=== PATIENT | female | born 1945 | race Caucasian/White ===

== ENCOUNTER 2022-09-29 08:36 | Outpatient (OUT) | payer MEDICARE, SELFPAY ==
[2022-09-29 09:20] LABS: Basophils Absolute Auto 0.1 10^3/uL (0.0-0.1); Basophils Percent Auto 1.3 % (0.2-2.0); Eosinophils Absolute Auto 0.1 10^3/uL (0.0-0.7); Eosinophils Percent Auto 1.9 % (0.9-7.0); Hematocrit 44.7 % (36.0-48.0); Hemoglobin 14.1 g/dL (12.0-16.0); Immature Granulocytes Abs Auto 0.02 10^3/uL (0.00-0.03); Immature Granulocytes Pct Auto 0.3 % (0.0-0.5); Lymphocytes Absolute Auto 1.4 10^3/uL (1.2-3.8); Lymphocytes Percent Auto 23.2 % (20.5-60.0); Mean Corpuscular HGB Conc 31.5 g/dL (29.9-35.2); Mean Corpuscular Hemoglobin 25.5 pg (26.7-34.0); Mean Corpuscular Volume 80.7 fL (81.0-99.0); Mean Platelet Volume 10.7 fL (9.5-13.5); Monocytes Absolute Auto 0.6 10^3/uL (0.3-0.8); Monocytes Percent Auto 9.1 % (1.7-12.0); Neutrophils Percent Auto 64.2 % (43.0-75.0); Nucleated Red Blood Cells 0; Platelet Count 507 10^3/uL (150-450); Red Blood Count 5.54 10^6/uL (4.20-5.40); Red Cell Distribution Width 14.6 % (11.0-15.0); White Blood Count 6.2 10^3/uL (4.0-11.0)
[2022-09-29 10:22] LABS: Alanine Aminotransferase 25 U/L (14-59); Albumin Globulin Ratio 1.3; Albumin Level 4.3 g/dL (3.4-5.0); Alkaline Phosphatase 85 U/L (46-116); Anion Gap 10.1; Aspartate Amino Transferase 22 U/L (15-37); BUN Creatinine Ratio 10.1; Bilirubin Total 0.8 mg/dL (0.2-1.0); Calcium 9.6 mg/dL (8.5-10.1); Carbon Dioxide 29.7 mmol/L (21.0-32.0); Chloride 97 mmol/L (98-107); Chol HDL Ratio 2.9; Cholesterol 171 mg/dL (<=200); Estimated GFR (African America >60 (>=60); Estimated GFR (Non-African Ame >60 (>=60); Globulin 3.4 g/dL; Glucose 96 mg/dL (74-106); HDL Cholesterol 58 mg/dL (40-60); Potassium 3.8 mmol/L (3.5-5.1); Sodium 133 mmol/L (136-145); Thyroid Stimulating Hormone 4.016 uIU/mL (0.358-3.740); Total Protein 7.7 g/dL (6.4-8.2); Triglycerides 170 mg/dL (<=150)
== END 2022-09-29 08:37 ==
PROVIDERS: PCP Internal Medicine; Visit Provider Internal Medicine
DX: E78.5 Hyperlipidemia, unspecified (principal); I10 Essential (primary) hypertension; E03.9 Hypothyroidism, unspecified
CPT/HCPCS: 36415; 80053; 80061; 84443; 85025

== ENCOUNTER 2023-01-19 09:02 | Outpatient (OUT) | payer MEDICARE, OTHER, SELFPAY ==
[2023-01-19 11:31] LABS: Free T3 6.25 pg/mL (2.18-3.98); Thyroid Stimulating Hormone 5.035 uIU/mL (0.358-3.740)
[2023-01-19 11:52] LABS: Free T4 0.83 ng/dL (0.76-1.46)
== END 2023-01-19 09:03 | disposition home or self-care (01) ==
LOC: LAB 09:05
PROVIDERS: PCP Internal Medicine; Visit Provider Internal Medicine
DX: E03.9 Hypothyroidism, unspecified (principal)
CPT/HCPCS: 36415; 84436; 84439; 84443; 84481

== ENCOUNTER 2023-02-22 08:09 | Outpatient (OUT) | payer MEDICARE, OTHER, SELFPAY ==
--- NOTE | 2023-02-22 | PCN_ITS ---
CARDIAC STRESS TEST Requesting Physician:? Procedure Date:? 02/22/2023 This was a treadmill exercise stress with myocardial perfusion imaging performed at the [facility] on 02/22/2023. Informed consent was obtained.? The patient was attached to electrocardiographic monitoring.? An intravenous line was secured.? The patient exercised on the Jasiel protocol for 4 minutes and 46 seconds and reached stage 2 of the protocol.? The patient achieved 7 METS. ? Resting heart rate was 59 BPM and maximal heart rate was 129 BPM, representing 89% of the maximal predicted heart rate.?? Resting blood pressure was 142/80.? Maximum blood pressure was 172/86.? Resting ECG showed sinus rhythm without acute changes.? ECG during exercise stress test showed sinus tachycardia with occasional PACs and PVCs, without ischemic ST changes.? ECG during recovery showed sinus rhythm without ischemic changes.? SUMMARY OF THE FINDINGS: 1.? No evidence of ischemic ECG changes following treadmill exercise stress test. 2.? Poole treadmill score of +5 is associated with low risk for future cardiac events. 3.? Resting hypertension and appropriate response to exercise. 4.? Myocardial perfusion images will be reported separately. MTDD
--- NOTE | 2023-02-22 08:15 | NM_ITS ---
Patient: TOÑITO PUTNAM Exam Date: 02/22/2023 : 1945 Gender:F Ordering : [facility] Admission #: [id number] Family : Shaikh Shahida Bassett . Order #: [id number] CLICK HERE TO VIEW EXAM RADIOLOGY REPORT PROCEDURE: NM MICHAEL PERF SPECT REST STR COMPARISON: None. INDICATIONS: CORONARY ARTERY DISEASE TECHNIQUE: Exam Description: Stress/Rest one day protocol gated SPECT Rest Imagin.9 mCi Tc-99m Cardiolite IV on 02/22/2023 Stress Imaging 30.9 mCi Tc-99m Cardiolite IV on 02/22/2023 Exercise Protocol: Jasiel Heart Rate (bpm): Rest: 59 Max: 129 PMHR: 89 Blood Pressure: Rest: 142/80 Max: 172/86 Exercise Time: Minutes: 4 Seconds: 46 Stage Reached: Stage: 2 Mets 7.0 Symptoms: SHORTNESS OF BREATH Rest and peak stress ECG findings were pending and the exercise portion of the study was pending per attending physician Dr. DYER . For more details please see separate cardiac stress test report. FINDINGS: QUALITY OF STUDY: Excellent. PERFUSION DEFECT: None. LOCATION: Mid-anterior. Apical anterior. SIZE: Small (1-2 segments). SEVERITY: Mild. TYPE: Persistent. WALL MOTION: Normal. LV SIZE: Normal. 63 mL. TID / TCD: None; 0.7 LVEF: Normal. Calculated EF 76%. SUMMARY: Myocardial perfusion imaging study has ABNORMAL findings. CONCLUSION: 1. No acute or reversible ischemia. 2. Attenuation artifact versus small area of fixed ischemia involving the mid and apical anterior wall. 3. Normal wall motion and ejection fraction. Dictated by: Humberto Hein M.D. on 02/22/2023 at 13:30 Approved by: Humberto Hein M.D. on 02/22/2023 at 13:32
== END 2023-02-22 08:10 | disposition home or self-care (01) ==
PROVIDERS: PCP Internal Medicine; Visit Provider Nurse Practitioner Family
DX: I25.10 Atherosclerotic heart disease of native coronary artery without angina pectoris (principal); Z82.49 Family history of ischemic heart disease and other diseases of the circulatory system; R06.02 Shortness of breath
CPT/HCPCS: 78452; 93017; A9500

== ENCOUNTER 2023-04-12 09:40 | Outpatient (OUT) | payer MEDICARE, OTHER, SELFPAY ==
[2023-04-12 10:42] LABS: Alanine Aminotransferase 29 U/L (14-59); Albumin Globulin Ratio 1.2; Alkaline Phosphatase 81 U/L (46-116); Anion Gap 13.2; Aspartate Amino Transferase 22 U/L (15-37); BUN Creatinine Ratio 11.8; Bilirubin Total 0.8 mg/dL (0.2-1.0); Calcium 8.9 mg/dL (8.5-10.1); Carbon Dioxide 31.5 mmol/L (21.0-32.0); Chloride 105 mmol/L (98-107); Chol HDL Ratio 2.9; Cholesterol 167 mg/dL (<=200); Estimated GFR (African America >60 (>=60); Estimated GFR (Non-African Ame >60 (>=60); Globulin 3.4 g/dL; Glucose 89 mg/dL (74-106); HDL Cholesterol 57 mg/dL (40-60); LDL Cholesterol Calculated 92.2 mg/dL; Potassium 3.7 mmol/L (3.5-5.1); Sodium 146 mmol/L (136-145); TSH W/ REFLEX FT4 3.813 (0.358-3.740); Total Protein 7.4 g/dL (6.4-8.2); Triglycerides 89 mg/dL (<=150); VLDL CHOLESTEROL 17.8 mg/dL
[2023-04-17 11:17] LABS: Free T4 0.77 ng/dL (0.76-1.46)
== END 2023-04-12 09:41 | disposition home or self-care (01) ==
LOC: LAB 09:42
PROVIDERS: PCP Internal Medicine; Visit Provider Internal Medicine
DX: E03.9 Hypothyroidism, unspecified (principal); I10 Essential (primary) hypertension; E78.5 Hyperlipidemia, unspecified
CPT/HCPCS: 36415; 80053; 80061; 84439; 84443

== ENCOUNTER 2023-06-26 09:54 | Outpatient (OUT) | payer MEDICARE, OTHER, SELFPAY ==
--- NOTE | 2023-06-26 09:58 | MM_ITS ---
Patient Name: TOÑITO PUTNAM MR#: [id number] : 1945 Exam Date: 06/26/2023 Ordering Doctor: Shaikh Shahida Bassett . RADIOLOGY REPORT PROCEDURE: MM TOMOSYNTHESIS SCREENING BI COMPARISON: MG MAMM SCREEN 3D NIKKI CAD, 06/21/2021. MG MAMM SCREEN 3D NIKKI CAD, 06/23/2022. INDICATIONS: screening Calculator Name NCI Breast Cancer Risk Assessment Tool 5 Year Breast Cancer Risk 1.50% Lifetime Breast Cancer Risk 3.10% Personal Breast Cancer No Personal Ovarian Cancer No Treatments None Family Cancers Mother with colon cancer at age ~70; Father with colon cancer at age ~60; Brother with lung cancer at age ~60. LOCATION: [facility] BREAST COMPOSITION: Scattered areas fibroglandular density. FINDINGS: DIAGNOSTIC CATEGORY 2--BENIGN FINDING. NO CHANGE FROM COMPARISON. Scattered benign-appearing calcifications are present. Scattered benign-appearing lymph nodes are present. RIGHT BREAST: No significant suspicious finding. LEFT BREAST: No significant suspicious finding. RECOMMENDATIONS: ROUTINE MAMMOGRAM AND CLINICAL EVALUATION IN 12 MONTHS. PLEASE NOTE: A NORMAL MAMMOGRAM DOES NOT EXCLUDE THE POSSIBILITY OF BREAST CANCER. A CLINICALLY SUSPICIOUS PALPABLE LUMP SHOULD BE BIOPSIED. Dictated by: Catracho Jackson MD on 06/26/2023 at 14:15 Approved by: Catracho Jackson MD on 06/26/2023 at 14:17
--- OUTSIDE RECORDS SUMMARY | 2023-06-26 10:12 | XMS_ITS | CCD ---
Author Name Unknown Address [address] [place] [address] [address] [place] [id number] Organization [facility] Care Team Providers Care Automation Developer Name Role Phone SHAIKH ACEVEDO Primary Care Physician FAWWAD, SIMEON H Primary Care Unavailable MISC, DR PERAZA Consulting Unavailable MISC, DR PERAZA Admitting Unavailable MISC, DR PERAZA Attending Unavailable FAWWAD, SIMEON H Consulting Unavailable FAWWAD, SIMEON H Primary Care Unavailable FAWWAD, SIMEON H Admitting Unavailable FAWWAD, SIMEON H Attending Unavailable FAWWAD, SIMEON H Primary Care Unavailable MISC, DR PERAZA Consulting Unavailable MISC, DR PERAZA Admitting Unavailable MISC, DR PERAZA Attending Unavailable FAWWAD, SIMEON H Consulting Unavailable FAWWAD, SIMEON H Primary Care Unavailable FAWWAD, SIMEON H Admitting Unavailable FAWWAD, SIMEON H Attending Unavailable MISC, DR PERAZA Attending Unavailable HAZELWOOD, DR SULAIMAN Walker Consulting Unavailable MISC, DR PERAZA Admitting Unavailable FAWWAD, SIMEON H Primary Care Unavailable MISC, DR PERAZA Consulting Unavailable FAWWAD, SIMEON H Consulting Unavailable FAWWAD, SIMEON H Primary Care Unavailable FAWWAD, SIMEON H Admitting Unavailable FAWWAD, SIMEON H Attending Unavailable ZIEBLIZZIE, DR HUMBERTO Malin Consulting Unavailable FAWWAD, SIMEON H Primary Care Unavailable FAWWAD, SIMEON H Admitting Unavailable FAWWAD, SIMEON H Attending Unavailable FAWWAD, SIMEON H Consulting Unavailable SALAM, GELLER Admitting Unavailable FAWWAD, SIMEON H Primary Care Unavailable FANG MARKSER Attending Unavailable DALLAS, DR HUMBERTO Malin Consulting Unavailable SELINA, DUYEN Consulting Unavailable Brianna Pastor Attending Unavailable Brianna Pastor Attending Unavailable Brianna Pastor Attending Unavailable SHAIKH ACEVEDO Primary Care Unavailable Brianna Pastor Attending Unavailable SHAIKH ACEVEDO Primary Care Unavailable Brianna Pastor Attending Unavailable SHAIKH ACEVEDO Primary Care Unavailable Brianna Pastor Admitting Unavailable BRUNO TEJADA Attending Unavailable CARLOZ HAWK Attending Unavailable SHAIKH ACEVEDO Attending Unavailable Allergies Allergy Classification Reported Allergen(s) Allergy Type Date of Onset Reaction(s) Facility (6 sources) Meperidine; Translations: [meperidine] Drug Allergy 04-17-2014 Other (qualifier value) [facility] Medications Current Medications Medication Drug Class(es) Dates Sig (Normalized) Sig (Original) aspirin 81 mg delayed release oral tablet (2 sources) Platelet Aggregation Inhibitor, Nonsteroidal Anti-inflammator y Drug Start: 2 Aspirin 81 mg Tab-EC Refills(s) 0 Start Date: 03/02/22 Status: Ordered Aspirin 81 mg Tab-EC (4 sources) Start: 2 Aspirin 81 mg Tab-EC Refills(s) 0 Start Date: 03/02/22 Status: Ordered atenolol 25 mg oral tablet (8 sources) beta-Adrenergic John Start: 7 take 25 mg by mouth once daily Tenormin 25 mg, Oral, Daily, Refills(s) 0, High blood pressure Start Date: 01/04/17 Status: Ordered atorvastatin 40 mg oral tablet (8 sources) HMG-CoA Reductase Inhibitor Start: 7 take 40 mg by mouth once daily Lipitor 40 mg, Oral, Daily, Refills(s) 0, High cholesterol Start Date: 01/04/17 Status: Ordered cetirizine hydrochloride 10 mg oral tablet (8 sources) Histamine-1 Receptor Antagonist Start: 7 take 10 mg by mouth once daily as needed Zyrtec 10 mg, Oral, Daily, PRN Allergy symptoms, Refills(s) 0 Start Date: 01/04/17 Status: Ordered hydroCHLOROthiazide 25 mg oral tablet (8 sources) Thiazide Diuretic Start: 7 take 25 mg by mouth once daily hydrochlorothiazide 25 mg, Oral, Daily, Refills(s) 0, High blood pressure Start Date: 01/04/17 Status: Ordered 24 hr isosorbide mononitrate 30 mg extended release oral tablet (8 sources) Nitrate Vasodilator Start: 7 take 30 mg by mouth once daily in the morning Imdur 30 mg, Oral, qAM, Refills(s) 0, High blood pressure Start Date: 01/04/17 Status: Ordered Thyroxine (8 sources) l-Thyroxine Start: 7 levothyroxine 25 microgram, Oral, Daily, Refills(s) 0, Thyroid Start Date: 01/04/17 Status: Ordered Triiodothyronine (8 sources) l-Triiodothyroni ne Start: 9 liothyronine 25 microgram, Oral, Daily, Refills(s) 0, Thyroid Start Date: 04/03/19 Status: Ordered Lisinopril (8 sources) Angiotensin Converting Enzyme Inhibitor Start: 1 lisinopril Oral, Daily, Refills(s) 0, High blood pressure Start Date: 03/30/21 Status: Ordered meloxicam 7.5 mg oral tablet (8 sources) Nonsteroidal Anti-inflammator y Drug Start: 1 take 7.5 mg by mouth once daily meloxicam 7.5 mg, Oral, Daily, Refills(s) 0, Pain Start Date: 03/30/21 Status: Ordered pantoprazole 40 mg extended release oral tablet (8 sources) Proton Pump Inhibitor Start: 0 take 1 tablet by mouth once daily pantoprazole 40 mg Oral EC Tab 40 mg = 1 tab(s), Oral, Daily, # 90 tab(s), Refills(s) 1, Pharmacy: [facility], 162, cm, 04/22/19 13:39:00 EST, Height/Length Measured, 72, kg, 04/22/19 13:39:00 EST, Weight Measured Start Date: 12/02/19 Status: Ordered Start: 12-02-2019 take 1 tablet by michele th once daily pantoprazole 40 mg Oral EC Tab 40 mg = 1 tab(s), Oral, Daily, # 90 tab(s), Refills(s) 1, Pharmacy: [facility], 162, cm, 04/22/19 13:39:00 EST, Height/Length Measured, 72, kg, 04/22/19 13:39:00 EST, Weight Measured Start Date: 12/02/19 Status: Ordered Miralax (8 sources) Osmotic Laxative Start: 01-04-2017 MiraLax 17 gram, Oral, BID, Refill(s) 0, Constipation Start Date: 01/04/17 Status: Ordered Klor-Con (8 sources) Start: 01-04-2017 Klor-Con 20 mEq, Oral, Daily, Refills(s) 0, Other (see comment) Start Date: 01/04/17 Status: Ordered spironolactone 25 mg oral tablet (8 sources) Aldosterone Antagonist Start: 01-04-2017 take 25 mg by mouth once daily spironolactone 25 mg, Oral, Daily, Refills(s) 0, High blood pressure Start Date: 01/04/17 Status: Ordered sucralfate 1000 mg oral tablet (6 sources) Aluminum Complex Start: 03-01-2023 sucralfate 1 g Tab Refills(s) 0 Start Date: 03/01/23 Status: Ordered Start: 03-30-2021 take 1 g by mouth th ree times daily sucralfate 1 gm, Oral, TID, Refills(s) 0, Other (see comment) Start Date: 03/30/21 Status: Ordered Problems Active Problems Problem Classification Problem Date Documented Date Episodic/Chronic Abdominal pain (19 sources) Upper abdominal pain; Translations: [Upper abdominal pain, unspecified] Onset: 08-12-2021 Episodic Coronary atherosclerosis and other heart disease (4 sources) Atherosclerotic heart disease of [place] coronary artery without angina pectoris; Translations: [Coronary arteriosclerosis] Onset: 07-06-2022 Chronic Disorders of lipid metabolism (5 sources) Hyperlipidemia, unspecified; Translations: [Mixed hyperlipidemia] Onset: 03-28-2022 Chronic Esophageal disorders (7 sources) Gastroesophageal reflux disease without esophagitis; Translations: [Gastro-esophageal reflux disease without esophagitis] Onset: 06-02-2022 Chronic Essential hypertension (5 sources) Essential (primary) hypertension; Translations: [Hypertensive disorder] Onset: 03-28-2022 Chronic Gastroduodenal ulcer (except hemorrhage) (11 sources) Gastric erosion; Translations: [Gastric ulcer] Onset: 08-27-2021 2 Chronic Other and unspecified benign neoplasm (12 sources) History of polyp of colon; Translations: [Personal history of colonic polyps] Onset: 12-01-2021 Episodic Other screening for suspected conditions (not mental disorders or infectious disease) (4 sources) Encounter for screening mammogram for malignant neoplasm of breast; Translations: [ENC SCR MAMMO MALIG NEOPLASM BREAST] Onset: 06-23-2022 Episodic Residual codes; unclassified (1 source) Family history of malignant neoplasm of digestive organs; Translations: [FAM HX MALIG NEOPLASM DIGESTIV ORGN] Onset: 06-27-2022 Episodic Residual codes; unclassified (1 source) Family history of malignant neoplasm of trachea, bronchus and lung; Translations: [FAM HX MALIG NEOPLSM TRACH BRON LNG] Onset: 06-27-2022 Episodic Thyroid disorders (12 sources) Hypothyroidism; Translations: [Hypothyroidism, unspecified] Onset: 03-23-2022 03-20-2019 Chronic Unclassified (3 sources) Finding of sensation of abdomen 08-31-2022 Past or Other Problems Problem Classification Problem Date Documented Da te Episodic/Chronic Fluid and electrolyte disorders (4 sources) Hypo-osmolality and hyponatremia; Translations: [HYPO-OSMOLALITY AND HYPONATREMIA] Onset: 08-24-2021 Episodic Results Test Name Value Interpretation Reference Range Facility Office Visiton 04-07-2023 Follow-up visit [id number] Toñito Putnam 1945 F Date Provider Department Center 04/07/2023 CARLOZ NICK C[facility] Family History Problem Relation Age of Onset Coronary artery disease Sister 62 Comments: Passed age 62 Coronary artery disease Brother 58 Cancer Other Coronary artery disease Other Family Status - Relation Status Age at Sister Brother Other Level of Service:14572 IN OFFICE/OUTPATIENT ESTABLISHED LOW MDM 20-29 MIN Normal [facility] Gastroenterology Office/Clin ic Noteon 03-01-2023 Gastroenterology Office/Clinic Note Chief Complaint Checkup HPI Staff This is a 77 year old female who presents today for a follow-up from 08/31/22 office visit for cramping and reflux. History of Present Illness Patient is a 77-year-old female who presents for follow-up. Patient was previously evaluated 08/2022 and has history of abdominal cramping and colon polyps. Patient also with history of acid reflux. Patient with family history of celiac disease?patient's granddaughter and daughter. Patient had previous celiac serology that was normal 03/2022. Patient with history of cholecystectomy 5 years ago. Previous ultrasound of abdomen at outside facility 03/2022 showed no acute process. Patient reported during most recent visit with me that generalized abdominal cramping and diarrhea were occurring rarely depending on what she ate such as fruit. Patient was educated regarding probiotics daily and regarding Metamucil 1 capsule daily. Patient was advised to continue pantoprazole 40 mg daily for acid reflux and was ordered labs to evaluate for vitamin deficiencies. Labs completed 08/2022 revealed normal BMP, normal magnesium and B12 levels. Patient with PMH of HTN, HLD, hypothyroidism?managed by patient's PCP. Patient had previously reported upper abdominal burning that had improved with pantoprazole and Carafate. Previous EGD 03/2021 revealed gastric erosions and small hiatal hernia, normal duodenum. Patient was previously advised to avoid NSAIDs. Patient had previous CT abdomen/pelvis at outside facility 07/2021 that revealed no abnormal findings. Previous labs 11/2021 revealed normal H&H, normal BUN, normal creatinine, normal liver enzymes. Labs 08/2022 revealed normal BMP, magnesium, and B12 levels. Previous colonoscopy 03/2019 revealed tubular adenoma removed from ascending colon, hemorrhoids and is due for repeat colonoscopy in 2023. During today's visit, patient reports generalized abdominal cramping has improved and occurs rarely. Patient explains her PCP is prescribing Carafate and she takes daily. She reports acid reflux is well-controlled with pantoprazole 40mg daily. Explains triggers of acid reflux are spicy foods. Is having 2-3 formed BMs daily, semi-formed. Denies use of fiber supplementation daily. Denies black/bloody stools, nausea/vomiting, fevers/chills, and denies having any other GI complaints. Review of Systems ROS - Provider Constitutional: no fever, no chills. Skin: no Jaundice. ENMT: Denies dysphagia and heartburn. Respiratory: no shortness of breath. Cardiovascular: no chest pain. Gastrointestinal: no nausea, no vomiting, no diarrhea, no GI bleeding. Physical Exam Vitals & Measurements T: 36.4 ?C(Temporal Artery) HR: 55(Peripheral) BP: 133/89 HT: 64 in HT: 162 cm WT: 75.1 kg WT: 165.22 lb BMI: 28.62 General: Well developed, well nourished, in no acute distress Head: Normocephalic/atraumatic Lungs: Normal respiratory effort and clear to auscultation Cardio: Regular rate and rhythm, normal S1 and S2, no murmur, no rub Abdomen: Soft, non-distended, non-tender. Normoactive bowel sounds present in all 4 abdominal quadrants, bilaterally. Mental Status: Alert and oriented x3. Normal mood and affect Assessment/Plan 1. Acid reflux (K21.9: Gastro-esophageal reflux disease without esophagitis) Controlled. Previous EGD 03/2021 revealed gastric erosions and small hiatal hernia, normal duodenum. Avoid NSAIDs and triggering foods. Labs 08/2022 revealed normal BMP, magnesium, and B12 levels. Ordered vitamin B12 level and magnesium level to evaluate for deficiencies and BMP to evaluate renal function while on pantoprazole long-term. Is taking Carafate daily- is prescribed by her PCP. Continue pantoprazole 40mg daily. 2. Abdominal cramping (R10.9: Unspecified abdominal pain) Improved. Previous EGD 03/2021 revealed gastric erosions and small hiatal hernia, normal duodenum. Previous colonoscopy 03/2019 revealed tubular adenoma removed from ascending colon, hemorrhoids and is due for repeat colonoscopy in 03/2024. Educated regarding use of fiber supplementation daily. 3. History of colon polyps (Z86.010: Personal history of colonic polyps) Previous colonoscopy 03/2019 revealed tubular adenoma removed from ascending colon, hemorrhoids and is due for repeat colonoscopy in 03/2024. Educated regarding use of fiber supplementation daily. Follow-up With When Contact Information Brianna Pastor CNP Within 6 months Additional Instructions: Patient Education High-Fiber Eating Plan Problem List/Past Medical History Ongoing Abdominal cramping Acid reflux Gastric erosions History of colon polyps Hypothyroidism Historical Upper abdominal pain Procedure/Surgical History Esophagogastroduodenoscopy (04/12/2021), Colonoscopy (04/03/2019), Esophagogastroduodenoscopy (04/03/2019). Medications Aspirin 81 mg Tab-EC hydrochlorothiazide, 25 mg, Oral, Daily, Not taking Imdur, 30 mg, Oral, qAM, Not taking Klor-Con, 20 mEq, Ora (more content not included)... Normal [facility] Comment on above: Result Comment: Amber maldonado Signed By: Brinana Pastor CNP\.jennifer\Date and Time Signed: 03/01/23 09:44 EDT Patient Educationon 03-01-20 Patient Education Gastroenterology High-Fiber Eating Plan Fiber, also called dietary fiber, is a type of carbohydrate. It is found foods such as fruits, vegetables, whole grains, and beans. A high-fiber diet can have many health benefits. Your health care provider may recommend a high-fiber diet to help: ? Prevent constipation. Fiber can make your bowel movements more regular. ? Lower your cholesterol. ? Relieve the following conditions: ? Inflammation of veins in the anus (hemorrhoids). ? Inflammation of specific areas of the digestive tract (uncomplicated diverticulosis). ? A problem of the large intestine, also called the colon, that sometimes causes pain and diarrhea (irritable bowel syndrome, or IBS). ? Prevent overeating as part of a weight-loss plan. ? Prevent heart disease, type 2 diabetes, and certain cancers. What are tips for following this plan? Reading food labels ? Check the nutrition facts label on food products for the amount of dietary fiber. Choose foods that have 5 grams of fiber or more per serving. ? The goals for recommended daily fiber intake include: ? Men (age 50 or younger): 34?38 g. ? Men (over age 50): 28?34 g. ? Women (age 50 or younger): 25?28 g. ? Women (over age 50): 22?25 g. Your daily fiber goal is g. Shopping ? Choose whole fruits and vegetables instead of processed forms, such as apple juice or applesauce. ? Choose a wide variety of high-fiber foods such as avocados, lentils, oats, and kidney beans. ? Read the nutrition facts label of the foods you choose. Be aware of foods with added fiber. These foods often have high sugar and sodium amounts per serving. Cooking ? Use whole-grain flour for baking and cooking. ? Cook with brown rice instead of white rice. Meal planning ? Start the day with a breakfast that is high in fiber, such as a cereal that contains 5 g of fiber or more per serving. ? Eat breads and cereals that are made with whole-grain flour instead of refined flour or white flour. ? Eat brown rice, bulgur wheat, or millet instead of white rice. ? Use beans in place of meat in soups, salads, and pasta dishes. ? Be sure that half of the grains you eat each day are whole grains. General information ? You can get the recommended daily intake of dietary fiber by: ? Eating a variety of fruits, vegetables, grains, nuts, and beans. ? Taking a fiber supplement if you are not able to take in enough fiber in your diet. It is better to get fiber through food than from a supplement. ? Gradually increase how much fiber you consume. If you increase your intake of dietary fiber too quickly, you may have bloating, cramping, or gas. ? Drink plenty of water to help you digest fiber. ? Choose high-fiber snacks, such as berries, raw vegetables, nuts, and popcorn. What foods should I eat? Fruits Berries. Pears. Apples. Oranges. Avocado. Prunes and raisins. Dried figs. Vegetables Sweet potatoes. Spinach. Kale. Artichokes. Cabbage. Broccoli. Cauliflower. Green peas. Carrots. Squash. Grains Whole-grain breads. Multigrain cereal. Oats and oatmeal. Brown rice. Barley. Bulgur wheat. Millet. Quinoa. Bran muffins. Popcorn. [place] wafer crackers. Meats and other proteins [place] beans, kidney beans, and gee beans. Soybeans. Split peas. Lentils. Nuts and seeds. Dairy Fiber-fortified yogurt. Beverages Fiber-fortified soy milk. Fiber-fortified orange juice. Other foods Fiber bars. The items listed above may not be a complete list of recommended foods and beverages. Contact a dietitian for more information. What foods should I avoid? Fruits Fruit juice. Cooked, strained fruit. Vegetables Fried potatoes. Canned vegetables. Well-cooked vegetables. Grains White bread. Pasta made with refined flour. White rice. Meats and other proteins Fatty cuts of meat. Fried chicken or fried fish. Dairy Milk. Yogurt. Cream cheese. Sour cream. Fats and oils [place]. Beverages Soft drinks. Other foods Cakes and pastries. The items listed above may not be a complete list of foods and beverages to avoid. Talk with your dietitian about what choices are best for you. Summary ? Fiber is a type of carbohydrate. It is found in foods such as fruits, vegetables, whole grains, and beans. ? A high-fiber diet has many benefits. It can help to prevent constipation, lower blood cholesterol, aid weight loss, and reduce your risk of heart disease, diabetes, and certain cancers. ? Increase your intake of fiber gradually. Increasing fiber too quickly may cause cramping, bloating, and gas. Drink plenty of water while you increase the amount of fiber you consume. ? The best sources of fiber include whole fruits and vegetables, whole grains, nuts, seeds, and beans. This information is not intended to replace advice given to you by your health care provider. Make sure you discuss any questions you have with your health care provider. Document Revised: (more content not included)... Normal [facility] Coding Summary.on 09-05-2022 Coding Summary. [id number] Ww+PGhlY WQ+QY9WZYItN10jrESwtM2uM4GJO TyDNmwjTFLQSDfHIjLpguAfCV7tu XNjZXJu IC8+BS6tIONmAesrhJTrg1B8fEQ5 P27kmj8aBYqfsMF0CKLnPsZyleme d5pzwCr4YIeyPopdUqRe WCLrxK26QLN6rD03Mp31eFAayETj b4faxNh6JoSeZZAxNFT0pWurMFnj o3IuJZRqL41dsSLpq6I9 AKOcgDzecYIyQrUknMV3xS5rCNjm xxixe0rcnhifCfu7kx03cLQdy2P8 sOT5Q7LxoaR0TLQmuUEz YukonQJIpW4ikgeaw6tkrxhxZpNi WJMnDTu0OVi4FEMvfPwcAqEcWB92 QVI3DDSzrqCyF0RiMFSw qQpmAtO9b4X6Mv4CT6SXJwgbM9BX TUFSWTwvdGQ+DW89ni45B0EmLzjg Ual9PGQfUGG8aFV8kV9r DQWqBAvhq1K3bWF2P7XupgYzjp6p m8jmVURrNQedJ46noZNyp0L7WTQe zCR9JNZweIimGmPkzJ74 Oyc+NKCwtUnpz7BiOxnwg4zjm2dg fLr9YwqfIWGtfbSumIbrZAB5k4Ye Lg2bMBHpiGT8hND5eC6n LtPxMgW9IJvvJ277FsQyhBCcMsyx V98uQ6BjuHY+GQIdIld7UPXcgFuq FQ3yS3CjLLIetcnheRWh vAloBS1mOHUnqstmSNOjzF3xJGVr V0c0JcIrIoL2ODfdP3DzVAFjovzz Tm97jL5pTjYlFkF2BCsa W7GhrfI6LXYkbEQnKFcoOSY7Q57d b7W5GLSbUIKoRUR8kKZ9rF3txSbu bjogbGVmdDsgdmVydGlj CFowSBrrX150AGQluFkdNkVoAWvp ZyBEYXRlOiAgMDUvMDgvMjAyMzwv dGQ+NAOzYIU0zWrpXCUg lRApHHciQb9rzThwnAxaUY0gIOPf kbxzEWPmmA1wKOQtoFOyyRdiFD6u GSNviinbb280FhNqSBR1 VFVouNBaE4RmuU4dOqRtHGTtDTEe P1OxuLUfIMcxT120PSjhJgZ2SMBe jsRnX0PhMOHsiGjyPaD8 c5D0Hr5Hk8ZnmipbK8ImgANkLmGm WbcyUUc7K1LqErwoyDB+LF69SFHd XN56QZp8DDZ3jLuuDPng ZDCgH0VizZ5hNaAaWJHnIGKxQbj+ PHRhYmxlIHdpZHRoPScxMDAlJyBz iZysHX6vRb5xXPIsOCEw sJvhiCBeCdDvm7wqDYJkSZhrSL5q tDljD1EqiCT5CBZje7e6If16O64a B4TgaUT+XQTxfPH0eNR9 eL6xIrRqQtS0NTbxP318KkVrxGPh Lmyhn4yju5ukzLv3VoE0GYYgoeBo gTqiBJL7j5GeQe48B64d WOfcPRXoJMYaHOMoXFPmiJwahd6s eR5aCr3+GDGbaXQ5fHU5lJ9pAxWp IiH6PAtuF510YnGipODp Egrhc0qvr5kpzLb5EhCkWRSxbeFk kZihYET9l4XvBu95T3LdaFkun8Fq Hwp2zx05wRCvy7H1tWV8 D9YaXOFbbmzvqKTzaUqgLS5eWFKw ciuhLSRzpD1tSSEsN4f0WaKwFpM6 NBijG3UofvK2QIJroMLs VIQbnLGCqP5xtfcng3kshxldIsVr ABGvIAg4KNz4UXHgjDioNtJhDWB3 ByH2MCE3yTVdgF6meAsm xfxlkO8lKzw+GAI3uFFxyCMNQJ4s OjwvdGQ+GFTuNZL9qFoaKEqqZCRh zL3rQIGmG6p7DyKbReX8 SDloY7YrmwG8IZEtvMMgHRDfgDQI rE7ehmyrw8wtlmyoSnMeRHIbTDe9 TKx2HCHnlZutZxQbATI8 HpT1ZWS1yNYfvD3ghCopfbyatI3p Oyc+XhrdvQxsYFS5DMx3X4HqCrx0 PCUurXczNH6ltFZfDMdo Du5pmZvqzKukIE9zQJRkekfen816 HxUwv6znGAUbgQHeOZfbEKC0E12r m6D7TRQxJUQnRXC3cDP6 dK1haLjbxxddqHGmhTgfqqPffQuk NGxlNFatI928CQPljSdkJrBkBRy8 M4TxXbx1NYDowCcpXA8e qUJoYJrqUl1xuAzmvZuxAC3rAFDn pkoft151WxIrk9riRXRdeBMvVFhi HDQ2P45kj4P7YOJwJOSn KNI4qRN5eY5ztMrvcugcjDPdpZuq dsZjzMhlGChgSBflJ961KLKdhVci XeHylZr7Y7IyJan8HYVj lXejDY5vgNUxXAeuMw9gpZfplTqk NN7oZXBqqexam952LwQqi1zvJRFi zFRuKMhiYOJ9D63av1K1 YZVjDGZcNUB3hJH5yR3kkRoyregj bYOplTjjotRliIyhFXljWFgfG776 IHRvcDsnPlBhdGllbnQg UWawIFa9R7YeSbrivRO+YM44RVVp HF56kFFcaTNpq4ifhEr3AqXgEYSw HRZ3xSfzDSdrk4GxMVTh X91wpHXyt7B7ZEPjmQkhnZLxUfAk vBD1lT6bYYmasnhhb9rrwgjmCaue w7kxpe01aY70N58yZHio CUYbCSDgZDRmGNKufSlmsg8mdZ9t Ii8+ZSGxrMT1cWI8eD5dPHGgXvC2 LJcdG211BwAwpMAyPjfl g2sem1jnnKq7DjN6DPUrmbVztWjs IGH1u0ZxPw39B07kOCzgSWSwMNGq YDRyZVWbrIlgvq1laO0n Ii8+UMHsvBT4mGJ3kC6pSiUwSjB8 BUldE665UhYhpRHxFkmpC92rQ4Ms dXA+FKUsPsa3LDBwqGfq ZQ7woFDjODnhYw1rQQX9JhFkNeBn LByfV7ToMWYbinyfhtrgdUG3BZRa TLLbxW71Tc1xhZwxIEIt bCKSfP3akrkls3vyaearZiVbENBf AWl0QPt1YMTqcTmfYlUgLNB2GoG0 YVN1uSCdeW6jaInmcexb iY8eH4DmWOWkxecjCp89aL7nOoRl NqQ8QRxkYww+SFVSTEVZLCBSVVRI FH39S1SjOix0UCCulCbn ZW9zhHSuYNdnSs3lsVkrkJxmCR0f ARPfayzhKSOxqK8vHZVxqZLeyLxh LO0mMDJgfnvqv387NfQs JZA2TFKmtLFoV5YtwY3dLdDfFXMe YAAwV2IirHRvIThdM216UWdvYtI5 TSNzssOsK7NoVTUwdKmr WhR3p6T9Hk1lDj2aES3lENY3JX89 HG95nBTpe6J5aDZ7E3MtWCIkgiod klmzfMV0EBDmFIJmoO96 mAAbNPsdRc0nb8K9q941EEJqSATx mA45Zp7dhKghTVRefCWBnH9jlevq b4ovbyofZmRiNMFzMRg8 SXh7NRPitJqlWwXbIZJ3MjU4BVR4 eSBeoW6xmVomgblieD2vJjh+NzYg OBKbzrP5G0ZcJxp9LESb hHieYJ1fxBYbAYfmRo6grLjfwWho UX1bYIJcxgloPIZvuI5lELJxmKBy uKzgFJ2gBVBiqutnf872 AjNfQNF5LDTvdBDgW2ZpqH6wViKl HKUhFTZbU9WprYXhVJflK284PJqe JiC0HIJawyXiE1TkUPTi jGrjHxH2n4U1Gk0FZK2wsUN0D0Jo Ezc9ILErmZszHE7qaVJmQLliHl8g iIbyyFsmJK2qNCOtykpq TAUhxK7ySPAdpQHeiVxlPL2bDNFo ekqko960SeYyOGE8UNAmoOUpT5Qb wC8nQgJvNDYuIGWwX2Qg lQBfJLayO088DVjnCwK5CDBgvbRx P8RfNYOijWhdRsG7x6Y9Df6EqWJb LLMnNY88XQ54GR79Z0Nj PjwvdGFibGU+PHRhYmxlIHdpZHRo TWtiHRKgUuAvdYncWQ6iDr5lNAPs JTWbjCwthJRyXfLmv1uz MPErXTzlJL6znYaoG3JeeLY8NDRf b9u8Ka31Q76fJ1DleNQ+PGNvbCB3 kOM4pE0iCrBdXfR3FNck G887AvGfmANaHskfe0fqr4nobQd7 MqBvRLJlwvYlcVidEER6r8LuYf19 L27xZGhvRLVlEKFxEXXh TPVcvKekyv4haT8oYj9+PGNvbCB3 pUD0kR8fLvJhDgK5GEccD045MqEj wQUwCrhhS97qG8EgsEH+ VSAtEue4REUzfLzhLR9srCGqFRnk Gi1qZGZ2EoCyAdNhIQpaO9UaFPBk mpjixwhrgIP3ZQPtOGIf pK46Md4chIbdHx1oWLNwVSH5ZNWt tPDkJ6WyzS1kHrOzEOOeYUNfI5Lz yJDfEEzhO142FQlyJoA2 ICXuilGsF5TqZPHsbTbaBjP3o3M1 Ch7YnPwoeGMkHK9pSiTfZFh0O8Uh Tsj7XNRdwRtrAY2rhAVk GWqyYf0gyFkdwEiaBC7iLSDnkecc z862SfMur2vwNPXrkBMhVKcaDUE7 E86nz5J4DQBwQHZaNFV8 jNF8rZ2cwRsfppbfvCKpnHyxeyQs sXouJHhqWQbgS865JJTmkCfkObNK Orf9F3UkWic0OHPzmXyy NP2jlXLnKAmbVq0muOqqzJapVX7y YOWtudvjs943IoWsm1bpKVLfeEFj HSpjYQB6T47ps1U3GCFr WPTyRRK6kTY5iQ2woDdmhlnbzNFo rYxllmPheAvnPQyfZSwvF901YBFx xFegHo5CIbh1D8KqUkd6 RLFtdIfdXM3ugLVnSUmdMu9luXxj sYioGB5qJOKjibvvu703AgDwx9bo IFTygFUeXZizJUI9O83a o0H3PHHbICLpLQF7lPQ0qM3qlRje bjogbGVmdDsgdmVydGljYWwtYWxp F509YGWoyDicLiVrkKJf OjwvdGQ+LN02ps33N8QiJqecJnx4 VTHyPUH6iIY5gB7vGOYjZXtsz0L9 tSL1K8ZmjiWhjp4ly6hm [id number] (more content not included)... Normal [facility] Ambulatory Visit Summaryon 0 08-31-2022 Ambulatory Visit Summary TOÑITO PUTNAM Ana :1945 Visit Date:08/31/2022 Ambulatory Visit Instructions Your Diagnosis Abdominal cramping Acid reflux History of colon polyps Your Care Team Attending Physician - Brianna Pastor CNP Primary Care Physician - SHAIKH ACEVEDO This Is Your Medications List Contact prescribing physician if questions or concerns aspirin (Aspirin 81 mg Tab-EC) atenolol (Tenormin) atorvastatin (Lipitor) cetirizine (Zyrtec) hydrochlorothiazide isosorbide mononitrate (Imdur) levothyroxine liothyronine lisinopril meloxicam pantoprazole (pantoprazole 40 mg Oral EC Tab) polyethylene glycol 3350 (MiraLax) potassium chloride (Klor-Con) spironolactone [Image Removed: STOP]Stop taking these medications sucralfate Procedures Performed Esophagogastroduodenoscopy (04/12/2021), Colonoscopy (04/03/2019), Esophagogastroduodenoscopy (04/03/2019). Discharge Vitals Temperature (Temporal Artery) 36.5 ?C Heart Rate (Peripheral) 56 Blood Pressure 138/80 Height 64 in Height 162 cm Weight 163.02 lb Weight 74.1 kg BMI 28.24 What to do next Scheduled Follow-Up Appointments Monday 9:20 AM EDT With: Brianna Pastor CNP Where: [facility] Normal [facility] Ambulatory Visit Summary TOÑITO PUTNAM :1945 Visit Date:08/31/2022 Ambulatory Visit Instructions Your Diagnosis Abdominal cramping Acid reflux History of colon polyps Your Care Team Attending Physician - Brianna Pastor CNP Primary Care Physician - SHAIKH ACEVEDO This Is Your Medications List Contact prescribing physician if questions or concerns aspirin (Aspirin 81 mg Tab-EC) atenolol (Tenormin) atorvastatin (Lipitor) cetirizine (Zyrtec) hydrochlorothiazide isosorbide mononitrate (Imdur) levothyroxine liothyronine lisinopril meloxicam pantoprazole (pantoprazole 40 mg Oral EC Tab) polyethylene glycol 3350 (MiraLax) potassium chloride (Klor-Con) spironolactone [Image Removed: STOP]Stop taking these medications sucralfate Procedures Performed Esophagogastroduodenoscopy (04/12/2021), Colonoscopy (04/03/2019), Esophagogastroduodenoscopy (04/03/2019). Discharge Vitals Temperature (Temporal Artery) 36.5 ?C Heart Rate (Peripheral) 56 Blood Pressure 138/80 Height 64 in Height 162 cm Weight 163.02 lb Weight 74.1 kg BMI 28.24 What to do next You Need to Schedule the Following Appointments Follow Up with Brianna Pastor CNP When: Within 6 months Where: You Need to Complete the Following Basic Metabolic Panel, Blood, Routine collect, 08/31/22, Order for future visit, Lab Collect, Acid reflux, Not Required, Print Label By Order Location Magnesium Level, Blood, Routine collect, 08/31/22, Order for future visit, Lab Collect, Acid reflux, Not Required, Print Label By Order Location Vitamin B12 Level, Blood, Routine collect, 08/31/22, Order for future visit, Lab Collect, Acid reflux, Not Required, Print Label By Order Location Medications What How Much When Instructions Unchanged aspirin (Aspirin 81 mg Tab-EC) Contact prescribing physician if questions or concerns Unchanged atenolol (Tenormin) 25 Milligram By Mouth Every day Contact prescribing physician if questions or concerns Unchanged atorvastatin (Lipitor) 40 Milligram By Mouth Every day Contact prescribing physician if questions or concerns Unchanged cetirizine (Zyrtec) 10 Milligram By Mouth Every day as needed for Allergy symptoms Contact prescribing physician if questions or concerns Unchanged hydrochlorothiazide 25 Milligram By Mouth Every day Contact prescribing physician if questions or concerns Unchanged isosorbide mononitrate (Imdur) 30 Milligram By Mouth Once a day (in the morning) Contact prescribing physician if questions or concerns Unchanged levothyroxine 25 Microgram By Mouth Every day Contact prescribing physician if questions or concerns Unchanged liothyronine 25 Microgram By Mouth Every day Contact prescribing physician if questions or concerns Unchanged lisinopril By Mouth Every day Contact prescribing physician if questions or concerns Unchanged meloxicam 7.5 Milligram By Mouth Every day Contact prescribing physician if questions or concerns Unchanged pantoprazole (pantoprazole 40 mg Oral EC Tab) 1 Tablets By Mouth Every day Contact prescribing physician if questions or concerns Unchanged polyethylene glycol 3350 (MiraLax) 17 Gram By Mouth 2 times a day Contact prescribing physician if questions or concerns Unchanged potassium chloride (Klor-Con) 20 Milliequivalent By Mouth Every day Contact prescribing physician if questions or concerns Unchanged spironolactone 25 Milligram By Mouth Every day Contact prescribing physician if questions or concerns What How Much When Comments Stop Taking sucralfate 1 Gram By Mouth 3 times a day Allergies meperidine (Other) Problems Ongoing - Any problem that you are currently receiving treatment for. Abdominal cramping Acid reflux Gastric erosions History of colon polyps Hypothyroidism Historical - Any problem that you are no longer receiving treatment for. Upper abdominal pain Education Materials Food Choices for Gastroesophageal Reflux Disease, Adult When you have gastroesophageal reflux disease (GERD), the foods you eat and your eating habits are very important. Choosing the right foods can help ease the discomfort of GERD. Consider working with a dietitian to help you make healthy food choices. What are tips for following this plan? Reading food labels ? Look for foods that are low in saturated fat. Foods that have less than 5% of daily value (DV) of fat and 0 g of trans fats may help with your symptoms. Cooking ? Cook foods using methods other than frying. This may include baking, steaming, grilling, or broiling. These are all methods that do not need a lot of fat for cooking. ? To add flavor, try to use herbs that are low in spice and acidity. Meal planning ? Choose healthy foods that are low in fat, such as fruits, vegetables, whole grains, low-fat dairy products, lean meats, fish, and poultry. ? Eat frequent, small meals instead of three large meals each day. Eat you (more content not included)... Normal [facility] BMPon 08-31-2022 Anion gap [Moles/Vol] 12 mmol/L Normal 6-16 [facility] Comment on above: Performed By: #### 2 [id number], [id number] ####[facility] [address] [place] [address] Calcium [Mass/Vol] 9.6 mg/dL Normal 8.9-11.1 [facility] Comment on above: Performed By: #### 2 [id number], [id number], [id number], [id number] ####[facility] [address] [place] [address] Chloride [Moles/Vol] 102 mmol/L Normal 101-111 [facility] Comment on above: Performed By: #### 2 [id number], [id number], 2559050, [id number] ####[facility] [address] [place] [address] CO2 [Moles/Vol] 28 mmol/L Normal 21-31 [facility] Comment on above: Performed By: #### 2 [id number], [id number], [id number], [id number] ####[facility] [address] [place] [address] Creatinine [Mass/Vol] 0.8 mg/dL Normal 0.5-1.3 [facility] Comment on above: Performed By: #### 2 [id number], [id number], [id number], [id number] ####[facility] [address] [place] [address] Glucose [Mass/Vol] 108 mg/dL Normal 55-199 [facility] Comment on above: Result Comment: If t his glucose result represents a fasting glucose, interpretation should refer to the following reference range: 55-99 mg/dL Performed By: #### 2 [id number], [id number], [id number], [id number] ####[facility] [address] [place] [address] Potassium [Moles/Vol] 3.7 mmol/L Normal 3.5-5.3 [facility] Comment on above: Performed By: #### 2 754243, 3088043, [id number], [id number] ####[facility] [address] [place] [address] Sodium [Moles/Vol] 138 mmol/L Normal 135-145 [facility] Comment on above: Performed By: #### 2 877687, 3366146, 3359686, [id number] ####[facility] [address] [place] [address] Urea nitrogen [Mass/Vol] 9 mg/dL Normal 5-21 [facility] Comment on above: Performed By: #### 2 890927, 2852381, 4297086, [id number] ####[facility] [address] [place] [address] Urea nitrogen/Creatinin e [Mass ratio] 11 No Units Normal 10-20 [facility] Comment on above: Performed By: #### 2 747392, 6736684, 1366995, [id number] ####[facility] [address] [place] [address] CHEMISTRYOrdered By: SYSTEM SYSTEM on 08-31-2022 Anion gap [Moles/Vol] 12 mmol/L Normal 6 - 16 mEq/L [facility] Calcium [Mass/Vol] 9.6 mg/dL Normal 8.9 - 11. 1 mg/dL [facility] Chloride [Moles/Vol] 102 mmol/L Normal 101 - 111 mmol/L [facility] CO2 [Moles/Vol] 28 mmol/L Normal 21 - 31 mmol/L [facility] Cobalamin (Vitamin B12) [Mass/Vol] 316 pg/mL Normal 50 - 1500 pg/mL [facility] Creatinine [Mass/Vol] 0.8 mg/dL Normal 0.5 - 1.3 mg/dL [facility] GFR/1.73 sq M.predicted among non-blacks MDRD (S/P/Bld) [Vol rate/Area] 76 mL/min/1.73 m2 Normal >=59mL/min/ 1.73 m2 [facility] S Glucose [Mass/Vol] 108 mg/dL Normal 55 - 199 mg/dL [facility] Magnesium [Mass/Vol] 1.8 mg/dL Normal 1.3 - 2.4 mg/dL [facility] Potassium [Moles/Vol] 3.7 mmol/L Normal 3.5 - 5.3 mmol/L [facility] Sodium [Moles/Vol] 138 mmol/L Normal 135 - 145 mmol/L [facility] Urea nitrogen [Mass/Vol] 9 mg/dL Normal 5 - 21 mg/dL [facility] Urea nitrogen/Creatinin e [Mass ratio] 11 mg/mg Normal 10 - 20 [facility] Consent for Treatmenton Consent for Treatment [id number] Normal [facility] Gastroenterology Office/Clin ic Noteon 08-31-2022 Gastroenterology Office/Clinic Note Chief Complaint Today diarrhea and cramping. HPI Staff Patient is a 77 year old female here today to followup from 06/02/22 office visit for reflux, upper abd. pain. History of Present Illness Patient is a 77-year-old female who presents for follow-up. Patient was previously evaluated 06/2022 and has history of acid reflux. Patient with PMH of HTN, HLD, hypothyroidism?managed by patient's PCP. Patient had previously reported upper abdominal burning that had improved with pantoprazole and Carafate. Previous EGD 03/2021 revealed gastric erosions and small hiatal hernia, normal duodenum. Patient was previously advised to avoid NSAIDs. Patient had previous CT abdomen/pelvis at outside facility 07/2021 that revealed no abnormal findings. Previous labs 11/2021 revealed normal H&H, normal BUN, normal creatinine, normal liver enzymes. Previous colonoscopy 03/2019 revealed tubular adenoma removed from ascending colon, hemorrhoids and is due for repeat colonoscopy in 2023. Patient had previously reported that her abdominal pain occurred with anxiety and was educated to follow-up with PCP regarding anxiety management. Patient has reported history of cholecystectomy 5 years ago. Patient reported family history of celiac disease?patient's granddaughter and daughter. Previous celiac blood testing 03/2022 that was normal. Previous ultrasound of abdomen that was completed at outside facility 03/2022 that showed no acute process. Patient reported during visit with me 06/2022 that she was feeling better and upper abdominal pain had improved?occurred when eating spicy/fatty foods. She also reported her acid reflux was well controlled with Carafate and pantoprazole. Had reported occasional loose stools depending on what she ate. Patient was educated to continue pantoprazole 40 mg daily. Patient was also previously educated to start fiber supplementation daily. During today's visit, patient reports having generalized abdominal cramping and diarrhea rarely depending on what she eats, such as fruit. She reports she is having 1 formed BM daily. Denies black/bloody stools, fevers/chills, nausea/vomiting. Denies having any other GI complaints. Review of Systems PHQ Score Initial Depression Screen Score: 0 ROS - Provider Constitutional: no fever, no chills. Skin: no Jaundice. ENMT: Denies dysphagia and heartburn. Respiratory: no shortness of breath. Cardiovascular: no chest pain. Gastrointestinal: no nausea, no vomiting, rare diarrhea, no GI bleeding. Physical Exam Vitals & Measurements T: 36.5 ?C(Temporal Artery) HR: 56(Peripheral) BP: 138/80 HT: 64 in HT: 162 cm WT: 74.1 kg WT: 163.02 lb BMI: 28.24 General: Well developed, well nourished, in no acute distress Head: Normocephalic/atraumatic Lungs: Normal respiratory effort and clear to auscultation Cardio: Regular rate and rhythm, normal S1 and S2, no murmur, no rub Abdomen: Soft, non-distended, non-tender. Normoactive bowel sounds present in all 4 abdominal quadrants, bilaterally. Mental Status: Alert and oriented x3. Normal mood and affect Assessment/Plan 1. Abdominal cramping (R10.9: Unspecified abdominal pain) Generalized abdominal cramping and diarrhea rarely depending on what she eats, such as fruit. Previous colonoscopy 03/2019 revealed tubular adenoma removed from ascending colon, hemorrhoids and is due for repeat colonoscopy in 2023. Educated regarding probiotics daily. Educated regarding fiber supplementation daily- metamucil 1 capsule daily- separate 2 hours from other medications. 2. Acid reflux (K21.9: Gastro-esophageal reflux disease without esophagitis) Controlled with pantoprazole 40mg daily and Carafate. Previous EGD 03/2021 revealed gastric erosions and small hiatal hernia, normal duodenum. Educated to discontinue Carafate. Continue pantoprazole 40mg daily. Ordered vitamin B12 level and magnesium level to evaluate for deficiencies and BMP to evaluate renal function while on pantoprazole long-term. Ordered: Basic Metabolic Panel Magnesium Level Vitamin B12 Level 3. History of colon polyps (Z86.010: Personal history of colonic polyps) Previous colonoscopy 03/2019 revealed tubular adenoma removed from ascending colon, hemorrhoids and is due for repeat colonoscopy in 2023. Follow-up With When Contact Information Brianna Pastor CNP Within 6 months Additional Instructions: Patient Education Food Choices for Gastroesophageal Reflux Disease, Adult Problem List/Past Medical History Ongoing Abdominal cramping Acid reflux Gastric erosions History of colon polyps Hypothyroidism Historical Upper abdominal pain Procedure/Surgical History Esophagogastroduodenoscopy (04/12/2021), Colonoscopy (04/03/2019), Esophagogastroduodenoscopy (04/03/2019). Medications Aspirin 81 mg Tab-EC hydrochlorothiazide, 25 mg, Oral, Daily, Not taking Imdur, 30 mg, Oral, qAM, Not taking Klor-Con, 20 mEq, Oral, Daily, Not taking levothyroxine, 25 (more content not included)... Normal [facility] Comment on above: Result Comment: Elec tronically Signed By: Darby LOBO, Brianna Dela Cruz\.jennifer\Date and Time Signed: 08/31/22 09:59 EDT Magnesiumon 08-31-2022 Magnesium [Mass/Vol] 1.8 mg/dL Normal 1.3-2.4 [facility] Comment on above: Performed By: #### 2 [id number], [id number], [id number], [id number] ####[facility] [address] [place] [address] Patient Educationon 09-01-19 Patient Education Gastroenterology Food Choices for Gastroesophageal Reflux Disease, Adult When you have gastroesophageal reflux disease (GERD), the foods you eat and your eating habits are very important. Choosing the right foods can help ease the discomfort of GERD. Consider working with a dietitian to help you make healthy food choices. What are tips for following this plan? Reading food labels ? Look for foods that are low in saturated fat. Foods that have less than 5% of daily value (DV) of fat and 0 g of trans fats may help with your symptoms. Cooking ? Cook foods using methods other than frying. This may include baking, steaming, grilling, or broiling. These are all methods that do not need a lot of fat for cooking. ? To add flavor, try to use herbs that are low in spice and acidity. Meal planning ? Choose healthy foods that are low in fat, such as fruits, vegetables, whole grains, low-fat dairy products, lean meats, fish, and poultry. ? Eat frequent, small meals instead of three large meals each day. Eat your meals slowly, in a relaxed setting. Avoid bending over or lying down until 2?3 hours after eating. ? Limit high-fat foods such as fatty meats or fried foods. ? Limit your intake of fatty foods, such as oils, butter, and shortening. ? Avoid the following as told by your health care provider: ? Foods that cause symptoms. These may be different for different people. Keep a food diary to keep track of foods that cause symptoms. ? Alcohol. ? Drinking large amounts of liquid with meals. ? Eating meals during the 2?3 hours before bed. Lifestyle ? Maintain a healthy weight. Ask your health care provider what weight is healthy for you. If you need to lose weight, work with your health care provider to do so safely. ? Exercise for at least 30 minutes on 5 or more days each week, or as told by your health care provider. ? Avoid wearing clothes that fit tightly around your waist and chest. ? Do not use any products that contain nicotine or tobacco. These products include cigarettes, chewing tobacco, and vaping devices, such as e-cigarettes. If you need help quitting, ask your health care provider. ? Sleep with the head of your bed raised. Use a wedge under the mattress or blocks under the bed frame to raise the head of the bed. ? Chew sugar-free gum after mealtimes. What foods should I eat? Eat a healthy, well-balanced diet of fruits, vegetables, whole grains, low-fat dairy products, lean meats, fish, and poultry. Each person is different. Foods that may trigger symptoms in one person may not trigger any symptoms in another person. Work with your health care provider to identify foods that are safe for you. The items listed above may not be a complete list of recommended foods and beverages. Contact a dietitian for more information. What foods should I avoid? Limiting some of these foods may help manage the symptoms of GERD. Everyone is different. Consult a dietitian or your health care provider to help you identify the exact foods to avoid, if any. Fruits Any fruits prepared with added fat. Any fruits that cause symptoms. For some people this may include citrus fruits, such as oranges, grapefruit, pineapple, and dali. Vegetables Deep-fried vegetables. Romanian fries. Any vegetables prepared with added fat. Any vegetables that cause symptoms. For some people, this may include tomatoes and tomato products, chili peppers, onions and garlic, and horseradish. Grains Pastries or quick breads with added fat. Meats and other proteins High-fat meats, such as fatty beef or pork, hot dogs, ribs, ham, sausage, salami, and oneal. Fried meat or protein, including fried fish and fried chicken. Nuts and nut butters, in large amounts. Dairy Whole milk and chocolate milk. Sour cream. Cream. Ice cream. Cream cheese. Milkshakes. Fats and oils Butter. Margarine. Shortening. Ghee. Beverages Coffee and tea, with or without caffeine. Carbonated beverages. Sodas. Energy drinks. Fruit juice made with acidic fruits, such as orange or grapefruit. Tomato juice. Alcoholic drinks. Sweets and desserts Chocolate and cocoa. Donuts. Seasonings and condiments Pepper. Peppermint and spearmint. Added salt. Any condiments, herbs, or seasonings that cause symptoms. For some people, this may include guzman, hot sauce, or vinegar-based salad dressings. The items listed above may not be a complete list of foods and beverages to avoid. Contact a dietitian for more information. Questions to ask your health care provider Diet and lifestyle changes are usually the first steps that are taken to manage symptoms of GERD. If diet and lifestyle changes do not improve your symptoms, talk with your health care provider about taking medicines. Where to find more information ? [employer] G[employer]intestinal [employer]: aboutgerd.org Summary ? When you have gastroesophageal reflux di (more content not included)... Normal [facility] Vit B12on 08-31-2022 Cobalamin (Vitamin B12) [Mass/Vol] 316 pg/mL Normal 50-1500 [facility] Comment on above: Performed By: #### 2 [id number], [id number], [id number], [id number] ####[facility] [address] [place] [address] eGFRon 08-31-2022 GFR/1.73 sq M.predicted among non-blacks MDRD (S/P/Bld) [Vol rate/Area] 76 mL/min/1.73 m2 Normal >=59 [facility] Comment on above: Order Comment: Order added by Discern Expert. Result Comment: Personal Counselor dora kidney disease could be indicated at eGFR's of less than 60 mL/min/1.73m2. Kidney failure is indicated at less than 15 mL/min/1.73m2. Performed By: #### 2 [id number], [id number], [id number], [id number] ####[facility] [address] [place] [address] Orders Onlyon 07-08-2022 Orders Only [id number] Toñito Ptunam 1945 F Date Provider Department Center 07/08/2022 [id number] PRITCHARD [facility] Family History Problem Relation Age of Onset Coronary artery disease Sister 62 Comments: Passed age 62 Coronary artery disease Brother 58 Cancer Other Coronary artery disease Other Family Status - Relation Status Age at Sister Brother Other Normal [facility] Office Visiton 07-06-2022 Follow-up visit [id number] Toñito Putnam 1945 F Date Provider Department Center 07/06/2022 BRUNO DONAHUE [facility] Family History Problem Relation Age of Onset Coronary artery disease Sister 62 Comments: Passed age 62 Coronary artery disease Brother 58 Cancer Other Coronary artery disease Other Family Status - Relation Status Age at Sister Brother Other Level of Service:05883 IN OFFICE/OUTPATIENT ESTABLISHED MOD MDM 30-39 MIN Reason for Visit and Comments: Coronary Artery Disease [187] Hypertension [841779] Hyperlipidemia [182] Normal [facility] MG MAMM SCREEN 3D NIKKI CADon 06-23-2022 MG MAMM SCREEN 3D NIKKI CAD Patient: TOÑITO PUTNAM. Exam Date: 06/23/2022 : 1945 Gender:F Ordering : SHAIKH Shahida ACEVEDO . Admission #: [id number] Family : Order #: [id number] CLICK HERE TO VIEW EXAM RADIOLOGY REPORT PROCEDURE: MAMMOGRAM SCREENING 3D BILATERAL CAD COMPARISON: MG MAMM SCREEN 3D NIKKI CAD, 06/21/2021. MG MAMM SCREEN NIKKI W CAD, 06/19/2020. MG MAMM SCREEN NIKKI W CAD, 06/06/2019. MG MAMM NIKKI SCRN W CAD DIG, 04/14/2011. INDICATIONS: Screening mammography Calculator Name NCI Breast Cancer Risk Assessment Tool 5 Year Breast Cancer Risk 1.50% Lifetime Breast Cancer Risk 3.30% Personal Breast Cancer No Personal Ovarian Cancer No Treatments None Family Cancers Mother with colon cancer at age 70; Father with colon cancer at age 60; Brother with lung cancer at age 60. LOCATION: [facility] BREAST COMPOSITION: Scattered areas fibroglandular density. FINDINGS: DIAGNOSTIC CATEGORY 2--BENIGN FINDING: RIGHT BREAST: No significant suspicious finding. Scattered benign-appearing calcifications are present. Stable, chronic asymmetries. No significant change has occurred. LEFT BREAST: No significant suspicious finding. Stable, chronic asymmetries No significant change has occurred. RECOMMENDATIONS: ROUTINE MAMMOGRAM AND CLINICAL EVALUATION IN 12 MONTHS. PLEASE NOTE: A NORMAL MAMMOGRAM DOES NOT EXCLUDE THE POSSIBILITY OF BREAST CANCER. A CLINICALLY SUSPICIOUS PALPABLE LUMP SHOULD BE BIOPSIED. Dictated by: Humberto Hein M.D. on 06/23/2022 at 14:17 Approved by: Humberto Hein M.D. on 06/23/2022 at 14:21 Normal [facility] Gastroenterology Office/Clin ic Noteon 06-02-2022 Gastroenterology Office/Clinic Note Chief Complaint Followup from 03/02/22. HPI Staff Patient is a 76 year old female here today to followup from 03/02/22 office visit for upper abdominal pain and gastric erosion. History of Present Illness Patient is a 76-year-old female who presents for follow-up. Patient was previously evaluated 03/02/2022 and has PMH of HTN, HLD, hypothyroidism?managed by patient's PCP. Patient was previously evaluated 07/2021 and had reported upper abdominal burning had improved with pantoprazole and Carafate. Patient had previous EGD 03/2021 that revealed gastric erosions and small hiatal hernia, normal duodenum. Patient was previously advised to avoid NSAIDs. Previous CT abdomen/pelvis at outside facility 08/26/2021 revealed no abnormal findings. Previous labs 11/2021 revealed normal H&H, normal BUN, normal creatinine, normal liver enzymes. Previous colonoscopy 03/2019 revealed tubular adenoma removed from ascending colon, hemorrhoids and is due for repeat colonoscopy in 2023. Patient was previously educated regarding fiber supplementation daily. During previous evaluation with patient 03/2022 she reported upper abdominal pain described as burning over the last year that felt like acid and improved with pantoprazole and Carafate. She indicated pain was flared at times and was occurring 1-2 times a month. She also explained abdominal pain occurred with anxiety and is to follow-up with PCP regarding anxiety. Patient also reported abdominal pain occurring with hamburger/greasy foods/acidic foods. Patient with history of cholecystectomy 5 years ago. Patient with family history of celiac disease?patient's granddaughter and daughter. Patient was ordered celiac blood testing that was completed 03/02/2022 and was normal. Was previously ordered ultrasound of abdomen that was completed at outside facility 03/15/22 and showed no acute process. During today's visit, patient reports she is feeling better. She explains upper abdominal pain described as tightness over the last year that has improved, occurs when eating spicy/fatty foods. Carafate and pantoprazole are helping her upper abdominal pain. Acid reflux is well controlled with carafate and pantoprazole. Has occasional loose stools depending on what she eats. Denies use of fiber supplementation. Denies black/bloody stools, nausea/vomiting, fevers/chills, and denies having any other GI complaints. Review of Systems PHQ Score Initial Depression Screen Score: 0 ROS - Provider Constitutional: no fever, no chills. Skin: no Jaundice. ENMT: Denies dysphagia and heartburn. Respiratory: no shortness of breath. Cardiovascular: no chest pain. Gastrointestinal: no nausea, no vomiting, yes loose stools, no GI bleeding. Physical Exam Vitals & Measurements T: 36.1 ?C(Temporal Artery) HR: 57(Peripheral) BP: 129/84 HT: 64 in HT: 162 cm WT: 73.9 kg WT: 162.58 lb BMI: 28.16 General: Well developed, well nourished, in no acute distress Head: Normocephalic/atraumatic Lungs: Normal respiratory effort and clear to auscultation Cardio: Regular rate and rhythm, normal S1 and S2, no murmur, no rub Abdomen: Soft, non-distended, non-tender. Normoactive bowel sounds present in all 4 abdominal quadrants, bilaterally. Mental Status: Alert and oriented x3. Normal mood and affect Assessment/Plan 1. Acid reflux (K21.9: Gastro-esophageal reflux disease without esophagitis) Previous EGD 03/2021 that revealed gastric erosions and small hiatal hernia, normal duodenum. Continue pantoprazole 40mg daily. Patient was previously advised to avoid NSAIDs. 2. Upper abdominal pain (R10.10: Upper abdominal pain, unspecified) Upper abdominal pain described as tightness has improved. Occurs with spicy/fatty foods. Previous CT abdomen/pelvis at outside facility 08/26/2021 revealed no abnormal findings. Previous EGD 03/2021 that revealed gastric erosions and small hiatal hernia, normal duodenum. Previous labs 11/2021 revealed normal H&H, normal BUN, normal creatinine, normal liver enzymes. Previous colonoscopy 03/2019 revealed tubular adenoma removed from ascending colon, hemorrhoids and is due for repeat colonoscopy in 2023. Patient with history of cholecystectomy 5 years ago. Patient with family history of celiac disease?patient's granddaughter and daughter. Patient was ordered celiac blood testing that was completed 03/02/2022 and was normal. Patient was previously ordered ultrasound of abdomen that was completed at outside facility 03/15/22 and showed no acute process. Continue pantoprazole and pepcid as prescribed. 3. History of colon polyps (Z86.010: Personal history of colonic polyps) Previous colonoscopy 03/2019 revealed tubular adenoma removed from ascending colon, hemorrhoids and is due for repeat colonoscopy in 2023. Patient educated to start fiber supplementation daily. Follow-up With When Contact Information Brianna Pastor CNP Within 3 months Additional Instructions: Patient Education Food Choices for Gas (more content not included)... Normal [facility] Comment on above: Result Comment: Elec tronically Signed By: Brianna Pastor CNP\.br\Date and Time Signed: 06/02/22 10:05 EST Patient Educationon 06-02-19 Patient Education Gastroenterology Food Choices for Gastroesophageal Reflux Disease, Adult When you have gastroesophageal reflux disease (GERD), the foods you eat and your eating habits are very important. Choosing the right foods can help ease the discomfort of GERD. Consider working with a diet and food and nutrition services assistant (dietitian) to help you make healthy food choices. What general guidelines should I follow? Eating plan ? Choose healthy foods low in fat, such as fruits, vegetables, whole grains, low-fat dairy products, and lean meat, fish, and poultry. ? Eat frequent, small meals instead of three large meals each day. Eat your meals slowly, in a relaxed setting. Avoid bending over or lying down until 2?3 hours after eating. ? Limit high-fat foods such as fatty meats or fried foods. ? Limit your intake of oils, butter, and shortening to less than 8 teaspoons each day. ? Avoid the following: ? Foods that cause symptoms. These may be different for different people. Keep a food diary to keep track of foods that cause symptoms. ? Alcohol. ? Drinking large amounts of liquid with meals. ? Eating meals during the 2?3 hours before bed. ? Cook foods using methods other than frying. This may include baking, grilling, or broiling. Lifestyle ? Maintain a healthy weight. Ask your health care provider what weight is healthy for you. If you need to lose weight, work with your health care provider to do so safely. ? Exercise for at least 30 minutes on 5 or more days each week, or as told by your health care provider. ? Avoid wearing clothes that fit tightly around your waist and chest. ? Do not use any products that contain nicotine or tobacco, such as cigarettes and e-cigarettes. If you need help quitting, ask your health care provider. ? Sleep with the head of your bed raised. Use a wedge under the mattress or blocks under the bed frame to raise the head of the bed. What foods are not recommended? The items listed may not be a complete list. Talk with your dietitian about what dietary choices are best for you. Grains Pastries or quick breads with added fat. Romanian toast. Vegetables Deep fried vegetables. Romanian fries. Any vegetables prepared with added fat. Any vegetables that cause symptoms. For some people this may include tomatoes and tomato products, chili peppers, onions and garlic, and horseradish. Fruits Any fruits prepared with added fat. Any fruits that cause symptoms. For some people this may include citrus fruits, such as oranges, grapefruit, pineapple, and dali. Meats and other protein foods High-fat meats, such as fatty beef or pork, hot dogs, ribs, ham, sausage, salami and oneal. Fried meat or protein, including fried fish and fried chicken. Nuts and nut butters. Dairy Whole milk and chocolate milk. Sour cream. Cream. Ice cream. Cream cheese. Milk shakes. Beverages Coffee and tea, with or without caffeine. Carbonated beverages. Sodas. Energy drinks. Fruit juice made with acidic fruits (such as orange or grapefruit). Tomato juice. Alcoholic drinks. Fats and oils Butter. Margarine. Shortening. Ghee. Sweets and desserts Chocolate and cocoa. Donuts. Seasoning and other foods Pepper. Peppermint and spearmint. Any condiments, herbs, or seasonings that cause symptoms. For some people, this may include guzman, hot sauce, or vinegar-based salad dressings. Summary ? When you have gastroesophageal reflux disease (GERD), food and lifestyle choices are very important to help ease the discomfort of GERD. ? Eat frequent, small meals instead of three large meals each day. Eat your meals slowly, in a relaxed setting. Avoid bending over or lying down until 2?3 hours after eating. ? Limit high-fat foods such as fatty meat or fried foods. This information is not intended to replace advice given to you by your health care provider. Make sure you discuss any questions you have with your health care provider. Document Released: 04/17/2006 Document Revised: 08/08/2019 Document Reviewed: 04/18/2017 Elsevier Patient Education ? 2019 [email or web address] Normal [facility] RAD - Ultrasound Reporton RAD - Ultrasound Report [id number]:127 Normal [facility] CBC AUTO DIFFon 03-23-2022 BASO # 0.1 103/ul Normal 0.0-0.1 [facility] Comment on above: Performed By: #### C BC #### [facility] [address] [place] [address] Dr. Jelly Lozada Basophils/100 WBC (Bld) 1.1 % Normal 0.2-2.0 [facility] Comment on above: Performed By: #### C BC #### [facility] [address] [place] [address] Dr. Jelly Lozada EO # 0.1 103/ul Normal 0.0-0.7 [facility] Comment on above: Performed By: #### C BC #### [facility] [address] [place] [address] Dr. Jelly Lozada Eosinophils/100 WBC (Bld) 1.7 % Normal 0.9-7.0 [facility] Comment on above: Performed By: #### C BC #### [facility] [address] [place] [address] Dr. Jelly Lozada Erythrocyte distribution width (RBC) [Ratio] 14.6 % Normal 11.0-15.0 [facility] Comment on above: Performed By: #### C BC #### [facility] [address] [place] [address] Dr. Jelly Lozada Hematocrit (Bld) [Volume fraction] 41.6 % Normal 36.0-48.0 [facility] Comment on above: Performed By: #### C BC #### [facility] [address] [place] [address] Dr. Jelly Lozada Hemoglobin (Bld) [Mass/Vol] 13.4 g/dL Normal 12.0-16.0 [facility] Comment on above: Performed By: #### C BC #### [facility] [address] [place] [address] Dr. Jelly Lozada IG # 0.03 10e3/ul Normal 0.00-0.03 [facility] Comment on above: Performed By: #### C BC #### [facility] [address] [place] [address] Dr. Jelly Lozada IG % 0.4 % Normal 0.0-0.5 [facility] Comment on above: Performed By: #### C BC #### [facility] [address] [place] [address] Dr. Jelly Lozada LYMPH # 1.6 103/ul Normal 1.2-3.8 [facility] Comment on above: Performed By: #### C BC #### [facility] [address] [place] [address] Dr. Jelly Lozada Lymphocytes/100 WBC (Bld) 23.2 % Normal 20.5-60.0 [facility] Comment on above: Performed By: #### C BC #### [facility] [address] [place] [address] Dr. Jelly Lozada MANUAL DIFF REQ NO Normal [facility] Comment on above: Performed By: #### C BC #### [facility] [address] [place] [address] Dr. Jelly Lozada MCH (RBC) [Entitic mass] 25.6 pg Critically low 26.7-34.0 [facility] Comment on above: Performed By: #### C BC #### [facility] [address] [place] [address] Dr. Jelly Lozada MCHC (RBC) [Mass/Vol] 32.2 g/dL Normal 29.9-35.2 [facility] Comment on above: Performed By: #### C BC #### [facility] [address] [place] [address] Dr. Jelly Lozada MCV (RBC) [Entitic vol] 79.5 fL Critically low 81.0-99.0 [facility] Comment on above: Performed By: #### C BC #### [facility] [address] [place] [address] Dr. Jelly Lozada MONO # 0.6 103/ul Normal 0.3-0.8 [facility] Comment on above: Performed By: #### C BC #### [facility] [address] [place] [address] Dr. Jelly Lozada Monocytes/100 WBC (Bld) 8.0 % Normal 1.7-12.0 [facility] Comment on above: Performed By: #### C BC #### [facility] [address] [place] [address] Dr. Jelly Lozada NEUT # 4.6 103/ul Normal 1.4-6.5 [facility] Comment on above: Performed By: #### C BC #### [facility] [address] [place] [address] Dr. Jelly Lozada Neutrophils/100 WBC (Bld) 65.6 % Normal 43.0-75.0 [facility] Comment on above: Performed By: #### C BC #### [facility] [address] [place] [address] Dr. Jelly Lozada Platelet mean volume (Bld) [Entitic vol] 10.6 fL Normal 9.5-13.5 [facility] Comment on above: Performed By: #### C BC #### [facility] [address] [place] [address] Dr. Jelly Lozada PLT 407 103/ul Normal 150-450 [facility] Comment on above: Performed By: #### C BC #### [facility] [address] [place] [address] Dr. Jelly Lozada RBC 5.23 106/ul Normal 4.20-5.40 [facility] Comment on above: Performed By: #### C BC #### [facility] [address] [address] [address] Jelly Lozada WBC 7.0 103/ul Normal 4.0-11.0 [facility] Comment on above: Performed By: #### C BC #### [facility] [address] [address] [address] Jelly Lozada LIPID PROFILEon 03-23-2022 CHOL-HDL RATIO NORM SEE BELOW Normal [facility] Comment on above: Result Comment: 3.3 - 4.4 LOW RISK 4.4 - 7.1 AVERAGE RISK 7.1 - 11.0 MODERATE RISK >11.0 HIGH RISK Performed By: #### T SH, CMP, LIPID #### [facility] [address] [place] [address] Dr. Jelly Lozada Cholesterol [Mass/Vol] 157 mg/dL Normal <=200 [facility] Comment on above: Performed By: #### T SH, CMP, LIPID #### [facility] [address] [place] [address] Dr. Jelly Lozada Cholesterol in HDL [Mass/Vol] 52 mg/dL Normal 40-60 [facility] Comment on above: Performed By: #### T SH, CMP, LIPID #### [facility] [address] [place] [address] Dr. Jelly Lozada Cholesterol in LDL [Mass/Vol] 67.0 mg/dL Normal [facility] Comment on above: Performed By: #### T SH, CMP, LIPID #### [facility] [address] [place] [address] Dr. Jelly Lozada Cholesterol.total/ Cholesterol in HDL [Mass ratio] 3.0 {ratio} Normal [facility] Comment on above: Performed By: #### T SH, CMP, LIPID #### [facility] [address] [place] [address] Dr. Jelly Lozada HDL NORMAL > or = 60 mg/dl - LO W CARDIOVASCULAR RISK <40 mg/dl - HIGH CARDIOVASCULAR RISK Normal [facility] Comment on above: Performed By: #### T SH, CMP, LIPID #### [facility] [address] [address] [address] Jelly Lozada LDL CALC NORMAL SEE BELOW Normal [facility] Comment on above: Result Comment: <100 mg/dl OPTIMAL 100 - 129 mg/dl NEAR OR ABOVE OPTIMAL 130 - 159 mg/dl BORDERLINE HIGH 160 - 189 mg/dl HIGH >190 mg/dl VERY HIGH Performed By: #### T SH, CMP, LIPID #### [facility] [address] [address] [address] Jelly Lozada Triglyceride [Mass/Vol] 190 mg/dL Critically high <=150 [facility] Comment on above: Performed By: #### T SH, CMP, LIPID #### [facility] [address] [address] [address] Jelly Lozada VLDL CALC 38.0 mg/dL Normal [facility] Comment on above: Performed By: #### T SH, CMP, LIPID #### [facility] [address] [place] [address] Dr. Jelly Lozada PROF 14(COMP METB)on 03-23- 022 Albumin [Mass/Vol] 4.1 g/dL Normal 3.4-5.0 [facility] Comment on above: Performed By: #### T SH, CMP, LIPID #### [facility] [address] [address] [address] Jelly Lozada Albumin/Globulin [Mass ratio] 1.3 {ratio} Normal [facility] Comment on above: Performed By: #### T SH, CMP, LIPID #### [facility] [address] [address] [address] Jelly Lozada ALP [Catalytic activity/Vol] 80 U/L Normal 46-116 [facility] Comment on above: Performed By: #### T SH, CMP, LIPID #### [facility] [address] [place] [address] Dr. Jelly Lozada ALT [Catalytic activity/Vol] 18 U/L Normal 14-59 [facility] Comment on above: Performed By: #### T SH, CMP, LIPID #### [facility] [address] [address] [address] Jelly Lozada Anion gap [Moles/Vol] 12.2 mmol/L Normal [facility] Comment on above: Performed By: #### T SH, CMP, LIPID #### [facility] [address] [place] [address] Dr. Jelly Lozada AST [Catalytic activity/Vol] 20 U/L Normal 15-37 [facility] Comment on above: Performed By: #### T SH, CMP, LIPID #### [facility] [address] [place] [address] Dr. Jelly Lozada Bilirubin [Mass/Vol] 0.6 mg/dL Normal 0.2-1.0 [facility] Comment on above: Performed By: #### T SH, CMP, LIPID #### [facility] [address] [place] [address] Dr. Jelly Lozada Calcium [Mass/Vol] 9.5 mg/dL Normal 8.5-10.1 [facility] Comment on above: Performed By: #### T SH, CMP, LIPID #### [facility] [address] [place] [address] Dr. Jelly Lozada Chloride [Moles/Vol] 101 mmol/L Normal 98-107 [facility] Comment on above: Performed By: #### T SH, CMP, LIPID #### [facility] [address] [place] [address] Dr. Jelly Lozada CO2 [Moles/Vol] 29.9 mmol/L Normal 21.0-32.0 [facility] Comment on above: Performed By: #### T SH, CMP, LIPID #### [facility] [address] [place] [address] Dr. Jelly Lozada Creatinine [Mass/Vol] 0.71 mg/dL Normal 0.55-1.02 [facility] Comment on above: Performed By: #### T SH, CMP, LIPID #### [facility] [address] [place] [address] Dr. Jelly Lozada EGFR-AF CAMBODIAN >60 Normal >=60 [facility] Comment on above: Performed By: #### T SH, CMP, LIPID #### [facility] [address] [place] [address] Dr. Jelly Lozada EGFR-NON AF CAMBODIAN >60 Normal >=60 [facility] Comment on above: Performed By: #### T WINDY CMP, LIPID #### [facility] [address] [address] [address] Jelly Lozada Globulin (S) [Mass/Vol] 3.2 g/dL Normal [facility] Comment on above: Performed By: #### T WINDY CMP, LIPID #### [facility] [address] [address] [address] Jelly Lozada Glucose [Mass/Vol] 92 mg/dL Normal 74-106 [facility] Comment on above: Performed By: #### T WINDY CMP, LIPID #### [facility] [address] [address] [address] Jelly Lozada Potassium [Moles/Vol] 4.1 mmol/L Normal 3.5-5.1 [facility] Comment on above: Performed By: #### T WINDY CMP, LIPID #### [facility] [address] [place] [address] Dr. Jelly Lozaad Protein [Mass/Vol] 7.3 g/dL Normal 6.4-8.2 [facility] Comment on above: Performed By: #### T WINDY CMP, LIPID #### [facility] [address] [place] [address] Dr. Jelly Lozada Sodium [Moles/Vol] 139 mmol/L Normal 136-145 [facility] Comment on above: Performed By: #### T WINDY CMP, LIPID #### [facility] [address] [place] [address] Dr. Jelly Lozada Urea nitrogen [Mass/Vol] 8.0 mg/dL Normal 7.0-18.0 [facility] Comment on above: Performed By: #### T WINDY CMP, LIPID #### [facility] [address] [place] [address] Dr. Jelly Lozada Urea nitrogen/Creatinin e [Mass ratio] 11.3 mg/mg Normal [facility] Comment on above: Performed By: #### T SH, CMP, LIPID #### [facility] [address] [place], [place] [address] Dr. Jelly Lozada TSHon 03-23-2022 TSH 3.522 uIU/mL Normal 0.358-3.740 [facility] Comment on above: Performed By: #### T SH, CMP, LIPID #### [facility] [id number] Jelly Lozada RAD - Ultrasound Reporton RAD - Ultrasound Report [id number]:127 Normal [facility] US Caitlin 03-15-2022 US ABD EXAMINATION: US ABD HISTORY: Upper abdominal pain COMPARISON: 03/19/2021/20/22 FINDINGS: The liver is normal in size, contour and echotexture with no focal mass. Hepatopedal flow in the main portal vein. The gallbladder is not visualized consistent with history of cholecystectomy. Negative sonographic Gibson sign. The common bile duct measures 4.8 mm, normal The visualized pancreas is normal The right kidney is normal measuring 9.8 x 4.6 x 4.1 cm. 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 CD:[id number] Gh0bWw+P GhlYWQ+KO9IMVEyQ74anDAnoD5GX 7kSWK6GMGQYQMIAEK3DQU4itXQ2U OafN8TxrjBk LjigrWKsBC77RBq8LPF4iMbwUBqi yV0efTHeV3t7TxTgWH98hB75QIca HXFlXqD5GgMlbjtrsVTa S8icWaPflUBkUrs+PHRhYmxlIHdp GJVgKGkrKGNkNaPljYeiQE0zNc4s ZGVyLWNvbGxhcHNlOiBj h1mmEOFjQTfePC2ymZshB0IetFN6 PLUck4o1Wp10jVP+ULNbSFQ9wLxb RPjuo259CoQgw4noAYR7 xOTvNOuiUOS9R41qi2A6HPMdVSIk ETF6vNL1gD9svBmxckwzT3BiiBSv RaP6YQC0sXZakO1daSem zvdueB3dPwk+H93JUZ9WRVNKHR8B Xsq0S7AlQtntgBZ+IC78LPDoDZ85 vFUwdVVzo7ckmYe4FvEv XLFyDWP0xCogKNtvd7FmLOSrM19r oFZik6E4XLBwdVtfoOMkZaEhzWK9 lY3jAEwweztml2mnrtym Wwsqo7yqfj78bH40X88eSQxaJCSd TUY9DIPwBHOzpPeiqg6hxE6oRm9+ JYhmo1ghq3pobIc2NuTh DRZvucFcyHqxKXG8f2WuPn03W8Kl lIpsi3RpChy9et16bIAso9K0zCA5 SByeVMNwqJ3bZNpnRuB1 LIMfKuEcaX35dXZgGSmjCy8sgKkl gNusQG3lTLCqeeszJAKwtM6dBDDj yIFtqOzoSN3tTSFfecsv b482BhFnSDU7LMPbeRFiL0GtnT6p YvSlWXHePPKzO6WohWDhQGzkO871 HFfiQqF2OTObauKgQ5Vk GWNibAhbAjQ0l1O1Ge3Nm7Wemkkw CIJ5OLakREFoFhB6VjPaUwU1L7Xl Vyr0HRDjcTfgJK0vO8Gv NHCmiksljcachMG8REVeVGCkaA16 pHHtETtaEc4yi7T1n044DEMyFRFm dH40Vh7peUrmMQBdhORE uZ0ipnkcr1gpovubGiDxWAJdKCp5 BMy8XAVqjCvuTzTlVBK5YcE6PYU2 xBQwtX3rbXbqeypdlR4v Oyc+F89znS6oPSR3YMF2heonOPVe aaChYY32JU56J5BmFqtizHLlmTE+ SWUvjdAnqVqjQJ3hJtJo o7yux1XiYWtfP8TcGTTxXYpgDea5 FCLdDDD7tLU3nU9hGGJyDHswp8N8 xNN6V2PgwaPdlr5jb8ht RNTjZTosX44qkFOns2Y1EVQvqGF8 GEIoiOkqHwRbpM15Ozd+PGNvbGdy w8OcPkgwz1mms2fraGr9 YbHeLDFucrVqxNamQVQ9e9LrBm63 N69mWVliVJCsTNOfHTCzQIYupRax gt5vqX2sJa1+PGNvbCB3 cSY2eS5aBQPgNdY6FVxbI385PeQt iADgOrivh2hxl8istZh0QyTeREXh bwQswFikULE9k7InRo67 F68lHMsbEPDrXESbUSErLQUfcUdm bh8wuA0wIh4+FF1tc1nucy09zK86 dHI+KUFgKLD8jDjoYGof LRRysO9bOSplXbF1CLNpCoKlhE62 oDFgPUmxDf2uoLzkqTntRA6nYOJs dzhqk928VmSor2zvESNf sXWiXPlcDQE6O42zw0V2FRFwMQZe GGL2qIZ3bR0yoZxnydameBFfgDko abZckWoxKLugSEvmG214 IHRvcDsnPlBhdGllbnQgTmFtZTo8 R9CjWaj9HLGxzJpbVN9rkPCwHEcs Ui1xaHecuAvjJT9jZKRi crfmm547TtNsy6hyBTRhiETlUExz HLR9D51yx5N2MOVvVOPxYEJ3gQT3 zH7hvFuttgqjdWNqvDjw qtXieCipNNspYFzzP928NUGsiUmw TrLdwcJeJLIpqFI6WM38VI35uOVg w7A1cAP5E8ZdSBUpxfdo jiarbHC7IXFeYRTrxY67Yc6kyWqc Yl4bEIDdWZA5RTXojNWnY8IaqK2h AgTgZYRdTBZhV3XjxWKa CLucH437BCneDiW0QYFiplOeU5Bo ZRFbbBvsSmI2h1S1Da6QV9B4JM81 KN26hQHzh4Z6dFO8Z3Cw YIEkoojncjswaOV4LBMwPOFicB91 Bh0pxCvuIe6uJKXsLKI9JZFnoBSu X3HcdM6tMrZsDFBmKGMu H9ZbhYWiMIwfO389VGelJhI0RQLa rmAqK3YkGLKnpEdvOaW2n2U3Ih0E VWa4EN67IE60wFUux7E3 hLJ2A4OhTLTcnqkjsasrqQF0QNJb MWVwsY93Cc1hpRwaTl8hUTBgIKM0 CPDchGUrB3ZdpA0nWtIr TGEwREOaZ2BtbXFdGPvvD244MMoz WuX4LJTbirDxO8UjUYDspPqoJfA7 v5O7Bf6PIHZnUX62MSE8 jVX0LX21CP93H7RcDtgprLJjnVG+ PHRhYmxlIHdpZHRoPScxMDAlJyBz aChmKL1uCq9iVIDgEZAc wTdjbMVaEjDzo8ixHUCpMWmpVA5d vRrcU1NkiLT2RKSfl8r9Ul18N94m B1OuiSB+JDEwgPF0oWE4 oG1wTyLjGpL4CQykN418MiWacDGj Sjbfc3oku0tffGy2SkN6UUZjxlEd oWyhRMV1i0ZjLf40U00w HFxcBNRlISTbKNQuOGBfjObyog6t eG7oKt4+EOWfuGR5iDF8iF1eOvWf UtQ5MUgvF646VrNgqFCs Wegba3lql1xzsUw3GkSqIZShtkZx sYqjWWA6p6GiJo30W2LngPjez9Ev Xds6om04pFEkp7W8nIN5 B1XlEXOuuvzbjCCotDesYP3nACPb inzoKUNrbG5aVOIjW3o4SxRkLwO1 HXhvD1FvloL3WHBdnOBx IEgxQCT1Q37eo2A2WXLaQHMnLQO6 uOH1mU6leJyfeqbmtUXfyCwobbXu iZtyHVfeABltU390ILOb jIjmAZNauC5vLBDwqMExbQzgWW2i NTBpbjsnPkhVUkxFWSwgUlVUSCBN MX76YK37qWRnf9A0cPW8 M7DpQGNotovjbywiwWM9UXLfXQLu kX65dZRzETemMg4dg1D9h331XRId SVTgeF69Pr0vkDbrPXVh iATQfL3alfwqz7vemaiyByPsKGGq ZJu4RAi7WCYufAqgUqRjRIQ4QaO4 MHN3vKUreF5baBaakkha mU1dPbo+PVRwIFYoVRn4JimosHF+ NYCeBRL8vNjcEExdDRIiwS3xBCTy W6q3JtTqUvQ1HFkqS2Xa JPSyprnwDo65rK6qUaWzEaV2EPvu J4IzwgP7FYGmrGHaRForEHI7H97n g0L7SFMcBAIpPIG9aRY2 lR3smEhwzkuadIKfuSypjrJiyXmf SCkxOJvhR419DLEqvBtxSad6AQkd HFDaFK39HT81cDSou2I8 bKD0W4BkIYLihontkrqcxMS0RYGd ZTVorJ62nTNgGZtoKg8kc5E0w971 PLMkRCOnaV45Sg1opBqd BLLjdKJOoU6rhfvhy6telcldVkBh WYEhCWg4YQj6JKTaySynFdKbLTW5 VeG0ZTB9tQZpbI5njOwg avegxA7oHev+LoUsDThnUH04TO78 bIRgp2V4jMT4Q6GdZWNbzsdndiry nSM1QMLlJJUyuU48aKJz RHitWv5ef1V4f312GJFfIWGnpO43 Sy4axLrhBLNimATQgH2odjcau7ew jkkbDgPfJWLfJJv5KEb8 CKJbwWutJnUjIVT5LiM6NJF5nNCa hD0jgZmrijxxyJ1tYsl+V2W2sZU9 aWVudDwvdGQ+OU37un20 K2LeGqspHth1GBFbEPY2xYE2sC7c ZBDoQHcmp5Q7sGP0K4GvanYzcu9j b2fgHEFhVWpxW79xsWQt r9G8MWUfjDZ2DMVqoUhqUdAfyL41 Oyc+LJDknSfmd4NvBvknw6tdg0rj yUt3LzQtRACozrEmoTlv NEA2r0ReLg37G46jJZplVQCkADQx ILQxJDHsbHrmxs8tcC2hCg1+PGNv tLN5oHT5hU3dZoQuWsM8 JBnmD362MtXdxBHeIdpbp6tyi9gt qXx3WqIpFZMftaHjyVktDOW0v9Xb Mv41P3NhzUaeo1ZkFwz5 tu34aYShw4T3tXF0X3UuCWIaftvh aABoiFxfMP1vSZYvecydNSOtjP7s CDAtE2o1WkGlDnP2PMve L4YnkxB4YBEfjRQuQLRipSBFgK2d spxym1wirtquIxCqSXDmYIr4BZt4 SOOidOzcXuHjIDX1HmD0 YSS2dTIrfQ6dvYymwsvybD3mDkw+ TQh9q9gzbICxXX7poCS0TW13SV11 bJAkr5O8jYC7K6WzHQFn zsmufbfzbRT3VXIaGQZdbA54Dr0a tGysOn2aVASiFLQ1MSPbqJQqE8Ov oA3mWhPxLCWpXFYeB7Ah dQPgAExdY203RPsvVoF7SKYbybGk E6QgXOKklDyzPyV8z4O9Qs1IBD57 OH90BL97zZXhp9J1dLW3 G2BzDWTsvjtgsawrkHR8WVOrQHLe sK44Ud1stXisYn6zFZSwBGC9TPLy sJKdE2KwnO4sXoXqVEOg BIZyR3VjgDGiQZlfX368SYzxDnU1 NZOmhjIyW9SpOCUpxRwlKrQ3o0X9 Gn7UMh99RX50JQ31rXGe o0X1aEQ8Z3OnRYJwbhcmppvqpDS9 BBNxUKXgtW86Pa1dtPpdTu7pORJu RWM3PMOsyKViI2WknG1o IiBpQPTlAEOvT0FdpRYgTLpyJ885 EVamZbI4EJPrzjIdA7TfSGEidUln OmF1b5Z7Ao8XDMbabyq1 T5VkAdyoqQH+SE47AAYbQU54iXSs qSRah2hrdLm6PrVvFFDsDSN8cAqv AZhes2LhXJSkZ46eiAVt c2U6 (more content not included)... Normal [facility] CBC AUTO DIFFon 12-06-2021 BASO # 0.1 103/ul Normal 0.0-0.1 [facility] Comment on above: Performed By: #### C BC ####[facility] [address] [place] [address]DrMicheal Lozada Basophils/100 WBC (Bld) 1.1 % Normal 0.2-2.0 [facility] Comment on above: Performed By: #### C BC ####[facility] M[address]id[address] [place], [place] [address]Dr. Coconoel oLzada EO # 0.1 103/ul Normal 0.0-0.7 [facility] Comment on above: Performed By: #### C BC ####[facility] [address] [place], [place] [address]Dr. Jelly Lozada Eosinophils/100 WBC (Bld) 1.9 % Normal 0.9-7.0 [facility] Comment on above: Performed By: #### C BC ####[facility] Mnehk[address] [place], [place] [address]Dr. Jelly Lozada Erythrocyte distribution width (RBC) [Ratio] 14.8 % Normal 11.0-15.0 [facility] Comment on above: Performed By: #### C BC ####[facility] J[address] [place], [place] [address]Dr. Jelly Lozada Hematocrit (Bld) [Volume fraction] 39.1 % Normal 36.0-48.0 [facility] Comment on above: Performed By: #### C BC ####[facility] [address] [place], [place] [address]Dr. Coconoel Lozada Hemoglobin (Bld) [Mass/Vol] 12.5 g/dL Normal 12.0-16.0 [facility] Comment on above: Performed By: #### C BC ####[facility] [address] [place], [place] [address]Dr. Jelly Lozada IG # 0.03 10e3/ul Normal 0.00-0.03 [facility] Comment on above: Performed By: #### C BC ####[facility] Unft[address]qwh[address] [place], [place] [address]Dr. Jelly Lozada IG % 0.5 % Normal 0.0-0.5 [facility] Comment on above: Performed By: #### C BC ####[facility] Aulbzbdf[address] [place], [place] [address]Dr. Jelly Lozada LYMPH # 1.6 103/ul Normal 1.2-3.8 [facility] Comment on above: Performed By: #### C BC ####[facility] [address] [place] [address]Dr. Jelly Lozada Lymphocytes/100 WBC (Bld) 24.8 % Normal 20.5-60.0 [facility] Comment on above: Performed By: #### C BC ####[facility] [address] [place] [address]Dr. Jelly Lozada MANUAL DIFF REQ NO Normal [facility] Comment on above: Performed By: #### C BC ####[facility] [address] [place] [address]Dr. Jelly Lozada MCH (RBC) [Entitic mass] 25.4 pg Critically low 26.7-34.0 [facility] Comment on above: Performed By: #### C BC ####[facility] [address] [place], [place] [address]Dr. Jelly Lozada MCHC (RBC) [Mass/Vol] 32.0 g/dL Normal 29.9-35.2 [facility] Comment on above: Performed By: #### C BC ####[facility] [address] [place], [place] [address]Dr. Jelly Lozada MCV (RBC) [Entitic vol] 79.5 fL Critically low 81.0-99.0 [facility] Comment on above: Performed By: #### C BC ####[facility] P[address] [place], [place] [address]Dr. Jelly Lozada MONO # 0.6 103/ul Normal 0.3-0.8 [facility] Comment on above: Performed By: #### C BC ####[facility] Zvlq[address] [place], [place] [address]Dr. Jelly Lozada Monocytes/100 WBC (Bld) 9.1 % Normal 1.7-12.0 [facility] Comment on above: Performed By: #### C BC ####[facility] [address] [place], [place] [address]DrMicheal Lozada NEUT # 3.9 103/ul Normal 1.4-6.5 [facility] Comment on above: Performed By: #### C BC ####[facility] [address] [place] [address]Dr. Jelly Lozada Neutrophils/100 WBC (Bld) 62.6 % Normal 43.0-75.0 [facility] Comment on above: Performed By: #### C BC ####[facility] [address] [place] [id number] Lozada Platelet mean volume (Bld) [Entitic vol] 10.1 fL Normal 9.5-13.5 [facility] Comment on above: Performed By: #### C BC ####[facility] [address] [place] [address]DrMicheal Lozada PLT 421 103/ul Normal 150-450 [facility] Comment on above: Performed By: #### C BC ####[facility] [address] [place] [address]DrMicheal Lozada RBC 4.92 106/ul Normal 4.20-5.40 [facility] Comment on above: Performed By: #### C BC ####[facility] [address] [place] [address]DrMicheal Lozada WBC 6.3 103/ul Normal 4.0-11.0 [facility] Comment on above: Performed By: #### C BC ####[facility] [address] [place] [id number] Lozada PROF 14(COMP METB)on 022 Albumin [Mass/Vol] 4.0 g/dL Normal 3.4-5.0 [facility] Comment on above: Performed By: #### C MP #### [facility] [address] [address] [address] Jelly Lozada Albumin/Globulin [Mass ratio] 1.4 {ratio} Normal [facility] Comment on above: Performed By: #### C MP #### [facility] [address] [address] [address] Jelly Lozada ALP [Catalytic activity/Vol] 99 U/L Normal 46-116 [facility] Comment on above: Performed By: #### C MP #### [facility] [address] [address] [address] Jelly Lozada ALT [Catalytic activity/Vol] 20 U/L Normal 14-59 [facility] Comment on above: Performed By: #### C MP #### [facility] [address] [address] [address] Jelly Lozada Anion gap [Moles/Vol] 13.7 mmol/L Normal [facility] Comment on above: Performed By: #### C MP #### [facility] [address] [address] [address] Jelly Lozada AST [Catalytic activity/Vol] 18 U/L Normal 15-37 [facility] Comment on above: Performed By: #### C MP #### [facility] [address] [place] [address] Dr. Jelly Lozada Bilirubin [Mass/Vol] 0.7 mg/dL Normal 0.2-1.0 [facility] Comment on above: Performed By: #### C MP #### [facility] [address] [address] [address] Jelly Lozada Calcium [Mass/Vol] 8.9 mg/dL Normal 8.5-10.1 [facility] Comment on above: Performed By: #### C MP #### [facility] [address] [address] [address] Jelly Lozada Chloride [Moles/Vol] 102 mmol/L Normal 98-107 [facility] Comment on above: Performed By: #### C MP #### [facility] [address] [address] [address] Jelly Lozada CO2 [Moles/Vol] 26.8 mmol/L Normal 21.0-32.0 [facility] Comment on above: Performed By: #### C MP #### [facility] [address] [address] [address] Jelly Lozada Creatinine [Mass/Vol] 0.74 mg/dL Normal 0.55-1.02 [facility] Comment on above: Performed By: #### C MP #### [facility] [address] [address] [address] Jelly Lozada EGFR-AF CAMBODIAN >60 Normal >=60 [facility] Comment on above: Performed By: #### C MP #### [facility] [address] [address] [address] Jelly Lozada EGFR-NON AF CAMBODIAN >60 Normal >=60 [facility] Comment on above: Performed By: #### C MP #### [facility] [address] [address] [address] Jelly Lozada Globulin (S) [Mass/Vol] 2.9 g/dL Normal [facility] Comment on above: Performed By: #### C MP #### [facility] [address] [place] [address] Dr. Jelly Lozada Glucose [Mass/Vol] 114 mg/dL Critically high 74-106 [facility] Comment on above: Performed By: #### C MP #### [facility] [address] [address] [address] Jelly Lozada Potassium [Moles/Vol] 3.5 mmol/L Normal 3.5-5.1 [facility] Comment on above: Performed By: #### C MP #### [facility] [address] [place] [address] Dr. Jelly Lozada Protein [Mass/Vol] 6.9 g/dL Normal 6.4-8.2 [facility] Comment on above: Performed By: #### C MP #### [facility] [address] [place] [address] Dr. Jelly Lozada Sodium [Moles/Vol] 139 mmol/L Normal 136-145 [facility] Comment on above: Performed By: #### C MP #### [facility] [address] [address] [address] Jelly Lozada Urea nitrogen [Mass/Vol] 9.0 mg/dL Normal 7.0-18.0 [facility] Comment on above: Performed By: #### C MP #### [facility] [address] [address] [address] Jelly Lozada Urea nitrogen/Creatinin e [Mass ratio] 12.2 mg/mg Normal [facility] Comment on above: Performed By: #### C MP #### [facility] [address] [address] [address] Jelly Lozada TSHon 12-06-2021 TSH 3.217 uIU/mL Normal 0.358-3.740 [facility] Comment on above: Performed By: #### T SH #### [facility] [address] [address] [address] Jelly Lozada CREATININEon 08-26-2021 Creatinine [Mass/Vol] 0.70 mg/dL Normal 0.55-1.02 [facility] Comment on above: Performed By: #### C CHANDLER ####[facility] [address] [place] [address]Dr. Jelly Lozada EGFR-AF CAMBODIAN >60 Normal >=60 [facility] Comment on above: Performed By: #### C CHANDLER ####[facility] [address] [place] [address]Dr. Jelly Lozada EGFR-NON AF CAMBODIAN >60 Normal >=60 [facility] Comment on above: Performed By: #### C CHANDLER ####[facility] [address] [place] [address]. Jelly Loz[address] CT ABD/PELV W CONon 08-27-19 CT ABD/PELV W CON EXAMINATION: CT ABD/ PELV W CON HISTORY: Upper abdominal pain and nausea for 3 months COMPARISON: CT abdomen pelvis 04/24/2019 TECHNIQUE: Axial, Coronal, and Sagittal images were created with IV contrast. Dose reduction techniques were achieved by using automated exposure control and/or adjustment of mA and/or kV according to patient size and/or use of iterative reconstruction technique. FINDINGS: LUNG BASES: No visible pulmonary or pleural disease. LIVER: No enlargement, atrophy, abnormal density, or significant focal lesion. BILIARY: Cholecystectomy. No abnormal duct dilation. PANCREAS: No lesion, fluid collection, ductal dilatation, or atrophy. SPLEEN: No enlargement or focal lesion. ADRENALS: No mass or enlargement. KIDNEYS: No mass, obstruction, or calcification. BOWEL/MESENTERY: No visible mass, obstruction, or bowel wall thickening. AORTA/VASCULAR: No aneurysm or dissection. RETROPERITONEUM: No mass or adenopathy. LYMPH NODES: No adenopathy. URINARY BLADDER: No visible focal wall thickening, lesion, or calculus. PELVIC ORGANS: Hysterectomy. ABDOMINAL WALL: No mass or hernia. BONES: No bony lesion or fracture. OTHER: Negative. IMPRESSION: 1. No abnormal or suspicious findings to account for patient's symptoms. Electronically authenticated by: HUMBERTO HEIN Date: 2021-08-26 10:08 Normal [facility] PROF CHEM 8 (BAS METB)on Anion gap [Moles/Vol] 13.6 mmol/L Normal [facility] Comment on above: Performed By: #### B MP #### [facility] [address] [place] [address] Dr. Jelly Lozada Calcium [Mass/Vol] 8.8 mg/dL Normal 8.5-10.1 [facility] Comment on above: Performed By: #### B MP #### [facility] [address] [address] [address] Jelly Lozada Chloride [Moles/Vol] 100 mmol/L Normal 98-107 [facility] Comment on above: Performed By: #### B MP #### [facility] [address] [address] [address] Jelly Lozada CO2 [Moles/Vol] 28.2 mmol/L Normal 21.0-32.0 [facility] Comment on above: Performed By: #### B MP #### [facility] [address] [address] [address] Jelly Lozada Creatinine [Mass/Vol] 0.74 mg/dL Normal 0.55-1.02 [facility] Comment on above: Performed By: #### B MP #### [facility] [address] [address] [address] Jelly Lozada EGFR-AF CAMBODIAN >60 Normal >=60 [facility] Comment on above: Performed By: #### B MP #### [facility] [address] [address] [address] Jelly Lozada EGFR-NON AF CAMBODIAN >60 Normal >=60 [facility] Comment on above: Performed By: #### B MP #### [facility] [address] [address] [address] Jelly Lozada Glucose [Mass/Vol] 98 mg/dL Normal 74-106 [facility] Comment on above: Performed By: #### B MP #### [facility] [address] [address] [address] Jelly Lozada Potassium [Moles/Vol] 3.8 mmol/L Normal 3.5-5.1 [facility] Comment on above: Performed By: #### B MP #### [facility] [address] [address] [address] Jelly Lozada Sodium [Moles/Vol] 138 mmol/L Normal 136-145 [facility] Comment on above: Performed By: #### B MP #### [facility] [address] [address] [address] Jelly Lozada Urea nitrogen [Mass/Vol] 6.0 mg/dL Critically low 7.0-18.0 [facility] Comment on above: Performed By: #### B MP #### [facility] [address] [address] [address] Jelly Lozada Urea nitrogen/Creatinin e [Mass ratio] 8.1 mg/mg Normal [facility] Comment on above: Performed By: #### B MP #### [facility] [address] [address] [address] Jelly Lozada Vital Signs Date Time Vital Sign Value Performing Clinician Facility 03-01-2023 09:13-0400 Blood Pressure Location Brianna Pastor [facility] 03-01-2023 09:13-0400 Body temperature 97.52 [degF] Brianna Pastor [facility] 03-01-2023 09:13-0400 Diastolic blood pressure 89 mm[Hg] Brianna Pastor [facility] 03-01-2023 09:13-0400 Heart rate 55 /min Brianna Darby [facility] 03-01-2023 09:13-0400 Systolic blood pressure 133 mm[Hg] Brianna Darby [facility] 08-31-2022 09:45-0400 Diastolic blood pressure 80 mm[Hg] Brianna Darby [facility] 08-31-2022 09:45-0400 Mean blood pressure 99 mm[Hg] Brianna Darby [facility] 08-31-2022 09:45-0400 Systolic blood pressure 138 mm[Hg] Brianna Darby [facility] 08-31-2022 09:35-0400 Blood Pressure Location Brianna Darby [facility] 08-31-2022 09:35-0400 Body temperature 97.7 [degF] Brianna Darby [facility] 08-31-2022 09:35-0400 Diastolic blood pressure 77 mm[Hg] Brianna Darby [facility] 08-31-2022 09:35-0400 Heart rate 56 /min Brianna Darby [facility] 08-31-2022 09:35-0400 Systolic blood pressure 144 mm[Hg] Brianna Darby [facility] 06-02-2022 09:49-0500 Blood Pressure Location Brianna Darby [facility] 06-02-2022 09:49-0500 Body temperature 96.98 [degF] Brianna Darby [facility] 06-02-2022 09:49-0500 Diastolic blood pressure 84 mm[Hg] Brianna Darby [facility] 06-02-2022 09:49-0500 Heart rate 57 /min Brianna Darby [facility] 06-02-2022 09:49-0500 Systolic blood pressure 129 mm[Hg] Brianna Darby [facility] 03-02-2022 10:01-0400 Blood Pressure Location Brianna Darby [facility] 03-02-2022 10:01-0400 Body temperature 97.7 [degF] Brianna Darby [facility] 03-02-2022 10:01-0400 Diastolic blood pressure 88 mm[Hg] Brianna Darby [facility] 03-02-2022 10:01-0400 Heart rate 62 /min Brianna Darby [facility] 03-02-2022 10:01-0400 Systolic blood pressure 120 mm[Hg] Brianna Darby [facility] 12-01-2021 12:26-0400 Blood Pressure Location Brianna Darby [facility] 12-01-2021 12:26-0400 Body temperature 97.16 [degF] Brianna Darby [facility] 12-01-2021 12:26-0400 Diastolic blood pressure 80 mm[Hg] Brianna Darby [facility] 12-01-2021 12:26-0400 Heart rate 58 /min Brianna Bridgesz [facility] 12-01-2021 12:26-0400 SaO2% (BldA) [Mass fraction] 97 % Briannalauren CarusoDarby [facility] 12-01-2021 12:26-0400 Systolic blood pressure 122 mm[Hg] Brianna Carusometz [facility] 08-12-2021 09:22-0400 Blood Pressure Location Briannalauren Bridgesz [facility] 08-12-2021 09:22-0400 Diastolic blood pressure 77 mm[Hg] Brianna Bridgesz [facility] 08-12-2021 09:22-0400 Heart rate 53 /min Brianna Pastor [facility] 08-12-2021 09:22-0400 SaO2% (BldA) [Mass fraction] 96 % Brianna Bridgesz [facility] 08-12-2021 09:22-0400 Systolic blood pressure 126 mm[Hg] Brianna Pastor [facility] Encounters Encounter Date Encounter Type Care Provider Facility Start: 08-30-2023 ambulatory Brianna Greenberg ty:[facility] Start: 04-10-2023 End: 04-10-2023 ambulatory SHAIKH CURTIS Not Available Start: 04-07-2023 End: 04-07-2023 ambulatory [facility] Start: 03-01-2023 End: 03-02-2023 ambulatory Brianna Lanie Darby [facility] Start: 03-01-2023 End: 03-01-2023 Patient encounter procedure Brianna A Darby [facility] Start: 08-31-2022 End: 09-01-2022 ambulatory Brianna Lanie Darby Facility:[facility] Start: 08-31-2022 End: 09-01-2022 ambulatory Brianna Lanie Darby [facility] Start: 08-31-2022 End: 08-31-2022 Patient encounter procedure Brianna A Darby [facility] Start: 08-31-2022 End: 08-31-2022 Patient encounter procedure Brianna Pastor [facility] Start: 07-06-2022 End: 07-06-2022 ambulatory [facility] Start: 06-23-2022 End: 06-24-[address] HUMBERTO HEIN Facility:[facility] Start: 06-02-2022 End: 06-03-2022 ambulatory Brianna Lanie Darby [facility] Start: 06-02-2022 End: 06-02-2022 Patient encounter procedure Briannalauren Bridgesz [facility] Start: 03-23-2022 End: 03-24-2022 ambulatory SHAIKH Lauren ACEVEDO Facility:[facility] Start: 03-15-2022 End: 03-16-[address] DOCTOR CLARK Facility:[facility] Start: 03-02-2022 End: 03-02-2022 Patient encounter procedure Brianna Pastor [facility] Start: 12-06-2021 End: 12-07-2021 ambulatory SHAIKH Lauren ACEVEDO Facility:[facility] Start: 12-01-2021 End: 12-01-2021 Patient encounter procedure Brianna Pastor [facility] Start: 08-26-2021 End: 08-27-2021 ambulatory [facility] Facility:[facility] Start: 08-24-2021 End: 08-25-2021 ambulatory SHAIKH Lauren ACEVEDO Facility:[facility] Start: 08-12-2021 End: 08-12-2021 Patient encounter procedure Brianna Pastor [facility] Procedures Date Procedure Procedure Detail Performing Clinician Start: 04-12-2021 Esophagogastroduodenoscopy Brianna Pastor Comment on above: gastric erosions, hi atal hernia Start: 04-03-2019 Colonoscopy Brianna wilson Start: 04-03-2019 Esophagogastroduodenoscopy Brianna Pastor Immunizations Immunization Date Immunization Notes Care Provider Fa [facility] 01-26-2022 tetanus toxoid, reduced diphtheria toxoid, and acellular pertussis vaccine, adsorbed Brianna Pastor [facility] NEGATED: Highlighted row has not occurred!02-27-2023 influenza virus vaccine, unspecified formulation Brianna Bridgesz [facility] NEGATED: Highlighted row has not occurred!06-02-2022 influenza virus vaccine, unspecified formulation Brianna Bridgesz [facility] NEGATED: Highlighted row has not occurred!03-02-2022 influenza virus vaccine, unspecified formulation Brianna Carusometz [facility] Payers Date Payer Category Payer Unknown [id number] 1958 Medicare [id number] 1958 Unknown [id number] 1945 Unknown [id number] 2.16.84 0.1.597843.3.579.2.593 1945 Unknown [id number] 2.16.84 0.1.085681.3.579.2.593 1946 Unknown [id number] 2.16.84 0.1.520882.3.579.2.593 1946 Unknown [id number] 2.16.84 0.1.936362.3.579.2.593 1946 Unknown [id number] 2.16.84 0.1.579669.3.579.2.593 1946 Unknown [id number] 2.16.84 0.1.955991.3.579.2.593 1946 Unknown [id number] 2.16.84 0.1.247219.3.579.2.593 1946 Unknown [id number] 2.16.84 0.1.246444.3.579.2.593 1946 Unknown [id number] 2.16.8 40.1.359937.3.579.2.727 1946 Unknown [id number] 2.16.8 40.1.966551.3.579.2.727 1946 Unknown [id number] 2.16.8 40.1.433559.3.579.2.727 1946 Unknown [id number] 2.16.8 40.1.576669.3.579.2.727 1946 Unknown [id number] 2.16.8 40.1.762610.3.579.2.727 1946 Unknown [id number] 2.16.840 .1.034221.3.579.2.1259 Social History Date Type Detail Facility Start: 05-04-2021 End: 03-01-2023 Tobacco smoking status Never smoked tobacco (finding) [facility] Tobacco smoking status Never [facility] Sex Assigned At Female [facility] Functional Status Date Assessment Result Facility 03-01-2023 Functional Status N/A [facility] 08-31-2022 Functional Status N/A [facility] 06-02-2022 Functional Status N/A [facility] 03-02-2022 Functional Status N/A [facility] 12-01-2021 Functional Status N/A [facility] Clinical Notes 08-12-2021 to 04-07-2023 Laboratory Note Date & Type Note Facility 04-07-2023 Note [place] Cardiology - [facility] Subjective Toñito Putnam is a 77 y.o. year old female patient being seen for follow up recent stress test and labs. Denies chest pain, SOB, lightheadedness, and syncope. Patient Active Problem List Diagnosis Angina pectoris (CMS/HCC) Chest pain Benign essential hypertension Chronic obstructive lung disease (CMS/HCC) Coronary atherosclerosis Dyspnea Gastroesophageal reflux disease Headache Neck pain Hyperlipidemia Left lower quadrant abdominal pain Obesity Family History Problem Relation Name Age of Onset Coronary artery disease Sister 62 Passed age 62 Coronary artery disease Brother 58 Cancer Other Coronary artery disease Other Social History Tobacco Use Smoking status: Never Smokeless tobacco: Never Substance Use Topics Alcohol use: Not Currently HPI Toñito is a 75-year-old woman who is seen in follow up hypertension, hyperlipidemia, and coronary calcification. In 2019 she was admitted to [facility]. She had hemorrhoidal bleeding and gastritis. She was taking aspirin but now stopped. She has no chest pain. No shortness of breath. No lower extremity edema. Review of Systems Cardiovascular: Negative for chest pain, dyspnea on exertion, irregular heartbeat, leg swelling, orthopnea, palpitations and syncope. Respiratory: Negative for cough and shortness of breath. Musculoskeletal: Negative for arthritis, falls and neck pain. Gastrointestinal: Negative for diarrhea and dysphagia. Neurological: Negative for light-headedness and loss of balance. Objective Visit Vitals BP 130/80 (BP Location: Left arm, Patient Position: Sitting) Pulse 60 Ht 1.626 m (5' 4 ) Wt 76.2 kg (168 lb) SpO2 96% BMI 28.84 kg/m??? Smoking Status Never BSA 1.86 m??? Physical Exam Constitutional: Appearance: She is well-developed. She is not ill-appearing. HENT: Head: Normocephalic and atraumatic. Nose: Nose normal. Eyes: General: No scleral icterus. Pupils: Pupils are equal, round, and reactive to light. Neck: Thyroid: No thyromegaly. Vascular: No JVD. Cardiovascular: Rate and Rhythm: Normal rate and regular rhythm. Pulses: Radial pulses are 2+ on the right side and 2+ on the left side. Heart sounds: Normal heart sounds. No murmur heard. No friction rub. No gallop. Pulmonary: Effort: Pulmonary effort is normal. No respiratory distress. Breath sounds: Normal breath sounds. No wheezing or rales. Chest: Chest wall: No tenderness. Abdominal: General: Bowel sounds are normal. There is no distension. Palpations: Abdomen is soft. Tenderness: There is no abdominal tenderness. Musculoskeletal: General: No swelling. Cervical back: Neck supple. Skin: General: Skin is warm and dry. Neurological: General: No focal deficit present. Mental Status: She is alert and oriented to person, place, and time. Psychiatric: Mood and Affect: Mood normal. Behavior: Behavior is cooperative. Judgment: Judgment normal. Allergies Allergies Allergen Reactions Meperidine Other Medications Current Outpatient Medications: atenolol (Tenormin) 25 mg tablet, Take 25 mg by mouth in the morning., Disp: , Rfl: atorvastatin (Lipitor) 20 mg tablet, in the morning., Disp: , Rfl: lisinopril 10 mg tablet, Take 10 mg by mouth in the morning., Disp: , Rfl: pantoprazole (ProtoNix) 40 mg EC tablet, pantoprazole 40 mg tablet,delayed release, Disp: , Rfl: sucralfate (Carafate) 1 gram tablet, sucralfate 1 gram tablet, Disp: , Rfl: Recent Labs No visits with results within 6 Month(s) from this visit. Latest known visit with results is: [facility] Encounter on 03/18/2019 Component Date Value Ventricular Rate 03/18/2019 61 Atrial Rate 03/18/2019 61 IN Interval 03/18/2019 188 QRS DURATION 03/18/2019 94 QT Interval 03/18/2019 438 QTC CALCULATION(BEZET) 03/18/2019 440 P [place] 03/18/2019 55 R-[place] 03/18/2019 2 T Wave [place] 03/18/2019 44 Diagnosis 03/18/2019 Value:Normal sinus rhythm Normal ECG No previous ECGs available Confirmed by STRESS, ([id number]), editor publications Ángela Arredondo ([id number]) on 03/18/2019 12:12:41 PM Blood testing 09/29/2022: Hemoglobin 14.1, hematocrit 44.7, Platelets 507, potassium 3.8, BUN 8, creatinine 0.79, EGFR more than 60, LFTs normal, triglycerides 170, LDL 79, cholesterol 171. Blood testing 10/06/2020: Potassium 4.3, BUN 9, creatinine 0.77, GFR more than 60. Blood testing 03/24/2020: Hemoglobin 13.5, platelets 393, potassium 4.3, BUN 8, creatinine 0.66, GFR more than 60, LFTs normal, TSH normal Blood test on 05/14/2014: LDL 89, TG 102. Imaging and other tests Stress test 02/22/2023: No acute or reversible ischemia, attenuation artifact versus small area of fixed ischemia involving the mid and apical anterior wall. Normal wall motion and ejection fraction. Resting hypertension and appropriate response to exercise. Echocardiogram 03/18/2021: Ventricular systolic function. LVEF is 60 to (more content not included)... [facility] 03-01-2023 Hospital Discharge instructions Patient Education 03/01/2023 09:33:23 High-Fiber Eating Plan High-Fiber Eating Plan Fiber, also called dietary fiber, is a type of carbohydrate. It is found foods such as fruits, vegetables, whole grains, and beans. A high-fiber diet can have many health benefits. Your health care provider may recommend a high-fiber diet to help: Prevent constipation. Fiber can make your bowel movements more regular. Lower your cholesterol. Relieve the following conditions: ?Inflammation of veins in the anus (hemorrhoids). ?Inflammation of specific areas of the digestive tract (uncomplicated diverticulosis). ?A problem of the large intestine, also called the colon, that sometimes causes pain and diarrhea (irritable bowel syndrome, or IBS). Prevent overeating as part of a weight-loss plan. Prevent heart disease, type 2 diabetes, and certain cancers. What are tips for following this plan? Reading food labels Check the nutrition facts label on food products for the amount of dietary fiber. Choose foods that have 5 grams of fiber or more per serving. The goals for recommended daily fiber intake include: ?Men (age 50 or younger): 34 38 g. ?Men (over age 50): 28 34 g. ?Women (age 50 or younger): 25 28 g. ?Women (over age 50): 22 25 g. Your daily fiber goal is g. Shopping Choose whole fruits and vegetables instead of processed forms, such as apple juice or applesauce. Choose a wide variety of high-fiber foods such as avocados, lentils, oats, and kidney beans. Read the nutrition facts label of the foods you choose. Be aware of foods with added fiber. These foods often have high sugar and sodium amounts per serving. Cooking Use whole-grain flour for baking and cooking. Cook with brown rice instead of white rice. Meal planning Start the day with a breakfast that is high in fiber, such as a cereal that contains 5 g of fiber or more per serving. Eat breads and cereals that are made with whole-grain flour instead of refined flour or white flour. Eat brown rice, bulgur wheat, or millet instead of white rice. Use beans in place of meat in soups, salads, and pasta dishes. Be sure that half of the grains you eat each day are whole grains. General information You can get the recommended daily intake of dietary fiber by: ?Eating a variety of fruits, vegetables, grains, nuts, and beans. ?Taking a fiber supplement if you are not able to take in enough fiber in your diet. It is better to get fiber through food than from a supplement. Gradually increase how much fiber you consume. If you increase your intake of dietary fiber too quickly, you may have bloating, cramping, or gas. Drink plenty of water to help you digest fiber. Choose high-fiber snacks, such as berries, raw vegetables, nuts, and popcorn. What foods should I eat? Fruits Berries. Pears. Apples. Oranges. Avocado. Prunes and raisins. Dried figs. Vegetables Sweet potatoes. Spinach. Kale. Artichokes. Cabbage. Broccoli. Cauliflower. Green peas. Carrots. Squash. Grains Whole-grain breads. Multigrain cereal. Oats and oatmeal. Brown rice. Barley. Bulgur wheat. Millet. Quinoa. Bran muffins. Popcorn. [place] wafer crackers. Meats and other proteins [place] beans, kidney beans, and gee beans. Soybeans. Split peas. Lentils. Nuts and seeds. Dairy Fiber-fortified yogurt. Beverages Fiber-fortified soy milk. Fiber-fortified orange juice. Other foods Fiber bars. The items listed above may not be a complete list of recommended foods and beverages. Contact a dietitian for more information. What foods should I avoid? Fruits Fruit juice. Cooked, strained fruit. Vegetables Fried potatoes. Canned vegetables. Well-cooked vegetables. Grains White bread. Pasta made with refined flour. White rice. Meats and other proteins Fatty cuts of meat. Fried chicken or fried fish. Dairy Milk. Yogurt. Cream cheese. Sour cream. Fats and oils [place]. Beverages Soft drinks. Other foods Cakes and pastries. The items listed above may not be a complete list of foods and beverages to avoid. Talk with your dietitian about what choices are best for you. Summary Fiber is a type of carbohydrate. It is found in foods such as fruits, vegetables, whole grains, and beans. A high-fiber diet has many benefits. It can help to prevent constipation, lower blood cholesterol, aid weight loss, and reduce your risk of heart disease, diabetes, and certain cancers. Increase your intake of fiber gradually. Increasing fiber too quickly may cause cramping, bloating, and gas. Drink plenty of water while you increase the amount of fiber you consume. The best sources of fiber include whole fruits and vegetables, whole grains, nuts, seeds, and beans. This information is not intended to replace advice given to you by your health care provider. Make sure you discuss any questions you have with your health care provider. Document Revised: 08/20/2020 Document Reviewed: 08/20/2020 [employer] Patient Education 2022 [employer]. Follow Up Care 08/31/2022 10:04:40 With:Brianna Pastor CNP Address: When:6 months [facility] 08-31-2022 Hospital Discharge instructions Patient Education 08/31/2022 09:43:13 Food Choices for Gastroesophageal Reflux Disease, Adult Food Choices for Gastroesophageal Reflux Disease, Adult When you have gastroesophageal reflux disease (GERD), the foods you eat and your eating habits are very important. Choosing the right foods can help ease the discomfort of GERD. Consider working with a dietitian to help you make healthy food choices. What are tips for following this plan? Reading food labels Look for foods that are low in saturated fat. Foods that have less than 5% of daily value (DV) of fat and 0 g of trans fats may help with your symptoms. Cooking Cook foods using methods other than frying. This may include baking, steaming, grilling, or broiling. These are all methods that do not need a lot of fat for cooking. To add flavor, try to use herbs that are low in spice and acidity. Meal planning Choose healthy foods that are low in fat, such as fruits, vegetables, whole grains, low-fat dairy products, lean meats, fish, and poultry. Eat frequent, small meals instead of three large meals each day. Eat your meals slowly, in a relaxed setting. Avoid bending over or lying down until 2 3 hours after eating. Limit high-fat foods such as fatty meats or fried foods. Limit your intake of fatty foods, such as oils, butter, and shortening. Avoid the following as told by your health care provider: ?Foods that cause symptoms. These may be different for different people. Keep a food diary to keep track of foods that cause symptoms. ?Alcohol. ?Drinking large amounts of liquid with meals. ?Eating meals during the 2 3 hours before bed. Lifestyle Maintain a healthy weight. Ask your health care provider what weight is healthy for you. If you need to lose weight, work with your health care provider to do so safely. Exercise for at least 30 minutes on 5 or more days each week, or as told by your health care provider. Avoid wearing clothes that fit tightly around your waist and chest. Do not use any products that contain nicotine or tobacco. These products include cigarettes, chewing tobacco, and vaping devices, such as e-cigarettes. If you need help quitting, ask your health care provider. Sleep with the head of your bed raised. Use a wedge under the mattress or blocks under the bed frame to raise the head of the bed. Chew sugar-free gum after mealtimes. What foods should I eat? Eat a healthy, well-balanced diet of fruits, vegetables, whole grains, low-fat dairy products, lean meats, fish, and poultry. Each person is different. Foods that may trigger symptoms in one person may not trigger any symptoms in another person. Work with your health care provider to identify foods that are safe for you. The items listed above may not be a complete list of recommended foods and beverages. Contact a dietitian for more information. What foods should I avoid? Limiting some of these foods may help manage the symptoms of GERD. Everyone is different. Consult a dietitian or your health care provider to help you identify the exact foods to avoid, if any. Fruits Any fruits prepared with added fat. Any fruits that cause symptoms. For some people this may include citrus fruits, such as oranges, grapefruit, pineapple, and dali. Vegetables Deep-fried vegetables. Romanian fries. Any vegetables prepared with added fat. Any vegetables that cause symptoms. For some people, this may include tomatoes and tomato products, chili peppers, onions and garlic, and horseradish. Grains Pastries or quick breads with added fat. Meats and other proteins High-fat meats, such as fatty beef or pork, hot dogs, ribs, ham, sausage, salami, and oneal. Fried meat or protein, including fried fish and fried chicken. Nuts and nut butters, in large amounts. Dairy Whole milk and chocolate milk. Sour cream. Cream. Ice cream. Cream cheese. Milkshakes. Fats and oils Butter. Margarine. Shortening. Ghee. Beverages Coffee and tea, with or without caffeine. Carbonated beverages. Sodas. Energy drinks. Fruit juice made with acidic fruits, such as orange or grapefruit. Tomato juice. Alcoholic drinks. Sweets and desserts Chocolate and cocoa. Donuts. Seasonings and condiments Pepper. Peppermint and spearmint. Added salt. Any condiments, herbs, or seasonings that cause symptoms. For some people, this may include guzman, hot sauce, or vinegar-based salad dressings. The items listed above may not be a complete list of foods and beverages to avoid. Contact a dietitian for more information. Questions to ask your health care provider Diet and lifestyle changes are usually the first steps that are taken to manage symptoms of GERD. If diet and lifestyle changes do not improve your symptoms, talk with your health care provider about taking medicines. Where to find more information [employer] G[employer]intestinal [employer]: aboutgerd.org Summary When you have gastroesophageal reflux disease (GERD), food and lifestyle choices may be very helpful in easing the discomfort of GERD. Eat frequent, small meals instead of three large meals each day. Eat your meals slowly, in a relaxed setting. Avoid bending over or lying down until 2 3 hours after eating. Limit high-fat foods such as fatty meats or fried foods. This information is not intended to replace advice given to you by your health care provider. Make sure you discuss any questions you have with your health care provider. Document Revised: 10/26/2020 Document Reviewed: 10/26/2020 [email or web address] Patient Education 2022 [employer]. Follow Up Care 06/02/2022 10:08:57 With:Brianna Pastor CNP Address: When:6 months [facility] 07-06-2022 Note Patient here for 6 m o follow up CAD, hypertension, and hyperlipidemia. Denies chest pain, SOB, and LE edema. Gets palpitations sometimes . No recent labs or imaging. Doing well from cardiac standpoint. Review of Systems Cardiovascular: Positive for palpitations ( sometimes ). Respiratory: Positive for cough. Musculoskeletal: Positive for arthritis, joint pain and myalgias. Gastrointestinal: Positive for heartburn. All other systems reviewed and are negative. [facility] 07-06-2022 Note Cardiovascular Medic in[facility] SUBJECTIVE Chief Complaint Patient presents with Coronary Artery Disease Hypertension Hyperlipidemia Toñito Putnam is a 76 y.o. female here for follow-up. HPI 07/06/22 She c/o chest pain, typically left sided when she is lifting heavy objects. She has noticed it for the past few months. She gets intermittent palpitations that are short lived, no accompanied sx's, resolve on their own. She denies dyspnea at rest or exertion, orthopnea, PND, lower extremity edema, dizziness/lightheadedness, syncope. BP at home typically averaging 120-130s/60-70s Last HPI per Dr. Hawk 06/14/21: Visit of 03/16/2021: Toñito is a 75-year-old woman who is seen in follow up hypertension, hyperlipidemia, and coronary calcification. In 2019 she was admitted to [facility]. She had hemorrhoidal bleeding and gastritis. She was taking aspirin but now stopped. She has no chest pain. No shortness of breath. No lower extremity edema. She complains of right-sided flank pain for which she is seeing her PCP tomorrow. She reports that recently she has been having near syncopal episodes especially when she goes to the bathroom. She also has dizziness and lightheadedness. Visit of 06/14/2021: She is seen in follow-up. After last visit and because of near syncopal episodes I stopped isosorbide mononitrate. I also checked an echocardiogram. I also asked her to resume aspirin 81 mg daily. She has not resumed aspirin. She reports that she has felt better after stopping isosorbide mononitrate and has had no episodes of near syncope. Otherwise she reports that she has been doing well. She did have Covid infection about a month ago. Patient Active Problem List Diagnosis Angina pectoris (CMS/HCC) Chest pain Benign essential hypertension Chronic obstructive lung disease (CMS/HCC) Coronary atherosclerosis Dyspnea Gastroesophageal reflux disease Headache Neck pain Hyperlipidemia Left lower quadrant abdominal pain Obesity Past Medical History: Diagnosis Date COPD (chronic obstructive pulmonary disease) (CMS/HCC) Coronary artery disease GERD (gastroesophageal reflux disease) Hyperlipidemia Hypertension Family History Problem Relation Name Age of Onset Coronary artery disease Sister 62 Passed age 62 Coronary artery disease Brother 58 Cancer Other Coronary artery disease Other Social History Tobacco Use Smoking status: Never Smokeless tobacco: Never Substance Use Topics Alcohol use: Not Currently Allergies Allergen Reactions Meperidine Other ROS Cardiovascular: Positive for chest pain and palpitations ( sometimes ). Respiratory: Positive for cough. Musculoskeletal: Positive for arthritis, joint pain and myalgias. Gastrointestinal: Positive for heartburn. All other systems reviewed and are negative. OBJECTIVE Visit Vitals BP 139/83 (BP Location: Right arm, Patient Position: Sitting) Pulse 61 Ht 1.626 m (5' 4 ) Wt 74.4 kg (164 lb) SpO2 99% BMI 28.15 kg/m??? Smoking Status Never BSA 1.83 m??? Medications: Current Outpatient Medications: atenolol (Tenormin) 25 mg tablet, atenolol 25 mg tablet, Disp: , Rfl: atorvastatin (Lipitor) 20 mg tablet, in the morning., Disp: , Rfl: lisinopril 10 mg tablet, lisinopril 10 mg tablet, Disp: , Rfl: pantoprazole (ProtoNix) 40 mg EC tablet, pantoprazole 40 mg tablet,delayed release, Disp: , Rfl: sucralfate (Carafate) 1 gram tablet, sucralfate 1 gram tablet, Disp: , Rfl: Physical Exam Vitals reviewed. Constitutional: Appearance: Normal appearance. She is normal weight. HENT: Head: Normocephalic and atraumatic. Right Ear: External ear normal. Left Ear: External ear normal. Eyes: Extraocular Movements: Extraocular movements intact. Conjunctiva/sclera: Conjunctivae normal. Pupils: Pupils are equal, round, and reactive to light. Neck: Vascular: No carotid bruit. Comments: No JVD Cardiovascular: Rate and Rhythm: Normal rate and regular rhythm. Pulses: Normal pulses. Heart sounds: Normal heart sounds. Pulmonary: Effort: Pulmonary effort is normal. Breath sounds: Normal breath sounds. Abdominal: General: Bowel sounds are normal. Palpations: Abdomen is soft. Musculoskeletal: Cervical back: Neck supple. Right lower leg: No edema. Left lower leg: No edema. Skin: General: Skin is warm and dry. Neurological: General: No focal deficit present. Mental Status: She is alert and oriented to person, place, and time. Psychiatric: Mood and Affect: Mood normal. Behavior: Behavior normal. Thought Content: Thought content normal. Judgment: Judgment normal. Labs/Testing/Procedures: [facility] Encounter on 03/18/2019 Component Date Value Ref Range Status Ventricular Rate 03/18/2019 61 BPM Final Atrial Rate 03/18/2019 61 BPM Final IN Interval 03/18/2019 188 ms Final QRS DU (more content not included)... [facility] 06-02-2022 Hospital Discharge instructions Patient Education 06/02/2022 09:47:57 Food Choices for Gastroesophageal Reflux Disease, Adult Food Choices for Gastroesophageal Reflux Disease, Adult When you have gastroesophageal reflux disease (GERD), the foods you eat and your eating habits are very important. Choosing the right foods can help ease the discomfort of GERD. Consider working with a diet and food and nutrition services assistant (dietitian) to help you make healthy food choices. What general guidelines should I follow? Eating plan Choose healthy foods low in fat, such as fruits, vegetables, whole grains, low-fat dairy products, and lean meat, fish, and poultry. Eat frequent, small meals instead of three large meals each day. Eat your meals slowly, in a relaxed setting. Avoid bending over or lying down until 2 3 hours after eating. Limit high-fat foods such as fatty meats or fried foods. Limit your intake of oils, butter, and shortening to less than 8 teaspoons each day. Avoid the following: ?Foods that cause symptoms. These may be different for different people. Keep a food diary to keep track of foods that cause symptoms. ?Alcohol. ?Drinking large amounts of liquid with meals. ?Eating meals during the 2 3 hours before bed. Cook foods using methods other than frying. This may include baking, grilling, or broiling. Lifestyle Maintain a healthy weight. Ask your health care provider what weight is healthy for you. If you need to lose weight, work with your health care provider to do so safely. Exercise for at least 30 minutes on 5 or more days each week, or as told by your health care provider. Avoid wearing clothes that fit tightly around your waist and chest. Do not use any products that contain nicotine or tobacco, such as cigarettes and e-cigarettes. If you need help quitting, ask your health care provider. Sleep with the head of your bed raised. Use a wedge under the mattress or blocks under the bed frame to raise the head of the bed. What foods are not recommended? The items listed may not be a complete list. Talk with your dietitian about what dietary choices are best for you. Grains Pastries or quick breads with added fat. Romanian toast. Vegetables Deep fried vegetables. Romanian fries. Any vegetables prepared with added fat. Any vegetables that cause symptoms. For some people this may include tomatoes and tomato products, chili peppers, onions and garlic, and horseradish. Fruits Any fruits prepared with added fat. Any fruits that cause symptoms. For some people this may include citrus fruits, such as oranges, grapefruit, pineapple, and dali. Meats and other protein foods High-fat meats, such as fatty beef or pork, hot dogs, ribs, ham, sausage, salami and oneal. Fried meat or protein, including fried fish and fried chicken. Nuts and nut butters. Dairy Whole milk and chocolate milk. Sour cream. Cream. Ice cream. Cream cheese. Milk shakes. Beverages Coffee and tea, with or without caffeine. Carbonated beverages. Sodas. Energy drinks. Fruit juice made with acidic fruits (such as orange or grapefruit). Tomato juice. Alcoholic drinks. Fats and oils Butter. Margarine. Shortening. Ghee. Sweets and desserts Chocolate and cocoa. Donuts. Seasoning and other foods Pepper. Peppermint and spearmint. Any condiments, herbs, or seasonings that cause symptoms. For some people, this may include guzman, hot sauce, or vinegar-based salad dressings. Summary When you have gastroesophageal reflux disease (GERD), food and lifestyle choices are very important to help ease the discomfort of GERD. Eat frequent, small meals instead of three large meals each day. Eat your meals slowly, in a relaxed setting. Avoid bending over or lying down until 2 3 hours after eating. Limit high-fat foods such as fatty meat or fried foods. This information is not intended to replace advice given to you by your health care provider. Make sure you discuss any questions you have with your health care provider. Document Released: 04/17/2006 Document Revised: 08/08/2019 Document Reviewed: 04/18/2017 [email or web address] Patient Education 2020 [employer]. Follow Up Care 03/11/2022 10:33:58 With:Darby VACUUM TESTER CANS, Brianna A Address: When:3 months [facility] 03-02-2022 [facility] + [facility]22Comprehensive Metabolic Panel 03/02/22Celiac Disease Comprehensive [facility]22 Hospital Discharge instructions Patient Education 03/02/2022 10:27:05 Abdominal Pain, Adult Abdominal Pain, Adult Pain in the abdomen (abdominal pain) can be caused by many things. Often, abdominal pain is not serious and it gets better with no treatment or by being treated at home. However, sometimes abdominal pain is serious. Your health care provider will ask questions about your medical history and do a physical exam to try to determine the cause of your abdominal pain. Follow these instructions at home: Medicines Take hlji-ygg-azamiqf and prescription medicines only as told by your health care provider. Do not take a laxative unless told by your health care provider. General instructions Watch your condition for any changes. Drink enough fluid to keep your urine pale yellow. Keep all follow-up visits as told by your health care provider. This is important. Contact a health care provider if: Your abdominal pain changes or gets worse. You are not hungry or you lose weight without trying. You are constipated or have diarrhea for more than 2 3 days. You have pain when you urinate or have a bowel movement. Your abdominal pain wakes you up at night. Your pain gets worse with meals, after eating, or with certain foods. You are vomiting and cannot keep anything down. You have a fever. You have blood in your urine. Get help right away if: Your pain does not go away as soon as your health care provider told you to expect. You cannot stop vomiting. Your pain is only in areas of the abdomen, such as the right side or the left lower portion of the abdomen. Pain on the right side could be caused by appendicitis. You have bloody or black stools, or stools that look like tar. You have severe pain, cramping, or bloating in your abdomen. You have signs of dehydration, such as: ?Dark urine, very little urine, or no urine. ?Cracked lips. ?Dry mouth. ?Sunken eyes. ?Sleepiness. ?Weakness. You have trouble breathing or chest pain. Summary Often, abdominal pain is not serious and it gets better with no treatment or by being treated at home. However, sometimes abdominal pain is serious. Watch your condition for any changes. Take ffnc-ebf-ektxzyf and prescription medicines only as told by your health care provider. Contact a health care provider if your abdominal pain changes or gets worse. Get help right away if you have severe pain, cramping, or bloating in your abdomen. This information is not intended to replace advice given to you by your health care provider. Make sure you discuss any questions you have with your health care provider. Document Released: 01/25/2006 Document Revised: 08/26/2019 Document Reviewed: 08/26/2019 [email or web address] Patient Education 2019 [employer]. Follow Up Care 12/01/2021 12:46:09 With:Brianna Pastor CNP Address: When:3 months [facility] 12-01-2021 Hospital Discharge instructions Patient Education 12/01/2021 12:36:40 Abdominal Pain, Adult Abdominal Pain, Adult Pain in the abdomen (abdominal pain) can be caused by many things. Often, abdominal pain is not serious and it gets better with no treatment or by being treated at home. However, sometimes abdominal pain is serious. Your health care provider will ask questions about your medical history and do a physical exam to try to determine the cause of your abdominal pain. Follow these instructions at home: Medicines Take hzcz-ohs-uvobxwe and prescription medicines only as told by your health care provider. Do not take a laxative unless told by your health care provider. General instructions Watch your condition for any changes. Drink enough fluid to keep your urine pale yellow. Keep all follow-up visits as told by your health care provider. This is important. Contact a health care provider if: Your abdominal pain changes or gets worse. You are not hungry or you lose weight without trying. You are constipated or have diarrhea for more than 2 3 days. You have pain when you urinate or have a bowel movement. Your abdominal pain wakes you up at night. Your pain gets worse with meals, after eating, or with certain foods. You are vomiting and cannot keep anything down. You have a fever. You have blood in your urine. Get help right away if: Your pain does not go away as soon as your health care provider told you to expect. You cannot stop vomiting. Your pain is only in areas of the abdomen, such as the right side or the left lower portion of the abdomen. Pain on the right side could be caused by appendicitis. You have bloody or black stools, or stools that look like tar. You have severe pain, cramping, or bloating in your abdomen. You have signs of dehydration, such as: ?Dark urine, very little urine, or no urine. ?Cracked lips. ?Dry mouth. ?Sunken eyes. ?Sleepiness. ?Weakness. You have trouble breathing or chest pain. Summary Often, abdominal pain is not serious and it gets better with no treatment or by being treated at home. However, sometimes abdominal pain is serious. Watch your condition for any changes. Take cluq-ycu-oqaspox and prescription medicines only as told by your health care provider. Contact a health care provider if your abdominal pain changes or gets worse. Get help right away if you have severe pain, cramping, or bloating in your abdomen. This information is not intended to replace advice given to you by your health care provider. Make sure you discuss any questions you have with your health care provider. Document Released: 01/25/2006 Document Revised: 08/26/2019 Document Reviewed: 08/26/2019 [email or web address] Patient Education 2020 [employer]. Follow Up Care 08/12/2021 10:13:54 With:Brianna Pastor CNP Address: When:3 months [facility] 08-12-2021 Hospital Discharge instructions Patient Education 08/12/2021 10:02:50 Abdominal Pain, Adult Abdominal Pain, Adult Pain in the abdomen (abdominal pain) can be caused by many things. Often, abdominal pain is not serious and it gets better with no treatment or by being treated at home. However, sometimes abdominal pain is serious. Your health care provider will ask questions about your medical history and do a physical exam to try to determine the cause of your abdominal pain. Follow these instructions at home: Medicines Take jtee-skd-fckgtqt and prescription medicines only as told by your health care provider. Do not take a laxative unless told by your health care provider. General instructions Watch your condition for any changes. Drink enough fluid to keep your urine pale yellow. Keep all follow-up visits as told by your health care provider. This is important. Contact a health care provider if: Your abdominal pain changes or gets worse. You are not hungry or you lose weight without trying. You are constipated or have diarrhea for more than 2 3 days. You have pain when you urinate or have a bowel movement. Your abdominal pain wakes you up at night. Your pain gets worse with meals, after eating, or with certain foods. You are vomiting and cannot keep anything down. You have a fever. You have blood in your urine. Get help right away if: Your pain does not go away as soon as your health care provider told you to expect. You cannot stop vomiting. Your pain is only in areas of the abdomen, such as the right side or the left lower portion of the abdomen. Pain on the right side could be caused by appendicitis. You have bloody or black stools, or stools that look like tar. You have severe pain, cramping, or bloating in your abdomen. You have signs of dehydration, such as: ?Dark urine, very little urine, or no urine. ?Cracked lips. ?Dry mouth. ?Sunken eyes. ?Sleepiness. ?Weakness. You have trouble breathing or chest pain. Summary Often, abdominal pain is not serious and it gets better with no treatment or by being treated at home. However, sometimes abdominal pain is serious. Watch your condition for any changes. Take feqr-bqu-jhpxdzf and prescription medicines only as told by your health care provider. Contact a health care provider if your abdominal pain changes or gets worse. Get help right away if you have severe pain, cramping, or bloating in your abdomen. This information is not intended to replace advice given to you by your health care provider. Make sure you discuss any questions you have with your health care provider. Document Released: 01/25/2006 Document Revised: 08/26/2019 Document Reviewed: 08/26/2019 [employer] Patient Education 2020 [employer]. Follow Up Care 08/02/2021 07:28:50 With:Brianna Pastor CNP Address: When:3 months [facility] Evaluation + Plan note Future Appointments Appointment Date:11/11/2021 10:00:00 AM Scheduled Provider:Brianna Pastor CNP Location:[facility] Appointment Type:[facility] Follow Up [facility] Evaluation + Plan note Future Appointments Appointment Date:03/02/2022 10:00:00 AM Scheduled Provider:Brianna Pastor CNP Location:[facility] Appointment Type:BAD Follow Up Future Scheduled TestsCBC w/ Auto Diff 12/01/21Comprehensive Metabolic Panel 12/01/21 [facility] Evaluation + Plan note Future Appointments Appointment Date:08/31/2022 09:20:00 AM Scheduled Provider:Brianna Pastor CNP Location:[facility] Appointment Type:BAD Follow Up [facility] Evaluation + Plan note Future Appointments Appointment Date:03/01/2023 09:20:00 AM Scheduled Provider:Brianna Pastor CNP Location:[facility] Appointment Type:BAD Follow Up [facility] Evaluation + Plan note Future Appointments Appointment Date:08/30/2023 09:20:00 AM Scheduled Provider:Brianna Pastor CNP Location:[facility] Appointment Type:BAD Follow Up [facility] Hospital course Narrative No data available for this section [facility] Hospital Discharge instructions No data available for this section [facility] Progress note No data available for this section [facility] Summary Purpose Family History No Family History Records Found No data available for this section No Family History Records FoundNo Family History Records FoundNo Family History Records Found Advance Directives No Advanced Directives Records FoundNo Advanced Directives Records FoundNo Advanced Directives Records FoundNo Advanced Directives Records Found Additional Source Comments Care Team (unrecognized sect ion and content) Personnel Name: SHAIKH ACEVEDO Address: [address] [place], [place] [address] [address] Personnel Name: SHAIKH ACEVEDO Address: Address: [address] [place], [place] [address] Personnel Name: SHAIKH ACEVEDO Address: Address: [facility] [address] Personnel Name: AMIArielМАРИЯSIMEON Address: Address: [place] [address] Personnel Name: FELICITASTAMARA SIMEON Address: Address: [facility] [address] Personnel Name: FELICITASSHAIKH MCDONALD Address: Address: [facility] [address] Personnel Name: CURTIS MENDOZA [facility] Address: Address: [facility] [place] [address] INFORMATION SOURCE (unrecogn ized section and content) DATE CREATED AUTHOR 06/28/2022 [facility] DATE CREATED AUTHOR AUTHOR'S ORGANIZ ATION 03/03/[address] [facility] DATE CREATED AUTHOR AUTHOR'S ORGANIZ ATION 04/10/2023 [facility] DATE CREATED AUTHOR AUTHOR'S ORGANIZ ATION 04/11/2023 [facility] EPIC FOR RECORDS PERTAINING TO PATIENTS WHO ARE OR HAVE BEEN ENROLLED IN A CHEMICAL DEPENDENCY/SUBSTANCEABUSE PROGRAM, SOME INFORMATION MAY BE OMITTED. This clinical summary was aggregated from multiple sources. Caution should be exercised in using it in the provision of clinical care. This summary normalizes information from multiple sources, and as a consequence, information in this document may materially change the coding, format and clinical context of patient data. In addition, data may be omitted in some cases. CLINICAL DECISIONS SHOULD BE BASED ON THE PRIMARY CLINICAL RECORDS. [employer] [facility]. provides no warranty or guarantee of the accuracy or completeness of information in this document.
== END 2023-06-26 09:55 | disposition home or self-care (01) ==
LOC: MAMMO 09:54
PROVIDERS: PCP Internal Medicine; Visit Provider Internal Medicine
DX: Z12.31 Encounter for screening mammogram for malignant neoplasm of breast (principal); Z80.0 Family history of malignant neoplasm of digestive organs; Z80.1 Family history of malignant neoplasm of trachea, bronchus and lung
CPT/HCPCS: 77063; 77067

== ENCOUNTER 2023-11-01 09:46 | Outpatient (OUT) | payer MEDICARE, OTHER, SELFPAY ==
--- OUTSIDE RECORDS SUMMARY | 2023-11-01 10:05 | XMS_ITS | CCD ---
Author Organization [facility] Care Team Providers Care Steamship Agent Name Role Phone SHAIKH ACEVEDO Primary Care [...] Attending Unavailable MISC, DR PERAZA Attending Unavailable VERONICA, DR SULAIMAN Walker Consulting Unavailable MISC, DR [...] Unavailable FAWWAD, SIMEON H Primary Care Unavailable SALAM, GELLER Attending Unavailable DR HUMBERTO HEIN Consulting Unavailable SALAM, GELLER Consulting Unavailable BRUNO TEJADA Attending Unavailable CARLOZ HAWK Attending Unavailable Nghia Talbert Attending Unavailable Brianna Pastor Attending Unavailable Brianna Pastor Attending Unavailable Brianna Pastor Attending Unavailable Brianna Pastor Referring Unavailable Brianna Pastor Admitting Unavailable Brianna Pastor Admitting Unavailable Brianna Pastor Attending Unavailable Brianna Pastor Attending Unavailable SHAIKH ACEVEDO Attending Unavailable FATAMARA, Attending Unavailable FASHAIKH MCDONALD Attending Unavailable Allergies Allergy Classification Reported Allergen(s) Allergy Type Date of Onset Reaction(s) Facility (10 sources) Meperidine; Translations: [meperidine] Drug Allergy 04-17-2014 Other (qualifier value) [facility] Medications Current Medications Medication Drug Class(es) Dates Sig (Normalized) Sig (Original) aspirin 81 mg delayed release oral tablet (2 sources) Platelet Aggregation Inhibitor, Nonsteroidal Anti-inflammator y Drug Start: 2 Aspirin 81 mg Tab-EC Refills(s) 0 Start Date: 03/02/22 Status: Ordered Aspirin 81 mg Tab-EC (8 sources) Start: 2 Aspirin 81 mg Tab-EC Refills(s) 0 Start Date: 03/02/22 Status: Ordered atenolol 25 mg oral tablet (12 sources) beta-Adrenergic John Start: 7 take 25 mg by mouth once daily Tenormin 25 mg, Oral, Daily, Refills(s) 0, High blood pressure Start Date: 01/04/17 Status: Ordered atorvastatin 40 mg oral tablet (12 sources) HMG-CoA Reductase Inhibitor Start: 7 take 40 mg by mouth once daily Lipitor 40 mg, Oral, Daily, Refills(s) 0, High cholesterol Start Date: 01/04/17 Status: Ordered cetirizine hydrochloride 10 mg oral tablet (12 sources) Histamine-1 Receptor Antagonist Start: 7 take [...] Thyroid Start Date: 04/03/19 Status: Ordered Lisinopril (12 sources) Angiotensin Converting Enzyme Inhibitor Start: 1 lisinopril Oral, Daily, Refills(s) 0, High blood pressure Start Date: 03/30/21 Status: Ordered meloxicam 7.5 mg oral tablet (8 sources) Nonsteroidal Anti-inflammator y Drug Start: 1 take 7.5 mg by mouth once daily meloxicam 7.5 mg, Oral, Daily, Refills(s) 0, Pain Start Date: 03/30/21 Status: Ordered pantoprazole 40 mg extended release oral tablet (12 sources) Proton Pump Inhibitor Start: 0 take 1 tablet by mouth once daily pantoprazole 40 mg Oral EC Tab 40 mg = 1 tab(s), Oral, Daily, # 90 tab(s), Refills(s) 1, [facility]: [facility], 162, cm, 04/22/19 13:39:00 EST, Height/Length Measured, 72, kg, 04/22/19 13:39:00 EST, Weight Measured Start Date: 12/02/19 Status: Ordered Start: 12-02-2019 take 1 tablet by michele th once daily pantoprazole 40 mg Oral EC Tab 40 mg = 1 tab(s), Oral, Daily, # 90 tab(s), Refills(s) 1, [facility]: [facility], 162, cm, 04/22/19 13:39:00 EST, Height/Length [...] Status: Ordered sucralfate 1000 mg oral tablet (10 sources) Aluminum Complex Start: 03-01-2023 sucralfate 1 g Tab Refills(s) 0 Start Date: 03/01/23 Status: Ordered Start: 03-30-2021 take 1 g by mouth th ree times daily sucralfate 1 gm, Oral, TID, Refills(s) 0, Other (see comment) Start Date: 03/30/21 Status: Ordered Problems Active Problems Problem Classification Problem Date Documented Date Episodic/Chronic Abdominal pain (20 sources) Upper abdominal pain; Translations: [Upper abdominal pain, unspecified] Onset: 08-12-2021 Episodic Coronary atherosclerosis and other heart disease (4 sources) Atherosclerotic heart disease of [place] coronary artery without angina pectoris; Translations: [Coronary arteriosclerosis] Onset: 07-06-2022 Chronic Disorders of lipid metabolism (5 sources) Hyperlipidemia, unspecified; Translations: [Mixed hyperlipidemia] Onset: 03-28-2022 Chronic Esophageal disorders (12 sources) Gastroesophageal reflux disease without esophagitis; Translations: [Gastro-esophageal reflux disease without esophagitis] Onset: 06-02-2022 Chronic Essential hypertension (5 sources) Essential (primary) hypertension; Translations: [Hypertensive disorder] Onset: 03-28-2022 Chronic Gastroduodenal ulcer (except hemorrhage) (15 sources) Gastric erosion; Translations: [Gastric ulcer] Onset: 08-27-2021 05-04-2021 Chronic Other and unspecified benign neoplasm (17 sources) History of polyp of colon; Translations: [...] BRON LNG] Onset: 06-27-2022 Episodic Thyroid disorders (16 sources) Hypothyroidism; Translations: [Hypothyroidism, unspecified] Onset: 03-23-2022 03-20-2019 Chronic Unclassified (7 sources) Finding of sensation of abdomen 08-31-2022 Past or Other Problems Problem Classification Problem Date Documented Da te Episodic/Chronic Fluid and electrolyte disorders (4 sources) Hypo-osmolality and hyponatremia; Translations: [HYPO-OSMOLALITY AND HYPONATREMIA] Onset: 08-24-2021 Episodic Results Test Name Value Interpretation Reference Range Facility US Abdomen, Limitedon 2023 US Abdomen, Limited Exam Date/Time: 09/01/2023 08:49 EDT Reason for Exam: Evaluate liver and biliary area;RUQ Pain Report IMPRESSION: NEGATIVE RUQ ULTRASOUND AFTER PREVIOUS CHOLECYSTECTOMY. EXAM: US Abdomen, Limited DATE: 09/01/2023 8:35 AM CLINICAL HISTORY: RUQ Pain, Evaluate liver and biliary area. COMPARISON: None available. TECHNIQUE: Transabdominal ultrasound of the right upper quadrant was performed. FINDINGS: The study is mildly limited by the patient's body habitus. The gallbladder has been removed. The visualized liver, pancreas, right kidney, and great vessels are unremarkable. There is no discrete hepatic mass, significant biliary dilatation, or ascites identified. The common duct measures approximately 5 to 6 mm at the ryan hepatis. Ordering Provider: , FINAL REPORT Dictated: 09/03/2023 2:54 pm Cordell Zeng MD Signed (Electronic Signature): 09/03/2023 2:54 pm Signed by: Cordell Zeng MD Transcribed by: PAMELA Technologist: LOU [facility] Consent for Treatmenton Consent for Treatment [id number] [facility] Ambulatory Visit Summaryon 0 08-29-2023 Ambulatory Visit Summary TOÑITO PUTNAM :1945 Visit Date:08/29/2023 Ambulatory Visit Instructions Your Diagnosis Abdominal cramping Acid reflux History of colon polyps Your Care Team Attending Physician - Brianna Pastor CNP Primary Care Physician - SHAIKH ACEVEDO MD This Is Your Medications List Contact prescribing physician if questions or concerns aspirin (Aspirin 81 mg Tab-EC) atenolol (Tenormin) atorvastatin (Lipitor) cetirizine (Zyrtec) lisinopril pantoprazole (pantoprazole 40 mg Oral EC Tab) sucralfate (sucralfate 1 g Tab) Procedures Performed Esophagogastroduodenoscopy (04/12/2021), Colonoscopy (04/03/2019), Esophagogastroduodenoscopy (04/03/2019). Discharge Vitals Temperature (Temporal Artery) 36.5 ?C Heart Rate (Peripheral) 61 Blood Pressure 133/89 Height 162 cm Height 64 in Weight 76.1 kg Weight 167.42 lb BMI 29 What to do next Scheduled Follow-Up Appointments Monday 9:00 AM EDT With: Where: [facility] Monday 9:20 AM EDT With: Brianna Pastor CNP Where: [facility] CHEMISTRYOrdered By: SYSTEM SYSTEM on 08-29-2023 Cobalamin (Vitamin B12) [Mass/Vol] 281 pg/mL Normal 50 - 1500 pg/mL Remisol Chem Magnesium [Mass/Vol] 1.8 mg/dL Normal 1.3 - 2.4 mg/dL Remisol Chem Consent for Treatmenton 08-01 Consent for Treatment [id number] Normal [facility] Gastroenterology Office/Clin ic Noteon 08-29-2023 Gastroenterology Office/Clinic Note Chief Complaint Checkup HPI Staff This is a 78 year old female who presents today for a follow-up from 03/01/23 office visit. Patient was seen for reflux and cramping. History of Present Illness Patient is a 78-year-old female who presents for follow-up. Patient was previously evaluated 03/2023 and has history of abdominal cramping and colon polyps. Patient also with history of acid reflux. Patient had previous reports of family history of celiac disease?patient's granddaughter and daughter. Patient had previous celiac serology that was normal on 03/2022. Patient with history of cholecystectomy over 5 years ago. Patient had previous ultrasound of abdomen at outside facility 03/2022 that showed no acute process. Previous labs 08/2022 revealed normal BMP, normal magnesium and B12 levels. Patient with PMH of HTN, HLD, hypothyroidism?managed by patient's PCP. Previous EGD 03/2021 revealed gastric erosions and small hiatal hernia, normal duodenum. Patient was previously advised to avoid NSAIDs. Patient had previous CT abdomen/pelvis at outside facility 07/2021 that revealed no abnormal findings. Previous colonoscopy 03/2019 revealed tubular adenoma removed from ascending colon, hemorrhoids and is due for repeat colonoscopy in 03/2024. Patient reported during most recent visit with me that her abdominal cramping had improved and was occurring rarely. She indicated her acid reflux was well-controlled with pantoprazole 40 mg daily. Family history of colon cancer: Family history of colon polyps: During today's visit, patient reports her acid reflux is well-controlled with pantoprazole 40mg daily and is taking 1/2 dose of carafate daily as prescribed by her PCP. Is having RUQ cramping over the last 2 days after wearing supportive gear for lifting. RUQ cramping occurs with spicy foods per patient and avoids spicy foods. Is having 1 formed BM daily. Denies black/bloody stools, nausea/vomiting, fevers/chills, and denies unintentional weight loss. Review of Systems PHQ Score Initial Depression Screen Score: 0 SCORE ROS - Provider Constitutional: no fever, no chills. Skin: no Jaundice. ENMT: Denies dysphagia and heartburn. Respiratory: no shortness of breath. Cardiovascular: no chest pain. Gastrointestinal: no nausea, no vomiting, no diarrhea, no GI bleeding. Physical Exam Vitals & Measurements T: 36.5 ?C(Temporal Artery) HR: 61(Peripheral) BP: 133/89 HT: 64 in HT: 162 cm WT: 76.1 kg WT: 167.42 lb BMI: 29 General: Well developed, well nourished, in no [...] 1. Abdominal cramping (R10.9: Unspecified abdominal pain) RUQ cramping over the last 2 days. Occurs with spicy foods. Previous EGD 03/2021 revealed gastric erosions and small hiatal hernia, normal duodenum. Previous colonoscopy 03/2019 revealed tubular adenoma removed from ascending colon, hemorrhoids and is due for repeat colonoscopy in 03/2024. Ordered RUQ ultrasound of evaluate liver and biliary area. Ordered: US Abdomen, Limited 2. Acid reflux (K21.9: Gastro-esophageal reflux disease without esophagitis) Controlled. Previous EGD 03/2021 revealed gastric erosions and small hiatal hernia, normal duodenum. Avoid NSAIDs and triggering foods. Ordered vitamin B12 level and magnesium level to evaluate for deficiencies while on pantoprazole long-term. Is taking Carafate daily- is prescribed by her PCP. Denies need of refill on pantoprazole. Continue pantoprazole 40mg daily. Ordered: Magnesium Level Vitamin B12 Level 3. History of colon polyps (Z86.010: Personal history of colonic polyps) Previous colonoscopy 03/2019 revealed tubular adenoma removed from ascending colon, hemorrhoids and is due for repeat colonoscopy in 03/2024. Follow-up With When Contact Information Brianna Pastor CNP Within 1 month Additional Instructions: Patient Education Food Choices for Gastroesophageal Reflux Disease, Adult Problem List/Past Medical History Ongoing Abdominal cramping Acid reflux Gastric erosions History of colon polyps Hypothyroidism Historical Upper abdominal pain Procedure/Surgical History Esophagogastroduodenoscopy (04/12/2021), Colonoscopy (04/03/2019), Esophagogastroduodenoscopy (04/03/2019). Medications Aspirin 81 mg Tab-EC Lipitor, 40 mg, Oral, Daily lisinopril, Oral, Daily pantoprazole 40 mg Oral EC Tab, 40 mg= 1 tab(s), Oral, Daily, 1 refills sucralfate 1 g Tab Tenormin, 25 mg, Oral, Daily Zyrtec, 10 mg, Oral, Daily, PRN Allergies meperidine (Other) Social History Alcohol - Denies Alcohol Use, 03/20/2019 Substance Abuse - Denies Substance Abu (more content not included)... Normal [facility] Comment on above: Result Comment: Elec tronically Signed By: Darby LOBO, Brianna Dela Cruz\.br\Date and Time Signed: 08/29/23 09:35 EDT Magnesiumon 08-29-2023 Magnesium [Mass/Vol] 1.8 mg/dL Normal 1.3-2.4 [facility] Comment on above: Performed By: #### 2 [id number] #### [facility] [address] [place] [address] Patient Educationon 08-29-19 Patient Education Gastroenterology Food Choices for Gastroesophageal [...] grapefruit, pineapple, and dali. Vegetables Deep-fried vegetables. English fries. Any vegetables prepared with added fat. [...] reflux di (more content not included)... Normal [facility] Vit B12on 08-29-2023 Cobalamin (Vitamin B12) [Mass/Vol] 281 pg/mL Normal 50-1500 [facility] Comment on above: Performed By: #### 2 [id number], [id number] #### [facility] [address] [place] [address] Office Visiton 04-07-2023 Follow-up visit [id number] Toñito Putnam 1945 F Date Provider Department Center 04/07/2023 [facility]Z [facility] Family History Problem Relation Age of Onset Coronary artery disease Sister 62 Comments: Passed age 62 Coronary artery disease Brother 58 Cancer Other Coronary artery disease Other Family Status - Relation Status Age at Sister Brother Other Level of Service:[address] [place] OFFICE/OUTPATIENT ESTABLISHED LOW MDM 20-29 MIN Normal [facility] Gastroenterology Office/Clin ic Noteon 03-01-2023 Gastroenterology [...] mEq, Ora (more content not included)... Normal [facility] Comment on above: Result Comment: Elec tronically Signed By: Brianna Pastor CNP\.br\Date and Time Signed: 03/01/23 09:44 EDT Patient [...] Bulgur wheat. Millet. Quinoa. Bran muffins. Popcorn. [place] wafer crackers. Meats and other proteins [place] beans, kidney beans, and gee beans. Soybeans. [...] Cream cheese. Sour cream. Fats and oils [place]. Beverages Soft drinks. Other foods Cakes and [...] Document Revised: (more content not included)... Normal [facility] CHEMISTRYOrdered By: SYSTEM SYSTEM on 08-31-2022 Anion gap [Moles/Vol] 12 mmol/L Normal 6 - 16 mEq/L [facility] Remisol Calcium [Mass/Vol] 9.6 mg/dL Normal 8.9 - 11. 1 mg/dL [facility] Remisol Chloride [Moles/Vol] 102 mmol/L Normal 101 - 111 mmol/L [facility] Remisol CO2 [Moles/Vol] 28 mmol/L Normal 21 - 31 mmol/L [facility] Remisol Cobalamin (Vitamin B12) [Mass/Vol] 316 pg/mL Normal 50 - 1500 pg/mL [facility] Remisol Creatinine [Mass/Vol] 0.8 mg/dL Normal 0.5 - 1.3 mg/dL [facility] Remisol GFR/1.73 sq M.predicted among non-blacks MDRD (S/P/Bld) [Vol rate/Area] 76 mL/min/1.73 m2 Normal >=59mL/min/ 1.73 m2 [facility] Chem S Glucose [Mass/Vol] 108 mg/dL Normal 55 - 199 mg/dL [facility] Remisol Magnesium [Mass/Vol] 1.8 mg/dL Normal 1.3 - 2.4 mg/dL [facility] Remisol Potassium [Moles/Vol] 3.7 mmol/L Normal 3.5 - 5.3 mmol/L [facility] Remisol Sodium [Moles/Vol] 138 mmol/L Normal 135 - 145 mmol/L [facility] Remisol Urea nitrogen [Mass/Vol] 9 mg/dL Normal 5 - 21 mg/dL [facility] Remisol Urea nitrogen/Creatinin e [Mass ratio] 11 mg/mg Normal 10 - 20 [facility] Remisol Orders Onlyon 07-08-2022 Orders Only [id number] Toñito Putnam 1945 F Date Provider Department Center 07/08/2022 VEDA OVALLE [facility] Family History Problem Relation Age of Onset Coronary artery disease Sister 62 Comments: Passed age 62 Coronary artery disease Brother 58 Cancer Other Coronary artery disease Other Family Status - Relation Status Age at Sister Brother Other Normal [facility] Office Visiton 07-06-2022 Follow-up visit [id number] Toñito Putnam 1945 F Date Provider Department Center 07/06/2022 BRUNO DONAHUE [facility] Family History Problem Relation Age of Onset Coronary artery disease Sister 62 Comments: Passed age 62 Coronary artery disease Brother 58 Cancer Other Coronary artery disease Other Family Status - Relation Status Age at Sister Brother Other Level of Service:59423 [place] OFFICE/OUTPATIENT ESTABLISHED MOD MDM 30-39 MIN Reason for Visit and Comments: Coronary Artery Disease [187] Hypertension [249323] Hyperlipidemia [182] Normal [facility] MG MAMM SCREEN 3D NIKKI CADon 06-23-2022 MG MAMM SCREEN 3D NIKKI CAD Patient: TOÑITO PUTNAM Exam Date: 06/23/2022 : 1945 Gender:F Ordering : SHAIKH Shahida ACEVEDO . Admission #: [id number] Family : Order #: [id number] CLICK HERE TO VIEW EXAM RADIOLOGY REPORT [...] lung cancer at age 61. LOCATION: [facility] BREAST COMPOSITION: Scattered areas fibroglandular density. FINDINGS: [...] M.D. on 06/23/2022 at 14:21 Normal [facility] CBC AUTO DIFFon 03-23-2022 BASO # 0.1 103/ul Normal 0.0-0.1 [facility] Comment on above: Performed By: #### C BC #### [facility] [address] [address] [address] Jelly Lozada Basophils/100 WBC (Bld) 1.1 % Normal 0.2-2.0 [facility] Comment on above: Performed By: #### C BC #### [facility] [address] [address] [address] Jelly Lozada EO # 0.1 103/ul Normal 0.0-0.7 [facility] Comment on above: Performed By: #### C BC #### [facility] [address] [place] [address] Dr. Jelly Lozada Eosinophils/100 WBC (Bld) 1.7 % Normal 0.9-7.0 [facility] Comment on above: Performed By: #### C BC #### [facility] [address] [place] [address] Dr. Jelly Lozada Erythrocyte distribution width (RBC) [Ratio] 14.6 % Normal 11.0-15.0 [facility] Comment on above: Performed By: #### C BC #### [facility] [address] [place] [address] Dr. Jelly Lozada Hematocrit (Bld) [Volume fraction] 41.6 % Normal 36.0-48.0 [facility] Comment on above: Performed By: #### C BC #### [facility] [address] [place] [address] Dr. Jelly Lozada Hemoglobin (Bld) [Mass/Vol] 13.4 g/dL Normal 12.0-16.0 [facility] Comment on above: Performed By: #### C BC #### [facility] [address] [place] [address] Dr. Jelly Lozada IG # 0.03 10e3/ul Normal 0.00-0.03 [facility] Comment on above: Performed By: #### C BC #### [facility] [address] [place] [address] Dr. Jelly Lozada IG % 0.4 % Normal 0.0-0.5 [facility] Comment on above: Performed By: #### C BC #### [facility] [address] [place] [address] Dr. Jelly Lozada LYMPH # 1.6 103/ul Normal 1.2-3.8 [facility] Comment on above: Performed By: #### C BC #### [facility] [address] [place] [address] Dr. Jelly Lozada Lymphocytes/100 WBC (Bld) 23.2 % Normal 20.5-60.0 [facility] Comment on above: Performed By: #### C BC #### [facility] [address] [place] [address] Dr. Jelly Lozada MANUAL DIFF REQ NO Normal [place] Comment on above: Performed By: #### C BC #### [facility] [address] [place] [address] Dr. Jelly Lozada MCH (RBC) [Entitic mass] 25.6 pg Critically low 26.7-34.0 [facility] Comment on above: Performed By: #### C BC #### [facility] [address] [place] [address] Dr. Jelly Lozada MCHC (RBC) [Mass/Vol] 32.2 g/dL Normal 29.9-35.2 [facility] Comment on above: Performed By: #### C BC #### [facility] [address] [place] [address] Dr. Jelly Lozada MCV (RBC) [Entitic vol] 79.5 fL Critically low 81.0-99.0 [facility] Comment on above: Performed By: #### C BC #### [facility] [address] [place] [address] Dr. Jelly Lozada MONO # 0.6 103/ul Normal 0.3-0.8 [facility] Comment on above: Performed By: #### C BC #### [facility] [address] [place] [address] Dr. Jelly Lozada Monocytes/100 WBC (Bld) 8.0 % Normal 1.7-12.0 [facility] Comment on above: Performed By: #### C BC #### [facility] [address] [place] [address] Dr. Jelly Lozada NEUT # 4.6 103/ul Normal 1.4-6.5 [facility] Comment on above: Performed By: #### C BC #### [facility] [address] [place] [address] Dr. Jelly Lozada Neutrophils/100 WBC (Bld) 65.6 % Normal 43.0-75.0 [facility] Comment on above: Performed By: #### C BC #### [facility] [address] [address] [address] Jelly Lozada Platelet mean volume (Bld) [Entitic vol] 10.6 fL Normal 9.5-13.5 [facility] Comment on above: Performed By: #### C BC #### [facility] [address] [place] [address] Dr. Jelly Lozada PLT 407 103/ul Normal 150-450 [facility] Comment on above: Performed By: #### C BC #### [facility] [address] [place] [address] Dr. Jelly Lozada RBC 5.23 106/ul Normal 4.20-5.40 [facility] Comment on above: Performed By: #### C BC #### [facility] [address] [place] [address] Dr. Jelly Lozada WBC 7.0 103/ul Normal 4.0-11.0 [facility] Comment on above: Performed By: #### C BC #### [facility] [address] [place] [address] Dr. Jelly Lozada LIPID PROFILEon 03-23-2022 CHOL-HDL RATIO NORM SEE BELOW Normal [facility] Comment on above: Result Comment: 3.3 - 4.4 LOW RISK 4.4 - 7.1 AVERAGE RISK 7.1 - 11.0 MODERATE RISK >11.0 HIGH RISK Performed By: #### T SH, CMP, LIPID #### [facility] [address] [place] [address] Dr. Jelly Lozada Cholesterol [Mass/Vol] 157 mg/dL Normal <=200 [facility] Comment on above: Performed By: #### T SH, CMP, LIPID #### [facility] [address] [place] [address] Dr. Jelly Lozada Cholesterol in HDL [Mass/Vol] 52 mg/dL Normal 40-60 [facility] Comment on above: Performed By: #### T SH, CMP, LIPID #### [facility] [address] [place] [address] Dr. Jelly Lozada Cholesterol in LDL [Mass/Vol] 67.0 mg/dL Normal [facility] Comment on above: Performed By: #### T SH, CMP, LIPID #### [facility] [address] [address] [address] Jelly Lozada Cholesterol.total/ Cholesterol in HDL [Mass ratio] 3.0 {ratio} Normal [facility] Comment on above: Performed By: #### T SH, CMP, LIPID #### [facility] [address] [address] [address] Jelly Lozada HDL NORMAL > or = 60 mg/dl - LO W CARDIOVASCULAR RISK <40 mg/dl - HIGH CARDIOVASCULAR RISK Normal [facility] Comment on above: Performed By: #### T SH, CMP, LIPID #### [facility] [address] [address] [address] Jelly Lozada LDL CALC NORMAL SEE BELOW Normal [facility] Comment on above: Result Comment: <100 mg/dl OPTIMAL 100 - 129 mg/dl NEAR OR ABOVE OPTIMAL 130 - 159 mg/dl BORDERLINE HIGH 160 - 189 mg/dl HIGH >190 mg/dl VERY HIGH Performed By: #### T SH, CMP, LIPID #### [facility] [address] [address] [address] Jelly Lozada Triglyceride [Mass/Vol] 190 mg/dL Critically high <=150 [facility] Comment on above: Performed By: #### T SH, CMP, LIPID #### [facility] [address] [address] [address] Jelly Lozada VLDL CALC 38.0 mg/dL Normal [facility] Comment on above: Performed By: #### T SH, CMP, LIPID #### [facility] [address] [address] [address] Jelly Lozada PROF 14(COMP METB)on 022 Albumin [Mass/Vol] 4.1 g/dL Normal 3.4-5.0 [facility] Comment on above: Performed By: #### T SH, CMP, LIPID #### [facility] [address] [address] [address] Jelly Lozada Albumin/Globulin [Mass ratio] 1.3 {ratio} Normal [facility] Comment on above: Performed By: #### T SH, CMP, LIPID #### [facility] [address] [address] [address] Jelly Lozada ALP [Catalytic activity/Vol] 80 U/L Normal 46-116 [facility] Comment on above: Performed By: #### T SH, CMP, LIPID #### [facility] [address] [address] [address] Jelly Lozada ALT [Catalytic activity/Vol] 18 U/L Normal 14-59 [facility] Comment on above: Performed By: #### T WINDY, CMP, LIPID #### [facility] [address] [address] [address] Jelly Lozada Anion gap [Moles/Vol] 12.2 mmol/L Normal [facility] Comment on above: Performed By: #### T SH, CMP, LIPID #### [facility] [address] [address] [address] Jelly Lozada AST [Catalytic activity/Vol] 20 U/L Normal 15-37 [facility] Comment on above: Performed By: #### T WINDY, CMP, LIPID #### [facility] [address] [address] [address] Jelly Lozada Bilirubin [Mass/Vol] 0.6 mg/dL Normal 0.2-1.0 [facility] Comment on above: Performed By: #### T SH, CMP, LIPID #### [facility] [address] [address] [address] Jelly Lozada Calcium [Mass/Vol] 9.5 mg/dL Normal 8.5-10.1 [facility] Comment on above: Performed By: #### T SH, CMP, LIPID #### [facility] [address] [place] [address] Dr. Jelly Lozada Chloride [Moles/Vol] 101 mmol/L Normal 98-107 [facility] Comment on above: Performed By: #### T SH, CMP, LIPID #### [facility] [address] [place] [address] Dr. Jelly Lozada CO2 [Moles/Vol] 29.9 mmol/L Normal 21.0-32.0 [facility] Comment on above: Performed By: #### T SH, CMP, LIPID #### [facility] [address] [address] [address] Jelly Lozada Creatinine [Mass/Vol] 0.71 mg/dL Normal 0.55-1.02 [facility] Comment on above: Performed By: #### T SH, CMP, LIPID #### [facility] [address] [address] [address] Jelly Lozada EGFR-AF ICELANDIC >60 Normal >=60 [facility] Comment on above: Performed By: #### T SH, CMP, LIPID #### [facility] [address] [address] [address] Jelly Lozada EGFR-NON AF ICELANDIC >60 Normal >=60 [facility] Comment on above: Performed By: #### T SH, CMP, LIPID #### [facility] [address] [address] [address] Jelly Lozada Globulin (S) [Mass/Vol] 3.2 g/dL Normal [facility] Comment on above: Performed By: #### T SH, CMP, LIPID #### [facility] [address] [address] [address] Jelly Lozada Glucose [Mass/Vol] 92 mg/dL Normal 74-106 [facility] Comment on above: Performed By: #### T SH, CMP, LIPID #### [facility] [address] [address] [address] Jelly Lozada Potassium [Moles/Vol] 4.1 mmol/L Normal 3.5-5.1 [facility] Comment on above: Performed By: #### T SH, CMP, LIPID #### [facility] [address] [address] [address] Jelly Lozada Protein [Mass/Vol] 7.3 g/dL Normal 6.4-8.2 [facility] Comment on above: Performed By: #### T SH, CMP, LIPID #### [facility] [address] [address] [address] Jelly Lozada Sodium [Moles/Vol] 139 mmol/L Normal 136-145 [facility] Comment on above: Performed By: #### T WINDY, CMP, LIPID #### [facility] [address] [address] [address] Jelly Lozada Urea nitrogen [Mass/Vol] 8.0 mg/dL Normal 7.0-18.0 [facility] Comment on above: Performed By: #### T WINDY, CMP, LIPID #### [facility] [address] [address] [address] Jelly Lozada Urea nitrogen/Creatinin e [Mass ratio] 11.3 mg/mg Normal [facility] Comment on above: Performed By: #### T WINDY, CMP, LIPID #### [facility] [address] [place] [address] Dr. Jelly Lozada TSHon 03-23-2022 TSH 3.522 uIU/mL Normal 0.358-3.740 [facility] Comment on above: Performed By: #### T WINDY, CMP, LIPID #### [facility] [address] [place] [address] Dr. Jelly Lozada US Caitlin 03-15-2022 US ABD EXAMINATION: US [...] SULAIMAN MARTIN Date: 2022-03-15 09:26 Normal [facility] CBC AUTO DIFFon 12-06-2021 BASO # 0.1 103/ul Normal 0.0-0.1 [facility] Comment on above: Performed By: #### C BC ####[facility] [address] [id number]. Jelly Lozada Basophils/100 WBC (Bld) 1.1 % Normal 0.2-2.0 [facility] Comment on above: Performed By: #### C BC ####[facility] [address] [place], [place] [id number]. Jelly Lozada EO # 0.1 103/ul Normal 0.0-0.7 [facility] Comment on above: Performed By: #### C BC ####[facility] [address] [place], [place] [id number]. Jelly Lozada Eosinophils/100 WBC (Bld) 1.9 % Normal 0.9-7.0 [facility] Comment on above: Performed By: #### C BC ####[facility] [address] [place], [place] [address]Dr. Jelly Lozada Erythrocyte distribution width (RBC) [Ratio] 14.8 % Normal 11.0-15.0 [facility] Comment on above: Performed By: #### C BC ####[facility] [address] [place], [place] [address]Dr. Jelly Lozada Hematocrit (Bld) [Volume fraction] 39.1 % Normal 36.0-48.0 [facility] Comment on above: Performed By: #### C BC ####[facility] [address] [place], [place] [address]Dr. Jelly Lozada Hemoglobin (Bld) [Mass/Vol] 12.5 g/dL Normal 12.0-16.0 [facility] Comment on above: Performed By: #### C BC ####[facility] [address] [place], [place] [address]Dr. eJlly Lozada IG # 0.03 10e3/ul Normal 0.00-0.03 The [facility] Comment on above: Performed By: #### C BC ####[facility] [address] [place], [place] [id number]. Jelly Lozada IG % 0.5 % Normal 0.0-0.5 [facility] Comment on above: Performed By: #### C BC ####[facility] [address] [id number]. Jelly Lozada LYMPH # 1.6 103/ul Normal 1.2-3.8 [facility] Comment on above: Performed By: #### C BC ####[facility] [address] [id number]. Jelly Lozada Lymphocytes/100 WBC (Bld) 24.8 % Normal 20.5-60.0 [facility] Comment on above: Performed By: #### C BC ####[facility] [address] [id number]. Jelly Lozada MANUAL DIFF REQ NO Normal [place] Comment on above: Performed By: #### C BC ####[facility] [address] [address]Dr. Jelly Lozada MCH (RBC) [Entitic mass] 25.4 pg Critically low 26.7-34.0 [facility] Comment on above: Performed By: #### C BC ####[facility] [address] [id number]. Jelly Lozada MCHC (RBC) [Mass/Vol] 32.0 g/dL Normal 29.9-35.2 [facility] Comment on above: Performed By: #### C BC ####[facility] [address] [id number]. Jelly Lozada MCV (RBC) [Entitic vol] 79.5 fL Critically low 81.0-99.0 [facility] Comment on above: Performed By: #### C BC ####[facility] [address] [id number] Lozada MONO # 0.6 103/ul Normal 0.3-0.8 [facility] Comment on above: Performed By: #### C BC ####[facility] [address] [id number]. Jelly Lozada Monocytes/100 WBC (Bld) 9.1 % Normal 1.7-12.0 [facility] Comment on above: Performed By: #### C BC ####[facility] [address] [id number] Lozada NEUT # 3.9 103/ul Normal 1.4-6.5 [facility] Comment on above: Performed By: #### C BC ####[facility] [address] [id number] Lozada Neutrophils/100 WBC (Bld) 62.6 % Normal 43.0-75.0 [facility] Comment on above: Performed By: #### C BC ####[facility] [address] [id number] Lozada Platelet mean volume (Bld) [Entitic vol] 10.1 fL Normal 9.5-13.5 [facility] Comment on above: Performed By: #### C BC ####[facility] [address] [id number] Lozada PLT 421 103/ul Normal 150-450 [facility] Comment on above: Performed By: #### C BC ####[facility] [address] [phone]. Jelly Lozada RBC 4.92 106/ul Normal 4.20-5.40 The [facility] Comment on above: Performed By: #### C BC ####[facility] [address] [id number] Lozada WBC 6.3 103/ul Normal 4.0-11.0 [facility] Comment on above: Performed By: #### C BC ####[facility] [address] [phone]. Jelly Lozada PROF 14(COMP METB)on 022 Albumin [Mass/Vol] 4.0 g/dL Normal 3.4-5.0 [facility] Comment on above: Performed By: #### C MP #### [facility] [address] [place], [place] [address] Dr. Jelly Lozada Albumin/Globulin [Mass ratio] 1.4 {ratio} Normal The [facility] Comment on above: Performed By: #### C MP #### [facility] [address] [address] [address] Jelly Lozada ALP [Catalytic activity/Vol] 99 U/L Normal 46-116 [facility] Comment on above: Performed By: #### C MP #### [facility] [address] [address] [address] Jelly Lozada ALT [Catalytic activity/Vol] 20 U/L Normal 14-59 [facility] Comment on above: Performed By: #### C MP #### [facility] [address] [place] [address] Dr. Jelly Lozada Anion gap [Moles/Vol] 13.7 mmol/L Normal [facility] Comment on above: Performed By: #### C MP #### [facility] [address] [place] [address] Dr. Jelly Lozada AST [Catalytic activity/Vol] 18 U/L Normal 15-37 [facility] Comment on above: Performed By: #### C MP #### [facility] [address] [place] [address] Dr. Jelly Lozada Bilirubin [Mass/Vol] 0.7 mg/dL Normal 0.2-1.0 [facility] Comment on above: Performed By: #### C MP #### [facility] [address] [place] [address] Dr. Jelly Lozada Calcium [Mass/Vol] 8.9 mg/dL Normal 8.5-10.1 [facility] Comment on above: Performed By: #### C MP #### [facility] [address] [place] [address] Dr. Jelly Lozada Chloride [Moles/Vol] 102 mmol/L Normal 98-107 [facility] Comment on above: Performed By: #### C MP #### [facility] [address] [place] [address] Dr. Jelly Lozada CO2 [Moles/Vol] 26.8 mmol/L Normal 21.0-32.0 [facility] Comment on above: Performed By: #### C MP #### [facility] [address] [address] [address] Jelly Lozada Creatinine [Mass/Vol] 0.74 mg/dL Normal 0.55-1.02 [facility] Comment on above: Performed By: #### C MP #### [facility] [address] [address] [address] Jelly Lozada EGFR-AF ICELANDIC >60 Normal >=60 [facility] Comment on above: Performed By: #### C MP #### [facility] [address] [address] [address] Jelly Lozada EGFR-NON AF ICELANDIC >60 Normal >=60 [facility] Comment on above: Performed By: #### C MP #### [facility] [address] [place] [address] Dr. Jelly Lozada Globulin (S) [Mass/Vol] 2.9 g/dL Normal [facility] Comment on above: Performed By: #### C MP #### [facility] [address] [address] [address] Jelly Lozada Glucose [Mass/Vol] 114 mg/dL Critically high 74-106 [facility] Comment on above: Performed By: #### C MP #### [facility] [address] [place] [address] Dr. Jelly Lozada Potassium [Moles/Vol] 3.5 mmol/L Normal 3.5-5.1 [facility] Comment on above: Performed By: #### C MP #### [facility] [address] [place] [address] Dr. Jelly Lozada Protein [Mass/Vol] 6.9 g/dL Normal 6.4-8.2 [facility] Comment on above: Performed By: #### C MP #### [facility] [address] [place] [address] Dr. Jelly Lozada Sodium [Moles/Vol] 139 mmol/L Normal 136-145 [facility] Comment on above: Performed By: #### C MP #### [facility] [address] [place] [address] Dr. Jelly Lozada Urea nitrogen [Mass/Vol] 9.0 mg/dL Normal 7.0-18.0 [facility] Comment on above: Performed By: #### C MP #### [facility] [address] [place] [address] Dr. Jelly Lozada Urea nitrogen/Creatinin e [Mass ratio] 12.2 mg/mg Normal [facility] Comment on above: Performed By: #### C MP #### [facility] [address] [place] [address] Dr. Jelly Lozada TSHon 12-06-2021 TSH 3.217 uIU/mL Normal 0.358-3.740 [facility] Comment on above: Performed By: #### T SH #### [facility] [address] [place] [address] Dr. Jelly Lozada CREATININEon 08-26-2021 Creatinine [Mass/Vol] 0.70 mg/dL Normal 0.55-1.02 [facility] Comment on above: Performed By: #### C CHANDLER ####[facility] [address] [address]Dr. Jelly Lozada EGFR-AF ICELANDIC >60 Normal >=60 [facility] Comment on above: Performed By: #### C CHANDLER ####[facility] [address] [address]DrMicheal Lozada EGFR-NON AF ICELANDIC >60 Normal >=60 [facility] Comment on above: Performed By: #### C CHANDLER ####[facility] [address] [place], [place] [address]DrMicheal Lozada CT ABD/PELV W CONon 08-27-19 CT [...] HUMBERTO HEIN Date: 2021-08-26 10:08 Normal [facility] PROF CHEM 8 (BAS METB)on Anion gap [Moles/Vol] 13.6 mmol/L Normal [facility] Comment on above: Performed By: #### B MP #### [facility] [address] [address] [address] Jelly Lozada Calcium [Mass/Vol] 8.8 mg/dL Normal 8.5-10.1 [facility] Comment on above: Performed By: #### B MP #### [facility] [address] [address] [address] Jelly Lozada Chloride [Moles/Vol] 100 mmol/L Normal 98-107 [facility] Comment on above: Performed By: #### B MP #### [facility] [address] [address] [address] Jelly Lozada CO2 [Moles/Vol] 28.2 mmol/L Normal 21.0-32.0 [facility] Comment on above: Performed By: #### B MP #### [facility] [address] [address] [address] Jelly Lozada Creatinine [Mass/Vol] 0.74 mg/dL Normal 0.55-1.02 [facility] Comment on above: Performed By: #### B MP #### [facility] [address] [address] [address] Jelly Lozada EGFR-AF ICELANDIC >60 Normal >=60 [facility] Comment on above: Performed By: #### B MP #### [facility] [address] [address] [address] Jelly Lozada EGFR-NON AF ICELANDIC >60 Normal >=60 [facility] Comment on above: Performed By: #### B MP #### [facility] [address] [address] [address] Jelly Lozada Glucose [Mass/Vol] 98 mg/dL Normal 74-106 [facility] Comment on above: Performed By: #### B MP #### [facility] [address] [address] [address] Jelly Lozada Potassium [Moles/Vol] 3.8 mmol/L Normal 3.5-5.1 [facility] Comment on above: Performed By: #### B MP #### [facility] [address] [address] [address] Jelly Lozada Sodium [Moles/Vol] 138 mmol/L Normal 136-145 [facility] Comment on above: Performed By: #### B MP #### [facility] [address] [address] [address] Jelly Lozada Urea nitrogen [Mass/Vol] 6.0 mg/dL Critically low 7.0-18.0 [facility] Comment on above: Performed By: #### B MP #### [facility] [address] [address] [address] Jelly Lozada Urea nitrogen/Creatinin e [Mass ratio] 8.1 mg/mg Normal [facility] Comment on above: Performed By: #### B MP #### [facility] [address] [address] [address] Jelly Lozada Vital Signs Date Time Vital Sign Value Performing Clinician Facility 08-29-2023 09:10-0400 Blood Pressure Location Brianna Darby [facility] 08-29-2023 09:10-0400 Body temperature 97.7 [degF] Brianna Pastor [facility] 08-29-2023 09:10-0400 Diastolic blood pressure 89 mm[Hg] Brianna Darby [facility] 08-29-2023 09:10-0400 Heart rate 61 /min Brianna Darby [facility] 08-29-2023 09:10-0400 Systolic blood pressure 133 mm[Hg] Brianna Darby [facility] 03-01-2023 09:13-0400 Blood Pressure Location Brianna Darby [facility] 03-01-2023 09:13-0400 Body temperature 97.52 [degF] Brianna Darby [facility] 03-01-2023 09:13-0400 Diastolic blood pressure 89 mm[Hg] Brianna Darby [facility] 03-01-2023 09:13-0400 Heart rate 55 /min Brianna Darby [facility] 03-01-2023 09:13-0400 Systolic blood pressure 133 mm[Hg] Brianna Darby [facility] 08-31-2022 09:45-0400 Diastolic blood pressure 80 mm[Hg] Brianna Darby [facility] 08-31-2022 09:45-0400 Mean blood pressure 99 mm[Hg] Brianna Darby [facility] 08-31-2022 09:45-0400 Systolic blood pressure 138 mm[Hg] Brianna Darby [facility] 08-31-2022 09:35-0400 Blood Pressure Location Brianna Darby [facility] 08-31-2022 09:35-0400 Body temperature 97.7 [degF] Brianna Darby [facility] 08-31-2022 09:35-0400 Diastolic blood pressure 77 mm[Hg] Brianna Darby [facility] 08-31-2022 09:35-0400 Heart rate 56 /min Brianna Darby [facility] 08-31-2022 09:35-0400 Systolic blood pressure 144 mm[Hg] Brianna Darby [facility] 06-02-2022 09:49-0500 Blood Pressure Location Brianna Darby [facility] 06-02-2022 09:49-0500 Body temperature 96.98 [degF] Brianna Darby [facility] 06-02-2022 09:49-0500 Diastolic blood pressure 84 mm[Hg] Brianna Darby [facility] 06-02-2022 09:49-0500 Heart rate 57 /min Brianna Darby [facility] 06-02-2022 09:49-0500 Systolic blood pressure 129 mm[Hg] Brianna Darby [facility] 03-02-2022 10:01-0400 Blood Pressure Location Brianna Darby [facility] 03-02-2022 10:01-0400 Body temperature 97.7 [degF] Brianna Darby [facility] 03-02-2022 10:01-0400 Diastolic blood pressure 88 mm[Hg] Brianna Pastor [facility] 03-02-2022 10:01-0400 Heart rate 62 /min Brianna Bridgesz [facility] 03-02-2022 10:01-0400 Systolic blood pressure 120 mm[Hg] Brianna Pastor [facility] 12-01-2021 12:26-0400 Blood Pressure Location Briannalauren Pastor [facility] 12-01-2021 12:26-0400 Body temperature 97.16 [degF] Brianna Pastor [facility] 12-01-2021 12:26-0400 Diastolic blood pressure 80 mm[Hg] Brianna Pastor [facility] 12-01-2021 12:26-0400 Heart rate 58 /min Brianna Pastor [facility] 12-01-2021 12:26-0400 SaO2% (BldA) [Mass fraction] 97 % Brianna Pastor [facility] 12-01-2021 12:26-0400 Systolic blood pressure 122 mm[Hg] Brianna Carusometz [facility] 08-12-2021 09:22-0400 Blood Pressure Location Briannalauren CarusoDarby [facility] 08-12-2021 09:22-0400 Diastolic blood pressure 77 mm[Hg] Brianna Pastor [facility] 08-12-2021 09:22-0400 Heart rate 53 /min Brianna Carusometz [facility] 08-12-2021 09:22-0400 SaO2% (BldA) [Mass fraction] 96 % [facility] Darby [facility] 08-12-2021 09:22-0400 Systolic blood pressure 126 mm[Hg] Briannalauren Pastor [facility] Encounters Encounter Date Encounter Type Care Provider Facility Start: 02-19-2024 ambulatory Nghia Wild lity:Matthew Start: 10-18-2023 End: 10-18-2023 ambulatory SHAIKH CURTIS Not Available Start: 09-26-2023 End: 09-27-2023 ambulatory Brianna A Darby Facility:[facility] Start: 09-26-2023 End: 09-26-2023 Patient encounter procedure Brianna A Darby [facility] Start: 09-01-2023 End: 09-02-2023 ambulatory Brianna A Darby Facility:[facility] Start: 09-01-2023 End: 09-01-2023 Patient encounter procedure Brianna A Darby [facility] Start: 08-29-2023 End: 08-30-2023 ambulatory Brianna A Darby Facility:[facility] Start: 08-29-2023 End: 08-30-2023 ambulatory Brianna A Darby Facility:[facility] Start: 08-29-2023 End: 08-29-2023 Patient encounter procedure Brianna Pastor [facility] Start: 08-29-2023 End: 08-29-2023 Patient encounter procedure Brianna Pastor [facility] Start: 07-17-2023 End: 07-17-2023 ambulatory SHAIKH AMID Not Available Start: 04-10-2023 End: 04-10-2023 ambulatory SHAIKH AMAURYWAD Not Available Start: 04-07-2023 End: 04-07-2023 ambulatory [facility] Start: 03-01-2023 End: 03-02-2023 ambulatory Brianna Lanie Darby [facility] Start: 03-01-2023 End: 03-01-2023 Patient encounter procedure Brianna Pastor [facility] Start: 08-31-2022 End: 08-31-2022 Patient encounter procedure Brianna Pastor [facility] Start: 08-31-2022 End: 08-31-2022 Patient encounter procedure Brianna Pastor [facility] Start: 07-06-2022 End: 07-06-2022 ambulatory [facility] Start: 06-23-2022 End: 06-24-[address] HUMBERTO HEIN Facility:[facility] Start: 06-02-2022 End: 06-02-2022 Patient encounter procedure Brianna Pastor [facility] Start: 03-23-2022 End: 03-24-2022 ambulatory SHAIKH Lauren ACEVEDO Facility:[facility] Start: 03-15-2022 End: 03-16-[address] DOCTOR CLARK Facility:[facility] Start: 03-02-2022 End: 03-02-2022 Patient encounter procedure Brianna Pastor [facility] Start: 12-06-2021 End: 12-07-2021 ambulatory SHAIKH Lauren ACEVEDO Facility:[facility] Start: 12-01-2021 End: 12-01-2021 Patient encounter procedure Brianna Dela Cruz Darby [facility] Start: 08-26-2021 End: 08-27-2021 ambulatory DUYEN MARKS Facility:[facility] Start: 08-24-2021 End: 08-25-2021 ambulatory SHAIKH Lauren ACEVEDO Facility:[facility] Start: 08-12-2021 End: 08-12-2021 Patient encounter procedure Brianna Pastor [facility] Procedures Date Procedure Procedure Detail Performing Clinician Start: 04-12-2021 Esophagogastroduodenoscopy Brianna Bridgesz Comment on above: gastric erosions, hi atal hernia Start: 04-03-2019 Colonoscopy Briannalauren escobarz Start: 04-03-2019 Esophagogastroduodenoscopy Briannalauren Pastor Immunizations Immunization Date Immunization Notes Care Provider Fa [facility] 01-26-2022 tetanus toxoid, reduced diphtheria toxoid, and acellular pertussis vaccine, adsorbed Brianna Darby [facility] NEGATED: Highlighted row has not occurred!02-27-2023 influenza virus vaccine, unspecified formulation Brianna Darby [facility] NEGATED: Highlighted row has not occurred!06-02-2022 influenza virus vaccine, unspecified formulation Brianna Pastor [facility] NEGATED: Highlighted row has not occurred!03-02-2022 influenza virus vaccine, unspecified formulation Brianna Pastor [facility] Payers Date Payer Category Payer Unknown [id number] 1958 Medicare [id number] 1958 Unknown [id number] 1945 Unknown [id number] 2.16.84 [id number] 1945 Unknown [id number] 2.16.84 0.1.295009.3.579.2.593 1946 Unknown [id number] 2.16.84 0.1.219721.3.579.2.593 1946 Unknown [id number] 2.16.84 0.1.887833.3.579.2.593 1946 Unknown [id number] 2.16.84 0.1.925049.3.579.2.593 1946 Unknown [id number] 2.16.84 0.1.570636.3.579.2.593 1946 Unknown [id number] 2.16.84 0.1.963690.3.579.2.593 1946 Unknown [id number] 2.16.84 0.1.615745.3.579.2.593 1946 Unknown [id number] 2.16.8 40.1.316813.3.579.2.727 1946 Unknown [id number] 2.16.8 40.1.322819.3.579.2.727 1946 Unknown [id number] 2.16.8 40.1.552330.3.579.2.727 1946 Unknown [id number] 2.16.8 40.1.749541.3.579.2.727 1946 Unknown [id number] 2.16.8 40.1.777488.3.579.2.727 1946 Unknown [id number] 2.16.8 40.1.392996.3.579.2.727 1946 Unknown [id number] 2.16.84 0.1.123298.3.579.2.1259 1946 Unknown [id number] 2.16.84 0.1.708388.3.579.2.1259 1946 Unknown [id number] 2.16.840 .1.399654.3.579.2.1259 Social History Date Type Detail Facility Start: 05-04-2021 End: 08-29-2023 Tobacco smoking status Never smoked tobacco (finding) [facility] Tobacco smoking status Never [facility] Sex Assigned At Female [facility] [employer] Functional Status Date Assessment Result Facility 08-29-2023 Functional Status N/A [facility] 03-01-2023 Functional Status N/A [facility] 08-31-2022 Functional Status N/A [facility] 06-02-2022 Functional Status N/A [facility] 03-02-2022 Functional Status N/A [facility] 12-01-2021 Functional Status N/A [facility] Clinical Notes 08-12-2021 to 08-29-2023 LaboratoryRadiology Note Date & Type Note Facility 08-29-2023 Hospital Discharge instructions Patient Education 08/29/2023 09:32:39 Food Choices for Gastroesophageal Reflux Disease, Adult [...] grapefruit, pineapple, and dali. Vegetables Deep-fried vegetables. English fries. Any vegetables prepared with added fat. [...] provider. Document Revised: 10/26/2020 Document Reviewed: 10/26/2020 [employer] Patient Education 2022 [employer]. Follow Up Care 03/01/2023 09:50:16 With:Brianna Pastor CNP Address: When:1 month [facility] 04-07-2023 Note [place] [facility] - [facility] Subjective Toñito Putnam is a 77 [...] calcification. In 2019 she was admitted to [facility]. She had hemorrhoidal bleeding and gastritis. [...] Rate 03/18/2019 61 Atrial Rate 03/18/2019 61 FL Interval 03/18/2019 188 QRS DURATION 03/18/2019 94 QT Interval 03/18/2019 438 QTC CALCULATION(BEZET) 03/18/2019 440 P [place] 03/18/2019 55 R-[place] 03/18/2019 2 T Wave [place] 03/18/2019 44 Diagnosis 03/18/2019 Value:Normal sinus rhythm Normal ECG No previous ECGs available Confirmed by STRESS, (55), editor school photograph Ángela Arredondo ([id number]) on 03/18/2019 12:12:41 PM Blood testing 09/29/2022: [...] is 60 to (more content not included)... [facility] 03-01-2023 Hospital Discharge instructions Patient Education [...] Bulgur wheat. Millet. Quinoa. Bran muffins. Popcorn. [place] wafer crackers. Meats and other proteins [place] beans, kidney beans, and gee beans. Soybeans. [...] Cream cheese. Sour cream. Fats and oils [place]. Beverages Soft drinks. Other foods Cakes and [...] provider. Document Revised: 08/20/2020 Document Reviewed: 08/20/2020 [employer] Patient Education 2022 [employer]. Follow Up Care 08/31/2022 10:04:40 With:Brianna Pastor CNP Address: When:6 months [facility] 08-31-2022 Hospital Discharge instructions Patient [...] grapefruit, pineapple, and dali. Vegetables Deep-fried vegetables. English fries. Any vegetables prepared with added fat. [...] provider. Document Revised: 10/26/2020 Document Reviewed: 10/26/2020 [employer] Patient Education 2022 [employer]. Follow Up Care 06/02/2022 10:08:57 With:Brianna Pastor CNP Address: When:6 months [facility] 07-06-2022 Note Patient here for [...] All other systems reviewed and are negative. [facility] 07-06-2022 Note Cardiovascular Medic [facility] SUBJECTIVE Chief Complaint Patient presents with [...] calcification. In 2019 she was admitted to [facility]. She had hemorrhoidal bleeding and gastritis. [...] Patient Active Problem List Diagnosis Angina pectoris ([facility]) Chest pain Benign essential hypertension Chronic obstructive lung disease ([facility]) Coronary atherosclerosis Dyspnea Gastroesophageal reflux disease Headache [...] Final Atrial Rate 03/18/2019 61 BPM Final FL Interval 03/18/2019 188 ms Final QRS DU (more content not included)... [facility] 06-02-2022 Hospital Discharge instructions Patient Education 06/02/2022 09:47:57 Food Choices for Gastroesophageal Reflux Disease, Adult Food Choices for Gastroesophageal Reflux Disease, Adult When you have gastroesophageal reflux disease (GERD), the foods you eat and your eating habits are very important. Choosing the right foods can help ease the discomfort of GERD. Consider working with a diet and food and nutrition teacher (dietitian) to help you make healthy food [...] Pastries or quick breads with added fat. English toast. Vegetables Deep fried vegetables. English fries. Any vegetables prepared with added fat. [...] 04/17/2006 Document Revised: 08/08/2019 Document Reviewed: 04/18/2017 [employer] Patient Education 2020 [employer]. Follow Up Care 03/11/2022 10:33:58 With:Brianna Pastor CNP Address: When:3 months [facility] 03-02-2022 Evaluation + Plan [facility] 03/02/22Comprehensive Metabolic Panel 03/02/22Celiac Disease Comprehensive 03/02/22 [facility] 03-02-2022 Hospital Discharge instructions Patient Education 03/02/2022 [...] Follow these instructions at home: Medicines Take abxy-ebr-urwpgnp and prescription medicines only as told by [...] Watch your condition for any changes. Take xolr-bqg-bgpkzae and prescription medicines only as told by [...] 01/25/2006 Document Revised: 08/26/2019 Document Reviewed: 08/26/2019 [employer] Patient Education 2019 [employer]. Follow Up Care 12/01/2021 12:46:09 With:Brianna Pastor CNP Address: When:3 months [facility] 12-01-2021 Hospital Discharge instructions Patient [...] Follow these instructions at home: Medicines Take iwuz-jxk-xktwsmr and prescription medicines only as told by [...] Watch your condition for any changes. Take webp-itq-ukrhlbk and prescription medicines only as told by [...] 01/25/2006 Document Revised: 08/26/2019 Document Reviewed: 08/26/2019 [employer] Patient Education 2019 [employer]. Follow Up Care 08/12/2021 10:13:54 With:Brianna Pastor CNP Address: When:3 months [facility] 08-12-2021 Hospital Discharge instructions Patient [...] Follow these instructions at home: Medicines Take gtby-kkz-qourrqx and prescription medicines only as told by [...] Watch your condition for any changes. Take cbky-byq-nzmuxxa and prescription medicines only as told by [...] 01/25/2006 Document Revised: 08/26/2019 Document Reviewed: 08/26/2019 [employer] Patient Education 2020 [employer]. Follow Up Care 08/02/2021 07:28:50 With:Brianna Pastor CNP Address: When:3 months [facility] Evaluation + Plan note Future Appointments Appointment Date:11/11/2021 10:00:00 AM Scheduled Provider:Brianna Pastor CNP Location:[facility] Appointment Type:[facility] Follow Up [facility] Evaluation + Plan note Future Appointments Appointment Date:03/02/2022 10:00:00 AM Scheduled Provider:Brianna Pastor CNP Location:[facility] Appointment Type:[facility] Follow Future Scheduled TestsCBC w/ Auto Diff 12/01/21Comprehensive Metabolic Panel 12/01/21 [facility] Evaluation + Plan note Future Appointments Appointment Date:08/31/2022 09:20:00 AM Scheduled Provider:Brianna Pastor CNP Location:[facility] Appointment Type:BAD Follow Up [facility] Evaluation + Plan note Future Appointments Appointment Date:03/01/2023 09:20:00 AM Scheduled Provider:Brianna Pastor CNP Location:[facility] Appointment Type:BAD Follow Up [facility] Evaluation + Plan note Future Appointments Appointment Date:08/30/2023 09:20:00 AM Scheduled Provider:Brianna Pastor CNP Location:[facility] Appointment Type:BAD Follow Up [facility] Evaluation + Plan note Future Appointments Appointment Date:09/01/2023 09:00:00 AM Scheduled Provider: [facility] Type:US Abdominal/Pelvis () Appointment Date:09/26/2023 09:20:00 AM Scheduled Provider:Brianan Pastor CNP Location:[facility] Appointment Type:[facility] Follow Up Future Scheduled TestsUS Abdomen, Limited 09/01/23 [facility] Evaluation + Plan note Future Appointments Appointment Date:09/26/2023 09:20:00 AM Scheduled Provider:Brianna Pastor CNP Location:[facility] Appointment Type:BAD Follow Up [facility] Hospital course Narrative No data available for this section [facility] Hospital Discharge instructions No data available for this section [facility] Progress note No data available for this section [facility] Summary Purpose Family History No Family History Records Found No data available for this section No Family History Records Found No data available for this section No data available for this section No data available for this section No data available for this section No Family History Records FoundNo Family History Records Found Advance Directives No Advanced Directives Records FoundNo Advanced Directives Records FoundNo Advanced Directives Records FoundNo Advanced Directives Records Found Additional Source Comments Care Team (unrecognized sect ion and content) Personnel Name: SHAIKH ACEVEDO Address: [facility] [place] [address] Personnel Name: SHAIKH ACEVEDO Address: Address: [facility] [place] [address] Personnel Name: SHAIKH ACEVEDO Address: Address: [facility] [place] [address] Personnel Name: SHAIKH ACEVEDO Address: Address: [facility] [place] [address] Personnel Name: SHAIKH ACEVEDO Address: Address: [facility] [place] [address] Personnel Name: SHAIKH ACEVEDO Address: Address: [facility] [place] [address] Personnel Name: SHAIKH ACEVEDO MD Address: Address: [facility] [place] [address] Personnel Name: SHAIKH ACEVEDO MD Address: Address: [facility] [place] [address] Personnel Name: SHAIKH ACEVEDO MD Address: Address: [facility] [place] [address] Personnel Name: SHAIKH ACEVEDO MD Address: Address: [facility] [place] [address] Personnel Name: SHAIKH ACEVEDO MD Address: Address: [facility] [place] [address] INFORMATION SOURCE (unrecogn ized section and content) DATE CREATED AUTHOR 06/28/2022 Kimberley barth DATE CREATED AUTHOR AUTHOR'S ORGANIZ ATION 04/10/2023 [facility] DATE CREATED AUTHOR AUTHOR'S ORGANIZ ATION 09/27/2023 [facility] DATE CREATED AUTHOR AUTHOR'S ORGANIZ ATION 10/19/2023 [facility] EPIC FOR RECORDS PERTAINING [...] BE BASED ON THE PRIMARY CLINICAL RECORDS. [facility] [employer] [facility]. provides no warranty or guarantee of the accuracy or completeness of information in this document.
[2023-11-01 11:21] LABS: Alanine Aminotransferase 25 U/L (14-59); Albumin Globulin Ratio 1.3; Alkaline Phosphatase 68 U/L (46-116); Anion Gap 14.3; Aspartate Amino Transferase 25 U/L (15-37); Bilirubin Total 0.8 mg/dL (0.2-1.0); Calcium 9.3 mg/dL (8.5-10.1); Carbon Dioxide 25.4 mmol/L (21.0-32.0); Chloride 102 mmol/L (98-107); Chol HDL Ratio 2.7; Cholesterol 151 mg/dL (<=200); Estimated GFR (African America >60 (>=60); Estimated GFR (Non-African Ame >60 (>=60); Globulin 3.1 g/dL; Glucose 98 mg/dL (74-106); HDL Cholesterol 55 mg/dL (40-60); LDL Cholesterol Calculated 76.8 mg/dL; Potassium 3.7 mmol/L (3.5-5.1); Sodium 138 mmol/L (136-145); TSH W/ REFLEX FT4 3.569 uIU/mL (0.358-3.740); Total Protein 7.1 g/dL (6.4-8.2); Triglycerides 96 mg/dL (<=150); VLDL CHOLESTEROL 19.2 mg/dL
[2023-11-01 12:36] LABS: Basophils Absolute Auto 0.1 10^3/uL (0.0-0.1); Basophils Percent Auto 1.5 % (0.2-2.0); Eosinophils Absolute Auto 0.3 10^3/uL (0.0-0.7); Eosinophils Percent Auto 4.2 % (0.9-7.0); Hematocrit 41.4 % (36.0-48.0); Hemoglobin 13.1 g/dL (12.0-16.0); Immature Granulocytes Abs Auto 0.02 10^3/uL (0.00-0.03); Immature Granulocytes Pct Auto 0.3 % (0.0-0.5); Lymphocytes Absolute Auto 1.3 10^3/uL (1.2-3.8); Lymphocytes Percent Auto 18.4 % (20.5-60.0); Mean Corpuscular HGB Conc 31.6 g/dL (29.9-35.2); Mean Corpuscular Hemoglobin 25.1 pg (26.7-34.0); Mean Corpuscular Volume 79.5 fL (81.0-99.0); Mean Platelet Volume 10.7 fL (9.5-13.5); Monocytes Absolute Auto 0.7 10^3/uL (0.3-0.8); Monocytes Percent Auto 9.7 % (1.7-12.0); Neutrophils Absolute Auto 4.8 10^3/uL (1.4-6.5); Neutrophils Percent Auto 65.9 % (43.0-75.0); Platelet Count 585 10^3/uL (150-450); Red Blood Count 5.21 10^6/uL (4.20-5.40); White Blood Count 7.2 10^3/uL (4.0-11.0)
== END 2023-11-01 09:47 | disposition home or self-care (01) ==
LOC: LAB 09:48
PROVIDERS: PCP Internal Medicine; Visit Provider Internal Medicine
DX: E78.5 Hyperlipidemia, unspecified (principal); I10 Essential (primary) hypertension; E03.9 Hypothyroidism, unspecified
CPT/HCPCS: 36415; 80053; 80061; 84443; 85025

== ENCOUNTER 2023-11-21 08:55 | Outpatient (OUT) | payer MEDICARE, OTHER, SELFPAY ==
--- OUTSIDE RECORDS SUMMARY | 2023-11-21 09:14 | XMS_ITS | CCD ---
Author Organization [facility] Care Team Providers Care Retail Asset Protection Specialist Name Role Phone SHAIKH ACEVEDO Primary Care Physician [phone] FAWWAD, SIMEON H Primary Care Unavailable MISC, [...] Referring Unavailable Brianna Pastor Admitting Unavailable Brianna Pastro Admitting Unavailable Brianna Pastor Attending Unavailable Brianna Pastor Attending Unavailable SHAIKH ACEVEDO Attending Unavailable CURTIS, Attending Unavailable SHAIKH ACEVEDO Attending Unavailable LUCA CHAVARRIA Attending Unavailable Allergies Allergy Classification Reported Allergen(s) Allergy Type Date of Onset Reaction(s) Facility (10 sources) Meperidine; Translations: [meperidine] Drug Allergy 04-17-2014 Other (qualifier value) [facility] Medications Current Medications Medication Drug [...] Daily, # 90 tab(s), Refills(s) 1, Pharmacy: [facility] 536, 162, cm, 04/22/19 13:39:00 EST, Height/Length Measured, 72, kg, 04/22/19 13:39:00 EST, Weight Measured Start Date: 12/02/19 Status: Ordered Start: 12-02-2019 take 1 tablet by michele th once daily pantoprazole 40 mg Oral EC Tab 40 mg = 1 tab(s), Oral, Daily, # 90 tab(s), Refills(s) 1, Pharmacy: [facility] 536, 162, cm, 04/22/19 13:39:00 EST, Height/Length [...] disease (4 sources) Atherosclerotic heart disease of [place] coronary artery without angina pectoris; Translations: [Coronary [...] Zeng MD Transcribed by: PAMELA Technologist: LOU [facility] Consent for Treatmenton Consent for Treatment [id number]#[id number] [facility] Ambulatory Visit Summaryon 0 08-29-2023 Ambulatory [...] Appointments Monday 9:00 AM EDT With: Where: [facility] Sound Monday 9:20 AM EDT With: Brianna Pastor CNP Where: [facility] CHEMISTRYOrdered By: SYSTEM SYSTEM on 08-29-2023 Cobalamin (Vitamin B12) [Mass/Vol] 281 pg/mL Normal 50 - 1500 pg/mL Remisol Chem Magnesium [Mass/Vol] 1.8 mg/dL Normal 1.3 - 2.4 mg/dL Remisol Chem Consent for Treatmenton 08-01 Consent for Treatment [id number]#1.00TIFF Jayne Lynn [facility] Gastroenterology Office/Clin ic Noteon 08-29-2023 Gastroenterology Office/Clinic [...] Substance Abu (more content not included)... Normal [facility] Comment on above: Result Comment: Elec tronically Signed By: Darby LOBO, Brianna Del aCruz\.br\Date and Time Signed: 08/29/23 09:35 EDT Magnesiumon 08-29-2023 Magnesium [Mass/Vol] 1.8 mg/dL Normal 1.3-2.4 [facility] Comment on above: Performed By: #### 2 [id number], [id number] #### [facility] Laboratory [address] [place] [address] Patient Educationon 08-29-19 Patient Education Gastroenterology Food [...] grapefruit, pineapple, and dali. Vegetables Deep-fried vegetables. Jamaican fries. Any vegetables prepared with added fat. [...] reflux di (more content not included)... Normal [facility] Vit B12on 08-29-2023 Cobalamin (Vitamin B12) [Mass/Vol] 281 pg/mL Normal 50-1500 [facility] Comment on above: Performed By: #### 2 [id number], [id number] #### [facility] Laboratory [address] [place] [address] Office Visiton 04-07-2023 Follow-up visit [id number] Toñito Putnam 1945 F Date Provider Department Center 04/07/2023 CARLOZ NICK CARD [facility] Family History Problem Relation Age of Onset Coronary artery disease Sister 62 Comments: Passed age 62 Coronary artery disease Brother 58 Cancer Other Coronary artery disease Other Family Status - Relation Status Age at Sister Brother Other Level of Service:83783 [place] OFFICE/OUTPATIENT ESTABLISHED LOW MDM 20-29 MIN Normal [facility] Gastroenterology Office/Clin ic Noteon 03-01-2023 Gastroenterology Office/Clinic [...] mEq, Ora (more content not included)... Normal [facility] Comment on above: Result Comment: Elec tronically [...] Bulgur wheat. Millet. Quinoa. Bran muffins. Popcorn. [place] wafer crackers. Meats and other proteins [place] beans, kidney beans, and gee beans. Soybeans. [...] Cream cheese. Sour cream. Fats and oils [place]. Beverages Soft drinks. Other foods Cakes and [...] Document Revised: (more content not included)... Normal [facility] CHEMISTRYOrdered By: SYSTEM SYSTEM on 08-31-2022 Anion gap [Moles/Vol] 12 mmol/L Normal 6 - 16 mEq/L [facility] Remisol Calcium [Mass/Vol] 9.6 mg/dL Normal 8.9 - 11. 1 mg/dL [facility] Remisol Chloride [Moles/Vol] 102 mmol/L Normal 101 - 111 mmol/L [facility] Remisol CO2 [Moles/Vol] 28 mmol/L Normal 21 - 31 mmol/L [facility] Remisol Cobalamin (Vitamin B12) [Mass/Vol] 316 pg/mL Normal 50 - 1500 pg/mL FT Remisol Creatinine [Mass/Vol] 0.8 mg/dL Normal 0.5 - 1.3 mg/dL [facility] Remisol GFR/1.73 sq M.predicted among non-blacks MDRD (S/P/Bld) [Vol rate/Area] 76 mL/min/1.73 m2 Normal >=59mL/min/ 1.73 m2 [facility] Chem S Glucose [Mass/Vol] 108 mg/dL Normal [...] FT Remisol Orders Onlyon 07-08-2022 Orders Only [id number] Toñito Putnam 1945 F Date Provider Department Center 07/08/2022 VEDA OVALLE TOBY [facility] Family History Problem Relation Age of Onset Coronary artery disease Sister 62 Comments: Passed age 62 Coronary artery disease Brother 58 Cancer Other Coronary artery disease Other Family Status - Relation Status Age at Sister Brother Other Normal [facility] Office Visiton 07-06-2022 Follow-up visit [id number] Toñito Putnam 1945 F Date Provider Department Center 07/06/2022 BRUNO DONAHUE TOBY [facility] Family History Problem Relation Age of Onset Coronary artery disease Sister 62 Comments: Passed age 62 Coronary artery disease Brother 58 Cancer Other Coronary artery disease Other Family Status - Relation Status Age at Sister Brother Other Level of Service:76714 [place] OFFICE/OUTPATIENT ESTABLISHED MOD MDM 30-39 MIN Reason for Visit and Comments: Coronary Artery Disease [187] Hypertension [340121] Hyperlipidemia [182] Normal [facility] MG MAMM SCREEN 3D NIKKI CADon 06-23-2022 MG MAMM SCREEN 3D NIKKI CAD Patient: TOÑITO PUTNAM Exam Date: 06/23/2022 : 1945 Gender:F Ordering : SHAIKH Shahida ACEVEDO . Admission #: [id number] Family : Order #: [id number] CLICK HERE TO VIEW EXAM RADIOLOGY REPORT [...] lung cancer at age 61. LOCATION: [facility] BREAST COMPOSITION: Scattered areas fibroglandular density. FINDINGS: [...] M.D. on 06/23/2022 at 14:21 Normal [facility] CBC AUTO DIFFon 03-23-2022 BASO # 0.1 103/ul Normal 0.0-0.1 [facility] Comment on above: Performed By: #### C BC #### [facility] Laboratory [address] [address] [address] Jelly Lozada Basophils/100 WBC (Bld) 1.1 % Normal 0.2-2.0 [facility] Comment on above: Performed By: #### C BC #### [facility] Laboratory [address] [place] [address] Dr. Jelly Lozada EO # 0.1 103/ul Normal 0.0-0.7 [facility] Comment on above: Performed By: #### C BC #### [facility] [address] [place] [address] Dr. Jelly Lozada Eosinophils/100 WBC (Bld) 1.7 % Normal 0.9-7.0 [facility] Comment on above: Performed By: #### C BC #### [facility] [address] [place] [address] Dr. Jelly Lozada Erythrocyte distribution width (RBC) [Ratio] 14.6 % Normal 11.0-15.0 [facility] Comment on above: Performed By: #### C BC #### [facility] [address] [place] [address] Dr. Jelly Lozada Hematocrit (Bld) [Volume fraction] 41.6 % Normal 36.0-48.0 [facility] Comment on above: Performed By: #### C BC #### [facility] [address] [place] [address] Dr. Jelly Lozada Hemoglobin (Bld) [Mass/Vol] 13.4 g/dL Normal 12.0-16.0 [facility] Comment on above: Performed By: #### C BC #### [facility] [address] [place] [address] Dr. Jelly Lozada IG # 0.03 10e3/ul Normal 0.00-0.03 [facility] Comment on above: Performed By: #### C BC #### [facility] [address] [place] [address] Dr. Jelly Lozada IG % 0.4 % Normal 0.0-0.5 [facility] Comment on above: Performed By: #### C BC #### [facility] [address] [place] [address] Dr. Jelly Lozada LYMPH # 1.6 103/ul Normal 1.2-3.8 [facility] Comment on above: Performed By: #### C BC #### [facility] [address] [place] [address] Dr. Jelly Lozada Lymphocytes/100 WBC (Bld) 23.2 % Normal 20.5-60.0 [facility] Comment on above: Performed By: #### C BC #### [facility] [address] [place] [address] Dr. Jelly Lozada MANUAL DIFF REQ NO Normal [facility] Comment on above: Performed By: #### C BC #### [facility] [address] [place] [address] Dr. Jelly Lozada MCH (RBC) [Entitic mass] 25.6 pg Critically low 26.7-34.0 [facility] Comment on above: Performed By: #### C BC #### [facility] [address] [place] [address] Dr. Jelly Lozada MCHC (RBC) [Mass/Vol] 32.2 g/dL Normal 29.9-35.2 [facility] Comment on above: Performed By: #### C BC #### [facility] [address] [place] [address] Dr. Jelly Lozada MCV (RBC) [Entitic vol] 79.5 fL Critically low 81.0-99.0 [facility] Comment on above: Performed By: #### C BC #### [facility] [address] [place] [address] Dr. Jelly Lozada MONO # 0.6 103/ul Normal 0.3-0.8 [facility] Comment on above: Performed By: #### C BC #### [facility] [address] [place] [address] Dr. Jelly Lozada Monocytes/100 WBC (Bld) 8.0 % Normal 1.7-12.0 [facility] Comment on above: Performed By: #### C BC #### [facility] [address] [place] [address] Dr. Jelly Lozada NEUT # 4.6 103/ul Normal 1.4-6.5 [facility] Comment on above: Performed By: #### C BC #### [facility] [address] [place] [address] Dr. Jelly Lozada Neutrophils/100 WBC (Bld) 65.6 % Normal 43.0-75.0 [facility] Comment on above: Performed By: #### C BC #### [facility] [address] [place] [address] Dr. Jelly Lozada Platelet mean volume (Bld) [Entitic vol] 10.6 fL Normal 9.5-13.5 [facility] Comment on above: Performed By: #### C BC #### [facility] [address] [address] [address] Jelly Lozada PLT 407 103/ul Normal 150-450 [facility] Comment on above: Performed By: #### C BC #### [facility] [address] [place] [address] Dr. Jelly Lozada RBC 5.23 106/ul Normal 4.20-5.40 [facility] Comment on above: Performed By: #### C BC #### [facility] [address] [place] [address] Dr. Jelly Lozada WBC 7.0 103/ul Normal 4.0-11.0 [facility] Comment on above: Performed By: #### C BC #### [facility] [address] [place] [address] Dr. Jelly Lozada LIPID PROFILEon 03-23-2022 CHOL-HDL RATIO NORM SEE BELOW Normal [facility] Comment on above: Result Comment: 3.3 - 4.4 LOW RISK 4.4 - 7.1 AVERAGE RISK 7.1 - 11.0 MODERATE RISK >11.0 HIGH RISK Performed By: #### T SH, CMP, LIPID #### [facility] [address] [place] [address] Dr. Jelly Lozada Cholesterol [Mass/Vol] 157 mg/dL Normal <=200 [facility] Comment on above: Performed By: #### T SH, CMP, LIPID #### [facility] [address] [place] [address] Dr. Jelly Lozada Cholesterol in HDL [Mass/Vol] 52 mg/dL Normal 40-60 [facility] Comment on above: Performed By: #### T SH, CMP, LIPID #### [facility] [address] [address] [address] Jelly Lozada Cholesterol in LDL [Mass/Vol] 67.0 mg/dL Normal [facility] Comment on above: Performed By: #### T SH, CMP, LIPID #### [facility] [address] [address] [address] Jelly Lozada Cholesterol.total/ Cholesterol in HDL [Mass ratio] 3.0 {ratio} Normal [facility] Comment on above: Performed By: #### T SH, CMP, LIPID #### [facility] [address] [address] [address] Jelly Lozada HDL NORMAL > or = 60 mg/dl - LO W CARDIOVASCULAR RISK <40 mg/dl - HIGH CARDIOVASCULAR RISK Normal [facility] Comment on above: Performed By: #### T SH, CMP, LIPID #### [facility] [address] [place] [address] Dr. Jelly Lozada LDL CALC NORMAL SEE BELOW Normal [facility] Comment on above: Result Comment: <100 mg/dl OPTIMAL 100 - 129 mg/dl NEAR OR ABOVE OPTIMAL 130 - 159 mg/dl BORDERLINE HIGH 160 - 189 mg/dl HIGH >190 mg/dl VERY HIGH Performed By: #### T SH, CMP, LIPID #### [facility] [address] [address] [address] Jelly Lozada Triglyceride [Mass/Vol] 190 mg/dL Critically high <=150 [facility] Comment on above: Performed By: #### T SH, CMP, LIPID #### [facility] [address] [address] [address] Jelly Lozada VLDL CALC 38.0 mg/dL Normal [facility] Comment on above: Performed By: #### T SH, CMP, LIPID #### [facility] [address] [address] [address] Jelly Lozada PROF 14(COMP METB)on 022 Albumin [Mass/Vol] 4.1 g/dL Normal 3.4-5.0 [facility] Comment on above: Performed By: #### T SH, CMP, LIPID #### [facility] [address] [address] [address] Jelly Lozada Albumin/Globulin [Mass ratio] 1.3 {ratio} Normal [facility] Comment on above: Performed By: #### T SH, CMP, LIPID #### [facility] [address] [address] [address] Jelly Lozada ALP [Catalytic activity/Vol] 80 U/L Normal 46-116 [facility] Comment on above: Performed By: #### T SH, CMP, LIPID #### [facility] [address] [address] [address] Jelly Lozada ALT [Catalytic activity/Vol] 18 U/L Normal 14-59 [facility] Comment on above: Performed By: #### T SH, CMP, LIPID #### [facility] [address] [address] [address] Jelly Lozada Anion gap [Moles/Vol] 12.2 mmol/L Normal [facility] Comment on above: Performed By: #### T SH, CMP, LIPID #### [facility] [address] [place] [address] Dr. Jelly Lozada AST [Catalytic activity/Vol] 20 U/L Normal 15-37 [facility] Comment on above: Performed By: #### T SH, CMP, LIPID #### [facility] [address] [address] [address] Jelly Lozada Bilirubin [Mass/Vol] 0.6 mg/dL Normal 0.2-1.0 [facility] Comment on above: Performed By: #### T SH, CMP, LIPID #### [facility] [address] [place] [address] Dr. Jelly Lozada Calcium [Mass/Vol] 9.5 mg/dL Normal 8.5-10.1 [facility] Comment on above: Performed By: #### T SH, CMP, LIPID #### [facility] [address] [address] [address] Jelly Lozada Chloride [Moles/Vol] 101 mmol/L Normal 98-107 [facility] Comment on above: Performed By: #### T SH, CMP, LIPID #### [facility] [address] [address] [address] Jelly Lozada CO2 [Moles/Vol] 29.9 mmol/L Normal 21.0-32.0 [facility] Comment on above: Performed By: #### T SH, CMP, LIPID #### [facility] [address] [address] [address] Jelly Lozada Creatinine [Mass/Vol] 0.71 mg/dL Normal 0.55-1.02 [facility] Comment on above: Performed By: #### T SH, CMP, LIPID #### [facility] [address] [address] [address] Jelly Lozada EGFR-AF FAROESE >60 Normal >=60 [facility] Comment on above: Performed By: #### T SH, CMP, LIPID #### [facility] [address] [address] [address] Jelly Lozada EGFR-NON AF FAROESE >60 Normal >=60 [facility] Comment on above: Performed By: #### T SH, CMP, LIPID #### [facility] [address] [address] [address] Jelly Lozada Globulin (S) [Mass/Vol] 3.2 g/dL Normal [facility] Comment on above: Performed By: #### T SH, CMP, LIPID #### [facility] [address] [address] [address] Jelly Lozada Glucose [Mass/Vol] 92 mg/dL Normal 74-106 [facility] Comment on above: Performed By: #### T SH, CMP, LIPID #### [facility] [address] [address] [address] Jelly Lozada Potassium [Moles/Vol] 4.1 mmol/L Normal 3.5-5.1 [facility] Comment on above: Performed By: #### T SH, CMP, LIPID #### [facility] [address] [address] [address] Jelly Lozada Protein [Mass/Vol] 7.3 g/dL Normal 6.4-8.2 [facility] Comment on above: Performed By: #### T SH, CMP, LIPID #### [facility] [address] [address] [address] Jelly Lozada Sodium [Moles/Vol] 139 mmol/L Normal 136-145 [facility] Comment on above: Performed By: #### T SH, CMP, LIPID #### [facility] [address] [address] [address] Jelly Lozada Urea nitrogen [Mass/Vol] 8.0 mg/dL Normal 7.0-18.0 [facility] Comment on above: Performed By: #### T SH, CMP, LIPID #### [facility] [address] [address] [address] Jelly Lozada Urea nitrogen/Creatinin e [Mass ratio] 11.3 mg/mg Normal [facility] Comment on above: Performed By: #### T SH, CMP, LIPID #### [facility] [address] [place] [address] Dr. Jelly Lozada TSHon 03-23-2022 TSH 3.522 uIU/mL Normal 0.358-3.740 [facility] Comment on above: Performed By: #### T SH, CMP, LIPID #### [facility] [address] [place] [address] Dr. Jelly Lozada [place] Caitlin 03-15-2022 [place] [...] by: SULAIMAN MARTIN Date: 2022-03-15 09:26 Normal [facility] CBC AUTO DIFFon 12-06-2021 BASO # 0.1 103/ul Normal 0.0-0.1 [facility] Comment on above: Performed By: #### C BC ####[facility] [address] [address]Dr. Jelly [address] Basophils/100 WBC (Bld) 1.1 % Normal 0.2-2.0 [facility] Comment on above: Performed By: #### C BC ####[facility] [address] [place], [place] [address]Dr. Coconoel Lozada EO # 0.1 103/ul Normal 0.0-0.7 [facility] Comment on above: Performed By: #### C BC ####[facility] [address] [place], [place] [address]Dr. Jelly Neville Eosinophils/100 WBC (Bld) 1.9 % Normal 0.9-7.0 [facility] Comment on above: Performed By: #### C BC ####[facility] [address] [place], [place] [address]Dr. Jelly Neville Erythrocyte distribution width (RBC) [Ratio] 14.8 % Normal 11.0-15.0 [facility] Comment on above: Performed By: #### C BC ####[facility] [address] [place], [place] [address]Dr. Jelly Lozada Hematocrit (Bld) [Volume fraction] 39.1 % Normal 36.0-48.0 [facility] Comment on above: Performed By: #### C BC ####[facility] [address] [place], [place] [address]Dr. Jelly Lozada Hemoglobin (Bld) [Mass/Vol] 12.5 g/dL Normal 12.0-16.0 [facility] Comment on above: Performed By: #### C BC ####[facility] [address] [place], [place] [address]Dr. Jelly Lozada IG # 0.03 10e3/ul Normal 0.00-0.03 [facility] Comment on above: Performed By: #### C BC ####[facility] [address] [place], [place] [address]Dr. Jelly Lozada IG % 0.5 % Normal 0.0-0.5 [facility] Comment on above: Performed By: #### C BC ####[facility] [address] [address]Dr. Jelly Lozada LYMPH # 1.6 103/ul Normal 1.2-3.8 [facility] Comment on above: Performed By: #### C BC ####[facility] [address] [address]Dr. Jelly Lozada Lymphocytes/100 WBC (Bld) 24.8 % Normal 20.5-60.0 [facility] Comment on above: Performed By: #### C BC ####[facility] [address] [address]DrMicheal Lozada MANUAL DIFF REQ NO Normal [facility] Comment on above: Performed By: #### C BC ####[facility] [address] [address]Dr. Jelly Lozada MCH (RBC) [Entitic mass] 25.4 pg Critically low 26.7-34.0 [facility] Comment on above: Performed By: #### C BC ####[facility] [address] [place], [place] [address]Dr. Jelly Lozada MCHC (RBC) [Mass/Vol] 32.0 g/dL Normal 29.9-35.2 [facility] Comment on above: Performed By: #### C BC ####[facility] [address] [address]Dr. Jelly Lozada MCV (RBC) [Entitic vol] 79.5 fL Critically low 81.0-99.0 [facility] Comment on above: Performed By: #### C BC ####[facility] [address] [place], [place] [address]DrMicheal Lozada MONO # 0.6 103/ul Normal 0.3-0.8 [facility] Comment on above: Performed By: #### C BC ####[facility] [address] [address]Dr. Jelly Lozada Monocytes/100 WBC (Bld) 9.1 % Normal 1.7-12.0 [facility] Comment on above: Performed By: #### C BC ####[facility] [address] [id number] Lozada NEUT # 3.9 103/ul Normal 1.4-6.5 [facility] Comment on above: Performed By: #### C BC ####[facility] [address] [id number] Lozada Neutrophils/100 WBC (Bld) 62.6 % Normal 43.0-75.0 [facility] Comment on above: Performed By: #### C BC ####[facility] [address] [address]DrMicheal Lozada Platelet mean volume (Bld) [Entitic vol] 10.1 fL Normal 9.5-13.5 [facility] Comment on above: Performed By: #### C BC ####[facility] [address] [address]DrMicheal Lozada PLT 421 103/ul Normal 150-450 [facility] Comment on above: Performed By: #### C BC ####[facility] [address] [id number][address] Jelly Lozada RBC 4.92 106/ul Normal 4.20-5.40 [facility] Comment on above: Performed By: #### C BC ####[facility] [address] [id number] Lozada WBC 6.3 103/ul Normal 4.0-11.0 [facility] Comment on above: Performed By: #### C BC ####[facility] [address] [id number][address] Jelly Lozada PROF 14(COMP METB)on 022 Albumin [Mass/Vol] 4.0 g/dL Normal 3.4-5.0 [facility] [facility] Comment on above: Performed By: #### C MP #### [facility] [address] [address] [address] Jelly Lozada Albumin/Globulin [Mass ratio] 1.4 {ratio} Normal [facility] Comment on above: Performed By: #### C MP #### [facility] [address] [address] [address] Jelly Lozada ALP [Catalytic activity/Vol] 99 U/L Normal 46-116 [facility] Comment on above: Performed By: #### C MP #### [facility] [address] [address] [address] Jelly Lozada ALT [Catalytic activity/Vol] 20 U/L Normal 14-59 [facility] Comment on above: Performed By: #### C MP #### [facility] [address] [address] [address] Jelly Lozada Anion gap [Moles/Vol] 13.7 mmol/L Normal [facility] Comment on above: Performed By: #### C MP #### [facility] [address] [place] [address] Dr. Jelly Lozada AST [Catalytic activity/Vol] 18 U/L Normal 15-37 [facility] Comment on above: Performed By: #### C MP #### [facility] [address] [place] [address] Dr. Jelly Lozada Bilirubin [Mass/Vol] 0.7 mg/dL Normal 0.2-1.0 [facility] Comment on above: Performed By: #### C MP #### [facility] [address] [place] [address] Dr. Jelly Lozada Calcium [Mass/Vol] 8.9 mg/dL Normal 8.5-10.1 [facility] Comment on above: Performed By: #### C MP #### [facility] [address] [place] [address] Dr. Jelly Lozada Chloride [Moles/Vol] 102 mmol/L Normal 98-107 [facility] Comment on above: Performed By: #### C MP #### [facility] [address] [address] [address] Jelly Lozada CO2 [Moles/Vol] 26.8 mmol/L Normal 21.0-32.0 [facility] Comment on above: Performed By: #### C MP #### [facility] [address] [address] [address] Jelly Lozada Creatinine [Mass/Vol] 0.74 mg/dL Normal 0.55-1.02 [facility] Comment on above: Performed By: #### C MP #### [facility] [address] [address] [address] Jelly Lozada EGFR-AF FAROESE >60 Normal >=60 [facility] Comment on above: Performed By: #### C MP #### [facility] [address] [address] [address] Jelly Lozada EGFR-NON AF FAROESE >60 Normal >=60 [facility] Comment on above: Performed By: #### C MP #### [facility] [address] [place] [address] Dr. Jelly Lozada Globulin (S) [Mass/Vol] 2.9 g/dL Normal [facility] Comment on above: Performed By: #### C MP #### [facility] [address] [place] [address] Dr. Jelly Lozada Glucose [Mass/Vol] 114 mg/dL Critically high 74-106 [facility] Comment on above: Performed By: #### C MP #### [facility] [address] [place] [address] Dr. Jelly Lozada Potassium [Moles/Vol] 3.5 mmol/L Normal 3.5-5.1 [facility] Comment on above: Performed By: #### C MP #### [facility] [address] [place] [address] Dr. Jelly Lozada Protein [Mass/Vol] 6.9 g/dL Normal 6.4-8.2 [facility] Comment on above: Performed By: #### C MP #### [facility] [address] [place] [address] Dr. Jelly Lozada Sodium [Moles/Vol] 139 mmol/L Normal 136-145 [facility] Comment on above: Performed By: #### C MP #### [facility] [address] [place] [address] Dr. Jelly Lozada Urea nitrogen [Mass/Vol] 9.0 mg/dL Normal 7.0-18.0 [facility] Comment on above: Performed By: #### C MP #### [facility] [address] [place] [address] Dr. Jelly Lozada Urea nitrogen/Creatinin e [Mass ratio] 12.2 mg/mg Normal [facility] Comment on above: Performed By: #### C MP #### [facility] [address] [place] [address] Dr. Jelly Lozada TSHon 12-06-2021 TSH 3.217 uIU/mL Normal 0.358-3.740 [facility] Comment on above: Performed By: #### T SH #### [facility] [address] [place] [address] Dr. Jelly Lozada CREATININEon 08-26-2021 Creatinine [Mass/Vol] 0.70 mg/dL Normal 0.55-1.02 [facility] Comment on above: Performed By: #### C CHANDLER ####[facility] [id number] [address]Dr. Jelly Lozada EGFR-AF FAROESE >60 Normal >=60 [facility] Comment on above: Performed By: #### C CHANDLER ####[facility] [id number] [address]Dr. Jelly Lozada EGFR-NON AF FAROESE >60 Normal >=60 [facility] Comment on above: Performed By: #### C CHANDLER ####[facility] [id number] [address] Jelly Lozada [address] ABD/PELV W CONon 08-27-19 [...] HUMBERTO HEIN Date: 2021-08-26 10:08 Normal [facility] PROF CHEM 8 (BAS METB)on Anion gap [Moles/Vol] 13.6 mmol/L Normal [facility] Comment on above: Performed By: #### B MP #### [facility] [address] [address] [address] Jelly Lozada Calcium [Mass/Vol] 8.8 mg/dL Normal 8.5-10.1 [facility] Comment on above: Performed By: #### B MP #### [facility] [address] [address] [address] Jelly Lozada Chloride [Moles/Vol] 100 mmol/L Normal 98-107 [facility] Comment on above: Performed By: #### B MP #### [facility] [address] [address] [address] Jelly Lozada CO2 [Moles/Vol] 28.2 mmol/L Normal 21.0-32.0 [facility] Comment on above: Performed By: #### B MP #### [facility] [address] [address] [address] Jelly Lozada Creatinine [Mass/Vol] 0.74 mg/dL Normal 0.55-1.02 [facility] Comment on above: Performed By: #### B MP #### [facility] [address] [address] [address] Jelly Lzoada EGFR-AF FAROESE >60 Normal >=60 [facility] Comment on above: Performed By: #### B MP #### [facility] [address] [place] [address] Dr. Jelly Lozada EGFR-NON AF FAROESE >60 Normal >=60 [facility] Comment on above: Performed By: #### B MP #### [facility] [address] [address] [address] Jelly Lozada Glucose [Mass/Vol] 98 mg/dL Normal 74-106 [facility] Comment on above: Performed By: #### B MP #### [facility] [address] [place] [address] Dr. Jelly Lozada Potassium [Moles/Vol] 3.8 mmol/L Normal 3.5-5.1 [facility] Comment on above: Performed By: #### B MP #### [facility] [address] [address] [address] Jelly Lozada Sodium [Moles/Vol] 138 mmol/L Normal 136-145 [facility] Comment on above: Performed By: #### B MP #### [facility] [address] [address] [address] Jelly Lozada Urea nitrogen [Mass/Vol] 6.0 mg/dL Critically low 7.0-18.0 [facility] Comment on above: Performed By: #### B MP #### [facility] [address] [place] [address] Dr. Jelly Lozada Urea nitrogen/Creatinin e [Mass ratio] 8.1 mg/mg Normal [facility] Comment on above: Performed By: #### B MP #### [facility] [address] [address] [address] Jelly Lozada Vital Signs Date Time Vital Sign Value Performing Clinician Facility 08-29-2023 09:10-0400 Blood Pressure Location Brianna Carusometz [facility] 08-29-2023 09:10-0400 Body temperature 97.7 [degF] Brianna Pastor [facility] 08-29-2023 09:10-0400 Diastolic blood pressure 89 mm[Hg] Brianna Darby [facility] 08-29-2023 09:10-0400 Heart rate 61 /min Brianna Darby [facility] 08-29-2023 09:10-0400 Systolic blood pressure 133 mm[Hg] Brianna Darby [facility] 03-01-2023 09:13-0400 Blood Pressure Location Brianna Darby [facility] 03-01-2023 09:13-0400 Body temperature 97.52 [degF] Brianna Darby [facility] 03-01-2023 09:13-0400 Diastolic blood pressure 89 mm[Hg] Brianna Darby [facility] 03-01-2023 09:13-0400 Heart rate 55 /min Brianna Darby [facility] 03-01-2023 09:13-0400 Systolic blood pressure 133 mm[Hg] Brianna Darby [facility] 08-31-2022 09:45-0400 Diastolic blood pressure 80 mm[Hg] Brianna Darby [facility] 08-31-2022 09:45-0400 Mean blood pressure 99 mm[Hg] Brianna Darby [facility] 08-31-2022 09:45-0400 Systolic blood pressure 138 mm[Hg] Brianna Darby [facility] 08-31-2022 09:35-0400 Blood Pressure Location Brianna Darby [facility] 08-31-2022 09:35-0400 Body temperature 97.7 [degF] Brianna Darby [facility] 08-31-2022 09:35-0400 Diastolic blood pressure 77 mm[Hg] Brianna Darby [facility] 08-31-2022 09:35-0400 Heart rate 56 /min Brianna Darby [facility] 08-31-2022 09:35-0400 Systolic blood pressure 144 mm[Hg] Brianna Darby [facility] 06-02-2022 09:49-0500 Blood Pressure Location Brianna Darby [facility] 06-02-2022 09:49-0500 Body temperature 96.98 [degF] Brianna Darby [facility] 06-02-2022 09:49-0500 Diastolic blood pressure 84 mm[Hg] Brianna Darby [facility] 06-02-2022 09:49-0500 Heart rate 57 /min Brianna Darby [facility] 06-02-2022 09:49-0500 Systolic blood pressure 129 mm[Hg] Brianna Darby [facility] 03-02-2022 10:01-0400 Blood Pressure Location Brianna Darby [facility] 03-02-2022 10:01-0400 Body temperature 97.7 [degF] Brianna Darby [facility] 03-02-2022 10:01-0400 Diastolic blood pressure 88 mm[Hg] Brianna Pastor [facility] 03-02-2022 10:01-0400 Heart rate 62 /min Brianna Carusometz [facility] 03-02-2022 10:01-0400 Systolic blood pressure 120 mm[Hg] Brianna Bridgesz [facility] 12-01-2021 12:26-0400 Blood Pressure Location Briannalauren Pastor [facility] 12-01-2021 12:26-0400 Body temperature 97.16 [degF] Brianna Pastor [facility] 12-01-2021 12:26-0400 Diastolic blood pressure 80 mm[Hg] Brianna Pastor [facility] 12-01-2021 12:26-0400 Heart rate 58 /min Brianna Pastor [facility] 12-01-2021 12:26-0400 SaO2% (BldA) [Mass fraction] 97 % Brianna Carusometz [facility] 12-01-2021 12:26-0400 Systolic blood pressure 122 mm[Hg] Briannalauren CarusoDarby [facility] 08-12-2021 09:22-0400 Blood Pressure Location Briannalauren CarusoDarby [facility] 08-12-2021 09:22-0400 Diastolic blood pressure 77 mm[Hg] Brianna Carusometz [facility] 08-12-2021 09:22-0400 Heart rate 53 /min Brianna Carusometz [facility] 08-12-2021 09:22-0400 SaO2% (BldA) [Mass fraction] 96 % Brianna Pastor [facility] 08-12-2021 09:22-0400 Systolic blood pressure 126 mm[Hg] Brianna Pastor [facility] Encounters Encounter Date Encounter Type Care Provider Facility Start: 02-19-2024 ambulatory Nghia Wild lity:Matthew Start: 11-01-2023 End: 11-01-2023 ambulatory LUCA CHAVARRIA Not Available Start: 10-18-2023 End: 10-18-2023 ambulatory SHAIKH CURTIS Not Available Start: 09-26-2023 End: 09-27-2023 ambulatory Brianna Pastor Facility:[facility] Start: 09-26-2023 End: 09-26-2023 Patient encounter procedure Brianna Lanie Darby [facility] Start: 09-01-2023 End: 09-02-2023 ambulatory Brianna A Darby Facility:[facility] Start: 09-01-2023 End: 09-01-2023 Patient encounter procedure Brianna A Darby [facility] Start: 08-29-2023 End: 08-30-2023 ambulatory Briannalauren Bridgesz Facility:[facility] Start: 08-29-2023 End: 08-30-2023 ambulatory Briannalauren Pastor [facility] Start: 08-29-2023 End: 08-29-2023 Patient encounter procedure Brianna Pastor [facility] Start: 08-29-2023 End: 08-29-2023 Patient encounter procedure Brianna Pastor [facility] Start: 07-17-2023 End: 07-17-2023 ambulatory SHAIKH AMIAriel Not Available Start: 04-10-2023 End: 04-10-2023 ambulatory SHAIKH AMIAriel Not Available Start: 04-07-2023 End: 04-07-2023 ambulatory [facility] Start: 03-01-2023 End: 03-02-2023 ambulatory Briannalauren Pastor Facility[facility] Start: 03-01-2023 End: 03-01-2023 Patient encounter procedure Brianna Pastor [facility] Start: 08-31-2022 End: 08-31-2022 Patient encounter procedure Brianna Pastor [facility] Start: 08-31-2022 End: 08-31-2022 Patient encounter procedure Brianna Pastor [facility] Start: 07-06-2022 End: 07-06-2022 ambulatory BR[facility] Start: 06-23-2022 End: 06-24-[address] HUMBERTO HEIN Facility:[facility] Start: 06-02-2022 End: 06-02-2022 Patient encounter procedure Brianna Pastor [facility] Start: 03-23-2022 End: 03-24-2022 ambulatory SHAIKH Lauren REBOLLEDOWAD Facility:[facility] Start: 03-15-2022 End: 03-16-[address] DOCTOR CLARK Facility:[facility] Start: 03-02-2022 End: 03-02-2022 Patient encounter procedure Brianna Pastor [facility] Start: 12-06-2021 End: 12-07-2021 ambulatory SHAIKH Lauren FANancyWAD Facility:[facility] Start: 12-01-2021 End: 12-01-2021 Patient encounter procedure Brianna Pastor [facility] Start: 08-26-2021 End: 08-27-2021 ambulatory DUYEN MARKS Facility:[facility] Start: 08-24-2021 End: 08-25-2021 ambulatory SHAIKH Lauren FANancyWAD Facility:[facility] Start: 08-12-2021 End: 08-12-2021 Patient encounter procedure Brianna Pastor [facility] Procedures Date Procedure Procedure Detail Performing Clinician Start: 04-12-2021 Esophagogastroduodenoscopy Brianna Pastor Comment on above: gastric erosions, hi atal hernia Start: 04-03-2019 Colonoscopy Brianna escobarz Start: 04-03-2019 Esophagogastroduodenoscopy Brianna Pastor Immunizations Immunization Date Immunization Notes Care Provider Fa cility 01-26-2022 tetanus toxoid, reduced diphtheria toxoid, and acellular pertussis vaccine, adsorbed Brianna Darby [facility] NEGATED: Highlighted row has not occurred!02-27-2023 influenza virus vaccine, unspecified formulation Brianna Pastor [facility] NEGATED: Highlighted row has not occurred!06-02-2022 influenza virus vaccine, unspecified formulation Brianna Pastor [facility] NEGATED: Highlighted row has not occurred!03-02-2022 influenza virus vaccine, unspecified formulation Brianna Pastor [facility] Payers Date Payer Category Payer Unknown [id number] 1958 Medicare [id number] 1958 Unknown [id number] 1945 Unknown [id number] 2.16.84 [id number] 1945 Unknown [id number] 2.16.84 [id number] 1945 Unknown [id number] 2.16.84 0.1.309305.3.579.2.593 1945 Unknown [id number] 2.16.84 0.1.748582.3.579.2.593 1946 Unknown [id number] 2.16.84 0.1.499119.3.579.2.593 1946 Unknown [id number] 2.16.84 0.1.531164.3.579.2.593 1946 Unknown [id number] 2.16.84 0.1.920747.3.579.2.593 1946 Unknown [id number] 2.16.84 0.1.996946.3.579.2.593 1946 Unknown [id number] 2.16.8 40.1.211443.3.579.2.727 1946 Unknown [id number] 2.16.8 40.1.633176.3.579.2.727 1946 Unknown [id number] 2.16.8 40.1.320327.3.579.2.727 1946 Unknown [id number] 2.16.8 40.1.038309.3.579.2.727 1946 Unknown [id number] 2.16.8 40.1.904939.3.579.2.727 1946 Unknown [id number] 2.16.8 40.1.944974.3.579.2.727 1946 Unknown [id number] 2.16.84 0.1.608647.3.579.2.1259 1946 Unknown [id number] 2.16.84 0.1.076595.3.579.2.1259 1946 Unknown [id number] 2.16.84 0.1.182926.3.579.2.1259 1946 Unknown [id number] 2.16.840 .[id number] Social History Date Type Detail Facility Start: 05-04-2021 End: 08-29-2023 Tobacco smoking status Never smoked tobacco (finding) [facility] Sex Assigned At Female [facility] Functional Status Date Assessment Result Facility 08-29-2023 Functional Status N/A [facility] 03-01-2023 Functional Status N/A [facility] 08-31-2022 Functional Status N/A [facility] 06-02-2022 Functional Status N/A [facility] 03-02-2022 Functional Status N/A [facility] 12-01-2021 Functional Status N/A [facility] Clinical Notes 08-12-2021 to 08-29-2023 [...] grapefruit, pineapple, and dali. Vegetables Deep-fried vegetables. Jamaican fries. Any vegetables prepared with added fat. [...] provider. Document Revised: 10/26/2020 Document Reviewed: 10/26/2020 [employer] Patient Education 2022 [employer]. Follow Up Care 03/01/2023 09:50:16 With:Brianna Pastor CNP Address: When:1 month [facility] 04-07-2023 Note [place] [facility] - [facility] Subjective Toñito Putnam is a 77 [...] calcification. In 2019 she was admitted to [facility]. She had hemorrhoidal bleeding and gastritis. [...] Rate 03/18/2019 61 Atrial Rate 03/18/2019 61 WA Interval 03/18/2019 188 QRS DURATION 03/18/2019 94 QT Interval 03/18/2019 438 QTC CALCULATION(BEZET) 03/18/2019 440 P [place] 03/18/2019 55 R-[place] 03/18/2019 2 T Wave [place] 03/18/2019 44 Diagnosis 03/18/2019 Value:Normal sinus rhythm Normal ECG No previous ECGs available Confirmed by STRESS, (55), advertising editor Ángela Arredondo ([id number]) on 03/18/2019 12:12:41 PM Blood testing 09/29/2022: [...] is 60 to (more content not included)... [facility] 03-01-2023 Hospital Discharge instructions Patient Education 03/01/2023 [...] Bulgur wheat. Millet. Quinoa. Bran muffins. Popcorn. [place] wafer crackers. Meats and other proteins [place] beans, kidney beans, and gee beans. Soybeans. [...] Cream cheese. Sour cream. Fats and oils [place]. Beverages Soft drinks. Other foods Cakes and [...] provider. Document Revised: 08/20/2020 Document Reviewed: 08/20/2020 [employer] Patient Education 2022 [place]. Follow Up Care 08/31/2022 10:04:40 With:Brianna Pastor CNP Address: When:6 months [facility] 08-31-2022 Hospital Discharge instructions Patient [...] grapefruit, pineapple, and dali. Vegetables Deep-fried vegetables. Jamaican fries. Any vegetables prepared with added fat. [...] provider. Document Revised: 10/26/2020 Document Reviewed: 10/26/2020 [employer] Patient Education 2022 [place]. Follow Up Care 06/02/2022 10:08:57 With:Brianna Pastor CNP Address: When:6 months [facility] 07-06-2022 Note Patient here for [...] All other systems reviewed and are negative. [facility] 07-06-2022 Note Cardiovascular Medic ine [facility] SUBJECTIVE Chief Complaint Patient presents with [...] calcification. In 2019 she was admitted to [facility]. She had hemorrhoidal bleeding and gastritis. [...] Final Atrial Rate 03/18/2019 61 BPM Final [place] Interval 03/18/2019 188 ms Final QRS DU (more content not included)... [facility] 06-02-2022 Hospital Discharge instructions Patient Education 06/02/2022 09:47:57 Food Choices for Gastroesophageal Reflux Disease, Adult Food Choices for Gastroesophageal Reflux Disease, Adult When you have gastroesophageal reflux disease (GERD), the foods you eat and your eating habits are very important. Choosing the right foods can help ease the discomfort of GERD. Consider working with a diet and nutrition services manager (dietitian) to help you make healthy food [...] Pastries or quick breads with added fat. Jamaican toast. Vegetables Deep fried vegetables. Jamaican fries. Any vegetables prepared with added fat. [...] 04/17/2006 Document Revised: 08/08/2019 Document Reviewed: 04/18/2017 [employer] Patient Education 2020 [employer]. Follow Up Care 03/11/2022 10:33:58 With:Brianna Pastor CNP Address: When:3 months [facility] 03-02-2022 Evaluation + [facility]/22Comprehensive Metabolic Panel 03/02/22Celiac Disease Comprehensive 03/02/22 [facility] 03-02-2022 Hospital Discharge instructions Patient Education 03/02/2022 [...] Follow these instructions at home: Medicines Take reoj-dkn-bcpdnfx and prescription medicines only as told by [...] Watch your condition for any changes. Take usou-ngi-zggtjqp and prescription medicines only as told by [...] 01/25/2006 Document Revised: 08/26/2019 Document Reviewed: 08/26/2019 [employer] Patient Education 2019 [place]. Follow Up Care 12/01/2021 12:46:09 With:Brianna Pastor CNP Address: When:3 months [facility] 12-01-2021 Hospital Discharge instructions Patient [...] Follow these instructions at home: Medicines Take ngvc-zxd-vkgjcqy and prescription medicines only as told by [...] Watch your condition for any changes. Take keyi-fow-krxfwhp and prescription medicines only as told by [...] 01/25/2006 Document Revised: 08/26/2019 Document Reviewed: 08/26/2019 [employer] Patient Education 2020 [place]. Follow Up Care 08/12/2021 10:13:54 With:Brianna Pastor CNP Address: When:3 months [facility] 08-12-2021 Hospital Discharge instructions Patient [...] Follow these instructions at home: Medicines Take kuvi-jfh-vegplid and prescription medicines only as told by [...] Watch your condition for any changes. Take ukzi-hzq-rjchefu and prescription medicines only as told by [...] 01/25/2006 Document Revised: 08/26/2019 Document Reviewed: 08/26/2019 [employer] Patient Education 2020 [place]. Follow Up Care 08/02/2021 07:28:50 With:Brianna Pastor CNP Address: When:3 months [facility] Evaluation + Plan note Future Appointments Appointment Date:11/11/2021 10:00:00 AM Scheduled Provider:Brianna Pastor CNP Location:[facility] Appointment Type:[facility] Follow Up [facility] Evaluation + Plan note Future Appointments Appointment Date:03/02/2022 10:00:00 AM Scheduled Provider:Brianna Pastor CNP Location:[facility] Appointment Type:[facility] Follow Up Future Scheduled TestsCBC w/ Auto Diff 12/01/21Comprehensive Metabolic Panel 12/01/21 [facility] Evaluation + Plan note Future Appointments Appointment Date:08/31/2022 09:20:00 AM Scheduled Provider:Brianna Pastor CNP Location:[facility] Appointment Type:[facility] Follow Up [facility] Evaluation + Plan note Future Appointments Appointment Date:03/01/2023 09:20:00 AM Scheduled Provider:Brianna Pastor CNP Location:[facility] Appointment Type:[facility] Follow Up [facility] Evaluation + Plan note Future Appointments Appointment Date:08/30/2023 09:20:00 AM Scheduled Provider:Brianna Pastor CNP Location:[facility] Appointment Type:[facility] Follow Up [facility] Evaluation + Plan note Future Appointments Appointment Date:09/01/2023 09:00:00 AM Scheduled Provider: [facility] App[facility] Type:US Abdominal/Pelvis () Appointment Date:09/26/2023 09:20:00 AM Scheduled Provider:Brianna Pastor CNP Location:[facility] Appointment Type:[facility] Follow Up Future Scheduled TestsUS Abdomen, Limited 09/01/23 [facility] Evaluation + Plan note Future Appointments Appointment Date:09/26/2023 09:20:00 AM Scheduled Provider:Brianna Pastor CNP Location:[facility] Appointment Type:[facility] Follow Up [facility] course Narrative No data available for this section [facility] Hospital Discharge instructions No data available for this section [facility] Progress note No data available for this section [facility] Summary Purpose Family History No [...] and content) Personnel Name: SHAIKH ACEVEDO Address: [facility] EM[place] [address] Personnel Name: SHAIKH ACEVEDO Address: Address: [facility] [address] [address] Personnel Name: SHAIKH ACEVEDO Address: Address: [address] [place], [place] [address] [address] Personnel Name: SHAIKH ACEVEDO Address: Address: [facility] [address] Personnel Name: SHAIKH ACEVEDO Address: Address: [facility] EM[place] [address] Personnel Name: SHAIKH ACEVEDO Address: Address: [facility] [address] [address] Personnel Name: SHAIKH ACEVEDO MD Address: Address: [facility] EM[place] [address] Personnel Name: SHAIKH ACEVEDO MD Address: Address: [facility] [address] Personnel Name: SHAIKH ACEVEDO MD Address: Address: [facility] [address] Personnel Name: SHAIKH ACEVEDO MD Address: Address: [facility] [address] Personnel Name: SHAIKH ACEVEDO MD Address: Address: [facility] EM[place] [address] INFORMATION SOURCE (unrecogn ized section and content) DATE CREATED AUTHOR 06/28/2022 [facility] DATE CREATED AUTHOR AUTHOR'S ORGANIZ ATION 04/10/2023 [facility] DATE CREATED AUTHOR AUTHOR'S ORGANIZ ATION 09/27/2023 [facility] DATE CREATED AUTHOR AUTHOR'S ORGANIZ ATION 11/02/2023 [facility] EPIC FOR RECORDS PERTAINING [...] BE BASED ON THE PRIMARY CLINICAL RECORDS. [employer] provides no warranty or guarantee of the accuracy or completeness of information in this document.
== END 2023-11-21 08:56 | disposition home or self-care (01) ==
LOC: PST 08:55
PROVIDERS: PCP Internal Medicine; Visit Provider Surgery
DX: Z01.818 Encounter for other preprocedural examination (principal); Z12.11 Encounter for screening for malignant neoplasm of colon

== ENCOUNTER 2023-11-28 07:28 | Day surgery (SDC) | payer MEDICARE, OTHER, SELFPAY ==
--- OUTSIDE RECORDS SUMMARY | 2023-11-28 07:33 | XMS_ITS | CCD ---
Author Organization [facility] Care Team Providers Care Engineering Drawings Checker Name Role Phone SHAIKH ACEVEDO Primary Care Physician [phone] FAWWAD, SIMEON H Primary Care Unavailable MISC, DR PERAAZ Consulting Unavailable MISC, DR PERAZA Admitting Unavailable [...] [meperidine] Drug Allergy 04-17-2014 Other (qualifier value) [facility] Medications Current Medications Medication [...] Daily, # 90 tab(s), Refills(s) 1, Pharmacy: [facility] 536, 162, cm, 04/22/19 13:39:00 EST, Height/Length Measured, 72, kg, 04/22/19 13:39:00 EST, Weight Measured Start Date: 12/02/19 Status: Ordered Start: 12-02-2019 take 1 tablet by michele th once daily pantoprazole 40 mg Oral EC Tab 40 mg = 1 tab(s), Oral, Daily, # 90 tab(s), Refills(s) 1, [facility] 536, 162, cm, 04/22/19 13:39:00 EST, Height/Length [...] disease (4 sources) 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; Translations: [Coronary [...] Zeng MD Transcribed by: PAMELA Technologist: LOU [facility] Consent for Treatmenton Consent for Treatment [id number] [facility] Ambulatory Visit Summaryon 0 08-29-2023 Ambulatory Visit [...] Appointments Monday 9:00 AM EDT With: Where: [facility] Sound Monday 9:20 AM EDT With: Brianna Pastor CNP Where: [facility] CHEMISTRYOrdered By: SYSTEM SYSTEM on 08-29-2023 Cobalamin (Vitamin B12) [Mass/Vol] 281 pg/mL Normal 50 - 1500 pg/mL Remisol Chem Magnesium [Mass/Vol] 1.8 mg/dL Normal 1.3 - 2.4 mg/dL Remisol Chem Consent for Treatmenton 08-01 Consent for Treatment [id number]#[id number] Jayne Lynn [facility] Gastroenterology Office/Clin ic Noteon 08-29-2023 Gastroenterology [...] Substance Abu (more content not included)... Normal [facility] Comment on above: Result Comment: Elec tronically Signed By: Darby LOBO, Brianna Dela Cruz\.br\Date and Time Signed: 08/29/23 09:35 EDT Magnesiumon 08-29-2023 Magnesium [Mass/Vol] 1.8 mg/dL Normal 1.3-2.4 [facility] Comment on above: Performed By: #### 2 [id number], [id number] #### [facility] Laboratory [address] [place] [address] Patient Educationon 08-29-19 Patient Education Gastroenterology Food [...] grapefruit, pineapple, and dali. Vegetables Deep-fried vegetables. [place] fries. Any vegetables prepared with added fat. [...] symptoms. For some people, this may include guzamn, hot sauce, or vinegar-based salad dressings. The [...] reflux di (more content not included)... Normal [facility] Vit B12on 08-29-2023 Cobalamin (Vitamin B12) [Mass/Vol] 281 pg/mL Normal 50-1500 [facility] Comment on above: Performed By: #### 2 [id number], [id number] #### [facility] Laboratory [address] [place] [address] Office Visiton 04-07-2023 Follow-up visit [id number] Toñito Putnam 1945 F Date Provider Department Center 04/07/2023 CAROLZ NICK CARD [facility] Family History Problem Relation Age of Onset Coronary artery disease Sister 62 Comments: Passed age 62 Coronary artery disease Brother 58 Cancer Other Coronary artery disease Other Family Status - Relation Status Age at Sister Brother Other Level of Service:[address] [place] OFFICE/OUTPATIENT ESTABLISHED LOW MDM 20-29 MIN Normal [facility] Gastroenterology Office/Clin ic Noteon 03-01-2023 Gastroenterology [...] mEq, Ora (more content not included)... Normal [facility] Comment on above: Result Comment: Elec [...] Bulgur wheat. Millet. Quinoa. Bran muffins. Popcorn. [place] wafer crackers. Meats and other proteins Blandon beans, kidney beans, and gee beans. Soybeans. [...] Cream cheese. Sour cream. Fats and oils [place]. Beverages Soft drinks. Other foods Cakes and [...] Document Revised: (more content not included)... Normal [facility] CHEMISTRYOrdered By: SYSTEM SYSTEM on 08-31-2022 Anion [...] 76 mL/min/1.73 m2 Normal >=59mL/min/ 1.73 m2 [facility] Chem S Glucose [Mass/Vol] 108 mg/dL Normal [...] FT Remisol Orders Onlyon 07-08-2022 Orders Only [id number] Toñito Putnam 1945 F Date Provider Department Center 07/08/2022 VEDA OVALLE TOBY [facility] Family History Problem Relation Age of Onset Coronary artery disease Sister 62 Comments: Passed age 62 Coronary artery disease Brother 58 Cancer Other Coronary artery disease Other Family Status - Relation Status Age at Sister Brother Other Normal [facility] Office Visiton 07-06-2022 Follow-up visit [id number] Toñito Putnam 1945 F Date Provider Department Center 07/06/2022 BRUNO DONAHUE TOBY [facility] Family History Problem Relation Age of Onset Coronary artery disease Sister 62 Comments: Passed age 62 Coronary artery disease Brother 58 Cancer Other Coronary artery disease Other Family Status - Relation Status Age at Sister Brother Other Level of Service:23194 [place] OFFICE/OUTPATIENT ESTABLISHED MOD MDM 30-39 MIN Reason for Visit and Comments: Coronary Artery Disease [187] Hypertension [956817] Hyperlipidemia [182] Normal [facility] MG MAMM SCREEN 3D NIKKI CADon 06-23-2022 MG MAMM SCREEN 3D NIKKI CAD Patient: TOÑITO PUTNAM Exam Date: 06/23/2022 : 1945 Gender:F Ordering : SHAIKH Shahida ACEVEDO . Admission #: [id number] Family : Order #: [id number] CLICK HERE TO VIEW EXAM RADIOLOGY REPORT [...] lung cancer at age 61. LOCATION: [facility] BREAST COMPOSITION: Scattered areas fibroglandular [...] M.D. on 06/23/2022 at 14:21 Normal [facility] CBC AUTO DIFFon 03-23-2022 BASO # 0.1 103/ul Normal 0.0-0.1 [facility] Comment on above: Performed By: #### C BC #### [facility] Laboratory [address] [address] [address] Jelly Lozada Basophils/100 WBC (Bld) 1.1 % Normal 0.2-2.0 [facility] Comment on above: Performed By: #### C BC #### [facility] Laboratory [address] [place] [address] Dr. Jelly Lozada EO # 0.1 103/ul Normal 0.0-0.7 [facility] Comment on above: Performed By: #### C BC #### [facility] Laboratory [address] [place] [address] Dr. Jelly Lozada Eosinophils/100 WBC (Bld) 1.7 % Normal 0.9-7.0 [facility] Comment on above: Performed By: #### C BC #### [facility] Laboratory [address] [place] [address] Dr. Jelly Lozada Erythrocyte distribution width (RBC) [Ratio] 14.6 % Normal 11.0-15.0 [facility] Comment on above: Performed By: #### C BC #### [facility] Laboratory [address] [place] [address] Dr. Jelly Lozada Hematocrit (Bld) [Volume fraction] 41.6 % Normal 36.0-48.0 [facility] Comment on above: Performed By: #### C BC #### [facility] Laboratory [address] [place] [address] Dr. Jelly Lozada Hemoglobin (Bld) [Mass/Vol] 13.4 g/dL Normal 12.0-16.0 [facility] Comment on above: Performed By: #### C BC #### [facility] Laboratory [address] [place] [address] Dr. Jelly Lozada IG # 0.03 10e3/ul Normal 0.00-0.03 [facility] Comment on above: Performed By: #### C BC #### [facility] Laboratory [address] [place] [address] Dr. Jelly Lozada IG % 0.4 % Normal 0.0-0.5 [facility] Comment on above: Performed By: #### C BC #### [facility] Laboratory [address] [place] [address] Dr. Jelly Lozada LYMPH # 1.6 103/ul Normal 1.2-3.8 [facility] Comment on above: Performed By: #### C BC #### [facility] Laboratory [address] [place] [address] Dr. Jelly Lozada Lymphocytes/100 WBC (Bld) 23.2 % Normal 20.5-60.0 [facility] Comment on above: Performed By: #### C BC #### [facility] Laboratory [address] [place] [address] Dr. Jelly Lozada MANUAL DIFF REQ NO Normal [facility] Comment on above: Performed By: #### C BC #### [facility] Laboratory [address] [place] [address] Dr. Jelly Lozada MCH (RBC) [Entitic mass] 25.6 pg Critically low 26.7-34.0 [facility] Comment on above: Performed By: #### C BC #### [facility] Laboratory [address] [place] [address] Dr. Jelly Lozada MCHC (RBC) [Mass/Vol] 32.2 g/dL Normal 29.9-35.2 [facility] Comment on above: Performed By: #### C BC #### [facility] Laboratory [address] [place] [address] Dr. Jelly Lozada MCV (RBC) [Entitic vol] 79.5 fL Critically low 81.0-99.0 [facility] Comment on above: Performed By: #### C BC #### [facility] Laboratory [address] [place] [address] Dr. Jelly Lozada MONO # 0.6 103/ul Normal 0.3-0.8 [facility] Comment on above: Performed By: #### C BC #### [facility] Laboratory [address] [place] [address] Dr. Jelly Lozada Monocytes/100 WBC (Bld) 8.0 % Normal 1.7-12.0 [facility] Comment on above: Performed By: #### C BC #### [facility] Laboratory [address] [place] [address] Dr. Jelly Lozada NEUT # 4.6 103/ul Normal 1.4-6.5 [facility] Comment on above: Performed By: #### C BC #### [facility] Laboratory [address] [place] [address] Dr. Jelly Lozada Neutrophils/100 WBC (Bld) 65.6 % Normal 43.0-75.0 [facility] Comment on above: Performed By: #### C BC #### [facility] Laboratory [address] [place] [address] Dr. Jelly Lozada Platelet mean volume (Bld) [Entitic vol] 10.6 fL Normal 9.5-13.5 [facility] Comment on above: Performed By: #### C BC #### [facility] Laboratory [address] [address] [address] Jelly Lozada PLT 407 103/ul Normal 150-450 [facility] Comment on above: Performed By: #### C BC #### [facility] Laboratory [address] [place] [address] Dr. Jelly Lozada RBC 5.23 106/ul Normal 4.20-5.40 [facility] Comment on above: Performed By: #### C BC #### [facility] Laboratory [address] [place] [address] Dr. Jelly Lozada WBC 7.0 103/ul Normal 4.0-11.0 [facility] Comment on above: Performed By: #### C BC #### [facility] Laboratory [address] [place] [address] Dr. Jelly Lozada LIPID PROFILEon 03-23-2022 CHOL-HDL RATIO NORM SEE BELOW Normal [facility] Comment on above: Result Comment: 3.3 - 4.4 LOW RISK 4.4 - 7.1 AVERAGE RISK 7.1 - 11.0 MODERATE RISK >11.0 HIGH RISK Performed By: #### T SH, CMP, LIPID #### [facility] Laboratory [address] [place] [address] Dr. Jelly Lozada Cholesterol [Mass/Vol] 157 mg/dL Normal <=200 [facility] Comment on above: Performed By: #### T SH, CMP, LIPID #### [facility] Laboratory [address] [place] [address] Dr. Jelly Lozada Cholesterol in HDL [Mass/Vol] 52 mg/dL Normal 40-60 [facility] Comment on above: Performed By: #### T SH, CMP, LIPID #### [facility] Laboratory [address] [address] [address] Jelly Lozada Cholesterol in LDL [Mass/Vol] 67.0 mg/dL Normal [facility] Comment on above: Performed By: #### T SH, CMP, LIPID #### [facility] Laboratory [address] [address] [address] Jelly Lozada Cholesterol.total/ Cholesterol in HDL [Mass ratio] 3.0 {ratio} Normal [facility] Comment on above: Performed By: #### T SH, CMP, LIPID #### [facility] Laboratory [address] [address] [address] Jelly Lozada HDL NORMAL > or = 60 mg/dl - LO W CARDIOVASCULAR RISK <40 mg/dl - HIGH CARDIOVASCULAR RISK Normal [facility] Comment on above: Performed By: #### T SH, CMP, LIPID #### [facility] [address] [place] [address] Dr. Jelly Lozada LDL CALC NORMAL SEE BELOW Normal [facility] Comment on above: Result Comment: <100 mg/dl OPTIMAL 100 - 129 mg/dl NEAR OR ABOVE OPTIMAL 130 - 159 mg/dl BORDERLINE HIGH 160 - 189 mg/dl HIGH >190 mg/dl VERY HIGH Performed By: #### T SH, CMP, LIPID #### [facility] [address] [address] [address] Jelly Lozada Triglyceride [Mass/Vol] 190 mg/dL Critically high <=150 [facility] Comment on above: Performed By: #### T SH, CMP, LIPID #### [facility] [address] [address] [address] Jelly Lozada VLDL CALC 38.0 mg/dL Normal [facility] Comment on above: Performed By: #### T SH, CMP, LIPID #### [facility] Laboratory [address] [address] [address] Jelly Lozada PROF 14(COMP METB)on 022 Albumin [Mass/Vol] 4.1 g/dL Normal 3.4-5.0 [facility] Comment on above: Performed By: #### T SH, CMP, LIPID #### [facility] Laboratory [address] [address] [address] Jelly Lozada Albumin/Globulin [Mass ratio] 1.3 {ratio} Normal [facility] Comment on above: Performed By: #### T SH, CMP, LIPID #### [facility] Laboratory [address] [address] [address] Jelly Lozada ALP [Catalytic activity/Vol] 80 U/L Normal 46-116 [facility] Comment on above: Performed By: #### T SH, CMP, LIPID #### [facility] [address] [address] [address] Jelly Lozada ALT [Catalytic activity/Vol] 18 U/L Normal 14-59 [facility] Comment on above: Performed By: #### T SH, CMP, LIPID #### [facility] [address] [address] [address] Jelly Lozada Anion gap [Moles/Vol] 12.2 mmol/L Normal [facility] Comment on above: Performed By: #### T SH, CMP, LIPID #### [facility] Laboratory [address] [place] [address] Dr. Jelly Lozada AST [Catalytic activity/Vol] 20 U/L Normal 15-37 [facility] Comment on above: Performed By: #### T SH, CMP, LIPID #### [facility] [address] [address] [address] Jelly Lozada Bilirubin [Mass/Vol] 0.6 mg/dL Normal 0.2-1.0 [facility] Comment on above: Performed By: #### T SH, CMP, LIPID #### [facility] Laboratory [address] [place] [address] Dr. Jelly Lozada Calcium [Mass/Vol] 9.5 mg/dL Normal 8.5-10.1 [facility] Comment on above: Performed By: #### T SH, CMP, LIPID #### [facility] [address] [address] [address] Jelly Lozada Chloride [Moles/Vol] 101 mmol/L Normal 98-107 [facility] Comment on above: Performed By: #### T SH, CMP, LIPID #### [facility] Laboratory [address] [address] [address] Jelly Lozada CO2 [Moles/Vol] 29.9 mmol/L Normal 21.0-32.0 [facility] Comment on above: Performed By: #### T SH, CMP, LIPID #### [facility] [address] [address] [address] Jelly Lozada Creatinine [Mass/Vol] 0.71 mg/dL Normal 0.55-1.02 [facility] Comment on above: Performed By: #### T SH, CMP, LIPID #### [facility] [address] [address] [address] Jelly Lozada EGFR-AF SAO TOMEAN >60 Normal >=60 [facility] Comment on above: Performed By: #### T SH, CMP, LIPID #### [facility] Laboratory [address] [address] [address] Jelly Lozada EGFR-NON AF SAO TOMEAN >60 Normal >=60 [facility] Comment on above: Performed By: #### T SH, CMP, LIPID #### [facility] [address] [address] [address] Jelly Lozada Globulin (S) [Mass/Vol] 3.2 g/dL Normal [facility] Comment on above: Performed By: #### T SH, CMP, LIPID #### [facility] [address] [address] [address] Jelly Lozada Glucose [Mass/Vol] 92 mg/dL Normal 74-106 [facility] Comment on above: Performed By: #### T SH, CMP, LIPID #### [facility] [address] [address] [address] Jelly Lozada Potassium [Moles/Vol] 4.1 mmol/L Normal 3.5-5.1 [facility] Comment on above: Performed By: #### T SH, CMP, LIPID #### [facility] Laboratory [address] [address] [address] Jelly Lozada Protein [Mass/Vol] 7.3 g/dL Normal 6.4-8.2 [facility] Comment on above: Performed By: #### T SH, CMP, LIPID #### [facility] [address] [address] [address] Jelly Lozada Sodium [Moles/Vol] 139 mmol/L Normal 136-145 [facility] Comment on above: Performed By: #### T SH, CMP, LIPID #### [facility] Laboratory [address] [address] [address] Jelly Lozada Urea nitrogen [Mass/Vol] 8.0 mg/dL Normal 7.0-18.0 [facility] Comment on above: Performed By: #### T SH, CMP, LIPID #### [facility] [address] [address] [address] Jelly Lozada Urea nitrogen/Creatinin e [Mass ratio] 11.3 mg/mg Normal [facility] Comment on above: Performed By: #### T SH, CMP, LIPID #### [facility] Laboratory [address] [place] [address] Dr. Jelly Lozada TSHon 03-23-2022 TSH 3.522 uIU/mL Normal 0.358-3.740 [facility] Comment on above: Performed By: #### T SH, CMP, LIPID #### [facility] Laboratory [address] [place] [address] Dr. Jelly Lozada US Caitlin 03-15-2022 US [...] by: SULAIMAN MARTIN Date: 2022-03-15 09:26 Normal [facility] CBC AUTO DIFFon 12-06-2021 BASO # 0.1 103/ul Normal 0.0-0.1 [facility] Comment on above: Performed By: #### C BC ####[facility] [address] [address]Dr. Jelly eNville Basophils/100 WBC (Bld) 1.1 % Normal 0.2-2.0 [facility] Comment on above: Performed By: #### C BC ####[facility] [address] [place], [place] [address]Dr. Coconoel Lozada EO # 0.1 103/ul Normal 0.0-0.7 [facility] Comment on above: Performed By: #### C BC ####[facility] [address] [place], [place] [address]Dr. Jelly Nev[place] Eosinophils/100 WBC (Bld) 1.9 % Normal 0.9-7.0 [facility] Comment on above: Performed By: #### C BC ####[facility] [address] [place], [place] [address]Dr. Jelly Neville Erythrocyte distribution width (RBC) [Ratio] 14.8 % Normal 11.0-15.0 [facility] Comment on above: Performed By: #### C BC ####[facility] [address] [place], [place] [address]Dr. Jelly Lozada Hematocrit (Bld) [Volume fraction] 39.1 % Normal 36.0-48.0 [facility] Comment on above: Performed By: #### C BC ####[facility] [address] [place], [place] [address]Dr. Jelly Lozada Hemoglobin (Bld) [Mass/Vol] 12.5 g/dL Normal 12.0-16.0 [facility] Comment on above: Performed By: #### C BC ####[facility] [address] [place], [place] [address]Dr. Jelly Lozada IG # 0.03 10e3/ul Normal 0.00-0.03 [facility] Comment on above: Performed By: #### C BC ####[facility] [address] [place], [place] [address]Dr. Jelly Lozada IG % 0.5 % Normal 0.0-0.5 [facility] Comment on above: Performed By: #### C BC ####[facility] [address] [address]Dr. Jelly Lozada LYMPH # 1.6 103/ul Normal 1.2-3.8 [facility] Comment on above: Performed By: #### C BC ####[facility] [address] [address]Dr. Jelly Lozada Lymphocytes/100 WBC (Bld) 24.8 % Normal 20.5-60.0 [facility] Comment on above: Performed By: #### C BC ####[facility] [address] [address]DrMicheal Lozada MANUAL DIFF REQ NO Normal [facility] Comment on above: Performed By: #### C BC ####[facility] [address] [address]Dr. Jelly Lozada MCH (RBC) [Entitic mass] 25.4 pg Critically low 26.7-34.0 [facility] Comment on above: Performed By: #### C BC ####[facility] [address] [place], [place] [address]Dr. Jelly Lozada MCHC (RBC) [Mass/Vol] 32.0 g/dL Normal 29.9-35.2 [facility] Comment on above: Performed By: #### C BC ####[facility] [address] [address]Dr. Jelly Lozada MCV (RBC) [Entitic vol] 79.5 fL Critically low 81.0-99.0 [facility] Comment on above: Performed By: #### C BC ####[facility] [address] [place], [place] [address]DrMicheal Lozada MONO # 0.6 103/ul Normal 0.3-0.8 [facility] Comment on above: Performed By: #### C BC ####[facility] [address] [address]Dr. Jelly Lozada Monocytes/100 WBC (Bld) 9.1 % Normal 1.7-12.0 [facility] Comment on above: Performed By: #### C BC ####[facility] [address] [id number] Lozada NEUT # 3.9 103/ul Normal 1.4-6.5 [facility] Comment on above: Performed By: #### C BC ####[facility] [address] [id number] Lozada Neutrophils/100 WBC (Bld) 62.6 % Normal 43.0-75.0 [facility] Comment on above: Performed By: #### C BC ####[facility] [address] [address]DrMicheal Lozada Platelet mean volume (Bld) [Entitic vol] 10.1 fL Normal 9.5-13.5 [facility] Comment on above: Performed By: #### C BC ####[facility] [address] [address]DrMicheal Lozada PLT 421 103/ul Normal 150-450 [facility] Comment on above: Performed By: #### C BC ####[facility] [address] [address]Dr. Jelly Lozada RBC 4.92 106/ul Normal 4.20-5.40 [facility] Comment on above: Performed By: #### C BC ####[facility] [address] [id number] Lozada WBC 6.3 103/ul Normal 4.0-11.0 [facility] Comment on above: Performed By: #### C BC ####[facility] [address] [address]Dr[address] Jelly Lozada PROF 14(COMP METB)on 022 Albumin [Mass/Vol] 4.0 g/dL Normal 3.4-5.0 [facility] Comment on above: Performed By: #### C MP #### [facility] [address] [address] [address] Jelly Lozada Albumin/Globulin [Mass ratio] 1.4 {ratio} Normal [facility] Comment on above: Performed By: #### C MP #### [facility] [address] [address] [address] Jelly Lozada ALP [Catalytic activity/Vol] 99 U/L Normal 46-116 [facility] Comment on above: Performed By: #### C MP #### [facility] [address] [address] [address] Jelly Lozada ALT [Catalytic activity/Vol] 20 U/L Normal 14-59 [facility] Comment on above: Performed By: #### C MP #### [facility] [address] [address] [address] Jelly Lozada Anion gap [Moles/Vol] 13.7 mmol/L Normal [facility] Comment on above: Performed By: #### C MP #### [facility] [address] [place] [address] Dr. Jelly Lozada AST [Catalytic activity/Vol] 18 U/L Normal 15-37 [facility] Comment on above: Performed By: #### C MP #### [facility] [address] [place] [address] Dr. Jelly Lozada Bilirubin [Mass/Vol] 0.7 mg/dL Normal 0.2-1.0 [facility] Comment on above: Performed By: #### C MP #### [facility] [address] [place] [address] Dr. Jelly Lozada Calcium [Mass/Vol] 8.9 mg/dL Normal 8.5-10.1 [facility] Comment on above: Performed By: #### C MP #### [facility] [address] [place] [address] Dr. Jelly Lozada Chloride [Moles/Vol] 102 mmol/L Normal 98-107 [facility] Comment on above: Performed By: #### C MP #### [facility] [address] [address] [address] Jelly Lozada CO2 [Moles/Vol] 26.8 mmol/L Normal 21.0-32.0 [facility] Comment on above: Performed By: #### C MP #### [facility] [address] [address] [address] Jelly Lozada Creatinine [Mass/Vol] 0.74 mg/dL Normal 0.55-1.02 [facility] Comment on above: Performed By: #### C MP #### [facility] [address] [address] [address] Jelly Lozada EGFR-AF SAO TOMEAN >60 Normal >=60 [facility] Comment on above: Performed By: #### C MP #### [facility] [address] [address] [address] Jelly Lozada EGFR-NON AF SAO TOMEAN >60 Normal >=60 [facility] Comment on above: Performed By: #### C MP #### [facility] [address] [place] [address] Dr. Jelly Lozada Globulin (S) [Mass/Vol] 2.9 g/dL Normal [facility] Comment on above: Performed By: #### C MP #### [facility] [address] [place] [address] Dr. Jelly Lozada Glucose [Mass/Vol] 114 mg/dL Critically high 74-106 [facility] Comment on above: Performed By: #### C MP #### [facility] [address] [place] [address] Dr. Jelly Lozada Potassium [Moles/Vol] 3.5 mmol/L Normal 3.5-5.1 [facility] Comment on above: Performed By: #### C MP #### [facility] [address] [place] [address] Dr. Jelly Lozada Protein [Mass/Vol] 6.9 g/dL Normal 6.4-8.2 [facility] Comment on above: Performed By: #### C MP #### [facility] [address] [place] [address] Dr. Jelly Lozada Sodium [Moles/Vol] 139 mmol/L Normal 136-145 [facility] Comment on above: Performed By: #### C MP #### [facility] [address] [place] [address] Dr. Jelly Lozada Urea nitrogen [Mass/Vol] 9.0 mg/dL Normal 7.0-18.0 [facility] Comment on above: Performed By: #### C MP #### [facility] [address] [place] [address] Dr. Jelly Lozada Urea nitrogen/Creatinin e [Mass ratio] 12.2 mg/mg Normal [facility] Comment on above: Performed By: #### C MP #### [facility] [address] [place] [address] Dr. Jelly Lozada TSHon 12-06-2021 TSH 3.217 uIU/mL Normal 0.358-3.740 [facility] Comment on above: Performed By: #### T SH #### [facility] [address] [place] [address] Dr. Jelly Lozada CREATININEon 08-26-2021 Creatinine [Mass/Vol] 0.70 mg/dL Normal 0.55-1.02 [facility] Comment on above: Performed By: #### C CHANDLER ####[facility] [id number] [address]Dr. Jelly Lozada EGFR-AF SAO TOMEAN >60 Normal >=60 [facility] Comment on above: Performed By: #### C CHANDLER ####[facility] [id number] [address]Dr. Jelly Lozaad EGFR-NON AF SAO TOMEAN >60 Normal >=60 [facility] Comment on above: Performed By: #### C CHANDLER ####[facility] [id number] [address] Jelly Lozada CT ABD/PELV W CONon 08-27-19 [...] HUMBERTO HEIN Date: 2021-08-26 10:08 Normal [facility] PROF CHEM 8 (BAS METB)on Anion gap [Moles/Vol] 13.6 mmol/L Normal [facility] Comment on above: Performed By: #### B MP #### [facility] [address] [address] [address] Jelly Lozada Calcium [Mass/Vol] 8.8 mg/dL Normal 8.5-10.1 [facility] Comment on above: Performed By: #### B MP #### [facility] [address] [address] [address] Jelly Lozada Chloride [Moles/Vol] 100 mmol/L Normal 98-107 [facility] Comment on above: Performed By: #### B MP #### [facility] [address] [address] [address] Jelly Lozada CO2 [Moles/Vol] 28.2 mmol/L Normal 21.0-32.0 [facility] Comment on above: Performed By: #### B MP #### [facility] [address] [address] [address] Jelly Lozada Creatinine [Mass/Vol] 0.74 mg/dL Normal 0.55-1.02 [facility] Comment on above: Performed By: #### B MP #### [facility] [address] [address] [address] Jelly Lozada EGFR-AF SAO TOMEAN >60 Normal >=60 [facility] Comment on above: Performed By: #### B MP #### [facility] [address] [place] [address] Dr. Jelly Lozada EGFR-NON AF SAO TOMEAN >60 Normal >=60 [facility] Comment on above: Performed By: #### B MP #### [facility] [address] [address] [address] Jelly Lozada Glucose [Mass/Vol] 98 mg/dL Normal 74-106 [facility] Comment on above: Performed By: #### B MP #### [facility] [address] [place] [address] Dr. Jelly Lozada Potassium [Moles/Vol] 3.8 mmol/L Normal 3.5-5.1 [facility] Comment on above: Performed By: #### B MP #### [facility] [address] [address] [address] Jelly Lozada Sodium [Moles/Vol] 138 mmol/L Normal 136-145 [facility] Comment on above: Performed By: #### B MP #### [facility] [address] [address] [address] Jelly Lozada Urea nitrogen [Mass/Vol] 6.0 mg/dL Critically low 7.0-18.0 [facility] Comment on above: Performed By: #### B MP #### [facility] [address] [place] [address] Dr. Jelly Lozada Urea nitrogen/Creatinin e [Mass ratio] 8.1 mg/mg Normal [facility] Comment on above: Performed By: #### B MP #### [facility] [address] [address] [address] Jelly Lozada Vital Signs Date Time Vital Sign Value Performing Clinician Facility 08-29-2023 09:10-0400 Blood Pressure Location Brianna Carusometz [facility] 08-29-2023 09:10-0400 Body temperature 97.7 [degF] Brianna Pastor [facility] 08-29-2023 09:10-0400 Diastolic blood pressure 89 mm[Hg] Brianna Darby [facility] 08-29-2023 09:10-0400 Heart rate 61 /min Brianna Darby [facility] 08-29-2023 09:10-0400 Systolic blood pressure 133 mm[Hg] Brianna Darby [facility] 03-01-2023 09:13-0400 Blood Pressure Location Brianna Darby [facility] 03-01-2023 09:13-0400 Body temperature 97.52 [degF] Brianna Darby [facility] 03-01-2023 09:13-0400 Diastolic blood pressure 89 mm[Hg] Brianna Darby [facility] 03-01-2023 09:13-0400 Heart rate 55 /min Brianna Darby [facility] 03-01-2023 09:13-0400 Systolic blood pressure 133 mm[Hg] Brianna Darby [facility] 08-31-2022 09:45-0400 Diastolic blood pressure 80 mm[Hg] Brianna Darby [facility] 08-31-2022 09:45-0400 Mean blood pressure 99 mm[Hg] Brianna Darby [facility] 08-31-2022 09:45-0400 Systolic blood pressure 138 mm[Hg] Brianna Darby [facility] 08-31-2022 09:35-0400 Blood Pressure Location Brianna Darby [facility] 08-31-2022 09:35-0400 Body temperature 97.7 [degF] Brianna Darby [facility] 08-31-2022 09:35-0400 Diastolic blood pressure 77 mm[Hg] Brianna Darby [facility] 08-31-2022 09:35-0400 Heart rate 56 /min Brianna Darby [facility] 08-31-2022 09:35-0400 Systolic blood pressure 144 mm[Hg] Brianna Darby [facility] 06-02-2022 09:49-0500 Blood Pressure Location Brianna Darby [facility] 06-02-2022 09:49-0500 Body temperature 96.98 [degF] Brianna Darby [facility] 06-02-2022 09:49-0500 Diastolic blood pressure 84 mm[Hg] Brianna Darby [facility] 06-02-2022 09:49-0500 Heart rate 57 /min Brianna Darby [facility] 06-02-2022 09:49-0500 Systolic blood pressure 129 mm[Hg] Brianna Darby [facility] 03-02-2022 10:01-0400 Blood Pressure Location Brianna Darby [facility] 03-02-2022 10:01-0400 Body temperature 97.7 [degF] Brianna Darby [facility] 03-02-2022 10:01-0400 Diastolic blood pressure 88 mm[Hg] Brianna Pastor [facility] 03-02-2022 10:01-0400 Heart rate 62 /min Brianna Carusometz [facility] 03-02-2022 10:01-0400 Systolic blood pressure 120 mm[Hg] Brianna Bridgesz [facility] 12-01-2021 12:26-0400 Blood Pressure Location Briannalauren Pastor [facility] 12-01-2021 12:26-0400 Body temperature 97.16 [degF] Brianna Pastor [facility] 12-01-2021 12:26-0400 Diastolic blood pressure 80 mm[Hg] Brianna Pastor [facility] 12-01-2021 12:26-0400 Heart rate 58 /min Brianna Pastor [facility] 12-01-2021 12:26-0400 SaO2% (BldA) [Mass fraction] 97 % Brianna Carusometz [facility] 12-01-2021 12:26-0400 Systolic blood pressure 122 mm[Hg] Briannalauren CarusoDarby [facility] 08-12-2021 09:22-0400 Blood Pressure Location Briannalauren CarusoDarby [facility] 08-12-2021 09:22-0400 Diastolic blood pressure 77 mm[Hg] Brianna Carusometz [facility] 08-12-2021 09:22-0400 Heart rate 53 /min Brianna Carusometz [facility] 08-12-2021 09:22-0400 SaO2% (BldA) [Mass fraction] 96 % Brianna Pastor [facility] 08-12-2021 09:22-0400 Systolic blood pressure 126 mm[Hg] Brianna Pastor [facility] Encounters Encounter Date Encounter Type Care Provider Facility Start: 02-19-2024 ambulatory Nghia Wild lity:Matthew Start: 11-01-2023 End: 11-01-2023 ambulatory LUCA CHAVARRIA Not Available Start: 10-18-2023 End: 10-18-2023 ambulatory SHAIKH CURTIS Not Available Start: 09-26-2023 End: 09-27-2023 ambulatory Brianna Pastor Facility:[facility] Start: 09-26-2023 End: 09-26-2023 Patient encounter procedure Brianna Lanie Darby [facility] Start: 09-01-2023 End: 09-02-2023 ambulatory Brianna A Darby Facility:[facility] Start: 09-01-2023 End: 09-01-2023 Patient encounter procedure Brianna A Darby [facility] Start: 08-29-2023 End: 08-30-2023 ambulatory Briannalauren Bridgesz Facility:[facility] Start: 08-29-2023 End: 08-30-2023 ambulatory Briannalauren Pastor [facility] Start: 08-29-2023 End: 08-29-2023 Patient encounter procedure Brianna Pastor [facility] Start: 08-29-2023 End: 08-29-2023 Patient encounter procedure Brianna Pastor [facility] Start: 07-17-2023 End: 07-17-2023 ambulatory SHAIKH AMIAriel Not Available Start: 04-10-2023 End: 04-10-2023 ambulatory SHAIKH AMIAriel Not Available Start: 04-07-2023 End: 04-07-2023 ambulatory [facility] Start: 03-01-2023 End: 03-02-2023 ambulatory Briannalauren Pastor Facility:[facility] Start: 03-01-2023 End: 03-01-2023 Patient encounter procedure Brianna Pastor [facility] Start: 08-31-2022 End: 08-31-2022 Patient encounter procedure Brianna Pastor [facility] Start: 08-31-2022 End: 08-31-2022 Patient encounter procedure Brianna Pastor [facility] Start: 07-06-2022 End: 07-06-[address] [facility] Start: 06-23-2022 End: 06-24-[address] HUMBERTO HEIN Facility:[facility] Start: 06-02-2022 End: 06-02-2022 Patient encounter procedure Brianna Pastor [facility] Start: 03-23-2022 End: 03-24-2022 ambulatory SHAIKH Lauren REBOLLEDOWAD Facility:[facility] Start: 03-15-2022 End: 03-16-[address] DOCTOR CLARK Facility:[facility] Start: 03-02-2022 End: 03-02-2022 Patient encounter procedure Brianna Pastor [facility] Start: 12-06-2021 End: 12-07-2021 ambulatory SHAIKH Lauren FANancyWAD Facility:[facility] Start: 12-01-2021 End: 12-01-2021 Patient encounter procedure Brianna Pastor [facility] Start: 08-26-2021 End: 08-27-2021 ambulatory DUYEN MARKS Facility:[facility] Start: 08-24-2021 End: 08-25-2021 ambulatory SHAIKH Lauren FANancyWAD Facility:[facility] Start: 08-12-2021 End: 08-12-2021 Patient encounter procedure Brianna Pastor [facility] Procedures Date Procedure Procedure Detail Performing Clinician Start: 04-12-2021 Esophagogastroduodenoscopy Brianna Pastor Comment on above: gastric erosions, hi atal hernia Start: 04-03-2019 Colonoscopy Brianna escobarz Start: 04-03-2019 Esophagogastroduodenoscopy Brianna Pastor Immunizations Immunization Date Immunization Notes Care Provider Fa cility 01-26-2022 tetanus toxoid, reduced diphtheria toxoid, and acellular pertussis vaccine, adsorbed Brianna Darby [facility] NEGATED: Highlighted row has not occurred!02-27-2023 influenza virus vaccine, unspecified formulation Brianna Pastor [facility] NEGATED: Highlighted row has not occurred!06-02-2022 influenza virus vaccine, unspecified formulation Brianna Pastor [facility] NEGATED: Highlighted row has not occurred!03-02-2022 influenza virus vaccine, unspecified formulation Brianna Pastor [facility] Payers Date Payer Category Payer Unknown [id number] 1958 Medicare [id number] 1958 Unknown [id number] 1945 Unknown [id number] 2.16.84 [id number] 1945 Unknown [id number] 2.16.84 [id number] 1945 Unknown [id number] 2.16.84 0.1.065048.3.579.2.593 1945 Unknown [id number] 2.16.84 0.1.414939.3.579.2.593 1946 Unknown [id number] 2.16.84 0.1.302196.3.579.2.593 1946 Unknown [id number] 2.16.84 0.1.281318.3.579.2.593 1946 Unknown [id number] 2.16.84 0.1.771361.3.579.2.593 1945 Unknown [id number] 2.16.84 0.1.084981.3.579.2.593 1945 Unknown [id number] 2.16.8 40.1.634743.3.579.2.727 1945 Unknown [id number] 2.16.8 40.1.998147.3.579.2.727 1946 Unknown [id number] 2.16.8 40.1.064892.3.579.2.727 1946 Unknown [id number] 2.16.8 40.1.079660.3.579.2.727 1946 Unknown [id number] 2.16.8 40.1.919863.3.579.2.727 1946 Unknown [id number] 2.16.8 40.1.877354.3.579.2.727 1946 Unknown [id number] 2.16.84 0.1.262726.3.579.2.1259 1946 Unknown [id number] 2.16.84 0.1.553549.3.579.2.1259 1946 Unknown [id number] 2.16.84 0.1.145936.3.579.2.1259 1946 Unknown [id number] 2.16.840 .1.329502.3.579.2.1259 Social History Date Type Detail Facility Start: 05-04-2021 End: 08-29-2023 Tobacco smoking status Never smoked tobacco (finding) [facility] Sex Assigned At Female [facility] Functional Status Date Assessment Result Facility 08-29-2023 Functional Status N/A [facility] 03-01-2023 Functional Status N/A [facility] 08-31-2022 Functional Status N/A [facility] 06-02-2022 Functional Status N/A [facility] 03-02-2022 Functional Status N/A [facility] 12-01-2021 Functional Status N/A [facility] Clinical Notes 08-12-2021 to [...] grapefruit, pineapple, and dali. Vegetables Deep-fried vegetables. [place] fries. Any vegetables prepared with added fat. Any vegetables that cause symptoms. For some people, this may include tomatoes and tomato products, chili peppers, onions and garlic, and horseradish. Grains Pastries or quick breads with added fat. Meats and other proteins High-fat meats, such as fatty beef or pork, hot dogs, ribs, ham, sausage, salami, and onela. Fried meat or protein, including fried fish [...] provider. Document Revised: 10/26/2020 Document Reviewed: 10/26/2020 [employer] Patient Education 2022 [employer]. Follow Up Care 03/01/2023 09:50:16 With:Brianna Pastor CNP Address: When:1 month [facility] 04-07-2023 Note [place] [facility] Subjective Toñito Putnam is a [...] calcification. In 2019 she was admitted to [facility]. She had hemorrhoidal bleeding and gastritis. [...] Rate 03/18/2019 61 Atrial Rate 03/18/2019 61 [place] Interval 03/18/2019 188 QRS DURATION 03/18/2019 94 QT Interval 03/18/2019 438 QTC CALCULATION(BEZET) 03/18/2019 440 P [place] 03/18/2019 55 R-[place] 03/18/2019 2 T Wave [place] 03/18/2019 44 Diagnosis 03/18/2019 Value:Normal sinus rhythm Normal ECG No previous ECGs available Confirmed by STRESS, (55), medical transcription editor Ángela Arredondo ([id number]) on 03/18/2019 12:12:41 PM Blood testing 09/29/2022: [...] is 60 to (more content not included)... [facility] 03-01-2023 Hospital Discharge instructions Patient Education [...] Bulgur wheat. Millet. Quinoa. Bran muffins. Popcorn. [place] wafer crackers. Meats and other proteins Blandon beans, kidney beans, and gee beans. Soybeans. [...] Cream cheese. Sour cream. Fats and oils [place]. Beverages Soft drinks. Other foods Cakes and [...] provider. Document Revised: 08/20/2020 Document Reviewed: 08/20/2020 [employer] Patient Education 2022 [employer]. Follow Up Care 08/31/2022 10:04:40 With:Brianna Pastor CNP Address: When:6 months [facility] 08-31-2022 Hospital Discharge instructions [...] grapefruit, pineapple, and dali. Vegetables Deep-fried vegetables. [place] fries. Any vegetables prepared with added fat. [...] provider. Document Revised: 10/26/2020 Document Reviewed: 10/26/2020 [employer] Patient Education 2022 [employer]. Follow Up Care 06/02/2022 10:08:57 With:Brianna Pastor CNP Address: When:6 months [facility] 07-06-2022 Note Patient here [...] All other systems reviewed and are negative. [facility] 07-06-2022 Note Cardiovascular Medic ine [facility] SUBJECTIVE Chief Complaint Patient presents with [...] calcification. In 2019 she was admitted to [facility]. She had hemorrhoidal bleeding and gastritis. [...] Final Atrial Rate 03/18/2019 61 BPM Final [place] Interval 03/18/2019 188 ms Final QRS DU (more content not included)... [facility] 06-02-2022 Hospital Discharge instructions Patient Education 06/02/2022 09:47:57 Food Choices for Gastroesophageal Reflux Disease, Adult Food Choices for Gastroesophageal Reflux Disease, Adult When you have gastroesophageal reflux disease (GERD), the foods you eat and your eating habits are very important. Choosing the right foods can help ease the discomfort of GERD. Consider working with a diet and training and documentation specialist (dietitian) to help you make healthy food [...] Pastries or quick breads with added fat. [place] toast. Vegetables Deep fried vegetables. [place] fries. Any vegetables prepared with added fat. [...] 04/17/2006 Document Revised: 08/08/2019 Document Reviewed: 04/18/2017 [employer] Patient Education 2020 [employer]. Follow Up Care 03/11/2022 10:33:58 With:Brianna Pastor CNP Address: When:3 months [facility] 03-02-2022 Evaluation + [facility]/22Comprehensive Metabolic Panel 03/02/22Celiac Disease Comprehensive 03/02/22 [facility] 03-02-2022 Hospital Discharge instructions Patient Education 03/02/2022 [...] Follow these instructions at home: Medicines Take olnc-jfo-mnxcqws and prescription medicines only as told by [...] Watch your condition for any changes. Take ivxl-dfx-rgfggek and prescription medicines only as told by [...] 01/25/2006 Document Revised: 08/26/2019 Document Reviewed: 08/26/2019 [employer] Patient Education 2019 [employer]. Follow Up Care 12/01/2021 12:46:09 With:Brianna Pastor CNP Address: When:3 months [facility] 12-01-2021 Hospital Discharge instructions [...] Follow these instructions at home: Medicines Take ekdf-rjt-jcokymm and prescription medicines only as told by [...] Watch your condition for any changes. Take xepk-jvn-zladiwg and prescription medicines only as told by [...] 01/25/2006 Document Revised: 08/26/2019 Document Reviewed: 08/26/2019 [employer] Patient Education 2020 [employer]. Follow Up Care 08/12/2021 10:13:54 With:Brianna Pastor CNP Address: When:3 months [facility] 08-12-2021 Hospital Discharge instructions [...] Follow these instructions at home: Medicines Take arbv-xhm-upmorqy and prescription medicines only as told by [...] Watch your condition for any changes. Take efko-idw-dqirond and prescription medicines only as told by [...] 01/25/2006 Document Revised: 08/26/2019 Document Reviewed: 08/26/2019 [employer] Patient Education 2020 [employer] Follow Up Care 08/02/2021 07:28:50 With:Brianna Pastor CNP Address: When:4 months [facility] Digestive Health Evaluation + Plan note Future Appointments Appointment Date:11/11/2021 10:00:00 AM Scheduled Provider:Brianna Pastor CNP Location:[facility] Health Appointment Type:[facility] Follow Up [facility] Digestive Health Evaluation + Plan note Future Appointments Appointment Date:03/02/2022 10:00:00 AM Scheduled Provider:Brianna Pastor CNP Location:[facility] Digestive Health Appointment Type:[facility] Follow Up Future Scheduled TestsCBC w/ Auto Diff 12/01/21Comprehensive Metabolic Panel 12/01/21 [facility] Digestive Health Evaluation + Plan note Future Appointments Appointment Date:08/31/2022 09:20:00 AM Scheduled Provider:Brianna Pastor CNP Location:[facility] Digestive Health Appointment Type:[facility] Follow Up [facility] Digestive Health Evaluation + Plan note Future Appointments Appointment Date:03/01/2023 09:20:00 AM Scheduled Provider:Brianna Pastor CNP Location:[facility] Digestive Health Appointment Type:[facility] Follow Up [facility] Digestive Health Evaluation + Plan note Future Appointments Appointment Date:08/30/2023 09:20:00 AM Scheduled Provider:Brianna Pastor CNP Location:[facility] Dig[facility]ive Health Appointment Type:[facility] Follow Up [facility] Digestive Health Evaluation + Plan note Future Appointments Appointment Date:09/01/2023 09:00:00 AM Scheduled Provider: [facility] Type:US Abdominal/Pelvis () Appointment Date:09/26/2023 09:20:00 AM Scheduled Provider:Brianna Pastor CNP Location:[facility] Digestive Health Appointment Type:[facility] Follow Up Future Scheduled TestsUS Abdomen, Limited 09/01/23 [facility] Digestive Health Evaluation + Plan note Future Appointments Appointment Date:09/26/2023 09:20:00 AM Scheduled Provider:Brianna Pastor CNP Location:[facility] Digestive Health Appointment Type:[facility] Follow Up [facility] Hospital course Narrative No data available for this section [facility] Hospital Discharge instructions No data available for this section [facility] Progress note No data available for this section [facility] Dig[facility]ive [facility] Summary Purpose Family History [...] and content) Personnel Name: SHAIKH ACEVEDO Address: [facility] [address] Personnel Name: SHAIKH ACEVEDO Address: Address: [facility] [address] [address] Personnel Name: SHAIKH ACEVEDO Address: Address: [address] [place], [place] [address] [address] Personnel Name: SHAIKH ACEVEDO Address: Address: [facility] [address] Personnel Name: SHAIKH ACEVEDO Address: Address: [facility] [address] [address] Personnel Name: SHAIKH ACEVEDO Address: Address: [facility] [address] Personnel Name: SHAIKH ACEVEDO MD Address: Address: [facility] [address] [address] Personnel Name: SHAIKH ACEVEDO MD Address: Address: [facility] [address] Personnel Name: SHAIKH ACEVEDO MD Address: Address: [facility] [address] Personnel Name: SHAIKH ACEVEDO MD Address: Address: [facility] [address] Personnel Name: SHAIKH ACEVEDO MD Address: Address: [facility] [address] [address] INFORMATION SOURCE (unrecogn ized section and content) DATE CREATED AUTHOR 06/28/2022 [facility] DATE CREATED AUTHOR AUTHOR'S ORGANIZ ATION 04/10/2023 [facility] DATE CREATED AUTHOR AUTHOR'S ORGANIZ ATION 09/27/2023 [facility] DATE CREATED AUTHOR AUTHOR'S ORGANIZ ATION 11/02/2023 [facility] EPIC FOR RECORDS PERTAINING TO [...] BE BASED ON THE PRIMARY CLINICAL RECORDS. [employer] provides no warranty or guarantee of the accuracy or completeness of information in this document.
[2023-11-28 07:34] VITALS: BP 156/83; PULSE 69; TEMP 36.1; O2SAT 98; BMI 28.2
--- NOTE | 2023-11-28 07:56 | W.PM.PROCNOT ---
Date of procedure: 11/28/23 Pre-op diagnosis: screening colonoscopy Procedure: Previous colonoscopy: 2019 procedure: screening colonoscopy The patient was given IV conscious sedation.? The patient's SPO2 remained above 90% throughout the procedure. The colonoscope was inserted per rectum and advanced under direct vision to the cecum without difficulty.? The prep was good.? Findings: Terminal ileum os: normal Cecum/Ascending colon: normal Transverse colon: normal Descending/Sigmoid colon: normal Rectum/Anus: examined in normal and retroflexed positions and was normal Withdrawal Time was (minutes): 8 The colon was decompressed and the scope was removed.? The patient tolerated the procedure well. Recommendations/Plan: 1.? Lifestyle and dietary modifications as discussed 2.? F/U 7-10 years 3.? Discussed with the family Anesthesia: MAC Surgeon: Dima Mooney Estimated blood loss (mL): 0 Pathology: none sent Condition: stable Disposition: PACU
[2023-11-28] MEDS: LACTATED RINGER'S SOLUTION 1,000 ML 50 ML IV (07:57)
[2023-11-28 08:50] VITALS: BP 121/78; PULSE 60; O2SAT 99
[2023-11-28 09:05] VITALS: BP 138/82; PULSE 58; O2SAT 96
[2023-11-28 09:20] VITALS: BP 175/94; PULSE 56; O2SAT 97
== END 2023-11-28 09:28 | disposition home or self-care (01) ==
PROVIDERS: PCP Internal Medicine; Visit Provider Surgery
PROC: (CPT G0121; principal; 2023-11-28 08:25)
DX: Z12.11 Encounter for screening for malignant neoplasm of colon (principal); Z90.49 Acquired absence of other specified parts of digestive tract; Z90.710 Acquired absence of both cervix and uterus; E78.5 Hyperlipidemia, unspecified; I10 Essential (primary) hypertension; K21.9 Gastro-esophageal reflux disease without esophagitis; E03.9 Hypothyroidism, unspecified
CPT/HCPCS: G0121; J2704

== ENCOUNTER 2023-12-11 11:16 | Emergency (ER) | payer MEDICARE, OTHER, SELFPAY ==
[2023-12-11 11:44] VITALS: BP 172/92; PULSE 64; TEMP 36.6; O2SAT 96; BMI 28.3
--- OUTSIDE RECORDS SUMMARY | 2023-12-11 12:06 | XMS_ITS | CCD ---
Author Organization [facility] Care Team Providers Care Quantitative Strategy Analyst Name Role Phone SHAIKH ACEVEDO Primary Care Physician [phone] FAWWAD, SIMEON H Primary Care Unavailable MISC, [...] ACEVEDO Attending Unavailable CURTIS, Attending Unavailable SHAIKH ACEEVDO Attending Unavailable LUCA CHAVARRIA Attending Unavailable Allergies Allergy Classification Reported Allergen(s) Allergy Type Date of Onset Reaction(s) Facility (10 sources) Meperidine; Translations: [meperidine] Drug Allergy 04-17-2014 Other (qualifier value) [facility] Medications Current Medications Medication Drug [...] Daily, # 90 tab(s), Refills(s) 1, Pharmacy: [facility] 536, 162, cm, 04/22/19 13:39:00 EST, Height/Length Measured, 72, kg, 04/22/19 13:39:00 EST, Weight Measured Start Date: 12/02/19 Status: Ordered Start: 12-02-2019 take 1 tablet by michele th once daily pantoprazole 40 mg Oral EC Tab 40 mg = 1 tab(s), Oral, Daily, # 90 tab(s), Refills(s) 1, Pharmacy: [facility] 536, 162, cm, 04/22/19 13:39:00 EST, [...] disease (4 sources) Atherosclerotic heart disease of [place] coronary artery without angina pectoris; Translations: [Coronary [...] Zeng MD Transcribed by: PAMELA Technologist: LOU [facility] Consent for Treatmenton Consent for Treatment [id number] [facility] Ambulatory Visit Summaryon 0 08-29-2023 Ambulatory Visit [...] Appointments Monday 9:00 AM EDT With: Where: [facility] Sound Monday 9:20 AM EDT With: Brinana Pastor CNP Where: [facility] CHEMISTRYOrdered By: SYSTEM SYSTEM on 08-29-2023 Cobalamin (Vitamin B12) [Mass/Vol] 281 pg/mL Normal 50 - 1500 pg/mL Remisol Chem Magnesium [Mass/Vol] 1.8 mg/dL Normal 1.3 - 2.4 mg/dL Remisol Chem Consent for Treatmenton 08-01 Consent for Treatment [id number] Jayne Lynn [facility] Gastroenterology Office/Clin ic Noteon 08-29-2023 Gastroenterology [...] Substance Abu (more content not included)... Normal [facility] Comment on above: Result Comment: Elec tronically Signed By: Darby LOBO, Brianna Dela Cruz\.br\Date and Time Signed: 08/29/23 09:35 EDT Magnesiumon 08-29-2023 Magnesium [Mass/Vol] 1.8 mg/dL Normal 1.3-2.4 [facility] Comment on above: Performed By: #### 2 [id number], [id number] #### [facility] [address] [place] [address] Patient Educationon 08-29-19 Patient Education Gastroenterology Food [...] grapefruit, pineapple, and dali. Vegetables Deep-fried vegetables. Ukrainian fries. Any vegetables prepared with added fat. [...] reflux di (more content not included)... Normal [facility] Vit B12on 08-29-2023 Cobalamin (Vitamin B12) [Mass/Vol] 281 pg/mL Normal 50-1500 [facility] Comment on above: Performed By: #### 2 [id number], [id number] #### [facility] [address] [place] [address] Office Visiton 04-07-2023 Follow-up visit [id number] Toñito Putnam 1945 F Date Provider Department Center 04/07/2023 CARLOZ NICK CARD [facility] Family History Problem Relation Age of Onset Coronary artery disease Sister 62 Comments: Passed age 62 Coronary artery disease Brother 58 Cancer Other Coronary artery disease Other Family Status - Relation Status Age at Sister Brother Other Level of Service:58171 CO OFFICE/OUTPATIENT ESTABLISHED LOW MDM 20-29 MIN Normal [facility] Gastroenterology Office/Clin ic Noteon 03-01-2023 Gastroenterology [...] mEq, Ora (more content not included)... Normal [facility] Comment on above: Result Comment: Elec [...] Bulgur wheat. Millet. Quinoa. Bran muffins. Popcorn. [place] wafer crackers. Meats and other proteins Mackey beans, kidney beans, and gee beans. Soybeans. [...] Cream cheese. Sour cream. Fats and oils Buell. Beverages Soft drinks. Other foods Cakes and [...] Document Revised: (more content not included)... Normal [facility] CHEMISTRYOrdered By: SYSTEM SYSTEM on 08-31-2022 [...] 76 mL/min/1.73 m2 Normal >=59mL/min/ 1.73 m2 [facility] Chem S Glucose [Mass/Vol] [...] FT Remisol Orders Onlyon 07-08-2022 Orders Only [id number] Toñito Putnam 1945 F Date Provider Department Center 07/08/2022 VEDA OVALLE TOBY [facility] Family History Problem Relation Age of Onset Coronary artery disease Sister 62 Comments: Passed age 62 Coronary artery disease Brother 58 Cancer Other Coronary artery disease Other Family Status - Relation Status Age at Sister Brother Other Normal [facility] Office Visiton 07-06-2022 Follow-up visit [id number] Toñito Putnam 1945 F Date Provider Department Center 07/06/2022 BRUNO DONAHUE TOBY [facility] Family History Problem Relation Age of Onset Coronary artery disease Sister 62 Comments: Passed age 62 Coronary artery disease Brother 58 Cancer Other Coronary artery disease Other Family Status - Relation Status Age at Sister Brother Other Level of Service:65343 CO OFFICE/OUTPATIENT ESTABLISHED MOD MDM 30-39 MIN Reason for Visit and Comments: Coronary Artery Disease [187] Hypertension [759622] Hyperlipidemia [182] Normal [facility] MG MAMM SCREEN 3D NIKKI CADon 06-23-2022 MG MAMM SCREEN 3D NIKKI CAD Patient: TOÑITO PUTNAM Exam Date: 06/23/2022 : 1945 Gender:F Ordering : SHAIKH Shahida ACEVEDO . Admission #: [id number] Family : Order #: [id number] CLICK HERE TO VIEW EXAM RADIOLOGY REPORT [...] lung cancer at age 61. LOCATION: [facility] BREAST COMPOSITION: Scattered areas fibroglandular density. [...] M.D. on 06/23/2022 at 14:21 Normal [facility] CBC AUTO DIFFon 03-23-2022 BASO # 0.1 103/ul Normal 0.0-0.1 [facility] Comment on above: Performed By: #### C BC #### [facility] [address] [address] [address] Jelly Lozada Basophils/100 WBC (Bld) 1.1 % Normal 0.2-2.0 [facility] Comment on above: Performed By: #### C BC #### [facility] [address] [place] [address] Dr. Jelly Lozada EO # 0.1 103/ul Normal 0.0-0.7 [facility] Comment on above: Performed By: #### C BC #### [facility] [address] [place] [address] Dr. Jelly Lozada Eosinophils/100 WBC (Bld) 1.7 % Normal 0.9-7.0 [facility] Comment on above: Performed By: #### C BC #### [facility] [address] [place] [address] Dr. Jelly Lozada Erythrocyte distribution width (RBC) [Ratio] 14.6 % Normal 11.0-15.0 [facility] Comment on above: Performed By: #### C BC #### [facility] [address] [place] [address] Dr. Jelly Lozada Hematocrit (Bld) [Volume fraction] 41.6 % Normal 36.0-48.0 [facility] Comment on above: Performed By: #### C BC #### [facility] [address] [place] [address] Dr. Jelly Lozada Hemoglobin (Bld) [Mass/Vol] 13.4 g/dL Normal 12.0-16.0 [facility] Comment on above: Performed By: #### C BC #### [facility] [address] [place] [address] Dr. Jelly Lozada IG # 0.03 10e3/ul Normal 0.00-0.03 [facility] Comment on above: Performed By: #### C BC #### [facility] [address] [place] [address] Dr. Jelly Lozada IG % 0.4 % Normal 0.0-0.5 [facility] Comment on above: Performed By: #### C BC #### [facility] [address] [place] [address] Dr. Jelly Lozada LYMPH # 1.6 103/ul Normal 1.2-3.8 [facility] Comment on above: Performed By: #### C BC #### [facility] [address] [place] [address] Dr. Jelly Lozada Lymphocytes/100 WBC (Bld) 23.2 % Normal 20.5-60.0 [facility] Comment on above: Performed By: #### C BC #### [facility] [address] [place] [address] Dr. Jelly Lozada MANUAL DIFF REQ NO Normal [facility] Comment on above: Performed By: #### C BC #### [facility] [address] [place] [address] Dr. Jelly Lozada MCH (RBC) [Entitic mass] 25.6 pg Critically low 26.7-34.0 [facility] Comment on above: Performed By: #### C BC #### [facility] [address] [place] [address] Dr. Jelly Lozada MCHC (RBC) [Mass/Vol] 32.2 g/dL Normal 29.9-35.2 [facility] Comment on above: Performed By: #### C BC #### [facility] [address] [place] [address] Dr. Jelly Lozada MCV (RBC) [Entitic vol] 79.5 fL Critically low 81.0-99.0 [facility] Comment on above: Performed By: #### C BC #### [facility] [address] [place] [address] Dr. Jelly Lozada MONO # 0.6 103/ul Normal 0.3-0.8 [facility] Comment on above: Performed By: #### C BC #### [facility] [address] [place] [address] Dr. Jelly Lozada Monocytes/100 WBC (Bld) 8.0 % Normal 1.7-12.0 [facility] Comment on above: Performed By: #### C BC #### [facility] [address] [place] [address] Dr. Jelly Lozada NEUT # 4.6 103/ul Normal 1.4-6.5 [facility] Comment on above: Performed By: #### C BC #### [facility] [address] [place] [address] Dr. Jelly Lozada Neutrophils/100 WBC (Bld) 65.6 % Normal 43.0-75.0 [facility] Comment on above: Performed By: #### C BC #### [facility] [address] [place] [address] Dr. Jelly Lozada Platelet mean volume (Bld) [Entitic vol] 10.6 fL Normal 9.5-13.5 [facility] Comment on above: Performed By: #### C BC #### [facility] [address] [address] [address] Jelly Lozada PLT 407 103/ul Normal 150-450 [facility] Comment on above: Performed By: #### C BC #### [facility] [address] [place] [address] Dr. Jelly Lozada RBC 5.23 106/ul Normal 4.20-5.40 [facility] Comment on above: Performed By: #### C BC #### [facility] [address] [place] [address] Dr. Jelly Lozada WBC 7.0 103/ul Normal 4.0-11.0 [facility] Comment on above: Performed By: #### C BC #### [facility] [address] [place] [address] Dr. Jelly Lozada LIPID PROFILEon 03-23-2022 CHOL-HDL RATIO NORM SEE BELOW Normal [facility] Comment on above: Result Comment: 3.3 - 4.4 LOW RISK 4.4 - 7.1 AVERAGE RISK 7.1 - 11.0 MODERATE RISK >11.0 HIGH RISK Performed By: #### T SH, CMP, LIPID #### [facility] [address] [place] [address] Dr. Jelly Lozada Cholesterol [Mass/Vol] 157 mg/dL Normal <=200 [facility] Comment on above: Performed By: #### T SH, CMP, LIPID #### [facility] [address] [place] [address] Dr. Jelly Lozada Cholesterol in HDL [Mass/Vol] 52 mg/dL Normal 40-60 [facility] Comment on above: Performed By: #### T SH, CMP, LIPID #### [facility] [address] [address] [address] Jelly Lozada Cholesterol in LDL [Mass/Vol] 67.0 mg/dL Normal [facility] Comment on above: Performed By: #### T SH, CMP, LIPID #### [facility] [address] [address] [address] Jelly Lozada Cholesterol.total/ Cholesterol in HDL [Mass ratio] 3.0 {ratio} Normal [facility] Comment on above: Performed By: #### T SH, CMP, LIPID #### [facility] [address] [address] [address] Jelly Lozada HDL NORMAL > or = 60 mg/dl - LO W CARDIOVASCULAR RISK <40 mg/dl - HIGH CARDIOVASCULAR RISK Normal [facility] Comment on above: Performed By: #### T SH, CMP, LIPID #### [facility] [address] [place] [address] Dr. Jelly Lozada LDL CALC NORMAL SEE BELOW Normal [facility] Comment on above: Result Comment: <100 mg/dl OPTIMAL 100 - 129 mg/dl NEAR OR ABOVE OPTIMAL 130 - 159 mg/dl BORDERLINE HIGH 160 - 189 mg/dl HIGH >190 mg/dl VERY HIGH Performed By: #### T SH, CMP, LIPID #### [facility] [address] [address] [address] Jelly Lozada Triglyceride [Mass/Vol] 190 mg/dL Critically high <=150 [facility] Comment on above: Performed By: #### T SH, CMP, LIPID #### [facility] [address] [address] [address] Jelly Lozada VLDL CALC 38.0 mg/dL Normal [facility] Comment on above: Performed By: #### T SH, CMP, LIPID #### [facility] [address] [address] [address] Jelly Lozada PROF 14(COMP METB)on 022 Albumin [Mass/Vol] 4.1 g/dL Normal 3.4-5.0 [facility] Comment on above: Performed By: #### T SH, CMP, LIPID #### [facility] [address] [address] [address] Jelly Lozada Albumin/Globulin [Mass ratio] 1.3 {ratio} Normal [facility] Comment on above: Performed By: #### T SH, CMP, LIPID #### [facility] [address] [address] [address] Jelly Lozada ALP [Catalytic activity/Vol] 80 U/L Normal 46-116 [facility] Comment on above: Performed By: #### T SH, CMP, LIPID #### [facility] [address] [address] [address] Jelly Lozada ALT [Catalytic activity/Vol] 18 U/L Normal 14-59 [facility] Comment on above: Performed By: #### T SH, CMP, LIPID #### [facility] [address] [address] [address] Jelly Lozada Anion gap [Moles/Vol] 12.2 mmol/L Normal [facility] Comment on above: Performed By: #### T SH, CMP, LIPID #### [facility] [address] [place] [address] Dr. Jelly Lozada AST [Catalytic activity/Vol] 20 U/L Normal 15-37 [facility] Comment on above: Performed By: #### T SH, CMP, LIPID #### [facility] [address] [address] [address] Jelly Lozada Bilirubin [Mass/Vol] 0.6 mg/dL Normal 0.2-1.0 [facility] Comment on above: Performed By: #### T SH, CMP, LIPID #### [facility] [address] [place] [address] Dr. Jelly Lozada Calcium [Mass/Vol] 9.5 mg/dL Normal 8.5-10.1 [facility] Comment on above: Performed By: #### T SH, CMP, LIPID #### [facility] [address] [address] [address] Jelly Lozada Chloride [Moles/Vol] 101 mmol/L Normal 98-107 [facility] Comment on above: Performed By: #### T SH, CMP, LIPID #### [facility] [address] [address] [address] Jelly Lozada CO2 [Moles/Vol] 29.9 mmol/L Normal 21.0-32.0 [facility] Comment on above: Performed By: #### T SH, CMP, LIPID #### [facility] [address] [address] [address] Jelly Lozada Creatinine [Mass/Vol] 0.71 mg/dL Normal 0.55-1.02 [facility] Comment on above: Performed By: #### T SH, CMP, LIPID #### [facility] [address] [address] [address] Jelly Lozada EGFR-AF FINNISH >60 Normal >=60 [facility] Comment on above: Performed By: #### T SH, CMP, LIPID #### [facility] [address] [address] [address] Jelly Lozada EGFR-NON AF FINNISH >60 Normal >=60 [facility] Comment on above: Performed By: #### T SH, CMP, LIPID #### [facility] [address] [address] [address] Jelly Lozada Globulin (S) [Mass/Vol] 3.2 g/dL Normal [facility] Comment on above: Performed By: #### T SH, CMP, LIPID #### [facility] [address] [address] [address] Jelly Lozada Glucose [Mass/Vol] 92 mg/dL Normal 74-106 [facility] Comment on above: Performed By: #### T SH, CMP, LIPID #### [facility] [address] [address] [address] Jelly Lozada Potassium [Moles/Vol] 4.1 mmol/L Normal 3.5-5.1 [facility] Comment on above: Performed By: #### T SH, CMP, LIPID #### [facility] [address] [address] [address] Jelly Lozada Protein [Mass/Vol] 7.3 g/dL Normal 6.4-8.2 [facility] Comment on above: Performed By: #### T SH, CMP, LIPID #### [facility] [address] [address] [address] Jelly Lozada Sodium [Moles/Vol] 139 mmol/L Normal 136-145 [facility] Comment on above: Performed By: #### T SH, CMP, LIPID #### [facility] [address] [address] [address] Jelly Lozada Urea nitrogen [Mass/Vol] 8.0 mg/dL Normal 7.0-18.0 [facility] Comment on above: Performed By: #### T SH, CMP, LIPID #### [facility] [address] [address] [address] Jelly Lozada Urea nitrogen/Creatinin e [Mass ratio] 11.3 mg/mg Normal [facility] Comment on above: Performed By: #### T SH, CMP, LIPID #### [facility] [address] [place] [address] Dr. Jelly Lozada TSHon 03-23-2022 TSH 3.522 uIU/mL Normal 0.358-3.740 [facility] Comment on above: Performed By: #### T SH, CMP, LIPID #### [facility] [address] [place] [address] Dr. Jelly Lozada US Caitlin 03-15-2022 US [...] by: SULAIMAN MARTIN Date: 2022-03-15 09:26 Normal [facility] CBC AUTO DIFFon 12-06-2021 BASO # 0.1 103/ul Normal 0.0-0.1 [facility] Comment on above: Performed By: #### C BC ####[facility] [address] [address]Dr. Jelly Nev[place] Basophils/100 WBC (Bld) 1.1 % Normal 0.2-2.0 [facility] Comment on above: Performed By: #### C BC ####[facility] [address] [place], [place] [address]Dr. Coconoel Lozada EO # 0.1 103/ul Normal 0.0-0.7 [facility] Comment on above: Performed By: #### C BC ####[facility] [address] [place], [place] [address]Dr. Jelly Neville Eosinophils/100 WBC (Bld) 1.9 % Normal 0.9-7.0 [facility] Comment on above: Performed By: #### C BC ####[facility] [address] [place], [place] [address]Dr. Jelly Neville Erythrocyte distribution width (RBC) [Ratio] 14.8 % Normal 11.0-15.0 [facility] Comment on above: Performed By: #### C BC ####[facility] [address] [place], [place] [address]Dr. Jelly Lozada Hematocrit (Bld) [Volume fraction] 39.1 % Normal 36.0-48.0 [facility] Comment on above: Performed By: #### C BC ####[facility] [address] [place], [place] [address]Dr. Jelly Lozada Hemoglobin (Bld) [Mass/Vol] 12.5 g/dL Normal 12.0-16.0 [facility] Comment on above: Performed By: #### C BC ####[facility] [address] [place], [place] [address]Dr. Jelly Lozada IG # 0.03 10e3/ul Normal 0.00-0.03 [facility] Comment on above: Performed By: #### C BC ####[facility] [address] [place], [place] [address]Dr. Jelly Lozada IG % 0.5 % Normal 0.0-0.5 [facility] Comment on above: Performed By: #### C BC ####[facility] [address] [address]Dr. Jelly Lozada LYMPH # 1.6 103/ul Normal 1.2-3.8 [facility] Comment on above: Performed By: #### C BC ####[facility] [address] [address]Dr. Jelly Lozada Lymphocytes/100 WBC (Bld) 24.8 % Normal 20.5-60.0 [facility] Comment on above: Performed By: #### C BC ####[facility] [address] [address]DrMicheal Lozada MANUAL DIFF REQ NO Normal [facility] Comment on above: Performed By: #### C BC ####[facility] [address] [address]Dr. Jelly Lozada MCH (RBC) [Entitic mass] 25.4 pg Critically low 26.7-34.0 [facility] Comment on above: Performed By: #### C BC ####[facility] [address] [place], [place] [address]Dr. Jelly Lozada MCHC (RBC) [Mass/Vol] 32.0 g/dL Normal 29.9-35.2 [facility] Comment on above: Performed By: #### C BC ####[facility] [address] [address]Dr. Jelly Lozada MCV (RBC) [Entitic vol] 79.5 fL Critically low 81.0-99.0 [facility] Comment on above: Performed By: #### C BC ####[facility] [address] [place], [place] [address]DrMicheal Lozada MONO # 0.6 103/ul Normal 0.3-0.8 [facility] Comment on above: Performed By: #### C BC ####[facility] [address] [address]Dr. Jelly Lozada Monocytes/100 WBC (Bld) 9.1 % Normal 1.7-12.0 [facility] Comment on above: Performed By: #### C BC ####[facility] [address] [address]DrMicheal Lozada NEUT # 3.9 103/ul Normal 1.4-6.5 [facility] Comment on above: Performed By: #### C BC ####[facility] [address] [address]DrMicheal Lozada Neutrophils/100 WBC (Bld) 62.6 % Normal 43.0-75.0 [facility] Comment on above: Performed By: #### C BC ####[facility] [address] [address]DrMicheal Lozada Platelet mean volume (Bld) [Entitic vol] 10.1 fL Normal 9.5-13.5 [facility] Comment on above: Performed By: #### C BC ####[facility] [address] [address]DrMicheal Lozada PLT 421 103/ul Normal 150-450 [facility] Comment on above: Performed By: #### C BC ####[facility] [address] [address]Dr[address] Jelly Lozada RBC 4.92 106/ul Normal 4.20-5.40 [facility] Comment on above: Performed By: #### C BC ####[facility] [address] [address]DrMicheal Lozada WBC 6.3 103/ul Normal 4.0-11.0 [facility] Comment on above: Performed By: #### C BC ####[facility] [address] [address]Dr. Jelly Lozada PROF 14(COMP METB)on 022 Albumin [Mass/Vol] 4.0 g/dL Normal 3.4-5.0 [facility] Comment on above: Performed By: #### C MP #### [facility] [address] [address] [address] Jelly Lozada Albumin/Globulin [Mass ratio] 1.4 {ratio} Normal [facility] Comment on above: Performed By: #### C MP #### [facility] [address] [address] [address] Jelly Lozada ALP [Catalytic activity/Vol] 99 U/L Normal 46-116 [facility] Comment on above: Performed By: #### C MP #### [facility] [address] [address] [address] Jelly Lozada ALT [Catalytic activity/Vol] 20 U/L Normal 14-59 [facility] Comment on above: Performed By: #### C MP #### [facility] [address] [address] [address] Jelly Lozada Anion gap [Moles/Vol] 13.7 mmol/L Normal [facility] Comment on above: Performed By: #### C MP #### [facility] [address] [place] [address] Dr. Jelly Lozada AST [Catalytic activity/Vol] 18 U/L Normal 15-37 [facility] Comment on above: Performed By: #### C MP #### [facility] [address] [place] [address] Dr. Jelly Lozada Bilirubin [Mass/Vol] 0.7 mg/dL Normal 0.2-1.0 [facility] Comment on above: Performed By: #### C MP #### [facility] [address] [place] [address] Dr. Jelly Lozada Calcium [Mass/Vol] 8.9 mg/dL Normal 8.5-10.1 [facility] Comment on above: Performed By: #### C MP #### [facility] [address] [place] [address] Dr. Jelly Lozada Chloride [Moles/Vol] 102 mmol/L Normal 98-107 [facility] Comment on above: Performed By: #### C MP #### [facility] [address] [address] [address] Jelly Lozada CO2 [Moles/Vol] 26.8 mmol/L Normal 21.0-32.0 [facility] Comment on above: Performed By: #### C MP #### [facility] [address] [address] [address] Jelly Lozada Creatinine [Mass/Vol] 0.74 mg/dL Normal 0.55-1.02 [facility] Comment on above: Performed By: #### C MP #### [facility] [address] [address] [address] Jelly Lozada EGFR-AF FINNISH >60 Normal >=60 [facility] Comment on above: Performed By: #### C MP #### [facility] [address] [address] [address] Jelly Lozada EGFR-NON AF FINNISH >60 Normal >=60 [facility] Comment on above: Performed By: #### C MP #### [facility] [address] [place] [address] Dr. Jelly Lozada Globulin (S) [Mass/Vol] 2.9 g/dL Normal [facility] Comment on above: Performed By: #### C MP #### [facility] [address] [place] [address] Dr. Jelly Lozada Glucose [Mass/Vol] 114 mg/dL Critically high 74-106 [facility] Comment on above: Performed By: #### C MP #### [facility] [address] [place] [address] Dr. Jelly Lozada Potassium [Moles/Vol] 3.5 mmol/L Normal 3.5-5.1 [facility] Comment on above: Performed By: #### C MP #### [facility] [address] [place] [address] Dr. Jelly Lozada Protein [Mass/Vol] 6.9 g/dL Normal 6.4-8.2 [facility] Comment on above: Performed By: #### C MP #### [facility] [address] [place] [address] Dr. Jelly Lozada Sodium [Moles/Vol] 139 mmol/L Normal 136-145 [facility] Comment on above: Performed By: #### C MP #### [facility] [address] [place] [address] Dr. Jelly Lozada Urea nitrogen [Mass/Vol] 9.0 mg/dL Normal 7.0-18.0 [facility] Comment on above: Performed By: #### C MP #### [facility] [address] [place] [address] Dr. Jelly Lozada Urea nitrogen/Creatinin e [Mass ratio] 12.2 mg/mg Normal [facility] Comment on above: Performed By: #### C MP #### [facility] [address] [place] [address] Dr. Jelly Lozada TSHon 12-06-2021 TSH 3.217 uIU/mL Normal 0.358-3.740 [facility] Comment on above: Performed By: #### T SH #### [facility] [address] [place] [address] Dr. Jelly Lozada CREATININEon 08-26-2021 Creatinine [Mass/Vol] 0.70 mg/dL Normal 0.55-1.02 [facility] Comment on above: Performed By: #### C CHANDLER ####[facility] [id number] [address]Dr. Jelly Lozada EGFR-AF FINNISH >60 Normal >=60 [facility] Comment on above: Performed By: #### C CHANDLER ####[facility] [id number] [address]Dr. Jelly Lozada EGFR-NON AF FINNISH >60 Normal >=60 [facility] Comment on above: Performed By: #### C CHANDLER ####[facility] [id number] [address]. Jelly Lozada CT ABD/PELV W CONon 08-27-19 [...] HUMBERTO HEIN Date: 2021-08-26 10:08 Normal [facility] PROF CHEM 8 (BAS METB)on Anion gap [Moles/Vol] 13.6 mmol/L Normal [facility] Comment on above: Performed By: #### B MP #### [facility] [address] [address] [address] Jelly Lozada Calcium [Mass/Vol] 8.8 mg/dL Normal 8.5-10.1 [facility] Comment on above: Performed By: #### B MP #### [facility] [address] [address] [address] Jelly Lozada Chloride [Moles/Vol] 100 mmol/L Normal 98-107 [facility] Comment on above: Performed By: #### B MP #### [facility] [address] [address] [address] Jelly Lozada CO2 [Moles/Vol] 28.2 mmol/L Normal 21.0-32.0 [facility] Comment on above: Performed By: #### B MP #### [facility] [address] [address] [address] Jelly Lozada Creatinine [Mass/Vol] 0.74 mg/dL Normal 0.55-1.02 [facility] Comment on above: Performed By: #### B MP #### [facility] [address] [address] [address] Jelly Lozada EGFR-AF FINNISH >60 Normal >=60 [facility] Comment on above: Performed By: #### B MP #### [facility] [address] [place] [address] Dr. Jelly Lozada EGFR-NON AF FINNISH >60 Normal >=60 [facility] Comment on above: Performed By: #### B MP #### [facility] [address] [address] [address] Jelly Lozada Glucose [Mass/Vol] 98 mg/dL Normal 74-106 [facility] Comment on above: Performed By: #### B MP #### [facility] [address] [place] [address] Dr. Jelly Lozada Potassium [Moles/Vol] 3.8 mmol/L Normal 3.5-5.1 [facility] Comment on above: Performed By: #### B MP #### [facility] [address] [address] [address] Jelly Lozada Sodium [Moles/Vol] 138 mmol/L Normal 136-145 [facility] Comment on above: Performed By: #### B MP #### [facility] [address] [address] [address] Jelly Lozada Urea nitrogen [Mass/Vol] 6.0 mg/dL Critically low 7.0-18.0 [facility] Comment on above: Performed By: #### B MP #### [facility] [address] [place] [address] Dr. Jelly Lozada Urea nitrogen/Creatinin e [Mass ratio] 8.1 mg/mg Normal [facility] Comment on above: Performed By: #### B MP #### [facility] [address] [address] [address] Jelly Lozada Vital Signs Date Time Vital Sign Value Performing Clinician Facility 08-29-2023 09:10-0400 Blood Pressure Location Brianna Carusometz [facility] 08-29-2023 09:10-0400 Body temperature 97.7 [degF] Brianna Pastor [facility] 08-29-2023 09:10-0400 Diastolic blood pressure 89 mm[Hg] Brianna Darby [facility] 08-29-2023 09:10-0400 Heart rate 61 /min Brianna Darby [facility] 08-29-2023 09:10-0400 Systolic blood pressure 133 mm[Hg] Brianna Darby [facility] 03-01-2023 09:13-0400 Blood Pressure Location Brianna Darby [facility] 03-01-2023 09:13-0400 Body temperature 97.52 [degF] Brianna Darby [facility] 03-01-2023 09:13-0400 Diastolic blood pressure 89 mm[Hg] Brianna Darby [facility] 03-01-2023 09:13-0400 Heart rate 55 /min Brianna Darby [facility] 03-01-2023 09:13-0400 Systolic blood pressure 133 mm[Hg] Brianna Darby [facility] 08-31-2022 09:45-0400 Diastolic blood pressure 80 mm[Hg] Brianna Darby [facility] 08-31-2022 09:45-0400 Mean blood pressure 99 mm[Hg] Brianna Darby [facility] 08-31-2022 09:45-0400 Systolic blood pressure 138 mm[Hg] Brianna Darby [facility] 08-31-2022 09:35-0400 Blood Pressure Location Brianna Darby [facility] 08-31-2022 09:35-0400 Body temperature 97.7 [degF] Brianna Darby [facility] 08-31-2022 09:35-0400 Diastolic blood pressure 77 mm[Hg] Brianna Darby [facility] 08-31-2022 09:35-0400 Heart rate 56 /min Brianna Darby [facility] 08-31-2022 09:35-0400 Systolic blood pressure 144 mm[Hg] Brianna Darby [facility] 06-02-2022 09:49-0500 Blood Pressure Location Brianna Darby [facility] 06-02-2022 09:49-0500 Body temperature 96.98 [degF] Brianna Darby [facility] 06-02-2022 09:49-0500 Diastolic blood pressure 84 mm[Hg] Brianna Darby [facility] 06-02-2022 09:49-0500 Heart rate 57 /min Brianna Darby [facility] 06-02-2022 09:49-0500 Systolic blood pressure 129 mm[Hg] Brianna Darby [facility] 03-02-2022 10:01-0400 Blood Pressure Location Brianna Darby [facility] 03-02-2022 10:01-0400 Body temperature 97.7 [degF] Brianna Darby [facility] 03-02-2022 10:01-0400 Diastolic blood pressure 88 mm[Hg] Brianna Pastor [facility] 03-02-2022 10:01-0400 Heart rate 62 /min Brianna Carusometz [facility] 03-02-2022 10:01-0400 Systolic blood pressure 120 mm[Hg] Brianna Bridgesz [facility] 12-01-2021 12:26-0400 Blood Pressure Location Briannalauren Pastor [facility] 12-01-2021 12:26-0400 Body temperature 97.16 [degF] Brianna Pastor [facility] 12-01-2021 12:26-0400 Diastolic blood pressure 80 mm[Hg] Brianna Pastor [facility] 12-01-2021 12:26-0400 Heart rate 58 /min Brianna Pastor [facility] 12-01-2021 12:26-0400 SaO2% (BldA) [Mass fraction] 97 % Brianna Carusometz [facility] 12-01-2021 12:26-0400 Systolic blood pressure 122 mm[Hg] Briannalauren CarusoDarby [facility] 08-12-2021 09:22-0400 Blood Pressure Location Briannalauren CarusoDarby [facility] 08-12-2021 09:22-0400 Diastolic blood pressure 77 mm[Hg] Brianna Carusometz [facility] 08-12-2021 09:22-0400 Heart rate 53 /min Brianna Carusometz [facility] 08-12-2021 09:22-0400 SaO2% (BldA) [Mass fraction] 96 % Brianna Pastor [facility] 08-12-2021 09:22-0400 Systolic blood pressure 126 mm[Hg] Brianna Pastor [facility] Encounters Encounter Date Encounter Type Care Provider Facility Start: 02-19-2024 ambulatory Nghia Wild lity:Matthew Start: 11-01-2023 End: 11-01-2023 ambulatory LUCA CHAVARRIA Not Available Start: 10-18-2023 End: 10-18-2023 ambulatory SHAIKH CURTIS Not Available Start: 09-26-2023 End: 09-27-2023 ambulatory Brianna Pastor Facility:[facility] Start: 09-26-2023 End: 09-26-2023 Patient encounter procedure Brianna Lanie Darby [facility] Start: 09-01-2023 End: 09-02-2023 ambulatory Brianna A Darby Facility:[facility] Start: 09-01-2023 End: 09-01-2023 Patient encounter procedure Brianna A Darby [facility] Start: 08-29-2023 End: 08-30-2023 ambulatory Briannalauren Bridgesz Facility:[facility] Start: 08-29-2023 End: 08-30-2023 ambulatory Briannalauren Pastor [facility] Start: 08-29-2023 End: 08-29-2023 Patient encounter procedure Brianna Pastor [facility] Start: 08-29-2023 End: 08-29-2023 Patient encounter procedure Brianna Pastor [facility] Start: 07-17-2023 End: 07-17-2023 ambulatory SHAIKH AMIAriel Not Available Start: 04-10-2023 End: 04-10-2023 ambulatory SHAIKH AMIAriel Not Available Start: 04-07-2023 End: 04-07-2023 ambulatory [facility] Start: 03-01-2023 End: 03-02-2023 ambulatory Briannalauren Pastor [facility] Start: 03-01-2023 End: 03-01-2023 Patient encounter procedure Brianna Pastor [facility] Start: 08-31-2022 End: 08-31-2022 Patient encounter procedure Brianna Pastor [facility] Start: 08-31-2022 End: 08-31-2022 Patient encounter procedure Brianna Pastor [facility] Start: 07-06-2022 End: 07-06-2022 ambulatory BRUNO [facility] Start: 06-23-2022 End: 06-24-[address] HUMBERTO HEIN Facility:[facility] Start: 06-02-2022 End: 06-02-2022 Patient encounter procedure Brianna Pastor [facility] Start: 03-23-2022 End: 03-24-2022 ambulatory SHAIKH Lauren REBOLLEDOWAD Facility:[facility] Start: 03-15-2022 End: 03-16-[address] DOCTOR CLARK Facility:[facility] Start: 03-02-2022 End: 03-02-2022 Patient encounter procedure Brianna Pastor [facility] Start: 12-06-2021 End: 12-07-2021 ambulatory SHAIKH Lauren FANancyWAD Facility:[facility] Start: 12-01-2021 End: 12-01-2021 Patient encounter procedure Brianna Pastor [facility] Start: 08-26-2021 End: 08-27-2021 ambulatory DUYEN MARKS Facility:[facility] Start: 08-24-2021 End: 08-25-2021 ambulatory SHAIKH Lauren FANancyWAD Facility:[facility] Start: 08-12-2021 End: 08-12-2021 Patient encounter procedure Brianna Pastor [facility] Procedures Date Procedure Procedure Detail Performing Clinician Start: 04-12-2021 Esophagogastroduodenoscopy Brianna Pastor Comment on above: gastric erosions, hi atal hernia Start: 04-03-2019 Colonoscopy Brianna escobarz Start: 04-03-2019 Esophagogastroduodenoscopy Brianna Pastor Immunizations Immunization Date Immunization Notes Care Provider Fa cility 01-26-2022 tetanus toxoid, reduced diphtheria toxoid, and acellular pertussis vaccine, adsorbed Brianna Darby [facility] NEGATED: Highlighted row has not occurred!02-27-2023 influenza virus vaccine, unspecified formulation Brianna Pastor [facility] NEGATED: Highlighted row has not occurred!06-02-2022 influenza virus vaccine, unspecified formulation Brianna Pastor [facility] NEGATED: Highlighted row has not occurred!03-02-2022 influenza virus vaccine, unspecified formulation Brianna Pastor [facility] Payers Date Payer Category Payer Unknown [id number] 1958 Medicare [id number] 1958 Unknown [id number] 1945 Unknown [id number] 2.16.84 [id number] 1945 Unknown [id number] 2.16.84 0.1.206408.3.579.2.593 1945 Unknown [id number] 2.16.84 0.1.815981.3.579.2.593 1946 Unknown [id number] 2.16.84 0.1.270011.3.579.2.593 1946 Unknown [id number] 2.16.84 0.1.105639.3.579.2.593 1946 Unknown [id number] 2.16.84 0.1.480518.3.579.2.593 1946 Unknown [id number] 2.16.84 0.1.968310.3.579.2.593 1946 Unknown [id number] 2.16.84 0.1.264767.3.579.2.593 1946 Unknown [id number] 2.16.8 40.1.172073.3.579.2.727 1946 Unknown [id number] 2.16.8 40.1.006823.3.579.2.727 1946 Unknown [id number] 2.16.8 40.1.348432.3.579.2.727 1946 Unknown [id number] 2.16.8 40.1.541563.3.579.2.727 1946 Unknown [id number] 2.16.8 40.1.246683.3.579.2.727 1946 Unknown [id number] 2.16.8 40.1.987556.3.579.2.727 1946 Unknown [id number] 2.16.84 0.1.455350.3.579.2.1259 1946 Unknown [id number] 2.16.84 0.1.948583.3.579.2.1259 1946 Unknown [id number] 2.16.84 0.1.205239.3.579.2.1259 1945 Unknown [id number] 2.16.840 .[id number] Social History Date Type Detail Facility Start: 05-04-2021 End: 08-29-2023 Tobacco smoking status Never smoked tobacco (finding) [facility] Tobacco [facility] status [facility] Sex Assigned At Female [facility] Functional Status Date Assessment Result Facility 08-29-2023 Functional Status N/A [facility] 03-01-2023 Functional Status N/A [facility] 08-31-2022 Functional Status N/A [facility] 06-02-2022 Functional Status N/A [facility] 03-02-2022 Functional Status N/A [facility] 12-01-2021 Functional Status N/A [facility] Clinical Notes 08-12-2021 to [...] grapefruit, pineapple, and dali. Vegetables Deep-fried vegetables. Ukrainian fries. Any vegetables prepared with added fat. [...] provider. Document Revised: 10/26/2020 Document Reviewed: 10/26/2020 [employer] Patient Education 2022 [employer]. Follow Up Care 03/01/2023 09:50:16 With:Brianna Pastor CNP Address: When:1 month [facility] 04-07-2023 Note [place] [facility] Subjective Toñito Putnam is a [...] calcification. In 2019 she was admitted to [facility]. She had hemorrhoidal bleeding and gastritis. [...] Rate 03/18/2019 61 Atrial Rate 03/18/2019 61 CO Interval 03/18/2019 188 QRS DURATION 03/18/2019 94 QT Interval 03/18/2019 438 QTC CALCULATION(BEZET) 03/18/2019 440 P Waldron 03/18/2019 55 R-Waldron 03/18/2019 2 T Wave Waldron 03/18/2019 44 Diagnosis 03/18/2019 Value:Normal sinus rhythm Normal ECG No previous ECGs available Confirmed by STRESS, ([id number]), technical writer and editor Ángela Arredondo ([id number]) on 03/18/2019 12:12:41 PM Blood testing 09/29/2022: [...] is 60 to (more content not included)... [facility] 03-01-2023 Hospital Discharge instructions Patient Education [...] Bulgur wheat. Millet. Quinoa. Bran muffins. Popcorn. [place] wafer crackers. Meats and other proteins Mackey beans, kidney beans, and gee beans. Soybeans. [...] Cream cheese. Sour cream. Fats and oils Buell. Beverages Soft drinks. Other foods Cakes and [...] provider. Document Revised: 08/20/2020 Document Reviewed: 08/20/2020 [employer] Patient Education 2022 [employer]. Follow Up Care 08/31/2022 10:04:40 With:Brianna Pastor CNP Address: When:6 months [facility] 08-31-2022 Hospital Discharge instructions Patient [...] grapefruit, pineapple, and dali. Vegetables Deep-fried vegetables. Ukrainian fries. Any vegetables prepared with added fat. [...] provider. Document Revised: 10/26/2020 Document Reviewed: 10/26/2020 [employer] Patient Education 2022 [employer]. Follow Up Care 06/02/2022 10:08:57 With:Brianna Pastor CNP Address: When:6 months [facility] 07-06-2022 Note Patient here for [...] All other systems reviewed and are negative. [facility] 07-06-2022 Note Cardiovascular Medic [facility] SUBJECTIVE Chief Complaint Patient presents with [...] calcification. In 2019 she was admitted to [facility]. She had hemorrhoidal bleeding and gastritis. [...] Final Atrial Rate 03/18/2019 61 BPM Final CO Interval 03/18/2019 188 ms Final QRS DU (more content not included)... [facility] 06-02-2022 Hospital Discharge instructions Patient Education 06/02/2022 09:47:57 Food Choices for Gastroesophageal Reflux Disease, Adult Food Choices for Gastroesophageal Reflux Disease, Adult When you have gastroesophageal reflux disease (GERD), the foods you eat and your eating habits are very important. Choosing the right foods can help ease the discomfort of GERD. Consider working with a diet and livestock nutritionist (dietitian) to help you make healthy food [...] Pastries or quick breads with added fat. Ukrainian toast. Vegetables Deep fried vegetables. Ukrainian fries. Any vegetables prepared with added fat. [...] 04/17/2006 Document Revised: 08/08/2019 Document Reviewed: 04/18/2017 [employer] Patient Education 2020 [employer]. Follow Up Care 03/11/2022 10:33:58 With:Brianna Pastor CNP Address: When:3 months [facility] 03-02-2022 Evaluation + Plan note [facility] Auto Diff 03/02/22Comprehensive Metabolic Panel 03/02/22Celiac Disease Comprehensive 03/02/22 [facility] 03-02-2022 Hospital Discharge instructions Patient Education [...] Follow these instructions at home: Medicines Take dzjw-tkf-eitlwwe and prescription medicines only as told by [...] Watch your condition for any changes. Take qvpz-ywo-uvmvtxz and prescription medicines only as told by [...] 01/25/2006 Document Revised: 08/26/2019 Document Reviewed: 08/26/2019 [employer] Patient Education 2019 [employer]. Follow Up Care 12/01/2021 12:46:09 With:Brianna Pastor CNP Address: When:3 months [facility] 12-01-2021 Hospital Discharge instructions Patient [...] Follow these instructions at home: Medicines Take ovis-njj-esynscn and prescription medicines only as told by [...] Watch your condition for any changes. Take xezp-qbp-yzjvywr and prescription medicines only as told by [...] 01/25/2006 Document Revised: 08/26/2019 Document Reviewed: 08/26/2019 [employer] Patient Education 2020 [employer]. Follow Up Care 08/12/2021 10:13:54 With:Brianna Pastor CNP Address: When:3 months [facility] 08-12-2021 Hospital Discharge instructions Patient [...] Follow these instructions at home: Medicines Take zwtz-say-jelrfmk and prescription medicines only as told by [...] Watch your condition for any changes. Take raew-dji-uznpysj and prescription medicines only as told by [...] 01/25/2006 Document Revised: 08/26/2019 Document Reviewed: 08/26/2019 [employer] Patient Education 2020 [employer]. Follow Up Care 08/02/2021 07:28:50 With:Brianna Pastor CNP Address: When:3 months [facility] Evaluation + Plan note Future Appointments Appointment Date:11/11/2021 10:00:00 AM Scheduled Provider:Brianna Pastor CNP Location:[facility] Appointment Type:[facility] Follow Up [facility] Evaluation + Plan note Future Appointments Appointment Date:03/02/2022 10:00:00 AM Scheduled Provider:Brianna Pastor CNP Location:[facility] Appointment Type:[facility] Follow Up Future Scheduled TestsCBC w/ Auto Diff 12/01/21Comprehensive Metabolic Panel 12/01/21 [facility] Evaluation + Plan note Future Appointments Appointment Date:08/31/2022 09:20:00 AM Scheduled Provider:Brianna Pastor CNP Location:[facility] Appointment Type:[facility] Follow Up [facility] Evaluation + Plan note Future Appointments Appointment Date:03/01/2023 09:20:00 AM Scheduled Provider:Brianna Pastor CNP Location:[facility] Appointment Type:[facility] Follow Up [facility] Evaluation + Plan note Future Appointments Appointment Date:08/30/2023 09:20:00 AM Scheduled Provider:Brianna Pastor CNP Location:[facility] Appointment Type:[facility] Follow Up [facility] Evaluation + Plan note Future Appointments Appointment Date:09/01/2023 09:00:00 AM Scheduled Provider: [facility] Type:US Abdominal/Pelvis () Appointment Date:09/26/2023 09:20:00 AM Scheduled Provider:Brianna Pastor CNP Location:[facility] Appointment Type:[facility] Follow Up Future Scheduled TestsUS Abdomen, Limited 09/01/23 [facility] Evaluation + Plan note Future Appointments Appointment Date:09/26/2023 09:20:00 AM Scheduled Provider:Brianna Pastor CNP Location:[facility] Appointment Type:[facility] Follow Up [facility] Hospital course Narrative No data available for this section [facility] Hospital Discharge instructions No data available for this section [facility] Progress note No data available for this section [facility] Summary Purpose Family History No [...] and content) Personnel Name: SHAIKH ACEVEDO Address: [facility] [address] Personnel Name: SHAIKH ACEVEDO Address: Address: [facility] [address] [address] Personnel Name: SHAIKH ACEVEDO Address: Address: [address] [place], [place] [address] [address] Personnel Name: SHAIKH ACEVEDO Address: Address: [facility] [address] Personnel Name: SHAIKH ACEVEDO Address: Address: [facility] [address] [address] Personnel Name: SHAIKH ACEVEDO Address: Address: [facility] [address] [address] Personnel Name: SHAIKH ACEVEDO MD Address: Address: [facility] [address] Personnel Name: SHAIKH ACEVEDO MD Address: Address: [facility] [address] Personnel Name: SHAIKH ACEVEDO MD Address: Address: [facility] [address] Personnel Name: SHAIKH ACEVEDO MD Address: Address: [facility] [address] Personnel Name: SHAIKH ACEVEDO MD Address: Address: [facility] [address] [address] INFORMATION SOURCE (unrecogn ized section and content) DATE CREATED AUTHOR 06/28/2022 [facility] DATE CREATED AUTHOR AUTHOR'S ORGANIZ ATION 04/10/2023 [facility] DATE CREATED AUTHOR AUTHOR'S ORGANIZ ATION 09/27/2023 [facility] DATE CREATED AUTHOR AUTHOR'S ORGANIZ ATION 11/02/2023 [facility] EPIC FOR RECORDS PERTAINING [...] BE BASED ON THE PRIMARY CLINICAL RECORDS. [employer] provides no warranty or guarantee of the accuracy or completeness of information in this document.
--- NOTE | 2023-12-11 12:59 | XR_ITS ---
The [address] [address] Patient Name: TOÑITO PUTNAM MRN: [id number] date: 1945 Sex: F Assigned Patient Location: ER Current Patient Location: ER Accession/Order Number: [id number] Exam Date: 12/11/2023 12:52 Report Date: 12/11/2023 13:11 At the request of: CHRISTIN MAXWELL Procedure: XR ribs LT min 3V w CXR1V EXAMINATION: XR ribs LT min 3V w CXR1V HISTORY: left chest pain and rib pain with injury. COMPARISON: No relevant comparison available. FINDINGS: LUNGS: No significant pulmonary parenchymal abnormalities. PLEURA: No pneumothorax, effusion, or pleural thickening. MEDIASTINUM: No visible mass or adenopathy. CARDIAC: No cardiomegaly or cardiac silhouette abnormality. RIBS: Fractures of the left posterior lateral second and fourth ribs OTHER: Negative. XR/XR ribs LT min 3V w CXR1V IMPRESSION: Clear lungs Fracture of the left posterior lateral second and fourth ribs Electronically authenticated by: SULAIMAN MARTIN Date: 12/11/2023 13:11
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
[2023-12-11 13:16] VITALS: BP 168/104; PULSE 54; O2SAT 97
[2023-12-11] MEDS: OXYCODONE HCL/ACETAMINOPHEN 5MG/325MG 1 TAB PO (13:28)
[2023-12-11] MEDS: METHOCARBAMOL 500 MG TABLET PO (13:28)
[2023-12-11 13:57] VITALS: BP 160/90; PULSE 84; O2SAT 99
== END 2023-12-11 13:57 | disposition home or self-care (01) ==
PROVIDERS: Emergency Provider Emergency Medicine; PCP Internal Medicine
DX: S22.42XA Multiple fractures of ribs, left side, initial encounter for closed fracture (principal); S20.219A Contusion of unspecified front wall of thorax, initial encounter; W20.8XXA Other cause of strike by thrown, projected or falling object, initial encounter
CPT/HCPCS: 71101; 94667; 99283

== ENCOUNTER 2024-01-24 10:41 | Emergency (ER) | payer MEDICARE, OTHER, SELFPAY ==
[2024-01-24 10:45] VITALS: BP 146/99; PULSE 64; TEMP 36.6; O2SAT 97; BMI 26.5
--- NOTE | 2024-01-24 10:56 | PC.NURSE ---
Pt reports pain from neck to lower back, no swelling, bruising or redness to site of complain. Pt states this pulls to left side of ribs. Skin is intake and no rash present to either sides of ribs.
--- NOTE | 2024-01-24 11:10 | CT_ITS ---
The [address] [address] Patient Name: TOÑITO PUTNAM MRN: [id number] date: 1945 Sex: F Assigned Patient Location: ED.MAIN Current Patient Location: ED.MAIN Accession/Order Number: [id number] Exam Date: 01/24/2024 11:26 Report Date: 01/24/2024 12:07 At the request of: FUENTES LANDEROS Procedure: CT chest wo con EXAMINATION: CT chest wo con, CT thoracic spine wo con HISTORY: rib pain COMPARISON: No relevant comparison available. TECHNIQUE: Axial, Coronal, and Sagittal images were created without the administration of IV contrast material. Dose reduction techniques were achieved by using automated exposure control and/or adjustment of mA and/or kV according to patient size and/or use of iterative reconstruction technique. FINDINGS: LUNGS: Mild bronchiectasis within lower lobes. No acute infiltrates or suspicious nodules. PLEURA: No mass, effusion, or pneumothorax. VASCULATURE: No abnormality. TESHA: No mass or pathologic adenopathy. MEDIASTINUM: No mass or pathologic adenopathy. CARDIAC: No enlargement, pericardial thickening, or pericardial effusion. Coronary Artery calcifications: Coronary calcifications are mild. AORTA: No aneurysm or dissection. CHEST WALL: No mass or axillary adenopathy BONES: Nondisplaced anterior left fourth rib fracture with mild surrounding callus formation. Mild anterior wedging of superior endplate of T6 and 1 mm cortical step-off along posterior wall. Minimally increased trabecular density adjacent superior endplate. LIMITED ABDOMEN: No suspicious findings. Limited images of the upper abdomen. OTHER: Negative. CT/CT chest wo con IMPRESSION: 1. Nondisplaced left fourth rib fracture with evidence of early bone healing. 2. Mild compression fracture of T6 (approximately 10%) suspected to be subacute to acute. No comparison studies. 3. No acute cardiopulmonary process. Mild chronic lung changes. Electronically authenticated by: LEILA HAYNES Date: 01/24/2024 12:07
--- NOTE | 2024-01-24 11:10 | CT_ITS ---
[address] [address] Patient Name: TOÑITO PUTNAM MRN: [id number] date: 1945 Sex: F Assigned Patient Location: ED.MAIN Current Patient Location: ED.MAIN Accession/Order Number: [id number] Exam Date: 01/24/2024 11:26 Report Date: 01/24/2024 12:07 At the request of: FUENTES LANDEROS Procedure: CT thoracic spine wo con EXAMINATION: CT chest wo con, CT thoracic spine wo con HISTORY: rib pain COMPARISON: No relevant comparison available. TECHNIQUE: Axial, Coronal, and Sagittal images were created without the administration of IV contrast material. Dose reduction techniques were achieved by using automated exposure control and/or adjustment of mA and/or kV according to patient size and/or use of iterative reconstruction technique. FINDINGS: LUNGS: Mild bronchiectasis within lower lobes. No acute infiltrates or suspicious nodules. PLEURA: No mass, effusion, or pneumothorax. VASCULATURE: No abnormality. TESHA: No mass or pathologic adenopathy. MEDIASTINUM: No mass or pathologic adenopathy. CARDIAC: No enlargement, pericardial thickening, or pericardial effusion. Coronary Artery calcifications: Coronary calcifications are mild. AORTA: No aneurysm or dissection. CHEST WALL: No mass or axillary adenopathy BONES: Nondisplaced anterior left fourth rib fracture with mild surrounding callus formation. Mild anterior wedging of superior endplate of T6 and 1 mm cortical step-off along posterior wall. Minimally increased trabecular density adjacent superior endplate. LIMITED ABDOMEN: No suspicious findings. Limited images of the upper abdomen. OTHER: Negative. CT/CT thoracic spine wo con IMPRESSION: 1. Nondisplaced left fourth rib fracture with evidence of early bone healing. 2. Mild compression fracture of T6 (approximately 10%) suspected to be subacute to acute. No comparison studies. 3. No acute cardiopulmonary process. Mild chronic lung changes. Electronically authenticated by: LEILA HAYNES Date: 01/24/2024 12:07
[2024-01-24] MEDS: KETOROLAC TROMETHAMINE 30 MG/ML VIAL 15 MG IVP (11:23)
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
[2024-01-24 11:29] LABS: Basophils Absolute Auto 0.1 10^3/uL (0.0-0.1); Basophils Percent Auto 0.6 % (0.2-2.0); Eosinophils Absolute Auto 0.1 10^3/uL (0.0-0.7); Eosinophils Percent Auto 1.4 % (0.9-7.0); Hematocrit 43.1 % (36.0-48.0); Immature Granulocytes Abs Auto 0.05 10^3/uL (0.00-0.03); Immature Granulocytes Pct Auto 0.5 % (0.0-0.5); Lymphocytes Absolute Auto 1.2 10^3/uL (1.2-3.8); Lymphocytes Percent Auto 12.7 % (20.5-60.0); Mean Corpuscular HGB Conc 32.5 g/dL (29.9-35.2); Mean Corpuscular Hemoglobin 25.8 pg (26.7-34.0); Mean Corpuscular Volume 79.5 fL (81.0-99.0); Mean Platelet Volume 10.5 fL (9.5-13.5); Monocytes Absolute Auto 0.7 10^3/uL (0.3-0.8); Monocytes Percent Auto 7.6 % (1.7-12.0); Neutrophils Absolute Auto 7.5 10^3/uL (1.4-6.5); Neutrophils Percent Auto 77.2 % (43.0-75.0); Platelet Count 551 10^3/uL (150-450); Red Blood Count 5.42 10^6/uL (4.20-5.40); Red Cell Distribution Width 15.5 % (11.0-15.0); White Blood Count 9.7 10^3/uL (4.0-11.0)
[2024-01-24 12:07] LABS: Alanine Aminotransferase 22 U/L (14-59); Albumin Globulin Ratio 1.2; Albumin Level 4.1 g/dL (3.4-5.0); Alkaline Phosphatase 71 U/L (46-116); Anion Gap 10.5; Aspartate Amino Transferase 27 U/L (15-37); BUN Creatinine Ratio 26.2; Bilirubin Total 0.9 mg/dL (0.2-1.0); Calcium 9.5 mg/dL (8.5-10.1); Carbon Dioxide 29.5 mmol/L (21.0-32.0); Chloride 100 mmol/L (98-107); Estimated GFR (African America >60 (>=60); Estimated GFR (Non-African Ame >60 (>=60); Globulin 3.4 g/dL; Glucose 113 mg/dL (74-106); Sodium 136 mmol/L (136-145); Total Protein 7.5 g/dL (6.4-8.2)
[2024-01-24 12:47] VITALS: BP 138/88; PULSE 68; O2SAT 98
== END 2024-01-24 12:49 | disposition home or self-care (01) ==
PROVIDERS: Emergency Provider Emergency Medicine; PCP Internal Medicine
DX: S22.059A Unspecified fracture of T5-T6 vertebra, initial encounter for closed fracture (principal); S22.32XA Fracture of one rib, left side, initial encounter for closed fracture; X50.9XXA Other and unspecified overexertion or strenuous movements or postures, initial encounter
CPT/HCPCS: 36415; 71250; 72128; 80053; 85025; 96374; 99284; J1885

== ENCOUNTER 2024-06-27 09:14 | Outpatient (OUT) | payer MEDICARE, OTHER, SELFPAY ==
--- OUTSIDE RECORDS SUMMARY | 2024-06-27 09:17 | XMS_ITS | CCD ---
Author Organization [facility] Care Team Providers Care Marine Engineering Professor Name Role Phone SHAIKH BASSETT Primary Care Physician [phone] FAPHILLD, SIMEON H Primary Care Unavailable MISC, DR [...] Attending Unavailable MISC, DR PERAZA Attending Unavailable WEST, DR SULAIMAN Walker Consulting Unavailable MISC, DR PERAZA Admitting Unavailable FAWWAD, SIMEON H Primary Care Unavailable MISC, DR PERAZA Consulting Unavailable FAWWAD, SIMEON H Consulting Unavailable FAWWAD, SIMEON H Primary Care Unavailable FAWWAD, SIMEON H Admitting Unavailable FAWWAD, SIMEON H Attending Unavailable ZIEBER, DR HUMBERTO Malin Consulting Unavailable FAWWAD, SIMEON H Primary Care Unavailable FAWWAD, SIMEON H Admitting Unavailable FAWWAD, SIMEON H Attending Unavailable FAWWAD, SIMEON H Consulting Unavailable SALAM, GELLER Admitting Unavailable FAWWAD, SIMEON H Primary Care Unavailable SELINA, DUYEN Attending Unavailable DR HUMBERTO HEIN Consulting Unavailable DUYEN MARKS Consulting Unavailable BeatriswShaikh marino MD Primary Care Provider STEFANY WESTON Primary Care Physician Louise vailable Enrico MERRITT, Stefany Unavailable [phone] Unallocatana MENDOZA, Noms Provider Primary Care Provi mone Stefany Weston Primary Care Unavaila Yrai Herron Attending Unavailable Yari Voss Admitting Unavailable Johnson Herrera MD Primary Care Provider BRUNO TEJADA Attending Unavailable Enrico ARTIFICIAL FOLIAGE ARRANGER-C, Stefany Holbrook Primary Care Provid er Yari Voss APRN Attending Provider Darby, Brianna Lanie Attending Unavailable Darby, Brianna A Attending Unavailable Nghia Talbert. Attending Unavailable Darby, Brianna A Attending Unavailable Darby, Brianna A Admitting Unavailable Darby, Brianna A Referring Unavailable Darby, Brianna A Admitting Unavailable Darby, Brianna A Attending Unavailable JOHNSON HERRERA Attending Unavailable FASHAIKH MCDONALD Attending Unavailable FASHAIKH MCDONALD Attending Unavailable LUCA CHAVARRIA Attending Unavailable WESTON, STEFANY Attending Unavailabl e WESTON, STEFANY Attending Unavailabl e WESTON, STEFANY Attending Unavailabl e WESTON, STEFANY Referring Unavailabl e DIMPLEFRANCO Attending Unavailable WESTON, STEFANY Attending Unavailabl e Allergies Allergy Classification Reported Allergen(s) Allergy Type Date of Onset Reaction(s) Facility (11 sources) Meperidine; Translations: [meperidine] Drug Allergy 04-17-2014 Other (qualifier value) [facility] Medications Current Medications Medication Drug Class(es) Dates Sig (Normalized) Sig (Original) aspirin 81 mg delayed release oral tablet (2 sources) Platelet Aggregation Inhibitor, Nonsteroidal Anti-inflammatory Drug Start: 03-02-2022 Aspirin 81 mg Tab-EC Refills(s) 0 Start Date: 03/02/22 Status: Ordered Aspirin 81 mg Tab-EC (9 sources) Start: 03-02-2022 Aspirin 81 mg Tab-EC Refills(s) 0 Start Date: 03/02/22 Status: Ordered atenolol 25 mg oral tablet (20 sources) beta-Adrenergic John Start: 01-04-2017 End: 10-14-2024 take 1 tablet by mouth once daily atenolol (Tenormin) 25 MG tablet Indications: Primary hypertension (CMS/HCC) Take 1 tablet (25 mg) by mouth Daily 90 tablet 1 04/17/2024 10/14/2024 Active atorvastatin 20 mg oral tablet (20 sources) HMG-CoA Reductase Inhibitor Start: 10-18-2023 End: 10-14-2024 take 1 tablet by mouth once daily atorvastatin (Lipitor) 20 MG tablet Indications: Hyperlipidemia, unspecified hyperlipidemia type (CMS/HCC) Take 1 tablet (20 mg) by mouth Daily 90 tablet 1 04/17/2024 10/14/2024 Active Start: 01-04-2017 take 40 mg by mouth once daily Lipitor 40 mg, Oral, Daily, Refills(s) 0, High cholesterol Start Date: 01/04/17 Status: Ordered cefdinir 300 mg oral capsule (2 sources) Cephalosporin Antibacterial Start: 06-21-2024 End: 07-01-2024 take 1 capsule by mouth in the morning cefdinir (Omnicef) 300 MG capsule Indications: Acute non-recurrent pansinusitis Take 1 capsule (300 mg) by mouth in the morning and 1 capsule (300 mg) before bedtime. Do all this for 10 days. 20 capsule 06/21/2024 07/01/2024 Active cetirizine hydrochloride 10 mg oral tablet (13 sources) Histamine-1 Receptor Antagonist Start: 01-04-2017 take 10 mg by mouth once daily as needed Zyrtec 10 mg, Oral, Daily, PRN Allergy symptoms, Refills(s) 0 Start Date: 01/04/17 Status: Ordered hydroCHLOROthiazide 25 mg oral tablet (8 sources) Thiazide Diuretic Start: 01-04-2017 take 25 mg by mouth once daily hydrochlorothiazide 25 mg, Oral, Daily, Refills(s) 0, High blood pressure Start Date: 01/04/17 Status: Ordered 24 hr isosorbide mononitrate 30 mg extended release oral tablet (8 sources) Nitrate Vasodilator Start: 01-04-2017 take 30 mg by mouth once daily in the morning Imdur 30 mg, Oral, qAM, Refills(s) 0, High blood pressure Start Date: 01/04/17 Status: Ordered Thyroxine (8 sources) l-Thyroxine Start: 01-04-2017 levothyroxine 25 microgram, Oral, Daily, Refills(s) 0, Thyroid Start Date: 01/04/17 Status: Ordered Triiodothyronine (8 sources) l-Triiodothyronin e Start: 04-03-2019 liothyronine 25 microgram, Oral, Daily, Refills(s) 0, Thyroid Start Date: 04/03/19 Status: Ordered lisinopril 10 mg oral tablet (20 sources) Angiotensin Converting Enzyme Inhibitor Start: 10-18-2023 End: 10-14-2024 take 1 tablet by mouth once daily lisinopril 10 MG tablet Indications: Primary hypertension (CMS/HCC) Take 1 tablet (10 mg) by mouth Daily 90 tablet 1 04/17/2024 10/14/2024 Active Start: 03-30-2021 lisinopril Ora l, Daily, Refills(s) 0, High blood pressure Start Date: 03/30/21 Status: Ordered meloxicam 7.5 mg oral tablet (8 sources) Nonsteroidal Anti-inflammatory Drug Start: 03-30-2021 take 7.5 mg by mouth once daily meloxicam 7.5 mg, Oral, Daily, Refills(s) 0, Pain Start Date: 03/30/21 Status: Ordered methocarbamol 500 mg oral tablet (3 sources) Muscle Relaxant End: 01-17-2024 take 1 tablet by mouth three times daily as needed for muscle spasms methocarbamol (Robaxin) 500 MG tablet Take 500 mg by mouth 3 (three) times a day as needed for muscle spasms 01/17/2024 Discontinued (Therapy completed) pantoprazole 40 mg delayed release oral tablet (20 sources) Proton Pump Inhibitor Start: 10-18-2023 End: 10-14-2024 take 1 tablet by mouth before mealtime pantoprazole (ProtoNix) 40 MG EC tablet Indications: Gastroesophageal reflux disease without esophagitis Take 1 tablet (40 mg) by mouth in the morning. Take before meals. Do not crush, chew, or split.. 90 tablet 1 04/17/2024 10/14/2024 Active Start: 12-02-2019 take 1 tablet by michele th once daily pantoprazole 40 mg Oral EC Tab 40 mg = 1 tab(s), Oral, Daily, # 90 tab(s), Refills(s) 1, [facility]acy: [facility], 162, cm, 04/22/19 13:39:00 EST, Height/Length Measured, 72, kg, 04/22/19 13:39:00 EST, Weight Measured Start Date: 12/02/19 Status: Ordered Start: 12-02-2019 take 1 tablet by michele th once daily pantoprazole 40 mg Oral EC Tab 40 mg = 1 tab(s), Oral, Daily, # 90 tab(s), Refills(s) 1, [facility]: [facility], 162, cm, 04/22/19 13:39:00 EST, Height/Length Measured, 72, kg, 04/22/19 13:39:00 EST, Weight Measured Start Date: 12/02/19 Status: Ordered Miralax (8 sources) Osmotic Laxative Start: 01-04-2017 MiraLax 17 gram, Oral, BID, Refill(s) 0, Constipation Start Date: 01/04/17 Status: Ordered Klor-Con (8 sources) Start: 01-04-2017 Klor-Con 20 mEq, Oral, Daily, Refills(s) 0, Other (see comment) Start Date: 01/04/17 Status: Ordered predniSONE 50 mg oral tablet (2 sources) Start: 06-21-2024 End: 06-27-2024 take 1 tablet by mouth once daily predniSONE (Deltasone) 50 MG tablet Indications: Acute non-recurrent pansinusitis Take 1 tablet (50 mg) by mouth Daily for 6 days 6 tablet 06/21/2024 06/27/2024 Active spironolactone 25 mg oral tablet (8 sources) Aldosterone Antagonist Start: 01-04-2017 take 25 mg by mouth once daily spironolactone 25 mg, Oral, Daily, Refills(s) 0, High blood pressure Start Date: 01/04/17 Status: Ordered sucralfate 1000 mg oral tablet (20 sources) Aluminum Complex Start: 10-18-2023 End: 10-14-2024 take 1 tablet by mouth before mealtime sucralfate (Carafate) 1 g tablet Indications: Gastroesophageal reflux disease without esophagitis Take 1 tablet (1 g) by mouth in the morning and 1 tablet (1 g) in the evening. Take before meals. 180 tablet 1 04/17/2024 10/14/2024 Active Start: 03-01-2023 sucralfate 1 g Tab Refills(s) [...] Episodic Coronary atherosclerosis and other heart disease (14 sources) Coronary arteriosclerosis; Translations: [Atherosclerotic heart disease of [place] coronary artery without angina pectoris] Onset: 02-10-2014 04-10-2023 Chronic Disorders of lipid metabolism (19 sources) Hyperlipidemia, unspecified; Translations: [Hyperlipidemia] Onset: 11-26-2013 04-10-2023 Chronic Esophageal disorders (20 sources) Gastroesophageal reflux disease without esophagitis; Translations: [Gastro-esophageal reflux disease without esophagitis] Onset: 11-26-2013 Chronic Essential hypertension (20 sources) Essential (primary) hypertension; Translations: [Hypertensive disorder] Onset: 11-26-2013 04-10-2023 Chronic Gastroduodenal ulcer (except hemorrhage) (16 sources) Gastric erosion; Translations: [Gastric ulcer] Onset: 08-27-2021 05-04-2021 Chronic Other and unspecified benign neoplasm (19 sources) History of polyp of colon; Translations: [Personal history of colonic polyps] Onset: 12-01-2021 Episodic Other fractures (2 sources) Unspecified fracture of T5-T6 vertebra, initial encounter for closed fracture; Translations: [Closed fracture of dorsal [thoracic] vertebra without mention of spinal cord injury] Onset: 04-11-2024 04-11-2024 Episodic Other upper respiratory infections (4 sources) Acute pansinusitis; Translations: [Acute pansinusitis, unspecified] Onset: 06-21-2024 06-21-2024 Episodic Prolapse of female genital organs (2 sources) Cystocele; Translations: [Cystocele, unspecified] 02-21-2024 Chronic Residual codes; unclassified (1 source) Family history of malignant neoplasm of digestive organs; Translations: [FAM HX MALIG NEOPLASM DIGESTIV ORGN] Onset: 06-27-2022 Episodic Residual codes; unclassified (1 source) Family history of malignant neoplasm of trachea, bronchus and lung; Translations: [FAM HX MALIG NEOPLSM TRACH BRON LNG] Onset: 06-27-2022 Episodic Thyroid disorders (20 sources) Hypothyroidism; Translations: [Hypothyroidism, unspecified] Onset: 03-23-2022 03-20-2019 Chronic Unclassified (8 sources) Finding of sensation of abdomen 08-31-2022 Past or Other Problems Problem Classification Problem Date Documented Date Episodic/Chronic Fluid and electrolyte disorders (4 sources) Hypo-osmolality and hyponatremia; Translations: [HYPO-OSMOLALITY AND HYPONATREMIA] Onset: 08-24-2021 Episodic Inflammation; infection of eye (except that caused by tuberculosis or sexually transmitteddisease) (14 sources) Conjunctivitis of right eye caused by bacteria; Translations: [Unspecified conjunctivitis] Onset: 07-17-2023 Resolved: 06-21-2024 07-17-2023 Episodic Mood disorders (14 sources) Mood disorders Onset: 04-10-2023 04-10-2023 Other fractures (14 sources) Fracture of sixth thoracic vertebra; Translations: [Wedge compression fracture of T5-T6 vertebra, subsequent encounter for fracture with routine healing] Onset: 01-31-2024 01-31-2024 Episodic Other fractures (13 sources) Closed fracture of rib; Translations: [Fracture of one rib, unspecified side, initial encounter for closed fracture] Onset: 01-31-2024 Resolved: 06-21-2024 01-31-2024 Episodic Other fractures (14 sources) Closed fracture of two ribs; Translations: [Multiple fractures of ribs, left side, subsequent encounter for fracture with routine healing] Onset: 12-13-2023 Resolved: 06-21-2024 12-13-2023 Episodic Other screening for suspected conditions (not mental disorders or infectious disease) (20 sources) Encounter for screening mammogram for malignant neoplasm of breast; Translations: [Patient encounter status] Onset: 06-23-2022 Episodic Otitis media and related conditions (14 sources) Bilateral suppurative otitis media ; Translations: [Suppurative otitis media, unspecified, bilateral] Onset: 04-10-2023 Resolved: 06-21-2024 04-10-2023 Episodic Results Test Name Value Interpretation Reference Range Facility Patient Letter FTon 2024 Patient Letter [facility] Patient Letter [facility] May 08, 2024 TOÑITO PUTNAM [address] [place] [phone] : 1945 Dear Toñito, This is a reminder that you are due for an appointment with [facility]. Please contact our office at [phone] to schedule an appointment at your earliest convenience. Thank you, [facility] Normal [facility] 04-30-2024 36 Thanks for the update. Normal [facility] 3604-26-2024 36 Would like to see he r BP <130s/90s. Recommend increasing lisinopril to 20mg daily with follow-up BMP in 2 weeks. Thank you [facility] XR thoracic spine 2Von 04-11 XR thoracic spine 2V [place] [facility] [place] [address] [place] [address] XRay Report Signed Patient: Toñito Putnam MR#: [id number] 3 : 1945 Acct:[id number] Age/Sex: 78 / F ADM Date: 04/11/24 Loc: XD Room: Type: [facility] Attending Dr: Yari Voss APRN Copies to: Yari Voss APRN Ordering Provider: Yari Voss APRN Date of Service: 04/11/24 XR/XR thoracic spine 2V: S22.059A - Unspecified fracture of T5-T6 vertebra, initia... THORACIC SPINE - - 2 views CLINICAL HISTORY: Follow-up T5/6 fracture. COMPARISON: CT thoracic spine 01/24/2024 FINDINGS: Patient's known T6 fracture is grossly unchanged when compared to the prior CT study. No new vertebral body height loss is noted. Pedicles appear intact. XR/XR thoracic spine 2V IMPRESSION: NO SIGNIFICANT CHANGE IN T6 FRACTURE FINDINGS. Impression dictated by: Reji Aleman Jr., DMichealOMicheal04/11/2024 3:37 PM Dictation Location: [facility]- Transcribed By: [facility] 04/11/241536 Dictated By: Reji Aleman Jr, DO 04/11/241535 Signed By: 04/11/241536 Normal [facility] Office Visiton 04-10-2024 Follow-up visit [id number] Toñito Putnam Ana 1945 F Date Provider Department Center 04/10/2024 BRUNO DONAHUE CARD [facility] Family History Problem Relation Age of Onset Coronary artery disease Sister 62 Comments: Passed age 62 Coronary artery disease Brother 58 Cancer Other Coronary artery disease Other Family Status - Relation Status Age at Sister Brother Other Level of Service:[address] [place] OFFICE/OUTPATIENT ESTABLISHED LOW [facility] 20 MIN Reason for Visit and Comments: Hypertension [092591] Hyperlipidemia [182] Coronary Artery Disease [187] Normal [facility] DEXA BONE DENSITYon 02-06-20 DEXA BONE DENSITY Examination: DEXA BAILEY NE DENSITY Clinical History: screening for osteoporosis COMPARISON: None Technique: Bone density study was performed. T score values for the lumbar spine, right femoral neck and left femoral neck were obtained. Findings: Value for the lumbar spine from L1-L4 is -0.4. Value for the right femoral neck is -0.5. Value for the left femoral neck is -0.1. Values are within normal limits. No evidence of osteoporosis or osteopenia. No evidence of increased fracture risk. IMPRESSION: Impression: Unremarkable bone density study as described. ELECTRONICALLY SIGNED BY: Javed Navarrete M.D. Normal Not Available US Abdomen, Limitedon 2023 US Abdomen, Limited [...] Cordell Zeng MD Transcribed by: PAMELA Technologist: [facility] Consent for Treatmenton 05 Consent for Treatment [id number]#[id number] [facility] Ambulatory Visit Summaryon 0 08-29-2023 Ambulatory Visit Summary TOÑITO PUTNAM :1945 Visit Date:08/29/2023 Ambulatory Visit Instructions Your Diagnosis Abdominal cramping Acid reflux History of colon polyps Your Care Team Attending Physician - Brianna Pastor CNP Primary Care Physician - SHAIKH BASSETT MD This Is Your Medications List Contact [...] Appointments Monday 9:00 AM EDT With: Where: [facility] Monday 9:20 AM EDT With: Brianna Pastor CNP Where: [facility] Normal [facility] CHEMISTRYOrdered By: SYSTEM SYSTEM on 08-29-2023 Cobalamin (Vitamin B12) [Mass/Vol] 281 pg/mL Normal 50 - 1500 pg/mL Remisol Chem Magnesium [Mass/Vol] 1.8 mg/dL Normal 1.3 - 2.4 mg/dL Remisol Chem Consent for Treatmenton 08-01 Consent for Treatment [id number] Normal [facility] Gastroenterology Office/Clin ic Noteon 08-29-2023 Gastroenterology [...] Substance Abu (more content not included)... Normal [facility] Comment on above: Result Comment: Elec tronically Signed By: Brianna Pastor CNP\.br\Date and Time Signed: 08/29/23 09:35 EDT Magnesiumon 08-29-2023 Magnesium [Mass/Vol] 1.8 mg/dL Normal 1.3-2.4 [facility] Comment on above: Performed By: #### 2 [id number], [id number] #### [facility] [address] [place] [address] Patient Educationon 08-29-19 Patient Education Gastroenterology Food [...] grapefruit, pineapple, and dali. Vegetables Deep-fried vegetables. Spanish fries. Any vegetables prepared with added fat. [...] reflux di (more content not included)... Normal [facility] Vit B12on 08-29-2023 Cobalamin (Vitamin B12) [Mass/Vol] 281 pg/mL Normal 50-1500 [facility] Comment on above: Performed By: #### 2 [id number], [id number] #### [facility] [address] [place] [address] CHEMISTRYOrdered By: SYSTEM SYSTEM on 08-31-2022 Anion [...] 76 mL/min/1.73 m2 Normal >=59mL/min/ 1.73 m2 [facility] Chem S Glucose [Mass/Vol] 108 mg/dL Normal [...] mg/mg Normal 10 - 20 [facility] Remisol MG MAMM SCREEN 3D NIKKI CADon 06-23-2022 MG MAMM SCREEN 3D NIKKI CAD Patient: TOÑITO PUTNAM Exam Date: 06/23/2022 : 1945 Gender:F Ordering : SHAIKH Shahida BASSETT . Admission #: [id number] Family : Order #: [id number] CLICK HERE TO VIEW EXAM RADIOLOGY REPORT [...] lung cancer at age 61. LOCATION: [facility] BREAST COMPOSITION: Scattered areas fibroglandular density. [...] M.D. on 06/23/2022 at 14:21 Normal [facility] CBC AUTO DIFFon 03-23-2022 BASO # 0.1 103/ul Normal 0.0-0.1 [facility] Comment on above: Performed By: #### C BC #### [facility] [address] [address] [address] Jelly Lozada Basophils/100 WBC (Bld) 1.1 % Normal 0.2-2.0 [facility] Comment on above: Performed By: #### C BC #### [facility] [address] [address] [address] Jelly Lozada EO # 0.1 103/ul Normal 0.0-0.7 [facility] Comment on above: Performed By: #### C BC #### [facility] [address] [address] [address] Jelly Lozada Eosinophils/100 WBC (Bld) 1.7 % Normal 0.9-7.0 [facility] Comment on above: Performed By: #### C BC #### [facility] [address] [address] [address] Jelly Lozada Erythrocyte distribution width (RBC) [Ratio] 14.6 % Normal 11.0-15.0 [facility] Comment on above: Performed By: #### C BC #### [facility] [address] [place] [address] Dr. Jelly Lozada Hematocrit (Bld) [Volume fraction] 41.6 % Normal 36.0-48.0 [facility] Comment on above: Performed By: #### C BC #### [facility] [address] [place] [address] Dr. Jelly Lozada Hemoglobin (Bld) [Mass/Vol] 13.4 g/dL Normal 12.0-16.0 [facility] Comment on above: Performed By: #### C BC #### [facility] [address] [place] [address] Dr. Jelly Lozada IG # 0.03 10e3/ul Normal 0.00-0.03 [facility] Comment on above: Performed By: #### C BC #### [facility] [address] [place] [address] Dr. Jelly Lozada IG % 0.4 % Normal 0.0-0.5 [facility] Comment on above: Performed By: #### C BC #### [facility] [address] [place] [address] Dr. Jelly Lozada LYMPH # 1.6 103/ul Normal 1.2-3.8 [facility] Comment on above: Performed By: #### C BC #### [facility] [address] [place] [address] Dr. Jelly Lozada Lymphocytes/100 WBC (Bld) 23.2 % Normal 20.5-60.0 [facility] Comment on above: Performed By: #### C BC #### [facility] [address] [place] [address] Dr. Jelly Lozada MANUAL DIFF REQ NO Normal [facility] Comment on above: Performed By: #### C BC #### [facility] [address] [place] [address] Dr. Jelly Lozada MCH (RBC) [Entitic mass] 25.6 pg Critically low 26.7-34.0 [facility] Comment on above: Performed By: #### C BC #### [facility] [address] [place] [address] Dr. Jelly Lozada MCHC (RBC) [Mass/Vol] 32.2 g/dL Normal 29.9-35.2 [facility] Comment on above: Performed By: #### C BC #### [facility] [address] [place] [address] Dr. Jelly Lozada MCV (RBC) [Entitic vol] 79.5 fL Critically low 81.0-99.0 [facility] Comment on above: Performed By: #### C BC #### [facility] [address] [place] [address] Dr. Jelly Lozada MONO # 0.6 103/ul Normal 0.3-0.8 [facility] Comment on above: Performed By: #### C BC #### [facility] [address] [place] [address] Dr. Jelly Lozada Monocytes/100 WBC (Bld) 8.0 % Normal 1.7-12.0 [facility] Comment on above: Performed By: #### C BC #### [facility] [address] [place] [address] Dr. Jelly Lozada NEUT # 4.6 103/ul Normal 1.4-6.5 [facility] Comment on above: Performed By: #### C BC #### [facility] [address] [place] [address] Dr. Jelly Lozada Neutrophils/100 WBC (Bld) 65.6 % Normal 43.0-75.0 [facility] Comment on above: Performed By: #### C BC #### [facility] [address] [place] [address] Dr. Jelly Lozada Platelet mean volume (Bld) [Entitic vol] 10.6 fL Normal 9.5-13.5 [facility] Comment on above: Performed By: #### C BC #### [facility] [address] [address] [address] Jelly Lozada PLT 407 103/ul Normal 150-450 [facility] Comment on above: Performed By: #### C BC #### [facility] [address] [address] [address] Jelly Lozada RBC 5.23 106/ul Normal 4.20-5.40 [facility] Comment on above: Performed By: #### C BC #### [facility] [address] [address] [address] Jelly Lozada WBC 7.0 103/ul Normal 4.0-11.0 [facility] Comment on above: Performed By: #### C BC #### [facility] [address] [place] [address] Dr. Jelly Lozada LIPID PROFILEon 03-23-2022 CHOL-HDL RATIO NORM SEE BELOW Normal [facility] Comment on above: Result Comment: 3.3 - 4.4 LOW RISK 4.4 - 7.1 AVERAGE RISK 7.1 - 11.0 MODERATE RISK >11.0 HIGH RISK Performed By: #### T SH, CMP, LIPID #### [facility] [address] [place] [address] Dr. Jelly Lozada Cholesterol [Mass/Vol] 157 mg/dL Normal <=200 [facility] Comment on above: Performed By: #### T SH, CMP, LIPID #### [facility] [address] [place] [address] Dr. Jelly Lozada Cholesterol in HDL [Mass/Vol] 52 mg/dL Normal 40-60 [facility] Comment on above: Performed By: #### T SH, CMP, LIPID #### [facility] [address] [address] [address] Jelly Lozada Cholesterol in LDL [Mass/Vol] 67.0 mg/dL Normal [facility] Comment on above: Performed By: #### T SH, CMP, LIPID #### [facility] [address] [place] [address] Dr. Jelly Lozada Cholesterol.total/ Cholesterol in HDL [Mass ratio] 3.0 {ratio} Normal [facility] Comment on above: Performed By: #### T SH, CMP, LIPID #### [facility] [address] [address] [address] Jelly Lozada HDL NORMAL > or = 60 mg/dl - LO W CARDIOVASCULAR RISK <40 mg/dl - HIGH CARDIOVASCULAR RISK Normal [facility] Comment on above: Performed By: #### T SH, CMP, LIPID #### [facility] [address] [address] [address] Jelly Lozada LDL CALC NORMAL SEE BELOW Normal [facility] Comment on above: Result Comment: <100 mg/dl OPTIMAL 100 - 129 mg/dl NEAR OR ABOVE OPTIMAL 130 - 159 mg/dl BORDERLINE HIGH 160 - 189 mg/dl HIGH >190 mg/dl VERY HIGH Performed By: #### T SH, CMP, LIPID #### [facility] [address] [address] [address] Jelly Lozada Triglyceride [Mass/Vol] 190 mg/dL Critically high <=150 [facility] Comment on above: Performed By: #### T SH, CMP, LIPID #### [facility] [address] [address] [address] Jelly Lozada VLDL CALC 38.0 mg/dL Normal [facility] Comment on above: Performed By: #### T SH, CMP, LIPID #### [facility] [address] [address] [address] Jelly Lozada PROF 14(COMP METB)on 022 Albumin [Mass/Vol] 4.1 g/dL Normal 3.4-5.0 [facility] [place] [facility] Comment on above: Performed By: #### T SH, CMP, LIPID #### [facility] [address] [address] [address] Jelly Lozada Albumin/Globulin [Mass ratio] 1.3 {ratio} Normal [facility] Comment on above: Performed By: #### T SH, CMP, LIPID #### [facility] [address] [address] [address] Jelly Lozada ALP [Catalytic activity/Vol] 80 U/L Normal 46-116 [facility] Comment on above: Performed By: #### T SH, CMP, LIPID #### [facility] [address] [address] [address] Jelly Lozada ALT [Catalytic activity/Vol] 18 U/L Normal 14-59 [facility] Comment on above: Performed By: #### T SH, CMP, LIPID #### [facility] [address] [address] [address] Jelly Lozada Anion gap [Moles/Vol] 12.2 mmol/L Normal [facility] Comment on above: Performed By: #### T SH, CMP, LIPID #### [facility] [address] [address] [address] Jelly Lozada AST [Catalytic activity/Vol] 20 U/L Normal 15-37 [facility] Comment on above: Performed By: #### T SH, CMP, LIPID #### [facility] [address] [address] [address] Jelly Lozada Bilirubin [Mass/Vol] 0.6 mg/dL Normal 0.2-1.0 [facility] Comment on above: Performed By: #### T SH, CMP, LIPID #### [facility] [address] [address] [address] Jelly Lozada Calcium [Mass/Vol] 9.5 mg/dL Normal 8.5-10.1 [facility] [place] [facility] Comment on above: Performed By: #### T SH, CMP, LIPID #### [facility] [address] [address] [address] Jelly Lozada Chloride [Moles/Vol] 101 mmol/L Normal 98-107 [facility] Comment on above: Performed By: #### T SH, CMP, LIPID #### [facility] [address] [address] [address] Jelly Lozada CO2 [Moles/Vol] 29.9 mmol/L Normal 21.0-32.[address] [facility] Comment on above: Performed By: #### T SH, CMP, LIPID #### [facility] [address] [address] [address] Jelly Lozada Creatinine [Mass/Vol] 0.71 mg/dL Normal 0.55-1.02 [facility] Comment on above: Performed By: #### T SH, CMP, LIPID #### [facility] [address] [address] [address] Jelly Lozada EGFR-AF FILIPINO >60 Normal >=[address] [facility] Comment on above: Performed By: #### T SH, CMP, LIPID #### [facility] [address] [address] [address] Jelly Lozada EGFR-NON AF FILIPINO >60 Normal >=60 [facility] Comment on above: Performed By: #### T SH, CMP, LIPID #### [facility] [address] [address] [address] Jelly Lozada Globulin (S) [Mass/Vol] 3.2 g/dL Normal [facility] Comment on above: Performed By: #### T SH, CMP, LIPID #### [facility] [address] [place] [address] Dr. Jelly Lozada Glucose [Mass/Vol] 92 mg/dL Normal 74-106 [facility] [place] [facility] Comment on above: Performed By: #### T SH, CMP, LIPID #### [facility] [address] [address] [address] Jelly Lozada Potassium [Moles/Vol] 4.1 mmol/L Normal 3.5-5.1 [facility] Comment on above: Performed By: #### T SH, CMP, LIPID #### [facility] [address] [address] [address] Jelly Lozada Protein [Mass/Vol] 7.3 g/dL Normal 6.4-8.2 [facility] Comment on above: Performed By: #### T SH, CMP, LIPID #### [facility] [address] [address] [address] Jelly Lozada Sodium [Moles/Vol] 139 mmol/L Normal 136-145 [facility] [place] [facility] Comment on above: Performed By: #### T SH, CMP, LIPID #### [facility] [address] [address] [address] Jelly Lozada Urea nitrogen [Mass/Vol] 8.0 mg/dL Normal 7.0-18.0 [facility] Comment on above: Performed By: #### T SH, CMP, LIPID #### [facility] [address] [address] [address] Jelly Lozada Urea nitrogen/Creatinin e [Mass ratio] 11.3 mg/mg Normal [facility] Comment on above: Performed By: #### T SH CMP, LIPID #### [facility] [id number] Jelly Lozada TSHon 03-23-2022 TSH 3.522 uIU/mL Normal 0.358-3.740 [facility] Comment on above: Performed By: #### T WINDY CMP, LIPID #### [facility] [address] [place] [address] Dr. Jelly Lozada US Caitlin 03-15-2022 US [...] SULAIMAN MARTIN Date: 2022-03-15 09:26 Normal [facility] CBC AUTO DIFFon 12-06-2021 BASO # 0.1 103/ul Normal 0.0-0.1 [facility] Comment on above: Performed By: #### C BC ####[facility] [address] [address]Dr. Jelly Lozada Basophils/100 WBC (Bld) 1.1 % Normal 0.2-2.0 [facility] Comment on above: Performed By: #### C BC ####[facility] [address] [address]Dr. Jelly Lozada EO # 0.1 103/ul Normal 0.0-0.7 [facility] Comment on above: Performed By: #### C BC ####[facility] [address] [place], [place] [address]Dr. Jelly Lozada Eosinophils/100 WBC (Bld) 1.9 % Normal 0.9-7.0 [facility] Comment on above: Performed By: #### C BC ####[facility] [address] [place], [place] [address]Dr. Jelly Lozada Erythrocyte distribution width (RBC) [Ratio] 14.8 % Normal 11.0-15.0 [facility] Comment on above: Performed By: #### C BC ####[facility] [address] [place], [place] [address]Dr. Jelly Lozada Hematocrit (Bld) [Volume fraction] 39.1 % Normal 36.0-48.0 [facility] Comment on above: Performed By: #### C BC ####[facility] [address] [place], [place] [address]Dr. Jelly Lozada Hemoglobin (Bld) [Mass/Vol] 12.5 g/dL Normal 12.0-16.0 [facility] Comment on above: Performed By: #### C BC ####[facility] [address] [place], [place] [address]Dr. Jelly Lozada IG # 0.03 10e3/ul Normal 0.00-0.03 [facility] Comment on above: Performed By: #### C BC ####[facility] [address] [place], [place] [address]Dr. Jelly Lozada IG % 0.5 % Normal 0.0-0.5 [facility] Comment on above: Performed By: #### C BC ####[facility] [address] [place], [place] [address]Dr. Coconoel Lozada LYMPH # 1.6 103/ul Normal 1.2-3.8 [facility] Comment on above: Performed By: #### C BC ####[facility] [address] [address]Dr. Jelly Neville Lymphocytes/100 WBC (Bld) 24.8 % Normal 20.5-60.0 [facility] Comment on above: Performed By: #### C BC ####[facility] [address] [address]Dr. Coconoel Lozada MANUAL DIFF REQ NO Normal [facility] Comment on above: Performed By: #### C BC ####[facility] [address] [address]Dr. Jelly Neville MCH (RBC) [Entitic mass] 25.4 pg Critically low 26.7-34.0 [facility] Comment on above: Performed By: #### C BC ####[facility] [address] [place], [place] [address]Dr. Jelly [address]ille MCHC (RBC) [Mass/Vol] 32.0 g/dL Normal 29.9-35.2 [facility] Comment on above: Performed By: #### C BC ####[facility] [address] [address]Dr. Coconoel Lozada MCV (RBC) [Entitic vol] 79.5 fL Critically low 81.0-99.0 [facility] Comment on above: Performed By: #### C BC ####[facility] [address] [place], [place] [address]Dr. Jelly Lozada MONO # 0.6 103/ul Normal 0.3-0.8 [facility] Comment on above: Performed By: #### C BC ####[facility] [address] [address]Dr. Coconoel Lozada Monocytes/100 WBC (Bld) 9.1 % Normal 1.7-12.0 [facility] Comment on above: Performed By: #### C BC ####[facility] [address] [place], [place] [address]Dr. Jelly Lozada NEUT # 3.9 103/ul Normal 1.4-6.5 [facility] Comment on above: Performed By: #### C BC ####[facility] [address] [address]Dr. Jelly Lozada Neutrophils/100 WBC (Bld) 62.6 % Normal 43.0-75.0 [facility] Comment on above: Performed By: #### C BC ####[facility] [address] [address]Dr. Jelly Lozada Platelet mean volume (Bld) [Entitic vol] 10.1 fL Normal 9.5-13.5 [facility] Comment on above: Performed By: #### C BC ####[facility] [address] [address]Dr. Jelly Lozada PLT 421 103/ul Normal 150-450 [facility] Comment on above: Performed By: #### C BC ####[facility] [address] [address]Dr. Jelly Lozada RBC 4.92 106/ul Normal 4.20-5.40 [facility] Comment on above: Performed By: #### C BC ####[facility] [address] [address]DrMicheal Lozada WBC 6.3 103/ul Normal 4.0-11.0 [facility] Comment on above: Performed By: #### C BC ####[facility] [address] [address]DrMicheal Lozada PROF 14(COMP METB)on 022 Albumin [Mass/Vol] 4.0 g/dL Normal 3.4-5.0 [facility] Comment on above: Performed By: #### C MP #### [facility] [address] [address] [address] Jelly Lozada Albumin/Globulin [Mass ratio] 1.4 {ratio} Normal [facility] Comment on above: Performed By: #### C MP #### [facility] [address] [address] [address] Jelly Lozada ALP [Catalytic activity/Vol] 99 U/L Normal 46-116 [facility] Comment on above: Performed By: #### C MP #### [facility] [address] [address] [address] Jelly Lozada ALT [Catalytic activity/Vol] 20 U/L Normal 14-59 [facility] Comment on above: Performed By: #### C MP #### [facility] [address] [place] [address] Dr. Jelly Lozada Anion gap [Moles/Vol] 13.7 mmol/L Normal [facility] Comment on above: Performed By: #### C MP #### [facility] [address] [address] [address] Jelly Lozada AST [Catalytic activity/Vol] 18 U/L Normal 15-37 [facility] Comment on above: Performed By: #### C MP #### [facility] [address] [place] [address] Dr. Jelly Lozada Bilirubin [Mass/Vol] 0.7 mg/dL Normal 0.2-1.0 [facility] Comment on above: Performed By: #### C MP #### [facility] [address] [place] [address] Dr. Jelly Lozada Calcium [Mass/Vol] 8.9 mg/dL Normal 8.5-10.1 [facility] Comment on above: Performed By: #### C MP #### [facility] [address] [place] [address] Dr. Jelly Lozada Chloride [Moles/Vol] 102 mmol/L Normal 98-107 [facility] Comment on above: Performed By: #### C MP #### [facility] [address] [place] [address] Dr. Jelly Lozada CO2 [Moles/Vol] 26.8 mmol/L Normal 21.0-32.0 [facility] Comment on above: Performed By: #### C MP #### [facility] [address] [place] [address] Dr. Jelly Lozada Creatinine [Mass/Vol] 0.74 mg/dL Normal 0.55-1.02 [facility] Comment on above: Performed By: #### C MP #### [facility] [address] [place] [address] Dr. Jelly Lozada EGFR-AF FILIPINO >60 Normal >=[address] [facility] Comment on above: Performed By: #### C MP #### [facility] [address] [address] [address] Jelly Lozada EGFR-NON AF FILIPINO >60 Normal >=60 [facility] Comment on above: Performed By: #### C MP #### [facility] [address] [address] [address] Jelly Lozada Globulin (S) [Mass/Vol] 2.9 g/dL Normal [facility] Comment on above: Performed By: #### C MP #### [facility] [address] [address] [address] Jelly Lozada Glucose [Mass/Vol] 114 mg/dL Critically high 74-106 [facility] Comment on above: Performed By: #### C MP #### [facility] [address] [address] [address] Jelly Lozada Potassium [Moles/Vol] 3.5 mmol/L Normal 3.5-5.1 [facility] Comment on above: Performed By: #### C MP #### [facility] [address] [address] [address] Jelly Lozada Protein [Mass/Vol] 6.9 g/dL Normal 6.4-8.2 [facility] Comment on above: Performed By: #### C MP #### [facility] [address] [address] [address] Jelly Lozada Sodium [Moles/Vol] 139 mmol/L Normal 136-145 [facility] Comment on above: Performed By: #### C MP #### [facility] [address] [address] [address] Jelly Lozada Urea nitrogen [Mass/Vol] 9.0 mg/dL Normal 7.0-18.0 [facility] Comment on above: Performed By: #### C MP #### [facility] [address] [address] [address] Jelly Lozada Urea nitrogen/Creatinin e [Mass ratio] 12.2 mg/mg Normal [facility] Comment on above: Performed By: #### C MP #### [facility] [address] [place], [place] [address] Dr. Jelly Lozada TSHon 12-06-2021 TSH 3.217 uIU/mL Normal 0.358-3.740 [facility] Comment on above: Performed By: #### T SH #### [facility] [address] [address] [address] Jelly Lozada CREATININEon 08-26-2021 Creatinine [Mass/Vol] 0.70 mg/dL Normal 0.55-1.02 [facility] Comment on above: Performed By: #### C CHANDLER ####[facility] [address] [address]Dr. Jelly Lozada EGFR-AF FILIPINO >60 Normal >=[address] [facility] Comment on above: Performed By: #### C CHANDLER ####[facility] [address] [address]Dr. Jelly Lozada EGFR-NON AF FILIPINO >60 Normal >=60 [facility] Comment on above: Performed By: #### C CHANDLER ####[facility] [id number]. Jelly Lozada CT ABD/PELV W CONon 08-27-19 [...] by: HUMBERTO HEIN Date: 2021-08-26 10:08 Normal [facility] PROF CHEM 8 (BAS METB)on Anion gap [Moles/Vol] 13.6 mmol/L Normal [facility] Comment on above: Performed By: #### B MP #### [facility] [address] [address] [address] Jelly Lozada Calcium [Mass/Vol] 8.8 mg/dL Normal 8.5-10.1 [facility] Comment on above: Performed By: #### B MP #### [facility] [address] [address] [address] Jelly Lozada Chloride [Moles/Vol] 100 mmol/L Normal 98-107 [facility] Comment on above: Performed By: #### B MP #### [facility] [address] [address] [address] Jelly Lozada CO2 [Moles/Vol] 28.2 mmol/L Normal 21.0-32.[address] [facility] Comment on above: Performed By: #### B MP #### [facility] [address] [address] [address] Jelly Lozada Creatinine [Mass/Vol] 0.74 mg/dL Normal 0.55-1.02 [facility] Comment on above: Performed By: #### B MP #### [facility] [address] [address] [address] Jelly Lozada EGFR-AF FILIPINO >60 Normal >=60 [facility] Comment on above: Performed By: #### B MP #### [facility] [address] [address] [address] Jelly Lozada EGFR-NON AF FILIPINO >60 Normal >=60 [facility] Comment on above: Performed By: #### B MP #### [facility] [address] [address] [address] Jelly Lozada Glucose [Mass/Vol] 98 mg/dL Normal 74-106 [facility] Comment on above: Performed By: #### B MP #### [facility] [address] [address] [address] Jelly Lozada Potassium [Moles/Vol] 3.8 mmol/L Normal 3.5-5.1 [facility] Comment on above: Performed By: #### B MP #### [facility] [address] [address] [address] Jelly Lozada Sodium [Moles/Vol] 138 mmol/L Normal 136-145 [facility] [place] [facility] Comment on above: Performed By: #### B MP #### [facility] [address] [address] [address] Jelly Lozada Urea nitrogen [Mass/Vol] 6.0 mg/dL Critically low 7.0-18.0 [facility] Comment on above: Performed By: #### B MP #### [facility] [address] [address] [address] Jelly Lozada Urea nitrogen/Creatinin e [Mass ratio] 8.1 mg/mg Normal [facility] Comment on above: Performed By: #### B MP #### [facility] [address] [address] [address] Jelly Lozada Vital Signs Date Time Vital Sign Value Performing Clinician Facility 06-21-2024 09:28-0500 Body height 162.6 cm Johnson Herrera MD Work Phone: [facility] 06-21-2024 09:28-0500 Body mass index (BMI) [Ratio] 27.98 kg/m2 Johnson Herrera MD Work Phone: [facility] 06-21-2024 09:28-0500 Body temperature 97.3 [degF] Johnson Herrera MD Work Phone: [facility] 06-21-2024 09:28-0500 Body weight 73.94 kg Johnson Herrera MD Work Phone: [facility] 06-21-2024 09:28-0500 Diastolic blood pressure 70 mm[Hg] Johnson Herrera MD Work Phone: [facility] 06-21-2024 09:28-0500 Heart rate 62 /min Johnson Herrera MD Work Phone: [facility] 06-21-2024 09:28-0500 Respiratory rate 22 /min Johnson Herrera MD Work Phone: [facility] 06-21-2024 09:28-0500 SaO2% (BldA) [Mass fraction] 97 % Johnson Herrera MD Work Phone: [facility] 06-21-2024 09:28-0500 Systolic blood pressure 126 mm[Hg] Johnson Herrera MD Work Phone: [facility] 05-09-2024 10:39-0500 Body height 162.56 cm Stefany Weston [employer] Work Phone: [facility] 05-09-2024 10:39-0500 Body mass index (BMI) [Ratio] 27.5 kg/m2 Stefany Weston [employer] Work Phone: [facility] 05-09-2024 10:39-0500 Body weight 72.74 kg Stefany Weston [employer] Work Phone: [facility] 04-17-2024 07:57-0500 Body height 162.6 cm Stefany Weston [employer] Work Phone: [facility] 04-17-2024 07:57-0500 Body mass index (BMI) [Ratio] 27.84 kg/m2 Stefany Weston [employer] Work Phone: [facility] 04-17-2024 07:57-0500 Body temperature 97.3 [degF] Stefany Weston [employer] Work Phone: [facility] 04-17-2024 07:57-0500 Body weight 73.57 kg Stefany Weston [employer] Work Phone: [facility] 04-17-2024 07:57-0500 Diastolic blood pressure 74 mm[Hg] Stefany Weston [employer] Work Phone: [facility] 04-17-2024 07:57-0500 Heart rate 57 /min Stefany Weston [employer] Work Phone: [facility] 04-17-2024 07:57-0500 Respiratory rate 16 /min Stefany Weston [employer] Work Phone: [facility] 04-17-2024 07:57-0500 SaO2% (BldA) [Mass fraction] 99 % Stefany Weston [employer] Work Phone: [facility] 04-17-2024 07:57-0500 Systolic blood pressure 126 mm[Hg] Stefany Weston [employer] Work Phone: [facility] 04-11-2024 09:34-0500 Body weight 73.02 kg Stefany Gaopatrick [employer] Work Phone: [facility] 02-21-2024 12:56-0400 Body height 162.6 cm Franco Dimple DO Work Phone: [facility] 02-21-2024 12:56-0400 Body mass index (BMI) [Ratio] 26.95 kg/m2 Franco Dimple DO Work Phone: [facility] 02-21-2024 12:56-0400 Body weight 71.22 kg Franco Dimple DO Work Phone: [facility] 02-21-2024 12:56-0400 Diastolic blood pressure 70 mm[Hg] Franco Dimple DO Work Phone: [facility] 02-21-2024 12:56-0400 Systolic blood pressure 120 mm[Hg] Franco Dimple DO Work Phone: [facility] 01-31-2024 13:43-0400 Body mass index (BMI) [Ratio] 28.49 kg/m2 Stefany Weston [employer] Work Phone: [facility] 01-31-2024 13:43-0400 Body temperature 97.81 [degF] Stefany Weston [employer] Work Phone: [facility] 01-31-2024 13:43-0400 Body weight 75.3 kg Stefany Weston [employer] Work Phone: [facility] 01-31-2024 13:43-0400 Diastolic blood pressure 64 mm[Hg] Stefany Weston [employer] Work Phone: [facility] 01-31-2024 13:43-0400 Heart rate 69 /min Stefany Weston [employer] Work Phone: [facility] 01-31-2024 13:43-0400 Respiratory rate 17 /min Stefany Weston [employer] ARRANGER Work Phone: [facility] 01-31-2024 13:43-0400 SaO2% (BldA) [Mass fraction] 99 % Stefany Weston [employer]IFIC[employer]AGE ARRANGER Work Phone: [facility] 01-31-2024 13:43-0400 Systolic blood pressure 122 mm[Hg] Stefany Weston [employer] ARRANGER Work Phone: [facility] 01-17-2024 08:12-0400 Body height 162.6 cm Stefany Weston [employer]AGE ARRANGER Work Phone: [facility] 01-17-2024 08:12-0400 Body mass index (BMI) [Ratio] 27.12 kg/m2 Stefany Weston [employer] ARRANGER Work Phone: [facility] 01-17-2024 08:12-0400 Body temperature 97.11 [degF] Stefany Weston [employer] ARRANGER Work Phone: [facility] 01-17-2024 08:12-0400 Body weight 71.67 kg Stefany Weston [employer] ARRANGER Work Phone: [facility] 01-17-2024 08:12-0400 Diastolic blood pressure 80 mm[Hg] Stefany Weston [employer] ARRANGER Work Phone: [facility] 01-17-2024 08:12-0400 Heart rate 59 /min Stefany Weston [employer] ARRANGER Work Phone: [facility] Comment on above: 94% O2 01-17-2024 08:12-0400 Systolic blood pressure 124 mm[Hg] Stefany Weston [employer] ARRANGER Work Phone: [facility] 08-29-2023 09:10-0400 Blood Pressure Location Brianna Darby [facility] 08-29-2023 09:10-0400 Body temperature 97.7 [degF] Brianna Darby [facility] 08-29-2023 09:10-0400 Diastolic blood pressure 89 mm[Hg] Brianna Darby [facility] 08-29-2023 09:10-0400 Heart rate 61 /min Brianna Darby [facility] 08-29-2023 09:10-0400 Systolic blood pressure 133 mm[Hg] Brianna Darby [facility] 03-01-2023 09:13-0400 Blood Pressure Location Brianna Darby [facility] 03-01-2023 09:13-0400 Body temperature 97.52 [degF] Brianna Darby [facility] 03-01-2023 09:13-0400 Diastolic blood pressure 89 mm[Hg] Brianna Darby [facility] 03-01-2023 09:13-0400 Heart rate 55 /min Brianna Darby [facility] 03-01-2023 09:13-0400 Systolic blood pressure 133 mm[Hg] Brianna Darby [facility] 08-31-2022 09:45-0400 Diastolic blood pressure 80 mm[Hg] Brianna Darby [facility] 08-31-2022 09:45-0400 Mean blood pressure 99 mm[Hg] Brianna Darby [facility] 08-31-2022 09:45-0400 Systolic blood pressure 138 mm[Hg] Brianna Darby [facility] 08-31-2022 09:35-0400 Blood Pressure Location Brianna Darby [facility] 08-31-2022 09:35-0400 Body temperature 97.7 [degF] Brianna Darby [facility] 08-31-2022 09:35-0400 Diastolic blood pressure 77 mm[Hg] Brianna Darby [facility] 08-31-2022 09:35-0400 Heart rate 56 /min Brianna Darby [facility] 08-31-2022 09:35-0400 Systolic blood pressure 144 mm[Hg] Brianna Darby [facility] 06-02-2022 09:49-0500 Blood Pressure Location Brianna Darby [facility] 06-02-2022 09:49-0500 Body temperature 96.98 [degF] Brianna Darby [facility] 06-02-2022 09:49-0500 Diastolic blood pressure 84 mm[Hg] Brianna Darby [facility] 06-02-2022 09:49-0500 Heart rate 57 /min Brianna Darby [facility] 06-02-2022 09:49-0500 Systolic blood pressure 129 mm[Hg] Brianna Darby [facility] 03-02-2022 10:01-0400 Blood Pressure Location Brianna Darby [facility] 03-02-2022 10:01-0400 Body temperature 97.7 [degF] Brianna Darby [facility] 03-02-2022 10:01-0400 Diastolic blood pressure 88 mm[Hg] Brianna Darby [facility] 03-02-2022 10:01-0400 Heart rate 62 /min Brianna Darby [facility] 03-02-2022 10:01-0400 Systolic blood pressure 120 mm[Hg] Brianna Darby [facility] 12-01-2021 12:26-0400 Blood Pressure Location Brianna Darby [facility] 12-01-2021 12:26-0400 Body temperature 97.16 [degF] Brianna Darby [facility] 12-01-2021 12:26-0400 Diastolic blood pressure 80 mm[Hg] Brianna Darby [facility] 12-01-2021 12:26-0400 Heart rate 58 /min Brianna Darby [facility] 12-01-2021 12:26-0400 SaO2% (BldA) [Mass fraction] 97 % Brianna Darby [facility] 12-01-2021 12:26-0400 Systolic blood pressure 122 mm[Hg] Brianna Darby [facility] 08-12-2021 09:22-0400 Blood Pressure Location Brianna Darby [facility] 08-12-2021 09:22-0400 Diastolic blood pressure 77 mm[Hg] Brianna Darby [facility] 08-12-2021 09:22-0400 Heart rate 53 /min Brianna Darby [facility] 08-12-2021 09:22-0400 SaO2% (BldA) [Mass fraction] 96 % Brianna Darby [facility] 08-12-2021 09:22-0400 Systolic blood pressure 126 mm[Hg] Brianna Darby [facility] Encounters Encounter Date Encounter Type Care Provider Facility Start: 06-21-2024 End: 06-21-2024 Neo Herrera MD Work Phone: [facility] Start: 06-21-2024 End: 06-21-2024 Bamboo flowsheet Johnson Herrera MD Work Phone: [facility] Start: 06-21-2024 End: 06-21-2024 Office outpatient visit 15 minutes Johnson Herrera MD Work Phone: [facility] Comment on above: Acute non-recurrent pansinusitis (Primary Dx) Start: 06-21-2024 End: 06-21-2024 ambulatory JOHNSON HERRERA Not Available Start: 05-09-2024 End: 05-09-2024 ambulatory Stefany Caok [employer] ARRANGER-C Work Phone: [facility] Work Phone: Start: 05-09-2024 End: 05-09-2024 Patient encounter procedure Stefany Caok [employer] F[employer] ARRANGER-C Work Phone: [facility] Work Phone: Start: 04-17-2024 End: 04-17-2024 Bamboo flowsheet Stefany Weston [employer] F[employer]AGE ARRANGER Work Phone: [facility] Start: 04-17-2024 End: 04-17-2024 Bamboo flowsheet Stefany Weston [employer] F[employer]AGE ARRANGER Work Phone: [facility] Start: 04-17-2024 End: 04-17-2024 Office outpatient visit 15 minutes Stefany Weston [employer]AGE ARRANGER Work Phone: [facility] Comment on above: Primary hypertension (CMS/HCC); Hyperlipidemia, unspecified hyperlipidemia type (CMS/HCC); Gastroesophageal reflux disease without esophagitis Start: 04-17-2024 End: 04-17-2024 ambulatory STEFANY WESTON Not Available Start: 04-11-2024 End: 04-11-2024 Patient encounter procedure Stefany Caok [employer] F[employer]AGE ARRANGER-C Work Phone: [facility] Work Phone: Start: 04-11-2024 End: 04-11-2024 ambulatory Stefany Weston Facility:[facility] Start: 04-11-2024 End: 04-11-2024 Patient encounter procedure Stefany Weston [employer] F[employer]AGE ARRANGER-C Work Phone: [facility] Work Phone: Start: 04-10-2024 End: 04-10-2024 ambulatory [facility] Start: 02-21-2024 End: 02-21-2024 Bamboo flowsheet Franco Dimple DO Work Phone: [facility] Start: 02-21-2024 End: 02-21-2024 Bamboo flowsheet Franco Dimple DO Work Phone: [facility] Start: 02-21-2024 End: 02-21-2024 Office outpatient new 20 minutes Franco Dimple DO Work Phone: [facility] Comment on above: 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 Start: 02-21-2024 End: 02-21-2024 ambulatory FRANCO DIMPLE Not Available Start: 02-19-2024 End: 02-19-2024 ambulatory Nghia Talbert Facility:[facility] Start: 02-19-2024 End: 02-19-2024 Patient encounter procedure Nghia Talbert [facility] Start: 02-06-2024 End: 02-06-2024 ambulatory STEFANY WESTON Not Available Start: 01-31-2024 End: 01-31-2024 Transitional care manage srvc 7 day discharge Stefany Weston ARTIFICIAL FOLIAGE ARRANGER Work Phone: [facility] Comment on above: Compression fracture of T6 vertebra with routine healing, subsequent encounter (Primary Dx); Closed traumatic nondisplaced fracture of rib; Compression fracture of T6 vertebra with routine healing Start: 01-31-2024 End: 01-31-2024 ambulatory STEFANY WESTON Not Available Start: 01-17-2024 End: 01-17-2024 Bamboo flowsheet Stefany Weston [employer] F[employer]AGE ARRANGER Work Phone: [facility] Start: 01-17-2024 End: 01-17-2024 Bamboo flowsheet Stefany Weston [employer]IFIC[employer] F[employer]AGE ARRANGER Work Phone: [facility] Start: 01-17-2024 End: 01-17-2024 Office outpatient visit 15 minutes Stefany Weston ARTIFICIAL FOLIAGE ARRANGER Work Phone: [facility] Comment on above: Primary hypertension (CMS/HCC) (Primary Dx); Mixed hyperlipidemia (CMS/HCC); Gastroesophageal reflux disease without esophagitis Start: 01-17-2024 End: 01-17-2024 ambulatory STEFANY WESTON Not Available Start: 12-13-2023 End: 12-13-2023 ambulatory STEFANY WESTON Not Available Start: 11-01-2023 End: 11-01-2023 ambulatory LUCA CHAVARRIA Not Available Start: 10-18-2023 End: 10-18-2023 ambulatory SIMEON CURTIS Not Available Start: 09-26-2023 End: 09-26-2023 ambulatory Brianna Pastor Facility:[facility] Start: 09-26-2023 End: 09-26-2023 Patient encounter procedure Brianna Pastor [facility] Start: 09-01-2023 End: 09-01-2023 ambulatory Brianna Pastor Facility:[facility] Start: 09-01-2023 End: 09-01-2023 Patient encounter procedure Brianna Pastor [facility] Start: 08-29-2023 End: 08-29-2023 ambulatory Brianna Pastor Facility:[facility] Start: 08-29-2023 End: 08-29-2023 Patient encounter procedure Brianna Pastor [facility] Start: 08-29-2023 End: 08-29-2023 ambulatory Brianna Lanie Darby Facility:[facility] Start: 08-29-2023 End: 08-29-2023 Patient encounter procedure Brianna Pastor [facility] Start: 07-17-2023 End: 07-17-2023 ambulatory SHAIKH CURTIS Not Available Start: 04-10-2023 Patient encounter procedure Stefany Weston [employer] F[employer]AGE ARRANGER Work Phone: [facility] Start: 03-01-2023 End: 03-01-2023 Patient encounter procedure Brianna Bridgesz [facility] Start: 08-31-2022 End: 08-31-2022 Patient encounter procedure Brianna Pastor [facility] Start: 08-31-2022 End: 08-31-2022 Patient encounter procedure Brianna Dela Cruz Darby [facility] Start: 06-23-2022 End: 06-24-[address] HUMBERTO HEIN Facility:[facility] Start: 06-02-2022 End: 06-02-2022 Patient encounter procedure Brianna A Darby [facility] Start: 03-23-2022 End: 03-24-2022 ambulatory SHAIKH Lauren BASSETT Facility:[facility] Start: 03-15-2022 End: 03-16-[address] DOCTOR CLARK Facility:[facility] Start: 03-02-2022 End: 03-02-2022 Patient encounter procedure Brianna Pastor [facility] Start: 12-06-2021 End: 12-07-2021 ambulatory SHAIKH Lauren MUELLERD Facility:[facility] Start: 12-01-2021 End: 12-01-2021 Patient encounter procedure Brianna Pastor [facility] Start: 08-26-2021 End: 08-27-2021 ambulatory [facility] Facility:[facility] Start: 08-24-2021 End: 08-25-2021 ambulatory SHAIKH Lauren MUELLERD Facility:[facility] Start: 08-12-2021 End: 08-12-2021 Patient encounter procedure Brianna Pastor [facility] Procedures Date Procedure Procedure Detail Performing Clinician Start: 04-11-2024 X-ray of thoracic spine, two views Ilianamigue GaoWeston ARTIFICIAL F[employer]IAGE ARRANGER-C Work Phone: Start: 04-12-2021 Esophagogastroduodenoscopy Brianna wright Comment on above: gastric erosions, hiatal hernia Start: 04-03-2019 Colonoscopy Brianna Pastor Start: 04-03-2019 Esophagogastroduodenoscopy Brianna wright Plan of Treatment Date Care Activity Detail Author Start: 04-17-2025 Pneumococcal Vaccine : 65+ Years (1 of 2 - PCV) Pneumococcal Vaccine: 65+ Years (1 of 2 - PCV) [facility] Comment on above: Postponed from 07/13 (Patient Refused) Start: 07-23-2024 End: 07-23-2024 Patient encounter procedure 07/23/2024 2:00 PM EDT Office Visit [facility] [address] [place] [address] Johnson Herrera MD [address] [place] [phone] [facility] Start: 07-18-2024 End: 07-18-2024 Patient encounter procedure 07/18/2024 10:45 AM EDT Office Visit [facility] [address] [place] [address] Johnson Herrera MD [address] [place] [phone] [facility] Start: 07-18-2024 End: 07-18-2024 Patient encounter procedure 07/18/2024 8:30 AM EDT Office Visit [facility] [address] [place] [address] Stefany Weston, RENÉ [address] [place] [address] [facility] Start: 06-21-2024 End: 06-21-2024 Patient encounter procedure 06/21/2024 9:15 AM EST Office Visit [facility] [address] [place] [address] Johnson Herrera MD [address] [place] [phone] Arrived [facility] Comment on above: Arrived Start: 06-12-2024 Influenza vaccination Influenza Vacc ine (#1) [facility] Comment on above: Postponed from 12/30 (Patient Refused) Start: 04-18-2024 End: 04-18-2024 Patient encounter procedure 04/18/2024 9:00 AM EST Office Visit [facility] [address] [place] [address] Shaikh Bassett MD [address] [place] [phone] [facility] Start: 04-17-2024 End: 04-17-2024 Patient encounter procedure [facility] Comment on above: Arrived Start: 04-10-2024 Medicare Annual Well ness (AWV) Medicare Annual Wellness (AWV) [facility] Start: 04-10-2024 Pneumococcal Vaccine : 65+ Years (1 of 2 - PCV) Pneumococcal Vaccine: 65+ Years (1 of 2 - PCV) [facility] Comment on above: Postponed from 07/13 (Patient Refused) Start: 02-21-2024 End: 02-21-2024 Patient encounter procedure [facility] Comment on above: Arrived Start: 01-17-2024 End: 01-17-2024 Patient encounter procedure 01/17/2024 8:30 AM EDT Office Visit [facility] [address] [place] [address] Stefany Weston NP [address] [place] [address] Primary hypertension (CMS/HCC) (Primary Dx); Mixed hyperlipidemia (CMS/HCC); Gastroesophageal reflux disease without esophagitis [facility] Comment on above: Primary hypertension (CMS/HCC) (Primary Dx); Mixed hyperlipidemia (CMS/HCC); Gastroesophageal reflux disease without esophagitis Start: 12-31-2023 Influenza vaccination Influenza Vacc ine (#1) [facility] Start: 1951 Pneumococcal Vaccine : 65+ Years (1 of 2 - PCV) Pneumococcal Vaccine: 65+ Years (1 of 2 - PCV) [facility] Immunizations Immunization Date Immunization Notes Care Provider Fa cility 01-26-2022 tetanus toxoid, reduced diphtheria toxoid, and acellular pertussis vaccine, adsorbed Brianna Pastor [facility] NEGATED: Highlighted row has not occurred!02-27-2023 influenza virus vaccine, unspecified formulation Brianna Pastor [facility] NEGATED: Highlighted row has not occurred!06-02-2022 influenza virus vaccine, unspecified formulation Brianna Pastor [facility] NEGATED: Highlighted row has not occurred!03-02-2022 influenza virus vaccine, unspecified formulation Brianna Pastor [facility] Payers Date Payer Category Payer Self-pay 2022 Private Health Insurance [employer] [id number] 2022 Unknown [employer] [id number] 2022-Present [address] [place] [id number] 2022 Unknown [id number] 2011 Medicare [id number] 1959 Medicare [id number] 1959 Unknown [id number] 1946 Unknown [id number] 2.16.840.1.297308.3.579.2 .593 1946 Unknown [id number] 2.16.840.1.815183.3.579.2 .593 1946 Unknown [id number] 2.16.840.1.842326.3.579.2 .593 1946 Unknown [id number] 2.16.840.1.641697.3.579.2 .593 1946 Unknown [id number] 2.16.840.1.987026.3.579.2 .593 1946 Unknown [id number] 2.16.840.1.971662.3.579.2 .593 1946 Unknown [id number] 2.16.840.1.668662.3.579.2 .593 1946 Unknown [id number] 2.16.840.1.990551.3.579.2 .593 1946 Unknown [id number] 2.16.840.1.767389.3.579.2 .727 1946 Unknown [id number] 2.16.840.1.999076.3.579.2 .727 1946 Unknown [id number] 2.16.840.1.490351.3.579.2 .727 1946 Unknown [id number] 2.16.840.1.446292.3.579.2 .727 1946 Unknown [id number] 2.16.840.1.151566.3.579.2 .727 1946 Unknown [id number] 2.16.840.1.785235.3.579.2 .1259 1946 Unknown [id number] 2.16.840.1.291977.3.579.2 .1259 1946 Unknown [id number] 2.16.840.1.367279.3.579.2 .1259 1946 Unknown [id number] 2.16.840.1.579362.3.579.2 .1259 1946 Unknown [id number] 2.16.840.1.005036.3.579.2 .1259 1946 Unknown [id number] 2.16.840.1.311233.3.579.2 .9 1946 Unknown [id number] 2.16.840.1.927061.3.579.2 .1259 1946 Unknown [id number] 2.16.840.1.482418.3.579.2 .9 1946 Unknown [id number] 2.16.840.1.262938.3.579.2 .1259 1946 Unknown [id number] 2.16.840.1.347467.3.579.2 .1258 Unknown [id number] 2.16.840.1.780619.3.579.2 .531 Social History Date Type Detail Facility Start: 05-04-2021 End: 07-17-2023 Tobacco smoking status Never smoked tobacco (finding) [facility] Tobacco smoking status Never [facility] Start: 04-10-2023 End: 01-17-2024 Sex Assigned At Female [facility] Start: 01-17-2024 End: 04-17-2024 Alcoholic beverage intake Lifetime non-drinker (finding) [facility] Start: 04-10-2023 End: 01-17-2024 History of Social function [facility] Within the last year , have you been afraid of your partner or ex-partner? No [facility] Are you now , , , , never or living with a partner? [facility] How often do you hav e 6 or more drinks on 1 occasion? Never [facility] How hard is it for you to pay for the very basics like food, housing, medical care, and heating Not very hard [facility] Do you feel stress - tense, restless, nervous, or anxious, or unable to sleep at night because your mind is troubled all the time - these days [OSQ] Only a little [facility] (I/We) worried whether (my/our) food would run out before (I/we) got money to buy more. Never true [facility] Start: 1945 Sex assigned at Not on file [facility] Tobacco smoking status NHIS Unknown if ever smoked [facility] Work Phone: Start: 05-09-2024 Sex Female (finding) [facility] Start: 1945 Sex Assigned At Female F [facility] NEGATED: Highlighted rowStart: NINF History of tobacco use Passive smoker [facility] Functional Status Date Assessment Result Facility 08-29-2023 Functional Status N/A [facility] 03-01-2023 Functional Status N/A [facility] 08-31-2022 Functional Status N/A [facility] 06-02-2022 Functional Status N/A [facility] 03-02-2022 Functional Status N/A [facility] 12-01-2021 Functional Status N/A [facility] Clinical Notes 08-12-2021 to 06-21-2024 Johnson Herrera MD - 06/21/2024 9:56 AM [place] Herrera MD - 06/21/2024 9:15 AM Shweta Weston NP - 04/17/2024 8:38 AM Shweta Weston NP - 04/17/2024 8:38 AM EST Note Date & Type Note Facility 06-21-2024 History of Presen t illness Narrative Associated Problem(s): Acute non-recurrent pansinusitis Take antibiotics BID for 10 days. Use prednisone for inflammation. Use sudafed or other decongestants as needed. Use Robitussin or Robitussin-DM for cough. Can use afrin for congestion but no longer than 3 days. Can use Mucinex to bring up phlegm. Use Motrin or Tylenol as needed for fever, aches, or pains. Increase fluid intake and rest. Should improve over next 5-7 days and if no better or worse call for re-evaluation. Subjective Patient ID: Toñito Putnam is a 78 y.o. female who presents for Cough and Earache (Both ears). C/o cough, congestion, and rhinorrhea x 1 week. Afebrile. Severe fatigue and no energy. Mild cough dry and nonproductive. Denies chest tightness or SOB. MARINELLI and sinus pressure in forehead and cheeks along with postnasal drip. Ears plugged and popping. Sore throat and pain to swallow. Mild nausea. recently sick. Using OTC medication and mild relief. No improvement in symptoms since onset. Review of Systems Respiratory: Negative for cough, shortness of breath and wheezing. Cardiovascular: Negative for chest pain and palpitations. Gastrointestinal: Negative for abdominal pain, diarrhea, nausea and vomiting. Genitourinary: Negative for dysuria. Objective Physical Exam Constitutional: General: She is not in acute distress. Appearance: Normal appearance. HENT: Head: Normocephalic. Right Ear: Tympanic membrane normal. Left Ear: Tympanic membrane normal. Eyes: Extraocular Movements: Extraocular movements intact. Pupils: Pupils are equal, round, and reactive to light. Cardiovascular: Rate and Rhythm: Normal rate and regular rhythm. Heart sounds: No murmur heard. No friction rub. No gallop. Pulmonary: Effort: Pulmonary effort is normal. Breath sounds: Normal breath sounds. No wheezing, rhonchi or rales. Abdominal: General: Bowel sounds are normal. There is no distension. Palpations: Abdomen is soft. Tenderness: There is no abdominal tenderness. There is no guarding or rebound. Musculoskeletal: Cervical back: Neck supple. Right lower leg: No edema. Left lower leg: No edema. Neurological: Mental Status: She is alert. Assessment/Plan Problem List Items Addressed This Visit Acute non-recurrent pansinusitis - Primary Take antibiotics BID for 10 days. Use prednisone for inflammation. Use sudafed or other decongestants as needed. Use Robitussin or Robitussin-DM for cough. Can use afrin for congestion but no longer than 3 days. Can use Mucinex to bring up phlegm. Use Motrin or Tylenol as needed for fever, aches, or pains. Increase fluid intake and rest. Should improve over next 5-7 days and if no better or worse call for re-evaluation. Relevant Medications cefdinir (Omnicef) 300 MG capsule predniSONE (Deltasone) 50 MG tablet documented in this encounter [facility] 04-17-2024 History of Presen t illness Narrative Associated Problem(s): Gastroesophageal reflux disease Currently taking Protonix 40mg Feels symptoms are well controlled; Continue current regimen Associated Problem(s): Hyperlipidemia (CMS/HCC) Currently taking Atorvastatin 20mg Denies any myalgias. Most recent Lipid Panel 10/2023- WNL Continue current regimen. Associated Problem(s): HTN (hypertension) (CMS/HCC) Follows closely with Cardiology Currently taking Lisinopril 10mg Checks BP at home; Averages are 120's/80's Denies orthostatic changes, dizziness, cough, shortness of breath, swelling in extremities. Continue current regimen. Given BP log, advised pt to record BP and bring log back with them to next visit. Images from the original note were not included. Subjective Patient ID: Toñito Putnam is a 78 y.o. female who presents for No chief complaint on file.. HPI Specialists: Cardiology- [place] Dr. Phillips HTN: Follows closely with Cardiology Currently taking Lisinopril 10mg Checks BP at home; Averages are 120's/80's Denies orthostatic changes, dizziness, cough, shortness of breath, swelling in extremities. Continue current regimen. Given BP log, advised pt to record BP and bring log back with them to next visit. HLD: Currently taking Atorvastatin 20mg Denies any myalgias. Most recent Lipid Panel 10/2023- WNL Continue current regimen. GERD: Currently taking Protonix 40mg Feels symptoms are well controlled; Continue current regimen Review of Systems Constitutional: Negative for activity change, appetite change, chills, diaphoresis, fatigue, fever and unexpected weight change. HENT: Negative for congestion, ear pain, rhinorrhea, sinus pressure, sinus pain, sneezing, sore throat, trouble swallowing and voice change. Eyes: Negative for visual disturbance. Respiratory: Negative for cough, chest tightness, shortness of breath and wheezing. Cardiovascular: Negative for chest pain, palpitations and leg swelling. Gastrointestinal: Negative for abdominal distention, abdominal pain, blood in stool, constipation, diarrhea and vomiting. Genitourinary: Negative for decreased urine volume, dysuria, flank pain, frequency, hematuria and urgency. Musculoskeletal: Positive for arthralgias and back pain. Negative for gait problem, joint swelling and myalgias. Skin: Negative for rash. Neurological: Negative for dizziness, tremors, syncope, weakness, light-headedness and headaches. Psychiatric/Behavioral: Negative for decreased concentration and suicidal ideas. The patient is not nervous/anxious. Hematological: Does not bruise/bleed easily. Endocrine: Negative for cold intolerance, heat intolerance, polydipsia, polyphagia and polyuria. Objective Physical Exam Vitals reviewed. Constitutional: Appearance: Normal appearance. HENT: Right Ear: Tympanic membrane normal. Left Ear: Tympanic membrane normal. Nose: Nose normal. Mouth/Throat: Mouth: Mucous membranes are moist. Pharynx: Oropharynx is clear. Eyes: Pupils: Pupils are equal, round, and reactive to light. Cardiovascular: Rate and Rhythm: Normal rate and regular rhythm. Pulses: Normal pulses. Heart sounds: Normal heart sounds. Pulmonary: Effort: Pulmonary effort is normal. Breath sounds: Normal breath sounds. Abdominal: General: Abdomen is flat. Bowel sounds are normal. Palpations: Abdomen is soft. Musculoskeletal: General: Normal range of motion. Skin: General: Skin is warm and dry. Capillary Refill: Capillary refill takes less than 2 seconds. Neurological: Mental Status: She is alert and oriented to person, place, and time. Assessment/Plan Problem List Items Addressed This Visit HTN (hypertension) ([facility] Follows closely with Cardiology Currently taking Lisinopril 10mg Checks BP at home; Averages are 120's/80's Denies orthostatic changes, dizziness, cough, shortness of breath, swelling in extremities. Continue current regimen. Given BP log, advised pt to record BP and bring log back with them to next visit. Relevant Medications atenolol (Tenormin) 25 MG tablet lisinopril 10 MG tablet Gastroesophageal reflux disease Currently taking Protonix 40mg Feels symptoms are well controlled; Continue current regimen Relevant Medications pantoprazole (ProtoNix) 40 MG EC tablet sucralfate (Carafate) 1 g tablet Hyperlipidemia (CMS/HCC) Currently taking Atorvastatin 20mg Denies any myalgias. Most recent Lipid Panel 10/2023- WNL Continue current regimen. Relevant Medications atorvastatin (Lipitor) 20 MG tablet documented in this encounter [facility] 04-11-2024 Evaluation note Diagnosis Onset Date Resolution T6 vertebral fracture acute Mar 9:31am [facility] Work Phone: [phone] 205-285712-11-2024 [facility] Chief Complaint Patient presents with Hypertension Hyperlipidemia Coronary Artery Disease Toñito Putnam is a 78 y.o. female here for follow-up. HPI PMHx: coronary calcification, HTN, HLD She is having back issues. Noted to have T6 compression fx Dec, [address] scan[address] She will be seeing a account support specialist soon to see next step. She is trying to stay active. BP is elevated today. She hasn't been checking her BP recently. Denies c/o CP, dyspnea, orthopnea, PND, LE edema, dizziness/LH, palpitations, syncope. Patient Active Problem List Diagnosis Angina pectoris (CMS/HCC) Chest pain Benign essential hypertension Chronic obstructive lung disease (CMS/HCC) Coronary artery calcification Dyspnea Gastroesophageal reflux disease Headache Neck pain Hyperlipidemia Left lower quadrant abdominal pain Obesity Abdominal cramping Bacterial conjunctivitis of right eye Closed traumatic displaced fracture of two ribs of left side with routine healing Closed traumatic nondisplaced fracture of rib Compression fracture of T6 vertebra with routine healing Encounter for Medicare annual wellness exam Gastric erosions History of colon polyps HTN (hypertension) Hypothyroidism Suppurative otitis media of both ears Past Medical History: Diagnosis Date COPD (chronic obstructive pulmonary disease) ([facility]) Coronary artery disease GERD (gastroesophageal reflux disease) Hyperlipidemia Hypertension Family History Problem Relation Name Age of Onset Coronary artery disease Sister 62 Passed age 62 Coronary artery disease Brother 58 Cancer Other Coronary artery disease Other Social History Tobacco Use Smoking status: Never Smokeless tobacco: Never Substance Use Topics Alcohol use: Not Currently Allergies Allergen Reactions Meperidine Other Review of Systems Constitutional: Negative for chills, decreased appetite, fever, malaise/fatigue and weight gain. Cardiovascular: Negative for chest pain, dyspnea on exertion, irregular heartbeat, leg swelling, near-syncope, orthopnea, palpitations, paroxysmal nocturnal dyspnea and syncope. Hematologic/Lymphatic: Negative for bleeding problem. Does not bruise/bleed easily. OBJECTIVE Visit Vitals BP 142/84 (BP Location: Left arm, Patient Position: Sitting) Pulse 60 Ht 1.626 m (5' 4 ) Wt 72.6 kg (160 lb) SpO2 96% BMI 27.46 kg/m??? Smoking Status Never BSA 1.81 m??? Medications: Current Outpatient Medications: atenolol (Tenormin) [...] to light. Neck: Vascular: No carotid bruit. Cardiovascular: Rate and Rhythm: Normal rate and [...] Content: Thought content normal. Judgment: Judgment normal. Labs: Legacy Encounter on 03/18/2019 Component Date Value Ref Range Status Ventricular Rate 03/18/2019 61 BPM Final Atrial Rate 03/18/2019 61 BPM Final IA Interval 03/18/2019 188 ms Final QRS DURATION 03/18/2019 94 ms Final QT Interval 03/18/2019 438 ms Final QTC CALCULATION(BEZET) 03/18/2019 440 ms Final P [place] 03/18/2019 55 degrees Final R-[place] 03/18/2019 2 degrees Final T Wave [place] 03/18/2019 44 degrees Final Diagnosis 03/18/2019 Final Value:Normal sinus rhythm Normal ECG No previous ECGs available Confirmed by STRESS, ([id number]), video effects editor Ángela Arredondo ([id number]) on 03/18/2019 12:12:41 PM No results found for: EXTCMP , BMPR1A , CBCDIF , BNP , LASAP , RED Labs 11/01/23 Chol 151, trig 96, LDL 76.8, HDL 55 Blood testing 09/29/2022: Hemoglobin 14.1, hematocrit 44.7, Platelets 507, potassium 3.8, BUN 8, creatinine 0.79, EGFR (more content not included)... [facility]12-11-2024 NotePatient here for 1 year follow up CAD, hypertension, and hyperlipidemia. She had routine labs w/ lipid panel in October 2023. Denies chest pain, SOB, and palpitations. Review of Systems Musculoskeletal: Positive for back pain. All other systems reviewed and are negative.[facility] 02-21-2024 History of Present illness Narrative* Elise Lee LPN - 02/21/2024 1:40 PM EDT Reason for Appointment: Patient ID: Toñito Putnam is a 78 y.o. female who presents for Uterine Prolapse Patient presents today for Acute Visit. MEDICATIONS Current Outpatient Medications Medication Instructions atenolol (TENORMIN) 25 mg, Oral, Daily atorvastatin (LIPITOR) 20 mg, Oral, Daily lisinopril 10 mg, Oral, Daily pantoprazole (PROTONIX) 40 mg, Oral, Daily before breakfast, Do not crush, chew, or split. sucralfate (CARAFATE) 1 g, Oral, 2 times daily before meals ALLERGIES No Known Allergies PROBLEMS Active Ambulatory Problems Diagnosis Date Noted HTN (hypertension) (CMS/HCC) 04/10/2023 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 (CMS/HCC) 02/10/2014 Benign essential hypertension (CMS/HCC) 11/26/2013 Gastroesophageal reflux disease 11/26/2013 Hyperlipidemia (CMS/HCC) 11/26/2013 Encounter for Medicare annual wellness exam 04/10/2023 Hypothyroidism (CMS/HCC) 04/10/2023 Suppurative otitis media of both ears 04/10/2023 Bacterial conjunctivitis of right eye 07/17/2023 Encounter for screening colonoscopy 10/18/2023 Closed traumatic displaced fracture of two ribs of left side with routine healing 12/13/2023 Compression fracture of T6 vertebra with routine healing 01/31/2024 Closed traumatic nondisplaced fracture of rib 01/31/2024 Screening for osteoporosis 01/31/2024 Resolved Ambulatory Problems Diagnosis Date Noted No Resolved Ambulatory Problems Past Medical History: Diagnosis Date At moderate risk for fall COVID-19 Dyslipidemia (CMS/HCC) GERD without esophagitis Hyponatremia Hypothyroid (CMS/HCC) Left wrist pain Middle ear infection Mixed hyperlipidemia (CMS/HCC) Neoplasm, breast Overweight (BMI 25.0-29.9) Post-COVID chronic cough Scalp lesion HISTORY PAST MEDICAL HISTORY SOCIAL HISTORY Past Medical History: Diagnosis Date At moderate risk for fall COVID-19 Recent COVID. Mild asymptomatic infection, recovered. 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 Denies earachdischarge, fever, decreased hearing. Mixed hyperlipidemia (CMS/HCC) Neoplasm, breast Overweight (BMI 25.0-29.9) Post-COVID chronic cough Cough, worse at night. Purulence. No other resp symptoms Scalp lesion Social History Tobacco Use Smoking status: Never Passive exposure: Never Smokeless tobacco: Not on file Vaping Use Vaping status: Never Used Substance Use Topics Alcohol use: Never Drug use: Never FAMILY HISTORY Family History Problem Relation Name Age of Onset Cancer Mother Cancer Father SURGICAL HISTORY Past Surgical History: Procedure Laterality Date CHOLECYSTECTOMY HYSTERECTOMY REVIEW OF SYSTEMS Review of Systems: Review of Systems Constitutional: Negative. HENT: Negative. Eyes: Negative. Respiratory: Negative. Cardiovascular: Negative. Gastrointestinal: Negative. Genitourinary: Negative. Musculoskeletal: Negative. Skin: Negative. Neurological: Negative. All other systems reviewed and are negative. Hematological: Negative. Endocrine: Negative. Allergic/Immunologic: Negative. OBJECTIVE Objective: Physical Exam Constitutional: Appearance: Normal appearance. She is well-developed. Genitourinary: Vulva normal. Vaginal cuff intact. Cervix is absent. Uterus is absent. Cardiovascular: Rate and Rhythm: Normal rate and regular rhythm. Abdominal: General: Bowel sounds are normal. There is no distension. Palpations: Abdomen is soft. Tenderness: There is no abdominal tenderness. There is no guarding or rebound. Musculoskeletal: General: No swelling. Normal range of motion. Right lower leg: No edema. Left lower leg: No edema. Neurological: Mental Status: She is alert and oriented to person, place, and time. Skin: General: Skin is warm and dry. Psychiatric: Mood and Affect: Mood normal. Behavior: Behavior normal. Vitals and nursing note reviewed. Exam conducted with a auto glass technician present. Vitals: Estimated body mass index is 26.95 kg/m as calculated from the following: Height as of this encounter: 5' 4 . Weight as of this encounter: 157 lb. BP: 120/70 No LMP recorded. ASSESSMENT & PLAN ICD-10-CM 1. Female bladder prolapse N81.10 Pt had hysterectomy at age 26. Pt feels something is hanging out of vagina. Pelvic exam performed. Pt feels like she has to use the restroom all the time. Pt has bladder prolapse. Discussed referral to Dr Adame. Pt declines at this time. Documented by Elise Lee LPN on behalf of: Franco Musa DO documented in this encounterDo[facility] [id number] History of Present illness Narrative* Stefany Gaopatrick, ARTIFICIAL FOLIAGE ARRANGER - 01/31/2024 2:00 PM EDT Images from the original note were not included. Subjective Patient ID: Toñito Putnam is a 78 y.o. female who presents for No chief complaint on file.. [facility] Hospital follow up Was seen in ED 01/24/2024 for nondisplaced left fourth rib fx T6 compression fx Was discharged home with flexeril and percocet. Opt states the percocet makes her very groggy as does the muscle relaxer. Denies: Shortness of breath Chest pain Dizziness Severe pain Referral sent to Dr. Dickey- Neurosurgery. Review of Systems Constitutional: Negative for activity change, appetite change, chills, diaphoresis, fatigue, fever and unexpected weight change. HENT: Negative for congestion, ear pain, rhinorrhea, sinus pressure, sinus pain, sneezing, sore throat, trouble swallowing and voice change. Eyes: Negative for visual disturbance. Respiratory: Negative for cough, chest tightness, shortness of breath and wheezing. Cardiovascular: Negative for chest pain, palpitations and leg swelling. Gastrointestinal: Negative for abdominal distention, abdominal pain, blood in stool, constipation, diarrhea and vomiting. Genitourinary: Negative for decreased urine volume, dysuria, flank pain, frequency, hematuria and urgency. Musculoskeletal: Positive for back pain and myalgias. Negative for arthralgias, gait problem and joint swelling. Skin: Negative for rash. Neurological: Negative for dizziness, tremors, syncope, weakness, light- headedness and headaches. Psychiatric/Behavioral: Negative for decreased concentration and suicidal ideas. The patient is notnervous/anxious. Hematological: Does not bruise/bleed easily. Endocrine: Negative for cold intolerance, heat intolerance, polydipsia, polyphagia and polyuria. Objective Physical Exam Vitals reviewed. Constitutional: Appearance: Normal appearance. HENT: Head: Normocephalic and atraumatic. Right Ear: Tympanic membrane normal. Left Ear: Tympanic membrane normal. Nose: Nose normal. Mouth/Throat: Mouth: Mucous membranes are moist. Pharynx: Oropharynx is clear. Eyes: Pupils: Pupils are equal, round, and reactive to light. Cardiovascular: Rate and Rhythm: Normal rate and regular rhythm. Pulses: Normal pulses. Heart sounds: Normal heart sounds. Pulmonary: Effort: Pulmonary effort is normal. Breath sounds: Normal breath sounds. Abdominal: General: Abdomen is flat. Bowel sounds are normal. Palpations: Abdomen is soft. Musculoskeletal: General: Normal range of motion. Cervical back: Normal range of motion. Skin: General: Skin is warm and dry. Capillary Refill: Capillary refill takes less than 2 seconds. Neurological: General: No focal deficit present. Mental Status: She is alert and oriented to person, place, and time. Psychiatric: Mood and Affect: Mood normal. Behavior: Behavior normal. Assessment/Plan Problem List Items Addressed This Visit Compression fracture of T6 vertebra with routine healing Closed traumatic nondisplaced fracture of rib Other Visit Diagnoses Compression fracture of T6 vertebra with routine healing, subsequent encounter - Primary Relevant Orders Ambulatory referral to Neurosurgery documented in this [facility]10-02-2024 Instructions* Patient Instructions* Stefany Weston NP - 01/31/2024 2:00 PM EDT Referral sent to Neurosurgery- Dr. Dickey's office in [place]; They will call you! Give your body time to heal and recovery. Take it easy for the next few weeks. Rest Ice Compression Rotate between Tylenol and Ibuprofen for pain. Tylenol every 4-6 hours as needed for pain Ibuprofen every 8 hours as needed for pain. Shortness of breath, chest pain, wheezing, GO TO ER!!! documented in this [facility]09-18-2024 History of Present illness Narrative* Stefany Weston NP - 01/17/2024 8:46 AM EDTAssociated Problem(s): Gastroesophageal reflux disease Currently taking Protonix 40mg Carafate 1g Feels symptoms are well controlled; Continue current regimen * Stefany Weston NP - 01/17/2024 8:46 AM EDTAssociated Problem(s): Hyperlipidemia (CMS/HCC) Currently taking Atorvastatin 20mg Denies any myalgias. Most recent Lipid Panel 10/2023- WNL Continue current regimen. * Stefany Weston NP - 01/17/2024 8:46 AM EDTAssociated Problem(s): HTN (hypertension) (CMS/HCC) Currently taking Lisinopril 10mg Checks BP at home; Averages are 120's/80's Denies orthostatic changes, dizziness, cough, shortness of breath, swelling in extremities. Continue current regimen. Given BP log, advised pt to record BP and bring log back with them to next visit. * Stefany Weston NP - 01/17/2024 8:30 AM EDT Images from the original note were not included. Subjective Patient ID: Toñito Putnam is a 78 y.o. female who presents for Follow-up (3MO). HPI Specialists: Cardiology- Dr. Phillips GI: HTN: Currently taking Lisinopril 10mg Checks BP at home; Averages are 120's/80's Denies orthostatic changes, dizziness, cough, shortness of breath, swelling in extremities. Continue current regimen. Given BP log, advised pt to record BP and bring log back with them to next visit. HLD: Currently taking Atorvastatin 20mg Denies any myalgias. Most recent Lipid Panel 10/2023- WNL Continue current regimen. Component Ref Range & Units 2 mo ago (11/01/23) 2 mo ago (11/01/23) 9 mo ago (04/12/23) 9 mo ago (04/12/23) TRIGLYCERIDES <=150 mg/dL 96 138 R 89 146 High R CHOLESTEROL <=200 mg/dL 151 3.7 R 167 3.7 R HDL CHOLESTEROL 40 - 60 mg/dL 55 14.3 R 57 CM 13.2 R Comment: > or =60 mg/dl - LOW CARDIOVASCULAR RISK <40 mg/dl - HIGH CARDIOVASCULAR RISK LDL CHOLESTEROL CALCULATED mg/dL 76.8 98 R 92.2 CM 89 R Comment: <100 mg/dl OPTIMAL 100-129 mg/dl NEAR OR ABOVE OPTIMAL 130-159 mg/dl BORDERLINE HIGH 160-189 mg/dl HIGH >190 mg/dl VERY HIGH VLDL CHOLESTEROL mg/dL 19.2 0.8 R 17.8 0.8 R CHOL HDL RATIO 2.7 25 R 2.9 CM 22 R Comment: 3.3 - 4.4 LOW RISK 4.4 - 7.1 AVERAGE RISK 7.1 - 11.0 MODERATE RISK >11.0 HIGH RISK ALANINE AMINOTRANSFERASE 25 R 29 R ALKALINE PHOSPHATASE 68 R 81 R TOTAL PROTEIN 7.1 R 7.4 R ALBUMIN LEVEL 4.0 R 4.0 R ALBUMIN GLOBULIN RATIO 1.[address] [facility] GERD: Currently taking Protonix 40mg Feels symptoms are well controlled; Continue current regimen Review of Systems Constitutional: Negative for activity change, appetite change, chills, diaphoresis, fatigue, fever and unexpected weight change. HENT: Positive for ear discharge and ear pain. Negative for congestion, rhinorrhea, sinus pressure,sinus pain, sneezing, sore throat, trouble swallowing and voice change. Eyes: Negative for visual disturbance. Respiratory: Negative for cough, chest tightness, shortness of breath and wheezing. Cardiovascular: Negative for chest pain, palpitations and leg swelling. Gastrointestinal: Negative for abdominal distention, abdominal pain, blood in stool, constipation, diarrhea and vomiting. Genitourinary: Negative for decreased urine volume, dysuria, flank pain, frequency, hematuria and urgency. Musculoskeletal: Negative for arthralgias, gait problem, joint swelling and myalgias. Skin: Negative for rash. Neurological: Negative for dizziness, tremors, syncope, weakness, light- headedness and headaches. Psychiatric/Behavioral: Negative for decreased concentration and suicidal ideas. The patient is notnervous/anxious. Hematological: Does not bruise/bleed easily. Endocrine: Negative for cold intolerance, heat intolerance, polydipsia, polyphagia and polyuria. Objective Physical Exam Vitals reviewed. Constitutional: Appearance: Normal appearance. HENT: Head: Normocephalic and atraumatic. Right Ear: Tympanic membrane normal. Left Ear: Tympanic membrane normal. Nose: Nose normal. Mouth/Throat: Mouth: Mucous membranes are moist. Pharynx: Oropharynx is clear. Eyes: Pupils: Pupils are equal, round, and reactive to light. Cardiovascular: Rate and Rhythm: Normal rate and regular rhythm. Pulses: Normal pulses. Heart sounds: Normal heart sounds. Pulmonary: Effort: Pulmonary effort is normal. Breath sounds: Normal breath sounds. Abdominal: General: Abdomen is flat. Bowel sounds are normal. Palpations: Abdomen is soft. Musculoskeletal: General: Normal range of motion. Cervical back: Normal range of motion. Skin: General: Skin is warm and dry. Capillary Refill: Capillary refill takes less than 2 seconds. Neurological: General: No focal deficit present. Mental Status: She is alert and oriented to person, place, and time. Psychiatric: Mood and Affect: Mood normal. Behavior: Behavior normal. Assessment/Plan Problem List Items Addressed This Visit HTN (hypertension) ([facility]) - Primary Currently taking Lisinopril 10mg Checks BP at home; Averages are 120's/80's Denies orthostatic changes, dizziness, cough, shortness of breath, swelling in extremities. Continue current regimen. Given BP log, advised pt to record BP and bring log back with them to next visit. Gastroesophageal reflux disease Currently taking Protonix 40mg Carafate 1g Feels symptoms are well controlled; Continue current regimen Hyperlipidemia ([facility]) Currently taking Atorvastatin 20mg Denies any myalgias. Most recent Lipid Panel 10/2023- WNL Continue current regimen. documented in this encounterDoctors Hospital of [id number] Instructions* Patient Instructions* Stefany Weston NP - 01/17/2024 8:30 AM EDT Your blood pressure is GOOD in the office today. Check your blood pressure at home 3 times per week, preferably in the afternoon. Goal <130/90. Record results in blood pressure log. Bring back with you to your next visit. Keep up the good work. Call if you need anything! documented in this encounterDoctors Hospital of [id number] Hospital Discharge instructions Patient Education 08/29/2023 09:32:39 Food Choices for Gastroesophageal Reflux Disease, Adult Food Choices for Gastroesophageal Reflux Disease, Adult When you have gastroesophageal reflux disease (GERD), the foods you eat and your eating habits are very important. Choosing the right foods can help ease the discomfort of GERD. Consider working witha dietitian to help you make healthy food [...] you need help quitting, ask your health careprovider. Sleep with the head of your bed raised. Use a wedge under the mattress or blocks under the bed frame to raise the head of the bed. Chew sugar-free gum after mealtimes. What foods should I eat? Eat a healthy, well-balanced diet of fruits, vegetables, whole grains, low-fat dairy products, leanmeats, fish, and poultry. Each person is different. Foods that may trigger symptoms in one person may not trigger any symptoms in another person. Work with your health care provider to identify foodsthat are safe for you. The items listed above may not be a complete list of recommended foods and beverages. Contact a dietitian for more information. What foods should I avoid? Limiting some of these foods may help manage the symptoms of GERD. Everyone is different. Consult adietitian or your health care provider to help you identify the exact foods to avoid, if any. Fruits Any fruits prepared with added fat. Any fruits that cause symptoms. For some people this may include citrus fruits, such as oranges, grapefruit, pineapple, and dali. Vegetables Deep-fried vegetables. Spanish fries. Any vegetables prepared with added fat. [...] symptoms, talk with your health care provider abouttaking medicines. Where to find more information International [...] provider. Document Revised: 10/26/2020 Document Reviewed: 10/26/2020 [employer] Patient Education 2022 [employer]. Follow Up Care 03/01/2023 09:50:16 With:Brianna aPstor CNP Address: When:[address] [facility] 11-01-2023 Hospital Discharge instructions Patient Education 03/01/2023 09:33:23 [...] the amount of dietary fiber. Choose foods thathave 5 grams of fiber or more per [...] Bulgur wheat. Millet. Quinoa. Bran muffins. Popcorn. [place] wafer crackers. Meats and other proteins [place] beans, kidney beans, and gee beans. Soybeans. [...] Cream cheese. Sour cream. Fats and oils [place]. Beverages Soft drinks. Other foods Cakes and pastries. The items listed above may not be a complete list of foods and beverages to avoid. Talk with your dietitian about what choices are best for you. Summary Fiber is a type of carbohydrate. It is found in foods such as fruits, vegetables, whole grains, andbeans. A high-fiber diet has many benefits. It can help to prevent constipation, lower blood cholesterol, aid weight loss, and reduce your risk of heart disease, diabetes, and certain cancers. Increase your intake of fiber gradually. Increasing fiber too quickly may cause cramping, bloating,and gas. Drink plenty of water while you [...] provider. Document Revised: 08/20/2020 Document Reviewed: 08/20/2020 [employer] Patient Education 2022 [employer]. Follow Up Care 08/31/2022 10:04:40 With:Brianna Pastor CNP Address: When:[address] [facility] 05-03-2023 Hospital Discharge instructions Patient Education 08/31/2022 09:43:13 Food Choices for Gastroesophageal Reflux Disease, Adult Food Choices for Gastroesophageal Reflux Disease, Adult When you have gastroesophageal reflux disease (GERD), the foods you eat and your eating habits are very important. Choosing the right foods can help ease the discomfort of GERD. Consider working witha dietitian to help you make healthy food [...] you need help quitting, ask your health careprovider. Sleep with the head of your bed raised. Use a wedge under the mattress or blocks under the bed frame to raise the head of the bed. Chew sugar-free gum after mealtimes. What foods should I eat? Eat a healthy, well-balanced diet of fruits, vegetables, whole grains, low-fat dairy products, leanmeats, fish, and poultry. Each person is different. Foods that may trigger symptoms in one person may not trigger any symptoms in another person. Work with your health care provider to identify foodsthat are safe for you. The items listed above may not be a complete list of recommended foods and beverages. Contact a dietitian for more information. What foods should I avoid? Limiting some of these foods may help manage the symptoms of GERD. Everyone is different. Consult adietitian or your health care provider to help you identify the exact foods to avoid, if any. Fruits Any fruits prepared with added fat. Any fruits that cause symptoms. For some people this may include citrus fruits, such as oranges, grapefruit, pineapple, and dali. Vegetables Deep-fried vegetables. Spanish fries. Any vegetables prepared with added fat. [...] symptoms, talk with your health care provider abouttaking medicines. Where to find more information International [...] provider. Document Revised: 10/26/2020 Document Reviewed: 10/26/2020 [employer] Patient Education 2022 [employer]. Follow Up Care 06/02/2022 10:08:57 With:Brianna Pastor CNP Address: When:[address] [facility] 02-02-2023 Hospital Discharge instructions Patient Education 06/02/2022 09:47:57 Food Choices for Gastroesophageal Reflux Disease, Adult Food Choices for Gastroesophageal Reflux Disease, Adult When you have gastroesophageal reflux disease (GERD), the foods you eat and your eating habits are very important. Choosing the right foods can help ease the discomfort of GERD. Consider working witha diet and nutrition consultant (dietitian) to help you make healthy food choices. What general guidelines should I follow? Eating plan Choose healthy foods low in fat, such as fruits, vegetables, whole grains, low- fat dairy products, and lean meat, fish, and [...] Pastries or quick breads with added fat. Spanish toast. Vegetables Deep fried vegetables. Spanish fries. Any vegetables prepared with added fat. [...] this may include guzman, hot sauce, or vinegar- based salad dressings. Summary When you have gastroesophageal reflux disease (GERD), food and lifestyle choices are very importantto help ease the discomfort of GERD. Eat [...] 04/17/2006 Document Revised: 08/08/2019 Document Reviewed: 04/18/2017 [employer] Patient Education 2019 [employer] Follow Up Care 03/11/2022 10:33:58 With:Brianna Pastor CNP Address: When:[address] [facility] 11-02-2022 Evaluation + Plan note Diagnostic Tests Pending * CBC w/ Auto Diff 03/02/22 * Comprehensive Metabolic Panel 03/02/22 * Celiac Disease Comprehensive 03/02/22 [facility] Hospital Discharge instructions Patient Education 03/02/2022 10:27:05 [...] Follow these instructions at home: Medicines Take vycb-pvg-wzawciq and prescription medicines only as told by [...] Watch your condition for any changes. Take fyzq-lxt-qnmuzya and prescription medicines only as told by [...] 01/25/2006 Document Revised: 08/26/2019 Document Reviewed: 08/26/2019 [employer] Patient Education 2020 [employer]. Follow Up Care 12/01/2021 12:46:09 With:Brianna Pastor CNP Address: When:[address] [facility] 08-03-2022 Hospital Discharge instructions Patient Education 12/01/2021 12:36:40 [...] Follow these instructions at home: Medicines Take rkfz-mtt-gqovyrt and prescription medicines only as told by [...] Watch your condition for any changes. Take qjcb-qjg-xgavwkq and prescription medicines only as told by [...] 01/25/2006 Document Revised: 08/26/2019 Document Reviewed: 08/26/2019 [employer] Patient Education 2019 [employer]. Follow Up Care 08/12/2021 10:13:54 With:Brianna Pastor CNP Address: When:[address] [facility] 04-14-2022 Hospital Discharge instructions Patient Education 08/12/2021 10:02:50 [...] Follow these instructions at home: Medicines Take skax-byz-tfijrjv and prescription medicines only as told by [...] Watch your condition for any changes. Take qqnt-psg-mugmvsc and prescription medicines only as told by [...] 01/25/2006 Document Revised: 08/26/2019 Document Reviewed: 08/26/2019 [employer] Patient Education 2020 [employer] Follow Up Care 08/02/2021 07:28:50 With:Brianna Pastor CNP Address: When:[address] [facility] Evaluation + Plan note Future Appointments Appointment Date:11/11/2021 10:00:00 AM Scheduled Provider:Brianna Pastor CNP Location[place] Appointment Type:[facility] Follow Up [facility] Evaluation + Plan note Future Appointments Appointment Date:03/02/2022 10:00:00 AM Scheduled Provider:Brianna Pastor CNP Location[place] Appointment Type:[facility] Follow Up Future Scheduled Tests Laboratory* CBC w/ Auto Diff 12/01/21 * Comprehensive Metabolic Panel 12/01/21 [facility] evaluation + Plan note Future Appointments Appointment Date:08/31/2022 09:20:00 AM Scheduled Provider:Brianna Pastor CNP Location:[facility] Appointment Type:[facility] Follow Up [facility] Evaluation + Plan note Future Appointments Appointment Date:03/01/2023 09:20:00 AM Scheduled Provider:Brianna Pastor CNP Location:[facility] Appointment Type:[facility] Follow Up [facility] Evaluation + Plan note Future Appointments Appointment Date:08/30/2023 09:20:00 AM Scheduled Provider:Brianna Pastor CNP Location:[facility] Appointment Type:[facility] Follow Up [facility] evaluation + Plan note Future Appointments Appointment Date:09/01/2023 09:00:00 AM Scheduled Provider: [facility] Type:US Abdominal/Pelvis (FT) Appointment Date:09/26/2023 09:20:00 AM Scheduled Provider:Brianna Pastor CNP Location:[facility] Appointment Type:[facility] Follow Up Future Scheduled Tests Radiology* US Abdomen, Limited 09/01/23 [facility] Evaluation + Plan note Future Appointments Appointment Date:09/26/2023 09:20:00 AM Scheduled Provider:Brianna Pastor CNP Location:[facility] Compression fracture of T6 vertebra with routine healing, subsequent encounter- Primary Closed traumatic nondisplaced fracture of rib [facility] Diagnosis Primary hypertension (CMS/HCC)- Primary Unspecified essential hypertension Gastroesophageal reflux disease without esophagitis Esophageal reflux Hyperlipidemia, unspecified hyperlipidemia type (CMS/HCC) 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 (CMS/HCC) Encounter for Medicare annual wellness exam Hypothyroidism, unspecified type (CMS/HCC) Non-recurrent acute suppurative otitis media of both ears without spontaneous rupture of tympanic membranes Primary hypertension (CMS/HCC)- Primary Unspecified essential hypertension Gastroesophageal reflux disease without esophagitis Esophageal reflux Hyperlipidemia, unspecified hyperlipidemia type (CMS/HCC) Hypothyroidism, unspecified type (CMS/HCC) Bacterial conjunctivitis of right eye Primary hypertension (CMS/HCC)- Primary Unspecified essential hypertension Hypothyroidism, unspecified type (CMS/HCC) Hyperlipidemia, unspecified hyperlipidemia type ([facility]/HCC) Encounter for screening colonoscopy Closed traumatic displaced fracture of two ribs of left side with routine healing- Primary Primary hypertension (CMS/HCC)- Primary Unspecified essential hypertension Mixed hyperlipidemia (CMS/HCC) Mixed hyperlipidemia Gastroesophageal reflux disease without esophagitis Esophageal reflux Compression fracture of T6 vertebra with routine healing, subsequent encounter- Primary Closed traumatic nondisplaced fracture of rib Screening for osteoporosis Special screening for osteoporosis Unspecified fracture of unspecified lumbar vertebra, initial encounter for closed fracture (CMS/HCC) Female bladder prolapse [facility] Diagnosis Primary hypertension (CMS/HCC)- Primary Unspecified essential hypertension Mixed hyperlipidemia (CMS/HCC) Mixed hyperlipidemia Gastroesophageal reflux disease without esophagitis Esophageal reflux documented [facility]* Diagnosis Primary hypertension (CMS/HCC)- Primary Unspecified essential hypertension Gastroesophageal reflux disease without esophagitis Esophageal reflux Hyperlipidemia, unspecified hyperlipidemia type (CMS/HCC) 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 (CMS/HCC) Encounter for Medicare annual wellness exam Hypothyroidism, unspecified type (CMS/HCC) Non-recurrent acute suppurative otitis media of both ears without spontaneous rupture of tympanic membranes Primary hypertension (CMS/HCC)- Primary Unspecified essential hypertension Gastroesophageal reflux disease without esophagitis Esophageal reflux Hyperlipidemia, unspecified hyperlipidemia type (CMS/HCC) Hypothyroidism, unspecified type ([facility]/HCC) Bacterial conjunctivitis of right eye Primary hypertension (CMS/HCC)- Primary Unspecified essential hypertension Hypothyroidism, unspecified type (CMS/HCC) Hyperlipidemia, unspecified hyperlipidemia type ([facility]) Encounter for screening colonoscopy Closed traumatic displaced fracture of two ribs of left side with routine healing- Primary Primary hypertension (CMS/HCC)- Primary Unspecified essential hypertension Mixed hyperlipidemia (CMS/HCC) Mixed hyperlipidemia Gastroesophageal reflux disease without esophagitis Esophageal reflux Compression fracture of T6 vertebra with routine healing, subsequent encounter- Primary Closed traumatic nondisplaced fracture of rib Screening for osteoporosis Special screening for osteoporosis Unspecified fracture of unspecified lumbar vertebra, initial encounter for closed fracture ([facility]) Primary hypertension ([facility]) Unspecified essential hypertension Hyperlipidemia, unspecified hyperlipidemia type ([facility]) Gastroesophageal reflux disease without esophagitis Esophageal reflux documented in this encounter [facility]* Diagnosis Primary hypertension ([facility]/HCC)- Primary Unspecified essential hypertension Gastroesophageal reflux disease without esophagitis Esophageal reflux Hyperlipidemia, unspecified hyperlipidemia type ([facility]/HCC) 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 ([facility]/HCC) Encounter for Medicare annual wellness exam Hypothyroidism, unspecified type (/HCC) Non-recurrent acute suppurative otitis media of both ears without spontaneous rupture of tympanic membranes Primary hypertension (CMS/HCC)- Primary Unspecified essential hypertension Gastroesophageal reflux disease without esophagitis Esophageal reflux Hyperlipidemia, unspecified hyperlipidemia type (CMS/HCC) Hypothyroidism, unspecified type (CMS/HCC) Bacterial conjunctivitis of right eye Primary hypertension (CMS/HCC)- Primary Unspecified essential hypertension Hypothyroidism, unspecified type ([facility]/HCC) Hyperlipidemia, unspecified hyperlipidemia type ([facility]/HCC) Encounter for screening colonoscopy Primary hypertension (CMS/HCC)- Primary Unspecified essential hypertension Mixed hyperlipidemia (CMS/HCC) Mixed hyperlipidemia Gastroesophageal reflux disease without esophagitis Esophageal reflux Compression fracture of T6 vertebra with routine healing, subsequent encounter- Primary Closed traumatic nondisplaced fracture of rib Screening for osteoporosis Special screening for osteoporosis Unspecified fracture of unspecified lumbar vertebra, initial encounter for closed fracture (CMS/HCC) Primary hypertension (CMS/HCC) Unspecified essential hypertension Hyperlipidemia, unspecified hyperlipidemia type (CMS/HCC) Gastroesophageal reflux disease without esophagitis Esophageal reflux Acute non-recurrent pansinusitis- Primary [facility] Narrative No data available for this section [facility] Hospital Discharge instructions No data available for this section [facility] No data available for this section [facility] Reason for referral (narrative)* Consultation (Routine) - Pending Review Specialty Diagnoses / Procedures Referred By Nik camarena Referred To Contact Neurosurgery Diagnoses Compression fracture of T6 vertebra with routine healing, subsequent encounter Stefany Weston NP [address] [place] [address] José Luis Dickey MD [address] [place] [phone] Referral ID Status Reason Start Date Expiration Date Visits Requested Visits Authorized [id number] Pending Review Specialty Services Required 01/31/2024 07/29/2024 1 1 Scheduling Instructions Please include CT spine report [facility] Healthcare Summary Purpose Family History No Family History [...] Found Advance Directives No Advanced Directives Records Found Advance Directive Response Recorded Date/ Time Advance Directives No March 4:23pm Chief Complaint and Reason for Visit Chief Complaint Admit Date wedge compression fracture of T5-T6 Dece mber 2023 9:31am S22.059A April 11, 2024 10:38am follow up compression fracture May 092024 10:37am Reason for Visit Admit Date T6 vertebral fracture April 11 9:31am Additional Source Comments Care Team (unrecognized sect ion and content) 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 Specialty Start Date End Date Shaikh Bassett MD [address] [place] [address] PCP - General Internal Medicine 07/17/23 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 Specialty Start Date End Date Shaikh Bassett MD [address] [place] [phone] PCP - General Internal Medicine 07/17/23 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 Specialty Start Date End Date Unallocated, Priscilla Kong MD [address] [place] [address] PCP - General Family Medicine 02/21/24 Stefany Weston NP [address] [place] [phone] Nurse Practitioner Family Medicine 02/21/24 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 Specialty Start Date End Date Shaikh Bassett MD [address] [place] [phone] PCP - General Internal Medicine 07/17/23 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 Specialty Start Date End Date Shaikh Bassett MD [address] [place] [phone] PCP - General Internal Medicine 07/17/23 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 Specialty Start Date End Date Johnson Herrera MD [address] [place] [phone] PCP - General Family Medicine 02/29/24 Stefany Weston NP [address] [place] [address] Nurse Practitioner Family Medicine 02/21/24 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 Specialty Start Date End Date Johnson Herrera MD [address] [place] [phone] PCP - General Family Medicine 02/29/24 Stefany Weston NP [address] [place] [address] Nurse Practitioner Family Medicine 02/21/24 Team Status: Active Member Role Status Dates Stefany Weston NP-C Primary Care Provider Ac tive Team Status: Inactive Member Role Status Dates Yari Voss APRN Attending Provider Active Start: April 11, 2024 End: April 11, 2024 Stefany Weston NP-C Primary Care Provider Ac tive Start: April 11, 2024 End: April 11, 2024 Team Status: Inactive Member Role Status Dates Stefany Weston NP-C Primary Care Provider Ac tive Start: April 11, 2024 End: April 11, 2024 Yari Voss APRN Attending Provider Active Start: April 11, 2024 End: April 11, 2024 Team Status: Inactive Member Role Status Dates Stefany Weston NP-C Primary Care Provider Ac tive Start: May 09, 2024 End: May 09, 2024 Yari Voss APRN Attending Provider Active Start: May 09, 2024 End: May 09, 2024 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 Specialty Start Date End Date Johnson Herrera MD [address] [place] [phone] PCP - General Family Medicine 02/29/24 Stefany Weston NP [address] [place] [address] Nurse Practitioner Family Medicine 02/21/24 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 Specialty Start Date End Date Johnson Herrera MD [address] [place] [address] PCP - General Family Medicine 02/29/24 Stefany Weston NP [address] [place] [address] Nurse Practitioner [facility] 02/21/24 INFORMATION SOURCE (unrecogn ized section and content) DATE CREATED AUTHOR 06/28/2022 [facility] DATE CREATED AUTHOR AUTHOR'S ORGANIZ ATION 04/16/2024 [facility] DATE CREATED AUTHOR AUTHOR'S ORGANIZ ATION 05/02/2024 [facility] DATE CREATED AUTHOR AUTHOR'S ORGANIZ ATION 06/02/2024 [facility] DATE CREATED AUTHOR AUTHOR'S ORGANIZ ATION 06/23/2024 [facility] EPIC Reason for Visit (unrecogniz ed section and content) Reason Comments Uterine Prolapse Reason Comments Follow-up 3MO Reason Comments Cough Earache Both ears Goals (unrecognized section and content) Goals may be documented in a n alternate section FOR RECORDS PERTAINING TO PATIENTS WHO ARE [...] BE BASED ON THE PRIMARY CLINICAL RECORDS. [employer] provides no warranty or guarantee of the accuracy or completeness of information in this document.
--- NOTE | 2024-06-27 09:18 | MM_ITS ---
Patient Name: TOÑITO PUTNAM MR#: [id number] : 1945 Exam Date: 06/27/2024 Ordering Doctor: LYRIC AMBROSIO RADIOLOGY REPORT PROCEDURE: MM TOMOSYNTHESIS SCREENING BI COMPARISON: MM TOMOSYNTHESIS SCREENING BI, 06/26/2023. MG MAMM SCREEN 3D NIKKI CAD, 06/23/2022. MG MAMM SCREEN 3D NIKKI CAD, 06/21/2021. MG MAMM NIKKI SCRN W CAD DIG, 04/14/2011. INDICATIONS: Screening Calculator Name NCI Breast Cancer Risk Assessment Tool 5 Year Breast Cancer Risk 1.50% Lifetime Breast Cancer Risk 2.90% Personal Breast Cancer No Personal Ovarian Cancer No Treatments None Family Cancers Mother with colon cancer at age ~70; Father with colon cancer at age ~60; Brother with lung cancer at age ~60. LOCATION: [facility] BREAST COMPOSITION: There are scattered areas of fibroglandular density. FINDINGS: DIAGNOSTIC CATEGORY 1--NEGATIVE. NO CHANGE FROM COMPARISON ASSESSMENT. RIGHT BREAST: No significant suspicious finding. LEFT BREAST: No significant suspicious finding. RECOMMENDATIONS: ROUTINE MAMMOGRAM AND CLINICAL EVALUATION IN 12 MONTHS. PLEASE NOTE: A NORMAL MAMMOGRAM DOES NOT EXCLUDE THE POSSIBILITY OF BREAST CANCER. A CLINICALLY SUSPICIOUS PALPABLE LUMP SHOULD BE BIOPSIED. Dictated by: Reji Aleman DO on 06/27/2024 at 11:59 Approved by: Reji Aleman DO on 06/27/2024 at 12:07
== END 2024-06-27 09:15 | disposition home or self-care (01) ==
LOC: MAMMO 09:14
DX: Z12.31 Encounter for screening mammogram for malignant neoplasm of breast (principal); Z80.0 Family history of malignant neoplasm of digestive organs; Z80.1 Family history of malignant neoplasm of trachea, bronchus and lung
CPT/HCPCS: 77063; 77067

== ENCOUNTER 2024-09-16 08:46 | Emergency (ER) | payer MEDICARE, OTHER, SELFPAY ==
[2024-09-16 08:52] VITALS: BP 147/91; PULSE 58; O2SAT 96; BMI 27.5
[2024-09-16 08:56] VITALS: TEMP 36.8
[2024-09-16 09:04] VITALS: O2SAT 98
[2024-09-16] MEDS: KETOROLAC TROMETHAMINE 30 MG/ML VIAL 15 MG IM (09:19)
--- NOTE | 2024-09-16 09:22 | ED.NECK1 ---
HPI HPI - Neck Pain/Injury General Chief Complaint: Neck Pain/Injury Stated Complaint: NECK PAIN Time Seen by Provider: 09/16/24 09:00 Source: patient Mode of arrival: walk-in History of Present Illness HPI Narrative: Patient is a 79-year-old female who is coming to the ER with 2 days history of left-sided neck pain, pain is limited only to the left side of the neck associated with no trauma or fall, mentioned that she recently has been seeing a new recliner, the patient denies any numbness or tingling down her arm and she denies any weakness No other complaint The patient did not try anything [id number] Patient was already coming to the ER with her who is coming to get the blood draw for testing Related Data Home Medications ?Medication ?Instructions ?Recorded ?Confirmed atenolol 25 mg tablet 25 mg PO DAILY 11/20/23 09/16/24 atorvastatin 20 mg tablet 20 mg PO DAILY 11/20/23 09/16/24 lisinopril 10 mg tablet 10 mg PO DAILY 11/20/23 09/16/24 pantoprazole 40 mg tablet,delayed 40 mg PO DAILY 11/20/23 09/16/24 release (Protonix) sucralfate 1 gram tablet 1 g PO BID 09/16/24 09/16/24 Previous Rx's ?Medication ?Instructions ?Recorded diclofenac sodium 50 mg 50 mg PO Q12H PRN pain #10 tabs 09/16/24 tablet,delayed release orphenadrine citrate 100 mg 100 mg PO ONCE PRN muscle spasm #5 09/16/24 tablet,extended release tabs Allergies Allergy/AdvReac Type Severity Reaction Status Date / Time No Known Drug Allergies Allergy Verified 11/28/23 07:40 Opioid HPI Opioid Management Most Recent Opioid Data: Last Pain Scale 8 Today, 09:19 Last MAR Pain Assessment Today, 09:19 Review of Systems ROS Status of ROS 10 or more systems reviewed and unremarkable except as noted in history and below [facility] Medical History (Updated 09/16/24 @ 09:23 by Jenniffer Pizarro MD) GERD (gastroesophageal reflux disease) ?K21.9 - Gastro-esophageal reflux disease without esophagitis (ICD-10) Dyslipidemia ?E78.5 - Hyperlipidemia, unspecified (ICD-10) HTN (hypertension), benign ?I10 - Essential (primary) hypertension (ICD-10) Left wrist pain ?M25.532 - Pain in left wrist (ICD-10) Hyperlipidemia ?E78.5 - Hyperlipidemia, unspecified (ICD-10) Normal colonoscopy Breast neoplasm ?D49.3 - Neoplasm of unspecified behavior of breast (ICD-10) COVID-19 ?U07.1 - COVID-19 (ICD-10) Surgical History (Updated 11/28/23 @ 07:44 by Callie Johnson RN) History of cataract surgery ?Z98.49 - Cataract extraction status, unspecified eye (ICD-10) History of cholecystectomy ?Z90.49 - Acquired absence of other specified parts of digestive tract (ICD-10) H/O: hysterectomy ?Z90.710 - Acquired absence of both cervix and uterus (ICD-10) Family History (Updated 11/28/23 @ 07:43 by Callie Johnson RN) Other Family history of COPD (chronic obstructive pulmonary disease) Family history of cancer Family history of hypertension Family history of myocardial infarction Social History Within the past year, how often did you have a drink containing alcohol: never Score interpretation: A score less than 3 is consistent with normal alcohol consumption. Smoking status: Never smoker Second hand tobacco smoke exposure: No Non-prescribed substance use: denies use Previous occupational history: RETIRED Highest level of school completed/degree received: 12th grade, no diploma Little interest or pleasure in doing things: not at all Feeling down, depressed, or hopeless: not at all Exam Narrative Exam Narrative: Nurses notes and vital signs reviewed and patient is not hypoxic. General: Well-appearing and in no apparent distress. Skin: Warm, dry, no pallor noted. No rash. Head: Normocephalic, atraumatic. Neck: Supple, no intervertebral line tenderness the patient tenderness is mostly at the left side spinal muscle of the upper cervical going down to the shoulder. The patient have no numbness tingling or any weakness in the upper extremities Eye: Pupils are equal, round and EOMI. No scleral icterus. Cardiovascular: Regular Rate and Rhythm without murmur, gallop or rub. Respiratory: No accessory muscle use or respiratory distress. Neurological: A&O x4. No cranial nerve dysfunction observed. No truncal ataxia. Moves all extremities. Sensation intact. Psychiatric: Cooperative and interactive. Normal mood and affect. Constitutional Vital Signs, click to edit/add: Last Vital Signs Temp 98.2 F 09/16/24 08:56 Pulse 58 L 09/16/24 08:52 Resp 16 09/16/24 08:52 BP 147/91 H 09/16/24 08:52 Pulse Ox 98 09/16/24 09:04 O2 Del Method Room Air 09/16/24 09:04 Course Vital Signs Vital signs: Vital Signs Pulse Rate 58 L 09/16/24 08:52 Respiratory Rate 16 09/16/24 08:52 Blood Pressure 147/91 H 09/16/24 08:52 Pulse Oximetry 96 09/16/24 08:52 Oxygen Delivery Method Room Air 09/16/24 08:52 Temperature 98.2 F 09/16/24 08:56 Pulse Rate 58 L 09/16/24 08:52 Respiratory Rate 16 09/16/24 08:52 Blood Pressure 147/91 H 09/16/24 08:52 Pulse Oximetry 98 09/16/24 09:04 Oxygen Delivery Method Room Air 09/16/24 09:04 MDM - Neck Pain/Injury MDM Narrative Medical decision making narrative: The patient presentation likely secondary to torticollis or muscle pain and spasm Patient was started on Toradol in the ER and discharged home with Bebo and Kale The patient is to follow up with primary care physician in next 2-3 days or to return to the emergency department should any of the signs or symptoms worsen or new symptoms develop. The patient agrees with the following Diagnosis and Treatment plan and the patient will be discharged home. Discharge Plan Discharge Chief Complaint: Neck Pain/Injury Clinical Impression: Neck sprain Patient Disposition: Home, Self-Care Time of Disposition Decision: 09:22 Condition: Good Prescriptions / Home Meds: New diclofenac sodium 50 mg tablet,delayed release (DR/EC) 50 mg PO Q12H PRN (Reason: pain) Qty: 10 0RF orphenadrine citrate 100 mg tablet extended release 100 mg PO ONCE PRN (Reason: muscle spasm) Qty: 5 0RF No Action sucralfate 1 gram tablet 1 g PO BID atenolol 25 mg tablet 25 mg PO DAILY atorvastatin 20 mg tablet 20 mg PO DAILY lisinopril 10 mg tablet 10 mg PO DAILY pantoprazole [Protonix] 40 mg tablet,delayed release (DR/EC) 40 mg PO DAILY Print Language: Romanian Instructions: Spasmodic Torticollis (ED) Referrals: Johnson Wesley MD [Primary Care Provider, Family Practice] - 1 week
[2024-09-16 09:33] VITALS: BP 139/85; PULSE 57; O2SAT 95
== END 2024-09-16 09:35 | disposition home or self-care (01) ==
PROVIDERS: Emergency Provider Emergency Medicine; PCP Family Medicine
DX: S13.9XXA Sprain of joints and ligaments of unspecified parts of neck, initial encounter (principal); X58.XXXA Exposure to other specified factors, initial encounter; Z90.49 Acquired absence of other specified parts of digestive tract; Z90.710 Acquired absence of both cervix and uterus
CPT/HCPCS: 96372; 99284; J1885

== ENCOUNTER 2024-10-11 12:39 | Emergency (ER) | payer MEDICARE, OTHER, SELFPAY ==
[2024-10-11] VITALS (13 sets, daily range): BP systolic 107–132; BP diastolic 67–86; PULSE 55–67; TEMP 36.6; O2SAT 92–99; BMI 30.2
--- NOTE | 2024-10-11 13:09 | ECG_ITS ---
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 Measurements Intervals [place] Rate: 57 P: 34 RI: 170 QRS: -10 QRSD: 86 T: 34 QT: 420 QTc: 415 Interpretive Statements 1100 Sinus rhythm 8102 Low QRS voltage in chest leads 9120 atypical ECG Compared to ECG 04/24/2019 03:07:00 No significant changes Electronically Signed On 10-11-2024 19:28:26 EDT by CARLOZ HAWK M.D.
--- NOTE | 2024-10-11 13:09 | XR_ITS ---
The [address] [address] Patient Name: TOÑITO PUTNAM MRN: [id number] date: 1945 Sex: F Assigned Patient Location: ER Current Patient Location: ER Accession/Order Number: [id number] Exam Date: 10/11/2024 13:48 Report Date: 10/11/2024 13:56 At the request of: CINTHYA RUIZ Procedure: XR chest 1V CLINICAL DATA: Pain at the right breast that radiates to the back on that side today. No injury. THORACIC SPINE -2 views: COMPARISON: CT 01/24/2024 AP and lateral views were obtained. There is osteopenia. Slight levoscoliotic curvature is noted. There is continued wedge deformity at T6, possibly minimally progressed. There is no new compression fracture or displacement. The pedicles are intact. Minor endplate spurring is seen. There are no paraspinal soft tissue abnormalities. XR/XR thoracic spine 3V IMPRESSION: OSTEOPENIA, SCOLIOSIS AND MINOR DEGENERATIVE CHANGE. T6 COMPRESSION FRACTURE, POSSIBLY MINIMALLY PROGRESSED SINCE THE COMPARISON CT EXAM NO OTHER DEVELOPING COMPRESSION FRACTURES. PA CHEST COMPARISON: CT 01/24/2024 The heart is borderline prominent. The aorta is slightly ectatic. No vascular congestion is seen. There is minimal basilar atelectasis or scarring. No other focal consolidation, sizable effusion or pneumothorax is noted. The bony structures are osteopenic. IMPRESSION: BORDERLINE CARDIOMEGALY. MINOR SCARRING OR ATELECTASIS. NO ACUTE FINDINGS. Impression dictated by: Elise Griggs M.D. 10/11/2024 1:56 PM Dictation Location: [place] [address] Electronically authenticated by: [id number] Y Date: 10/11/2024 13:56
--- NOTE | 2024-10-11 13:09 | XR_ITS ---
The [address] [address] Patient Name: TOÑITO PUTNAM MRN: [id number] date: 1945 Sex: F Assigned Patient Location: ER Current Patient Location: ER Accession/Order Number: [id number] Exam Date: 10/11/2024 13:48 Report Date: 10/11/2024 13:56 At the request of: CINTHYA RUIZ Procedure: XR chest 1V CLINICAL DATA: Pain at the right breast that radiates to the back on that side today. No injury. THORACIC SPINE -2 views: COMPARISON: CT 01/24/2024 AP and lateral views were obtained. There is osteopenia. Slight levoscoliotic curvature is noted. There is continued wedge deformity at T6, possibly minimally progressed. There is no new compression fracture or displacement. The pedicles are intact. Minor endplate spurring is seen. There are no paraspinal soft tissue abnormalities. XR/XR chest 1V IMPRESSION: OSTEOPENIA, SCOLIOSIS AND MINOR DEGENERATIVE CHANGE. T6 COMPRESSION FRACTURE, POSSIBLY MINIMALLY PROGRESSED SINCE THE COMPARISON CT EXAM NO OTHER DEVELOPING COMPRESSION FRACTURES. PA CHEST COMPARISON: CT 01/24/2024 The heart is borderline prominent. The aorta is slightly ectatic. No vascular congestion is seen. There is minimal basilar atelectasis or scarring. No other focal consolidation, sizable effusion or pneumothorax is noted. The bony structures are osteopenic. IMPRESSION: BORDERLINE CARDIOMEGALY. MINOR SCARRING OR ATELECTASIS. NO ACUTE FINDINGS. Impression dictated by: Elise Griggs M.D. 10/11/2024 1:56 PM Dictation Location: [place] [address] Electronically authenticated by: [id number] Y Date: 10/11/2024 13:56
--- NOTE | 2024-10-11 13:09 | ED.GENADUL1 ---
HPI HPI - General Adult General Chief complaint: Chest Pain Stated complaint: R BREAST AND BACK PAIN Time Seen by Provider: 10/11/24 13:04 Source: patient Mode of arrival: walk-in History of Present Illness HPI narrative: 79 year old female presents to the ED for right-sided chest pain that radiates to her right shoulder blade. Onset was this morning. States it starts on the right upper breast area. It started to radiate to the back after mowing the lawn. The pain is worse with palpation and movement. Denies weakness, N/T, SOB, dizziness. Related Data Home Medications ?Medication ?Instructions ?Recorded ?Confirmed atenolol 25 mg tablet 25 mg PO DAILY 11/20/23 09/16/24 atorvastatin 20 mg tablet 20 mg PO DAILY 11/20/23 09/16/24 lisinopril 10 mg tablet 10 mg PO DAILY 11/20/23 09/16/24 pantoprazole 40 mg tablet,delayed 40 mg PO DAILY 11/20/23 09/16/24 release (Protonix) sucralfate 1 gram tablet 1 g PO BID 09/16/24 09/16/24 Previous Rx's ?Medication ?Instructions ?Recorded diclofenac sodium 50 mg 50 mg PO Q12H PRN pain #10 tabs 09/16/24 tablet,delayed release orphenadrine citrate 100 mg 100 mg PO ONCE PRN muscle spasm #5 09/16/24 tablet,extended release tabs orphenadrine citrate 100 mg 100 mg PO DAILY PRN pain, muscle 10/11/24 tablet,extended release spasms 5 days #5 tabs Allergies Allergy/AdvReac Type Severity Reaction Status Date / Time No Known Drug Allergies Allergy Verified 11/28/23 07:40 Opioid HPI Opioid Management Most Recent Opioid Data: Last Pain Scale 8 09/16/24, 09:19 Review of Systems ROS Constitutional Denies: fever or chills Ears, nose, mouth, and throat Denies: throat pain or neck pain Cardiovascular Reports: chest pain Respiratory Denies: shortness of breath or cough Gastrointestinal Denies: abdominal pain, nausea or vomiting Genitourinary Denies: painful urination Musculoskeletal Reports: back pain; Denies: neck pain Integumentary/Breast Denies: rash Neurological Denies: headache, numbness in extremities, weakness in extremities or dizziness [facility] Medical History (Updated 10/11/24 @ 15:00 by Maura King) GERD (gastroesophageal reflux disease) ?K21.9 - Gastro-esophageal reflux disease without esophagitis (ICD-10) Dyslipidemia ?E78.5 - Hyperlipidemia, unspecified (ICD-10) HTN (hypertension), benign ?I10 - Essential (primary) hypertension (ICD-10) Left wrist pain ?M25.532 - Pain in left wrist (ICD-10) Hyperlipidemia ?E78.5 - Hyperlipidemia, unspecified (ICD-10) Normal colonoscopy Breast neoplasm ?D49.3 - Neoplasm of unspecified behavior of breast (ICD-10) COVID-19 ?U07.1 - COVID-19 (ICD-10) Surgical History (Updated 11/28/23 @ 07:44 by Callie Johnson, MARK ANTHONY) History of cataract surgery ?Z98.49 - Cataract extraction status, unspecified eye (ICD-10) History of cholecystectomy ?Z90.49 - Acquired absence of other specified parts of digestive tract (ICD-10) H/O: hysterectomy ?Z90.710 - Acquired absence of both cervix and uterus (ICD-10) Family History (Updated 11/28/23 @ 07:43 by Callie Johnson, MARK ANTHONY) Other Family history of COPD (chronic obstructive pulmonary disease) Family history of cancer Family history of hypertension Family history of myocardial infarction Social History Within the past year, how often did you have a drink containing alcohol: never Score interpretation: A score less than 3 is consistent with normal alcohol consumption. Smoking status: Never smoker Second hand tobacco smoke exposure: No Non-prescribed substance use: denies use Previous occupational history: RETIRED Highest level of school completed/degree received: 12th grade, no diploma Little interest or pleasure in doing things: not at all Feeling down, depressed, or hopeless: not at all Exam Constitutional Vital Signs, click to edit/add: Last Vital Signs Temp 97.9 F 10/11/24 12:43 Pulse 55 L 10/11/24 14:30 Resp 23 H 10/11/24 14:30 BP 121/70 10/11/24 14:00 Pulse Ox 95 10/11/24 14:30 O2 Del Method Room Air 10/11/24 12:43 Common normals: no apparent distress and oriented x3 General appearance: cooperative HENMT Common normals: moist oral mucous membranes Eye Common normals: conjunctivae normal and no scleral icterus Respiratory Common normals: normal respiratory effort and clear to auscultation bilaterally Effort & inspection: able to speak in complete sentences and symmetric chest movement Cardio Common normals: regular rate and regular rhythm Back & Pelvis Thoracic spine/upper back: paraspinal muscle tenderness, paraspinal muscle spasm and other soft tissue findings (Tenderness at medial scapula area. No rash noted.); no thoracic spinal tenderness Lumbar spine/lower back: no lumbar spinal tenderness, no paraspinal muscle tenderness and no paraspinal muscle spasm Neuro Common normals: oriented x3, CN's II-XII intact bilaterally and moves all extremities Sensorium/orientation: awake and alert Course Vital Signs Vital signs: Vital Signs Temperature 97.9 F 10/11/24 12:43 Pulse Rate 64 10/11/24 12:43 Respiratory Rate 18 10/11/24 12:43 Blood Pressure 107/77 10/11/24 12:43 Pulse Oximetry 95 10/11/24 12:43 Oxygen Delivery Method Room Air 10/11/24 12:43 Temperature 97.9 F 10/11/24 12:43 Pulse Rate 55 L 10/11/24 14:30 Respiratory Rate 23 H 10/11/24 14:30 Blood Pressure 121/70 10/11/24 14:00 Pulse Oximetry 95 10/11/24 14:30 Oxygen Delivery Method Room Air 10/11/24 12:43 Medical Decision Making MDM Narrative Medical decision making narrative: Laboratory studies were unremarkable, including two troponin levels. Imaging was negative for acute findings. Findings were discussed. The patient's pain was reproducible. She reported improvement with the Norflex and Decadron she was given here. Follow up with pcp for a recheck, further evaluation and treatment. She requested a prescription for the muscle relaxer she was given at a previous visit for neck pain. A prescription was provided for Norflex. HEART Score for Major Cardiac Events from [email or web address] on 10/11/2024 All calculations should be rechecked by clinician prior to use RESULT SUMMARY: 3 points Low Score (0-3 points) Risk of MACE of 0.9-1.7%. INPUTS: History ?> 0 = Slightly suspicious EKG ?> 0 = Normal Age ?> 2 = >=5 Risk factors ?> 1 = 1-2 risk factors Initial troponin ?> 0 = <=ormal limit Differential Diagnosis Differential Diagnosis: Chest pain, atypical chest pain, ACS, musculoskeletal pain Medical Records Medical records reviewed: Yes I reviewed the patient's medical records Lab Data Lab results reviewed: Yes I reviewed the patient's lab results Labs: Lab Results 10/11/24 10/11/24 Range/Units 10:03 14:13 WBC 7.7 (4.0-11.0) 10^3/uL RBC 5.08 (4.20-5.40) 10^6/uL Hgb 13.1 (12.0-16.0) g/dL Hct 40.4 (36.0-48.0) % MCV 79.5 L (81.0-99.0) fL MCH 25.8 L (26.7-34.0) pg MCHC 32.4 (29.9-35.2) g/dL RDW 14.1 (11.0-15.0) % Plt Count 639 H (150-450) 10^3/uL MPV 10.4 (9.5-13.5) fL Neut % (Auto) 71.7 (43.0-75.0) % Lymph % (Auto) 17.5 L (20.5-60.0) % [place] % (Auto) 7.4 (1.7-12.0) % Eos % (Auto) 2.0 (0.9-7.0) % Baso % (Auto) 1.0 (0.2-2.0) % Neut # (Auto) 5.5 (1.4-6.5) 10^3/uL Lymph # (Auto) 1.3 (1.2-3.8) 10^3/uL [place] # (Auto) 0.6 (0.3-0.8) 10^3/uL Eos # (Auto) 0.2 (0.0-0.7) 10^3/uL Baso # (Auto) 0.1 (0.0-0.1) 10^3/uL Abs Immat Gran (auto) 0.03 (0.00-0.03) 10^3/uL Imm/Tot Granulo (auto) 0.4 (0.0-0.5) % Sodium 137 (136-145) mmol/L Potassium 4.0 (3.5-5.1) mmol/L Chloride 99 (98-107) mmol/L Carbon Dioxide 24.8 (21.0-32.0) mmol/L Anion Gap 17.2 BUN 10.0 (7.0-18.0) mg/dL Creatinine 0.72 (0.55-1.02) mg/dL Est GFR ( Amer) >60 (>=60 mL/min/1.73m^2) Est GFR (Non-Af Amer) >60 (>=60 mL/min/1.73m^2) BUN/Creatinine Ratio 13.9 Glucose 149 H (74-106) mg/dL Calcium 9.5 (8.5-10.1) mg/dL Troponin I High Sens <4.0 L 5.3 (4.0-51.3) pg/mL Imaging Data Chest x-ray: Attestation: I have reviewed the pertinent imaging results. Radiologist's impression: ITS Impressions Chest X-Ray 10/11/24 13:09 IMPRESSION: OSTEOPENIA, SCOLIOSIS AND MINOR DEGENERATIVE CHANGE. T6 COMPRESSION FRACTURE, POSSIBLY MINIMALLY PROGRESSED SINCE THE COMPARISON CT EXAM NO OTHER DEVELOPING COMPRESSION FRACTURES. PA CHEST COMPARISON: CT 01/24/2024 The heart is borderline prominent. The aorta is slightly ectatic. No vascular congestion is seen. There is minimal basilar atelectasis or scarring. No other focal consolidation, sizable effusion or pneumothorax is noted. The bony structures are osteopenic. IMPRESSION: BORDERLINE CARDIOMEGALY. MINOR SCARRING OR ATELECTASIS. NO ACUTE FINDINGS. Impression dictated by: Elise Griggs M.D. 10/11/2024 1:56 PM Dictation Location: [place] [address] Electronically authenticated by: [id number] Y Date: 10/11/2024 13:56 Thoracic Spine X-Ray 10/11/24 13:09 IMPRESSION: OSTEOPENIA, SCOLIOSIS AND MINOR DEGENERATIVE CHANGE. T6 COMPRESSION FRACTURE, POSSIBLY MINIMALLY PROGRESSED SINCE THE COMPARISON CT EXAM NO OTHER DEVELOPING COMPRESSION FRACTURES. PA CHEST COMPARISON: CT 01/24/2024 The heart is borderline prominent. The aorta is slightly ectatic. No vascular congestion is seen. There is minimal basilar atelectasis or scarring. No other focal consolidation, sizable effusion or pneumothorax is noted. The bony structures are osteopenic. IMPRESSION: BORDERLINE CARDIOMEGALY. MINOR SCARRING OR ATELECTASIS. NO ACUTE FINDINGS. Impression dictated by: Elise Griggs M.D. 10/11/2024 1:56 PM Dictation Location: [place] [address] Electronically authenticated by: [id number] Y Date: 10/11/2024 13:56 ECG Data Attestation: ?I have reviewed the pertinent ECG results. (EKG was reviewed by the attending physician. It showed sinus rhythm at a rate of 57. No acute ST segment changes.) Interpretation: Measurements Intervals [place] Rate: 57 P: 34 MT: 170 QRS: -10 QRSD: 86 T: 34 QT: 420 QTc: 415 Interpretive Statements 1100 Sinus rhythm 8102 Low QRS voltage in chest leads 9120 atypical ECG No previous ECG available for comparison Discharge Plan Discharge Chief Complaint: Chest Pain Clinical Impression: Musculoskeletal back pain, Atypical chest pain Patient Disposition: Home, Self-Care Time of Disposition Decision: 14:59 Condition: Good Mode of Transportation: Private Vehicle Prescriptions / Home Meds: New orphenadrine citrate 100 mg tablet extended release 100 mg PO DAILY PRN (Reason: pain, muscle spasms) 5 Days Qty: 5 0RF No Action sucralfate 1 gram tablet 1 g PO BID diclofenac sodium 50 mg tablet,delayed release (DR/EC) 50 mg PO Q12H PRN (Reason: pain) Qty: 10 0RF orphenadrine citrate 100 mg tablet extended release 100 mg PO ONCE PRN (Reason: muscle spasm) Qty: 5 0RF atenolol 25 mg tablet 25 mg PO DAILY atorvastatin 20 mg tablet 20 mg PO DAILY lisinopril 10 mg tablet 10 mg PO DAILY pantoprazole [Protonix] 40 mg tablet,delayed release (DR/EC) 40 mg PO DAILY Print Language: [place] Instructions: Chest Pain (ED), Back Pain (ED), Chest Wall Pain (ED) Additional Instructions: Return to the ER for worsening symptoms. Referrals: Johnson Wesley MD [Primary Care Provider, Family Practice] - 1 week
[2024-10-11 13:17] LABS: Basophils Absolute Auto 0.1 10^3/uL (0.0-0.1); Eosinophils Absolute Auto 0.2 10^3/uL (0.0-0.7); Hematocrit 40.4 % (36.0-48.0); Hemoglobin 13.1 g/dL (12.0-16.0); Immature Granulocytes Abs Auto 0.03 10^3/uL (0.00-0.03); Immature Granulocytes Pct Auto 0.4 % (0.0-0.5); Lymphocytes Absolute Auto 1.3 10^3/uL (1.2-3.8); Lymphocytes Percent Auto 17.5 % (20.5-60.0); Mean Corpuscular HGB Conc 32.4 g/dL (29.9-35.2); Mean Corpuscular Hemoglobin 25.8 pg (26.7-34.0); Mean Corpuscular Volume 79.5 fL (81.0-99.0); Mean Platelet Volume 10.4 fL (9.5-13.5); Monocytes Absolute Auto 0.6 10^3/uL (0.3-0.8); Monocytes Percent Auto 7.4 % (1.7-12.0); Neutrophils Absolute Auto 5.5 10^3/uL (1.4-6.5); Neutrophils Percent Auto 71.7 % (43.0-75.0); Platelet Count 639 10^3/uL (150-450); Red Blood Count 5.08 10^6/uL (4.20-5.40); Red Cell Distribution Width 14.1 % (11.0-15.0); White Blood Count 7.7 10^3/uL (4.0-11.0)
[2024-10-11 13:48] LABS: Anion Gap 17.2; BUN Creatinine Ratio 13.9; Calcium 9.5 mg/dL (8.5-10.1); Carbon Dioxide 24.8 mmol/L (21.0-32.0); Chloride 99 mmol/L (98-107); Estimated GFR (African America >60 (>=60 mL/min/1.73m^2); Estimated GFR (Non-African Ame >60 (>=60 mL/min/1.73m^2); Glucose 149 mg/dL (74-106); Sodium 137 mmol/L (136-145); Troponin I High Sensitivity <4.0 pg/mL (4.0-51.3)
[2024-10-11] MEDS: ORPHENADRINE 60 MG/2 ML VIAL 30 MG IV (14:27)
[2024-10-11] MEDS: DEXAMETHASONE SOD PHOS 10 MG/ML VIAL IV (14:27)
[2024-10-11 14:46] LABS: Troponin I High Sensitivity 5.3 pg/mL (4.0-51.3)
== END 2024-10-11 15:18 | disposition home or self-care (01) ==
PROVIDERS: Nurse Practitioner Family; Emergency Provider Emergency Medicine; PCP Family Medicine
DX: M54.9 Dorsalgia, unspecified (principal); R07.89 Other chest pain; I51.7 Cardiomegaly; M48.54XA Collapsed vertebra, not elsewhere classified, thoracic region, initial encounter for fracture; M85.80 Other specified disorders of bone density and structure, unspecified site
CPT/HCPCS: 36415; 71045; 72072; 80048; 84484; 85025; 93005; 96374; 96375; 99285; J1100; J2360

== ENCOUNTER 2025-01-23 10:14 | Outpatient (OUT) | payer MEDICARE, OTHER, SELFPAY ==
--- OUTSIDE RECORDS SUMMARY | 2025-01-23 05:42 | XMS_ITS | Continuity of Care Document ---
Author Organization [facility] Address [address] [place] [address] Phone Care Team Providers Care Economic Specialist Name Role Phone Stefany Weston NP-C Primary Care Provid er Johnson Wesley MD Attending Provider Care Teams Patient Care Team Team Status: Active Member Role Status Dates Stefany Weston NP-C Primary Care Provider Ac tive Patient Care Team Team Status: Inactive Member Role Status Dates Stefany Weston NP-C Primary Care Provider Ac tive Start: January 23, 2025 End: January 23, 2025 Johnson Wesley MD Attending Provider Active Star t: January 23, 2025 End: January 23, 2025 Chief Complaint and Reason for Visit Chief Complaint Admit Date Established Patient January 23, 2025 8:54am Reason for Visit Admit Date Benign essential hypertension January 23, 2025 8:54am Coronary artery disease invo lving pilot station coronary artery of pilot station heart wi January 23, 2025 8:54am Encounter for long-term (current) use of medications January 23, 2025 8:54am GERD (gastroesophageal reflux disease) S eptember 2024 8:54am Hypothyroidism January 23, 2025 8:54am Allergies, Adverse Reactions, Alerts Allergen Type Severity Reaction Last Updated Verified Status No Known Allergies Allergy Unknown Sept2024 9:16am Yes Active Social History Smoking Status Status Start Date End Date Date of Observa tion Never smoked tobacco (finding) January 23, 2025 9:19am Observation Status Observation Response Date of Response Legal Sex Female (finding) Sex Assigned At Female June Problems Active Problems Medical Problem Onset Date Status Compression fracture of T6 vertebra with routine healing Unknown Active Medicare annual wellness visit, subsequent Unkno wn Active Benign essential hypertension Unknown Ac tive Hyperlipidemia Unknown Active Hypothyroidism Unknown Active Encounter for long-term (current) use of medicat ions Unknown Active Coronary artery disease invo lving pilot station coronary artery of pilot station heart without angina pectoris Unknown Active T6 vertebral fracture Unknown Active GERD (gastroesophageal reflux disease) Unknown Active Medications Medication Status Dose Units Route Directions Qty Days St art Date Stop Date End Date Instructions Adherence Lisinopril 10 mg tablet Active 10 MG PO Daily 30 30 [facility] 2024 8:07am Complies with drug therapy Pantoprazol e 40 mg tablet,eliecer yed release (DR/EC) Active 40 MG PO Daily [facility] 2023 1:00am Complies with drug therapy Atorvastati n 20 mg tablet Active 20 MG PO Daily [facility] 2023 1:00am Complies with drug therapy Lisinopril 10 mg tablet Discont inued 10 MG PO Daily [facility] 2023 1:00am [facility] 2024 8:07a m Atenolol 25 mg tablet Active 25 MG PO Daily [facility] 2023 1:00am Complies with drug therapy Sucralfate (Carafate) 1 gram tablet Discont inued 1 GM PO Twice daily [facility] 2023 1:00am [facility] 2024 10:56 am Sucralfate 1 gram tablet Active 1 GM PO Twice daily 2024 12:00a m Complies with drug therapy Vital Signs Vital Reading Result Reference Range Collection Date/Time Height 62 [in_i] January 23, 2025 9:14am Body Temperature 95.9 [degF] 97.6-99.0 December 312024 9:14am Heart Rate 55 /min 60-100 January 23, 2025 9:14am Respiratory rate 22 /min -December 312024 9:14am Oxygen saturation by Pulse oximetry 95 % 95-100 January 23, 2025 9:14am BP Systolic 120 mm[Hg] 100-140 January 23, 2025 9:14am BP Diastolic 66 mm[Hg] 60-100 January 23, 2025 9:14am Advance Directives Advance Directive Response Recorded Date/ Time Advance Directives No March 5:23pm Insurance Providers Guarantor Ana Garcia Address [address] [place] [phone] Contact Info. Home Phone: Payer Policy Id Subscriber's Name Subscriber Id Effectiv e Date Expiration Date Medicare [id number] Ana Garcia [id number] Regular Insurance [id number] Ana Garcia [id number] Encounters Encounter Location(s) Arrival/Admit Date Discharge/Depart Date Provider(s) Departed Physician/Prov ider Office Visit -[facility] Family Medicine [place] January 23, 2025 8:54am January 23, 2025 9:41am Johnson Wesley MD Recent Diagnosis Onset Date Admit Date Benign essential hypertension Unknown Se 2024 8:54am Coronary artery disease invo lving pilot station coronary artery of pilot station heart wi Unknown January 23 8:54am Encounter for long-term (cur rent) use of medications Unknown January 23, 2025 8:54am GERD (gastroesophageal reflux disease) Unknown January 23, 2025 8:54am Hypothyroidism Unknown January 23, 2025 8:54am Assessments Diagnosis Onset Date Resolution Status Admit Date Benign essential hypertension acute January 23, 2025 8:54am Coronary artery disease involving pilot station coronary artery of pilot station heart wi acute 2024 8:54am Encounter for long-term (current) use of medications acute Sep 2024 8:54am GERD (gastroesophageal reflu x disease) acute January 23, 2025 8:54am Hypothyroidism acute January 23, 2025 8:54am Plan of Treatment Future Tests Future scheduled test information is unavailable Pending Tests Test Name Ordered Date Scheduled Date Comprehensive Metabolic Panel January 23 9:26am Future Visits Future appointment information is unavailable Referrals to Other Providers Referral information is unavailable Future Procedures Procedure Name Ordered Date Scheduled Date Complete Blood Count Auto Diff January 23, 9:26am Lipid Panel January 23, 2025 9:26am Free T4 (Free Thyroxine) January 23, 2025 9: 26am Thyroid Stimulating Hormone January 23, 2025 9:26am Future Medications Future medication information is unavailable Patient Instructions Patient instructions are unavailable
--- OUTSIDE RECORDS SUMMARY | 2025-01-23 10:20 | XMS_ITS | Clinical Summary ---
Author Organization [facility] Address [address] [place] [address] Care Team Providers Care Lap Cutter Truer Operator Name Role Phone Johnson Wesley MD Primary Care Provider Allergies Active Allergy Reactions Criticality Noted Date Comments Meperidine Other 04/18/2014 Medications atenolol (Tenormin) 25 mg tablet Take 25 mg by mouth in the morning. Active atorvastatin (Lipitor) 20 mg tablet in the morning. Acti ve lisinopril 10 mg tablet Take 10 mg by mouth in the morning. Active pantoprazole (ProtoNix) 40 mg EC tablet pantoprazole 40 mg tablet,delayed release Active sucralfate (Carafate) 1 gram tablet sucralfate 1 gram tablet Active Active Problems Problem Noted Date Diagnosed Date Abdominal cramping 04/10/2024 Gastric erosions 04/10/2024 History of colon polyps 04/10/2024 Closed traumatic nondisplaced fracture of rib Compression fracture of T6 vertebra with routine healing 01/31/2024 Closed traumatic displaced f racture of two ribs of left side with routine healing 12/13/2023 Bacterial conjunctivitis of right eye 07/17/2023 Encounter for Medicare annual wellness exam 03/31 HTN (hypertension) 04/10/2023 Hypothyroidism 04/10/2023 Suppurative otitis media of both ears 04/10/2023 Coronary artery calcification 07/06/2022 Left lower quadrant abdominal pain 02/17/2019 Dyspnea 12/23/2013 Headache 12/11/2013 Neck pain 12/11/2013 Angina pectoris 11/26/2013 Chest pain 11/26/2013 Benign essential hypertension 11/26/2013 Chronic obstructive lung disease 11/26/2013 Gastroesophageal reflux disease 11/26/2013 Hyperlipidemia 11/26/2013 Obesity 11/26/2013 Family History Medical History Relation Name Comments Coronary artery disease Brother Cancer Other Coronary artery disease Other Coronary artery disease Sister Pass ed age 62 Relation Name Status Comments Brother Other Sister Social History Tobacco Use Types Packs/Day Years Used Date Smoking Tobacco: Never Smokeless Tobacco: Never Tobacco Cessation:Counseling Given: Not Answered Alcohol Use Standard Drinks/Week Comments Not Currently 0 (1 standard drink = 0.6 oz pur e alcohol) [place] Safety & Environment Answer Date Rec orded Fear of Current or Ex-Partner Not on file Emotionally Abused Not on file 06/22/2023 Physically Abused Not on file 06/22/2023 Sexually Abused Not on file 06/22/2023 Physically or Sexually Abused Not on file Comments Unknown Sex and Gender Information Value Date Recorded Sex Assigned at Not on file Legal Sex Female 10:17 PM EDT Gender Identity Not on file Sexual Orientation Not on file Last Filed Vital Signs Vital Sign Reading Time Taken Comments Blood Pressure 142/84 04/10/2024 10:57 AM EST Pulse 60 04/10/2024 10:37 AM EST Temperature - - Respiratory Rate - - Oxygen Saturation 96% 04/10/2024 10:37 AM EST Inhaled Oxygen Concentration - - Weight 72.6 kg (160 lb) 04/10/2024 10:37 AM EST Height 162.6 cm (5' 4 ) 04/10/2024 10:37 AM EST Body Mass Index 27.46 04/10/2024 10:37 AM EST Plan of Treatment Health Maintenance Due Date Last Done Comments Medicare Annual Wellness (AWV) 1945 Depression Screening 1958 Pneumococcal Vaccine: 50+ Ye ars (1 of 2 - PCV) 1965 Zoster Vaccines (1 of 2) 1996 Fall Risk Screening 07/14/2011 COVID-19 Vaccine (1 - 2023-2 5 season) 2024 Influenza Vaccine (#1) 2024 Adult Tetanus 01/27/2032 01/26/2022 Colonoscopy Discontinued 04/03/2019 Colorectal Cancer Screening Discontinued CT Colonography Discontinued FIT-DNA Discontinued FIT Discontinued FOBT Discontinued HIB Vaccines Aged Out No longer eligi ble based on patient's age to complete this topic HPV Vaccines Aged Out No longer eligi ble based on patient's age to complete this topic IPV Vaccines Aged Out No longer eligi ble based on patient's age to complete this topic Meningococcal B Vaccine Aged Out No l onger eligible based on patient's age to complete this topic Meningococcal Vaccine Aged Out No alex marty eligible based on patient's age to complete this topic Rotavirus Vaccines Aged Out No longer eligible based on patient's age to complete this topic Sigmoidoscopy Discontinued Insurance MEDICARE GENERIC COMMERCIAL Care Teams Lap Cutter Truer Operator Relationship Specialty Start Date End Date Johnson Wesley MD [address] [place] [address] PCP - General Family Medicine 04/10/24
--- OUTSIDE RECORDS SUMMARY | 2025-01-23 10:20 | XMS_ITS | Encounter Summary ---
Author Organization [facility] Address [address] [place] [address] Care Team Providers Care Police Worker Name Role Phone Shaikh REJI Bassett Primary Care Provider [phone] Shaikh REJI Bassett Primary Care Provider [phone] Stefany Weston OCULARIST Unavailable [phone] Unallocated, Yobani Provider Primary Care Provi mone Johnson Wesley MD Primary Care Provider [phone] Encounter Details Date Type Department Care Team (Late st Contact Info) Description 04/06/2023 Orders Only [facility] [address] [place] [address] Shaikh Bassett MD [address] [place] [address] Social History Tobacco Use Types Packs/Day Years Used Date Smoking Tobacco: Never Assessed Humiliation, Afraid, Rape, and Kick questionnair e Answer Date Recorded Within the last year, have y ou been afraid of your partner or ex-partner? No 04/10/2023 Within the last year, have y ou been humiliated or emotionally abused in other ways by your partner or ex-partner? No Within the last year, have y ou been kicked, hit, slapped, or otherwise physically hurt by your partner or ex-partner? No 04/10/2023 Within the last year, have y ou been raped or forced to have any kind of sexual activity by your partner or ex-partner? No 04/10/2023 Social Connection and Isolat ion Panel [NHANES] Answer Date Recorded In a typical week, how many times do you talk on the phone with family, friends, or neighbors? More than three times a week 04/10/2023 How often do you get togethe r with friends or relatives? More than three times a week 04/10/2023 How often do you attend chur or jain services? More than 4 times per year 04/10/2023 Do you belong to any clubs o r organizations such as alevism groups, unions, fraternal or athletic groups, or school groups? No 04/10/2023 How often do you attend meet ings of the clubs or organizations you belong to? Never 04/10/2023 Are you , , di vorced, , never , or living with a partner? 04/10/2023 AUDIT-C Answer Date Recorded Frequency of Alcohol Consumption Not on file 04/10/2023 Q2: How many drinks containi ng alcohol do you have on a typical day when you are drinking? Patient does not drink Q3: How often do you have si x or more drinks on one occasion? Never 04/10/2023 Overall Financial Resource Strain (CARDIA) Answe r Date Recorded How hard is it for you to pa y for the very basics like food, housing, medical care, and heating? Not very hard 04/10/2023 PHQ-2 Answer Date Recorded Patient Health Questionnaire-2 Score 0 04/10/2023 [facility] Answer Date Recorded Do you feel stress - tense, restless, nervous, or anxious, or unable to sleep at night because your mind is troubled all the time - these days? Only a little 04/10/2023 Exercise Vital Sign Answer Date Recorde d On average, how many days pe r week do you engage in moderate to strenuous exercise (like a brisk walk)? 0 days 04/10/2023 On average, how many minutes do you engage in exercise at this level? 0 min 04/10/2023 Hunger Vital Sign Answer Date Recorded Within the past 12 months, y ou worried that your food would run out before you got the money to buy more. Never true 04/10/20 23 Within the past 12 months, t he food you bought just didn't last and you didn't have money to get more. Never true 04/10/2023 PRAPARE - Transportation Answer Date Re corded In the past 12 months, has l ack of transportation kept you from medical appointments or from getting medications? No 03/31 In the past 12 months, has l ack of transportation kept you from meetings, work, or from getting things needed for daily living? No 04/10/2023 Housing Stability Vital Sign Answer Abad e Recorded In the last 12 months, was t here a time when you were not able to pay the mortgage or rent on time? No 04/10/2023 Number of Places Lived in the Last Year Not on f ile 04/10/2023 In the last 12 months, was t here a time when you did not have a steady place to sleep or slept in a care home (including now)? No 04/10/2023 Comments Unknown Sex and Gender Information Value Date Recorded Sex Assigned at Not on file Legal Sex Female 6:53 PM EDT Gender Identity Not on file Sexual Orientation Not on file documented as of this encounter Plan of Treatment Not on file documented as of this encounter Procedures Procedure Name Priority Date/Time Associated Diagnosis Comments STRESS TEST ONLY Routine 04/06/2023 11:47 AM EST documented in this encounter Results * Stress test (04/06/2023 11:47 AM EST) Anatomical Region Laterality Modality Heart Other us Shaikh Danyelle MENDOZA CV STRESS PROCEDURES Final Resu lt documented in this encounter Visit Diagnoses Not on filedocumented in this encounter Care Teams Police Worker Relationship Specialty Start Date End Date Shaikh Bassett MD PCP - General Internal Medicine 05/01/22 07/16/23 Shaikh Bassett MD [address] [place] [address] PCP - General Internal Medicine 07/17/23 02/20/24 Unallocated, Noms MD [address] [place] [address] PCP - General Family Medicine 02/21/24 02/28/24 Johnson Wesley MD [address] [place] [address] PCP - General Family Medicine 02/29/24 Stefany Weston NP [address] [place] [address] Nurse Practitioner Family Medicine 02/21/24 07/22/24 documented as of this encounter
--- OUTSIDE RECORDS SUMMARY | 2025-01-23 10:20 | XMS_ITS | Encounter Summary ---
Author Organization [facility] Address [address] [place] [address] Care Team Providers Care Stone Planer Name Role Phone Shaikh REJI Bassett Primary Care Provider [phone] Stefany Weston MANAGER PHARMACEUTICAL Unavailable [phone] Unallocated, Priscilla Provider Primary Care Provi mone Johnson Wesley MD Primary Care Provider [phone] Encounter Details Date Type Department Care Team (Late st Contact Info) Description 01/24/2024 Orders Only [facility] [address] [place] [address] Kamille Pandey MD [address] [place] [address] Social History Tobacco Use Types Packs/Day Years Used Date Smoking Tobacco: Never Passive Smoke Exposure: Never Alcohol Use Standard Drinks/Week Comments Never 0 (1 standard drink = 0.6 oz pur e alcohol) Humiliation, Afraid, Rape, and Kick questionnair e [...] 04/10/2023 How often do you attend chur ch or taoist services? More than 4 times per year 04/10/2023 Do you belong to any clubs o r organizations such as cheondoism groups, unions, fraternal or athletic groups, or [...] Date Recorded Patient Health Questionnaire-2 Score 0 [facility]/17/[address] [facility] Answer Date Recorded [...] place to sleep or slept in a correction (including now)? No 04/10/2023 Comments Unknown Sex and Gender Information Value Date Recorded Sex Assigned at Not on file Legal Sex Female 6:53 PM EDT Gender Identity Not on file Sexual Orientation Not on file documented as of this encounter Plan of Treatment Not on file documented as of this encounter Procedures Procedure Name Priority Date/Time Associated Diagnosis Comments CT THORACIC SPINE W/O CONTRAST* Routine 01/24/2024 12:[address] CHEST WO IV CONTRAST Routine 01/24/2024 12:56 PM EDT documented in this encounter Results * CT THORACIC SPINE W/O CONTRAST* (01/24/2024 12:59 PM EDT) Anatomical Region Laterality Modality Radiographic Vicenta ging us Kamille Pandey MD IMG XR PROCEDURES Final Result * CT chest wo IV contrast (01/24/2024 12:56 PM EDT) Anatomical Region Laterality Modality Body, Chest Computed Tomogra phy us Kamille Pandey MD IMG CT PROCEDURES Final Result documented in this encounter Visit Diagnoses Not on filedocumented in this encounter Additional Health Concerns Assessment Noted Time PHQ-9 Depression Total Score: 1 04/10/20 23 10:35 AM EST documented as of this encounter Care Teams Stone Planer Relationship Specialty Start Date End Date Shaikh Bassett MD [address] [place] [address] PCP - General Internal Medicine 07/17/23 02/20/24 Unallocated, Priscilla Kong MD [address] [place] [address] PCP - General Family Medicine 02/21/24 02/28/24 Johnson Wseley MD [facility] [place] [address] PCP - General Family Medicine 02/29/24 Stefany Weston NP [address] [place] [address] Nurse Practitioner Family Medicine 02/21/24 07/22/24 documented as of this encounter
--- OUTSIDE RECORDS SUMMARY | 2025-01-23 10:20 | XMS_ITS | Encounter Summary ---
Author Organization [facility] Address [address] [place] [address] Care Team Providers Care Film Maker Name Role Phone Shaikh REJI Bassett Primary Care Provider [phone] Shaikh REJI Bassett Primary Care Provider [phone] Stefany Weston ALUMINUM SIDING APPLICATOR Unavailable [phone] Unallocated, Priscilla Provider Primary Care Provi mone Johnson Wesley MD Primary Care Provider [phone] Encounter Details Date Type Department Care Team (Late st Contact Info) Description 06/26/2023 Clinisync Result Encounter [facility] External Department Unsolicited Shaikh Bassett MD [address] [facility] [place] [id number] Social History Tobacco Use Types Packs/Day Years Used Date Smoking Tobacco: Never Alcohol Use Standard Drinks/Week Comments Never [...] How often do you attend chur or gnosticism services? More than 4 times per year 04/10/2023 Do you belong to any clubs o r organizations such as sabianism groups, unions, fraternal or athletic groups, or [...] Recorded Patient Health Questionnaire-2 Score 0 04/10/2023 [facility] - Occupational Stress Questionnaire Answer Date Recorded [...] place to sleep or slept in a detention (including now)? No 04/10/2023 Comments Unknown Sex and Gender Information Value Date Recorded Sex Assigned at Not on file Legal Sex Female 6:53 PM EDT Gender Identity Not on file Sexual Orientation Not on file documented as of this encounter Plan of Treatment Not on file documented as of this encounter Procedures Procedure Name Priority Date/Time Associated Diagnosis Comments MM TOMOSYNTHESIS SCREENING BI 06/26/2023 2:17 PM EST documented in this encounter Results * MM TOMOSYNTHESIS SCREENING BI (06/26/2023 2:17 PM EST) Anatomical Region Laterality Modality Other 06/26/2023 2:17 PM EST Narrative 06/26/2023 2:18 PM EST The [address] [address] Mammography Report Signed Patient: TOÑITO DOSS MR#: [id number] : 1945 Acct:[id number] Age/Sex: 77 / F ADM Date: 06/26/23 Loc: MAMMO Attending Dr: Shaikh Danyelle Hendrickson Ordering Physician: Shaikh Emeka Bassett Results: Date of Service: 06/26/23 Follow Up: Procedure(s): MM tomosynthesis screening BI Accession Number(s): [id number] cc: Shaikh Emeka Bassett Patient Name: TOÑITO DOSS MR#: [id number] : 1945 Exam Date: 06/26/2023 Ordering Doctor: Shaikh Shahida Bassett . RADIOLOGY REPORT PROCEDURE: MM TOMOSYNTHESIS SCREENING BI COMPARISON: MG MAMM SCREEN 3D NIKKI CAD, 06/21/2021. MG MAMM SCREEN 3D NIKKI CAD, 06/23/2022. INDICATIONS: screening Calculator Name NCI Breast Cancer Risk Assessment Tool 5 Year Breast Cancer Risk 1.50% Lifetime Breast Cancer Risk 3.10% Personal Breast Cancer No Personal Ovarian Cancer No Treatments None Family Cancers Mother with colon cancer at age 70; Father with colon cancer at age 60; Brother with lung cancer at age 60. LOCATION: [facility] BREAST COMPOSITION: Scattered areas fibroglandular density. FINDINGS: DIAGNOSTIC CATEGORY 2--BENIGN FINDING. NO CHANGE FROM COMPARISON. Scattered benign-appearing calcifications are present. Scattered benign-appearing lymph nodes are present. RIGHT BREAST: No significant suspicious finding. LEFT BREAST: No significant suspicious finding. RECOMMENDATIONS: ROUTINE MAMMOGRAM AND CLINICAL EVALUATION IN 12 MONTHS. PLEASE NOTE: A NORMAL MAMMOGRAM DOES NOT EXCLUDE THE POSSIBILITY OF BREAST CANCER. A CLINICALLY SUSPICIOUS PALPABLE LUMP SHOULD BE BIOPSIED. Dictated by: Catracho Jackson MD on 06/26/2023 at 14:15 Approved by: Catracho Jackson MD on 06/26/2023 at 14:17 Dictated By: Catracho Jackson M.D. Signed By: 06/26/23 1418 DD/ 1417 TD/TT: Marketing Database Coordinator: Procedure Note Radiology, Radiologist, MD - 06/26/2023 [place] [address] Mammography Report Signed Patient: TOÑITO DOSS MMR#: [id number] : 7Acct:[id number] Age/Sex: 77 / FADM Date: 06/26/23 Loc: MAMMO Attending Dr: Shaikh Danyelle Hendrickson Ordering Physician: Shaikh Emeka BassettResults: Date of Service: 06/26/23Follow Up: Procedure(s): MM tomosynthesis screening BI Accession Number(s): [id number] cc: Shaikh Emeka Bassett Patient Name: TOÑITO DOSS MR#: [id number] : 1945 Exam Date: 06/26/2023 Ordering Doctor: Shaikh Shahida Bassett . RADIOLOGY REPORT PROCEDURE: MM TOMOSYNTHESIS SCREENING BI COMPARISON: MG MAMM SCREEN 3D NIKKI CAD, 06/21/2021. MG MAMM SCREEN 3DBIL CAD, 06/23/2022. INDICATIONS: screening Calculator Name NCI Breast Cancer Risk Assessment Tool 5 Year Breast Cancer Risk 1.50% Lifetime Breast Cancer Risk 3.10% Personal Breast Cancer No Personal Ovarian Cancer No Treatments None Family Cancers Mother with colon cancer at age 70; Father with colon cancer at age 60; Brother with lung cancer at age 60. LOCATION: [facility] BREAST COMPOSITION: Scattered areas fibroglandular density. FINDINGS: DIAGNOSTIC CATEGORY 2--BENIGN FINDING. NO CHANGE FROM COMPARISON. Scattered benign-appearing calcifications are present. Scattered benign-appearing lymph nodes are present. RIGHT BREAST: No significant suspicious finding. LEFT BREAST: No significant suspicious finding. RECOMMENDATIONS: ROUTINE MAMMOGRAM AND CLINICAL EVALUATION IN 12 MONTHS. PLEASE NOTE: A NORMAL MAMMOGRAM DOES NOT EXCLUDE THE POSSIBILITY OFBREAST CANCER. A CLINICALLY SUSPICIOUS PALPABLE LUMP SHOULD BE BIOPSIED. Dictated by: Catracho Jackson MD on 06/26/2023 at 14:15 Approved by: Catracho Jackson MD on 06/26/2023 at 14:17 Dictated By: Catracho Jackson M.D. Signed By:06/26/23 1418 DD/ 1417 TD/TT: Marketing Database Coordinator: us Shaikh Danyelle [facility] Final Result documented in this encounter Visit Diagnoses Not on filedocumented in this encounter Additional Health Concerns Assessment Noted Time PHQ-9 Depression Total Score: 1 04/10/20 23 10:35 AM EST documented as of this encounter Care Teams Film Maker Relationship Specialty Start Date End Date Shaikh Bassett MD PCP - General Internal Medicine 05/01/22 07/16/23 Shaikh Bassett MD [address] [place] [phone] PCP - General Internal Medicine 07/17/23 02/20/24 Unallocated, Priscilla Kong MD [address] [place] [address] PCP - General Family Medicine 02/21/24 02/28/24 Johnson Wesley MD [address] [place] [address] PCP - General Family Medicine 02/29/24 Stefany Weston NP [address] [place] [phone] Nurse Practitioner Family Medicine 02/21/24 07/22/24 documented as of this encounter
--- OUTSIDE RECORDS SUMMARY | 2025-01-23 10:20 | XMS_ITS | Clinical Summary ---
Author Organization [facility] Address [address] [place] [address] Care Team Providers Care Physical Damage Appraiser Name Role Phone Johnson Wesley MD Primary Care Provider [phone] Allergies No known active allergies Medications lisinopril 10 MG tabletIndications:P rimary hypertension Take 1 tablet (10 mg) by mouth Daily 90 tablet 1 4 Active pantoprazole (ProtoNix) 40 MG EC tabletIndications:G astroesophageal reflux disease without esophagitis Take 1 tablet (40 mg) by mouth in the morning. Take before meals. Do not crush, chew, or split. 90 tablet 1 5 05/31/19 26 Active atorvastatin (Lipitor) 20 MG tabletIndications:H yperlipidemia, unspecified hyperlipidemia type Take 1 tablet (20 mg) by mouth Daily 90 tablet 1 5 05/31/19 26 Active atenolol (Tenormin) 25 MG tabletIndications:P rimary hypertension Take 1 tablet (25 mg) by mouth Daily 90 tablet 1 5 05/31/19 26 Active Active Problems Problem Noted Date Diagnosed Date Compression fracture of T6 vertebra with routine healing 01/31/2024 Assessment & Plan (01/31/2024 2:34 PM EDT): Was seen in ED 01/24/2024 for nondisplaced left fourth rib fx T6 compression fx Was discharged home with flexeril and percocet. Referral sent to Dr. Dickey- Neurosurgery. Had total hysterectomy at age 26- likely osteoporosis; Will order DEXA scan today. Advised pt to rotate between tylenol and ibuprofen for pain. Rest. Ice. Heat. Conservative measures. Screening for osteoporosis 01/31/2024 Encounter for screening colonoscopy 10/18/2023 HTN (hypertension) 04/10/2023 Assessment & Plan (04/17/2024 8:38 AM EST): Follows closely with Cardiology Currently taking Lisinopril 10mg Checks BP at home; Averages are 120's/80's Denies orthostatic changes, dizziness, cough, shortness of breath, swelling in extremities. Continue current regimen. Given BP log, advised pt to record BP and bring log back with them to next visit. Assessment & Plan (01/17/2024 8:46 AM EDT): Currently taking Lisinopril 10mg Checks BP at home; Averages are 120's/80's Denies orthostatic changes, dizziness, cough, shortness of breath, swelling in extremities. Continue current regimen. Given BP log, advised pt to record BP and bring log back with them to next visit. Assessment & Plan (10/18/2023 9:53 AM EDT): BP well controlled. On average less than 130/90. Tolerating Anti hypertensive w/o adverse effects. Denies lightheadedness, dizziness, syncope, presyncope. C.w Atenolol, lisinopril Check labs Assessment & Plan (07/17/2023 10:27 AM EDT): BP well controlled. On average less than 130/90. Tolerating Anti hypertensive w/o adverse effects. Denies lightheadedness, dizziness, syncope, presyncope. Patient encouraged to continue with home BP monitoring and call office if he experiences orthostatic symptoms or persistently elevated BP. C.w Atenolol, lisinopril Assessment & Plan (04/10/2023 11:13 AM EST): BP well controlled. On average less than 130/90. Tolerating Anti hypertensive w/o adverse effects. Denies lightheadedness, dizziness, syncope, presyncope. Patient encouraged to continue with home BP monitoring and call office if he experiences orthostatic symptoms or persistently elevated BP. C.w current regimen Encounter for Medicare annual wellness exam 03/31 Assessment & Plan (07/23/2024 3:08 PM EDT): Reviewed labs. Discussed proper diet and regular aerobic exercise. Need aerobic exercise 5-6 days a week for 30 minutes at a time. Smaller portions and limit total calories. Tetanus every 10 years. Advised not to smoke. Assessment & Plan (04/10/2023 11:23 AM EST): Refusing Flu, Pneumonia Vaccine. Colonoscopy 2-3 years ago Normal mammogram 06/23 Hypothyroidism 04/10/2023 Assessment & Plan (10/18/2023 9:53 AM EDT): Not on thyroid medication anymore. Check TSH Assessment & Plan (07/17/2023 10:27 AM EDT): Not on thyroid medication anymore. Assessment & Plan (04/10/2023 11:23 AM EST): Not on thyroid medication anymore. 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 No hx of PCI in the past Benign essential hypertension 11/26/2013 Gastroesophageal reflux disease 11/26/2013 Assessment & Plan (04/17/2024 8:38 AM EST): Currently taking Protonix 40mg Feels symptoms are well controlled; Continue current regimen Assessment & Plan (01/17/2024 8:46 AM EDT): Currently taking Protonix 40mg Carafate 1g Feels symptoms are well controlled; Continue current regimen Assessment & Plan (07/17/2023 10:27 AM EDT): C/w protonix and carafate. Assessment & Plan (04/10/2023 11:13 AM EST): C/w protonix and carafate. Hyperlipidemia 11/26/2013 Assessment & Plan (04/17/2024 8:38 AM EST): Currently taking Atorvastatin 20mg Denies any myalgias. Most recent Lipid Panel 10/2023- WNL Continue current regimen. Assessment & Plan (01/17/2024 8:46 AM EDT): Currently taking Atorvastatin 20mg Denies any myalgias. Most recent Lipid Panel 10/2023- WNL Continue current regimen. Assessment & Plan (10/18/2023 9:53 AM EDT): C/w statin. No adverse effects Check Lipid panel Assessment & Plan (04/10/2023 11:13 AM EST): C/w statin. No adverse effects, Resolved Problems Problem Noted Date Diagnosed Date Resolved Date Acute non-recurrent pansinusitis 06/21/2024 07/23/2024 Assessment & Plan (06/21/2024 9:56 AM EST): Take antibiotics BID for 10 days. Use [...] no better or worse call for re-evaluation. Closed traumatic nondisplaced fracture of rib 01/31/20 24 06/21/2024 Closed traumatic displaced f racture of two ribs of left side with routine healing 12/13/2023 0 06/21/2024 Assessment & Plan (12/13/2023 2:52 PM EDT): Fx of L posterolateral second and fourth ribs. Taking Percocet 5/325mg Q6 PRN Pain And Robaxin 500mg TID PRN pain. Conservative measures. Rest ICE, NSAIDS. Brenda chest pain, shortness of breath, severe pain. Discussed in detail symptoms to be aware of and healing time. Patient verbalizes understanding. Bacterial conjunctivitis of right eye 07/17/2023 06/21/2024 Assessment & Plan (07/17/2023 10:28 AM EDT): Exam c/w right bacterial conjunctivitis. Symptoms started 2 days ago. Will call in antibacterial ophthalmic eye drops Patient instructed to call if no improvement in her symptoms. Suppurative otitis media of both ears 04/10/2023 06/21/2024 Assessment & Plan (04/10/2023 11:24 AM EST): Ear pain, fullness. Exam c/w otitis media b/l Will call in oral augmentin. Patient counseled and educated on adverse effects, drug interactions and to reach out to office/pharmacy if questions or concerns related to new medications. Encounters Date Type Department Care Team Description 12/02/2024 Refill [facility] [address] [address] Johnson Wesley MD Gastroesophageal reflux disease without esophagitis; Hyperlipidemia, unspecified hyperlipidemia type ; Primary hypertension from Last 3 Months Immunizations Immunization Administration Dates Next Due Tdap 01/26/2022 Family History Medical History Relation Name Comments Cancer Father Cancer Mother Relation Name Status Comments Father Mother Social History Tobacco Use Types Packs/Day Years Used Date Smoking Tobacco: Never Passive Smoke Exposure: Never Tobacco Cessation:Counseling Given: Not Answered Alcohol Use Standard Drinks/Week Comments Never 0 [...] How often do you attend chur or sabianism services? More than 4 times per year 04/10/2023 Do you belong to any clubs o r organizations such as muslim groups, unions, fraternal or athletic groups, or [...] Date Recorded Patient Health Questionnaire-2 Score 0 07/23/2024 [facility] - Occupational Stress Questionnaire Answer Date Recorded [...] the money to buy more. Never true 12/11/20 23 Within the past 12 months, t [...] place to sleep or slept in a residential (including now)? No 04/10/2023 Comments No Sex and Gender Information Value Date Recorded Sex Assigned at Not on file Legal Sex Female 6:53 PM EDT Gender Identity Not on file Sexual Orientation Not on file Last Filed Vital Signs Vital Sign Reading Time Taken Comments Blood Pressure 138/80 07/23/2024 2:23 PM EDT Pulse 58 07/23/2024 2:23 PM EDT Temperature 36.3 C (97.3 F) 07/23/2024 2:23 PM EDT Respiratory Rate 22 07/23/2024 2:23 PM EDT Oxygen Saturation 94% 07/23/2024 2:23 PM EDT Inhaled Oxygen Concentration - - Weight 73.9 kg (163 lb) 07/23/2024 2:23 PM EDT Height 162.6 cm (5' 4 ) 07/23/2024 2:23 PM EDT Body Mass Index 27.98 07/23/2024 2:23 PM EDT Plan of Treatment Health Maintenance Due Date Last Done Comments Influenza Vaccine (#1) 2024 Pneumococcal Vaccine: 65+ Years (1 of 2 - PCV) 04/17/2025 Postponed from 06/29 (Patient Refused) Medicare Annual Wellness (AWV) 07/23/2025 07/23/2024, 04/10/2023, 04/10/2023 Insurance MEDICARE [employer] Care Teams Physical Damage Appraiser Relationship Specialty Start Date End Date Johnson Wesley MD PCP - General Family Medicine 02/29/24
--- OUTSIDE RECORDS SUMMARY | 2025-01-23 10:20 | XMS_ITS | CCD ---
Author Organization [facility] Care Team Providers Care Svp Digital Ad Sales Name Role Phone SHAIKH BASSETT Primary Care Physician FAPHILLD, SIMEON H Primary Care Unavailable MISC, [...] FAWWAD, SIMEON H Attending Unavailable ZIEBLIZZIE, DR LEILA Malin Consulting Unavailable FAWWAD, SIMEON H Primary Care Unavailable FAWWAD, SIMEON H Admitting Unavailable FAWWAD, SIMEON H Attending Unavailable FAWWAD, SIMEON H Consulting Unavailable SALAM, GELLER Admitting Unavailable FAWWAD, SIMEON H Primary Care Unavailable SALAM, GELLER Attending Unavailable DR LEILA HEIN Consulting Unavailable ASHWINAMDUYEN Consulting Unavailable Beatriswwad Shaikh MENDOZA Primary Care Provider LYRIC WESTON Primary Care Physician Louise vailable Weston PEOPLE MANAGER, Lyric Unavailable Unallocated , Noms Provider [facility]ric [facility]on Primary Care Unavaila Yari Herron Attending Unavailable Yari Voss Admitting Unavailable Johnson Herrera MD Primary Care Provider [phone] BRUNO TEJADA Attending Unavailable Enrico PEOPLE MANAGER-CLyric Primary Care [facility] er Yari Voss APRN Attending Provider Brianna Pastor Attending Unavailable Darby, Brianna Lanie Attending Unavailable Nghia Talbert Attending Unavailable Darby, Brianna A Attending Unavailable Darby, Brianna A Admitting Unavailable Darby, Brianna A Referring Unavailable Darby, Brianna A Admitting Unavailable Darby, Brianna A Attending Unavailable Weston RENÉ, Lyric Unavailable JOHNSON HERRERA Attending Unavailable JOHNSON HERRERA Attending Unavailable SHAIKH BASSETT Attending Unavailable LUCA CHAVARRIA Attending Unavailable WESTON, LYRIC Attending Unavailabl e WESTON, LYRIC Attending Unavailabl e WESTON, LYRIC Attending Unavailabl e WESTON, LYRIC Referring Unavailabl e JOHN MUSA Attending Unavailable WESTON, LYRIC Attending Unavailabl e Weston PEOPLE MANAGER-CLyric Primary Care [facility] er Johnson Herrera MD Attending Provider Allergies Allergy Classification Reported Allergen(s) Allergy Type Date of Onset Reaction(s) Facility (11 sources) Meperidine; Translations: [meperidine] Drug Allergy 04-17-2014 Other (qualifier value) [facility] Medications Current Medications Medication Drug Class(es) Dates Sig (Normalized) Sig (Original) aspirin 81 mg delayed release oral tablet (2 sources) Platelet Aggregation Inhibitor, Nonsteroidal Anti-inflammatory Drug Start: 11-02-2022 Aspirin 81 mg Tab-EC Refills(s) 0 Start Date: 03/02/22 Status: Ordered Aspirin 81 mg Tab-EC (9 sources) Start: 03-02-2022 Aspirin 81 mg Tab-EC Refills(s) 0 Start Date: 03/02/22 Status: Ordered atenolol 25 mg oral tablet (20 sources) beta-Adrenergic John Start: 01-04-2017 End: 10-14-2024 take 1 tablet by mouth once daily Atenolol 25 mg tablet Active 25 MG PO Daily April 11, 2024 1:00am Complies with drug therapy atorvastatin 20 mg oral tablet (20 sources) HMG-CoA Reductase Inhibitor Start: 10-18-2023 End: 10-14-2024 take 1 tablet by mouth once daily Atorvastatin 20 mg tablet Active 20 MG PO Daily April 11, 2024 1:00am Complies with drug therapy Start: 01-04-2017 take 40 mg by mouth once daily Lipitor 40 mg, Oral, Daily, Refills(s) 0, High cholesterol Start Date: 01/04/17 Status: Ordered cefdinir 300 mg oral capsule (3 sources) Cephalosporin Antibacterial Start: 06-21-2024 End: 07-01-2024 [...] Angiotensin Converting Enzyme Inhibitor Start: 10-18-2023 End: 01-07-2025 take 1 tablet by mouth once daily Lisinopril 10 mg tablet Active 10 MG PO Daily January 07, 2025 8:07am Complies with drug therapy Start: 03-30-2021 lisinopril Ora l, Daily, Refills(s) [...] take 1 tablet by mouth once daily Pantoprazole 40 mg tablet,delayed release (DR/EC) Active 40 MG PO Daily April 11, 2024 1:00am Complies with drug therapy Start: 12-02-2019 take 1 tablet by michele th once daily pantoprazole 40 mg Oral EC Tab 40 mg = 1 tab(s), Oral, Daily, # 90 tab(s), Refills(s) 1, Pharmacy: [place] [id number], 162, cm, 04/22/19 13:39:00 EST, Height/Length Measured, [...] Status: Ordered predniSONE 50 mg oral tablet (3 sources) Start: 06-21-2024 End: 06-27-2024 take 1 [...] (20 sources) Aluminum Complex Start: 10-18-2023 End: 01-22-2025 take 1 tablet by mouth twice daily Sucralfate 1 gram tablet Active 1 GM PO Twice daily January 23, 2025 12:00am Complies with drug therapy Start: 03-01-2023 sucralfate 1 g Tab Refills(s) [...] Episodic Coronary atherosclerosis and other heart disease (17 sources) Coronary arteriosclerosis; Translations: [Atherosclerotic heart disease of unga coronary artery without angina pectoris] Onset: 02-10-2014 04-10-2023 Chronic Disorders of lipid metabolism (20 sources) Hyperlipidemia, unspecified; Translations: [Hyperlipidemia] Onset: 11-26-2013 04-10-2023 Chronic Esophageal disorders (20 sources) Gastroesophageal reflux disease without esophagitis; Translations: [Gastro-esophageal reflux disease without esophagitis] Onset: 11-26-2013 Chronic Essential hypertension (20 sources) Essential (primary) hypertension; Translations: [Hypertensive disorder] Onset: 11-26-2013 04-10-2023 Chronic Gastroduodenal ulcer (except hemorrhage) (16 sources) Gastric erosion; Translations: [Gastric ulcer] Onset: 08-27-2021 05-04-2021 Chronic Other aftercare (2 sources) Long-term current use of drug therapy; Translations: [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] 01-23-2025 Episodic Other and unspecified benign neoplasm (19 sources) History of polyp of colon; Translations: [Personal history of colonic polyps] Onset: 12-01-2021 Episodic Other fractures (17 sources) Fracture of sixth thoracic vertebra; Translations: [Wedge compression fracture of T5-T6 vertebra, subsequent encounter for fracture with routine healing] Onset: 01-31-2024 01-31-2024 Episodic Other fractures (2 sources) Unspecified fracture of T5-T6 vertebra, initial encounter for closed fracture; Translations: [Closed fracture of dorsal [thoracic] vertebra without mention of spinal cord injury] Onset: 04-11-2024 04-11-2024 Episodic Other upper respiratory infections (5 sources) Acute pansinusitis; Translations: [Acute pansinusitis, unspecified] [...] that caused by tuberculosis or sexually transmitteddisease) (15 sources) Conjunctivitis of right eye caused by bacteria; Translations: [Unspecified conjunctivitis] Onset: 07-17-2023 Resolved: 06-21-2024 07-17-2023 Episodic Mood disorders (15 sources) Mood disorders Onset: 04-10-2023 04-10-2023 Other fractures (14 sources) Closed fracture of rib; Translations: [Fracture of one rib, unspecified side, initial encounter for closed fracture] Onset: 01-31-2024 Resolved: 06-21-2024 01-31-2024 Episodic Other fractures (15 sources) Closed fracture of two ribs; Translations: [Multiple fractures of ribs, left side, subsequent encounter for fracture with routine healing] Onset: 12-13-2023 Resolved: 06-21-2024 12-13-2023 Episodic Other screening for suspected conditions (not mental disorders or infectious disease) (20 sources) Encounter for screening mammogram for malignant neoplasm of breast; Translations: [Patient encounter status] Onset: 06-23-2022 Episodic Otitis media and related conditions (15 sources) Bilateral suppurative otitis media ; Translations: [Suppurative otitis media, unspecified, bilateral] Onset: 04-10-2023 Resolved: 06-21-2024 04-10-2023 Episodic Results Test Name Value Interpretation Reference Range Facility MM TOMOSYNTHESIS SCREENING B Ion 06-27-2024 [place] [address] Mammography Report Signed Patient: KIRSTEN PUTNAM MR#: [id number] : 1945 Acct:[id number] Age/Sex: 78 / F ADM Date: 06/27/24 Loc: MAMMO Attending Dr: YLRIC WESTON Ordering Physician: LYRIC WESTON Results: Date of Service: 06/27/24 Follow Up: Procedure(s): MM tomosynthesis screening BI Accession Number(s): [id number] cc: LYRIC WESTON Patient Name: KIRSTEN PUTNAM MR#: [id number] : 1945 Exam Date: 06/27/2024 Ordering Doctor: LYRIC WESTON RADIOLOGY REPORT PROCEDURE: MM TOMOSYNTHESIS SCREENING BI COMPARISON: MM TOMOSYNTHESIS SCREENING BI, 06/26/2023. MG MAMM SCREEN 3D NIKKI CAD, 06/23/2022. MG MAMM SCREEN 3D NIKKI CAD, 06/21/2021. MG MAMM NIKKI SCRN W CAD DIG, 04/14/2011. INDICATIONS: Screening Calculator Name NCI Breast Cancer Risk Assessment Tool 5 Year Breast Cancer Risk 1.50% Lifetime Breast Cancer Risk 2.90% Personal Breast Cancer No Personal Ovarian Cancer No Treatments None Family Cancers Mother with colon cancer at age 70; Father with colon cancer at age 60; Brother with lung cancer at age 60. LOCATION: [facility] BREAST COMPOSITION: There are scattered areas of fibroglandular density. FINDINGS: DIAGNOSTIC CATEGORY 1--NEGATIVE. NO CHANGE FROM COMPARISON ASSESSMENT. RIGHT BREAST: No significant suspicious finding. LEFT BREAST: No significant suspicious finding. RECOMMENDATIONS: ROUTINE MAMMOGRAM AND CLINICAL EVALUATION IN 12 MONTHS. PLEASE NOTE: A NORMAL MAMMOGRAM DOES NOT EXCLUDE THE POSSIBILITY OF BREAST CANCER. A CLINICALLY SUSPICIOUS PALPABLE LUMP SHOULD BE BIOPSIED. Dictated by: Reji Aleman DO on 06/27/2024 at 11:59 Approved by: Reji Aleman DO on 06/27/2024 at 12:07 Dictated By: Reji Aleman M.D. Signed By: 06/27/24 1208 DD/ 1207 TD/TT: Freelance Director: [facility] Radiology, Radiologkrista cote MD - 06/27/2024 [place] [address] Mammography Report Signed Patient: KIRSTEN PUTNAM MR#: [id number] : 1945 Acct:[id number] Age/Sex: 78 / F ADM Date: 06/27/24 Loc: MAMMO Attending Dr: LYRIC WESTON Ordering Physician: LYRIC WESTON Results: Date of Service: 06/27/24 Follow Up: Procedure(s): MM tomosynthesis screening BI Accession Number(s): [id number] cc: LYRIC WESTON Patient Name: KIRSTEN PUTNAM MR#: [id number] : 1945 Exam Date: 06/27/2024 Ordering Doctor: LYRIC WESTON RADIOLOGY REPORT PROCEDURE: MM TOMOSYNTHESIS SCREENING BI COMPARISON: MM TOMOSYNTHESIS SCREENING BI, 06/26/2023. MG MAMM SCREEN 3D NIKKI CAD, 06/23/2022. MG MAMM SCREEN 3D NIKKI CAD, 06/21/2021. MG MAMM NIKKI SCRN W CAD DIG, 04/14/2011. INDICATIONS: Screening Calculator Name NCI Breast Cancer Risk Assessment Tool 5 Year Breast Cancer Risk 1.50% Lifetime Breast Cancer Risk 2.90% Personal Breast Cancer No Personal Ovarian Cancer No Treatments None Family Cancers Mother with colon cancer at age 70; Father with colon cancer at age 60; Brother with lung cancer at age 60. LOCATION: [facility] BREAST COMPOSITION: There are scattered areas of fibroglandular density. FINDINGS: DIAGNOSTIC CATEGORY 1--NEGATIVE. NO CHANGE FROM COMPARISON ASSESSMENT. RIGHT BREAST: No significant suspicious finding. LEFT BREAST: No significant suspicious finding. RECOMMENDATIONS: ROUTINE MAMMOGRAM AND CLINICAL EVALUATION IN 12 MONTHS. PLEASE NOTE: A NORMAL MAMMOGRAM DOES NOT EXCLUDE THE POSSIBILITY OF BREAST CANCER. A CLINICALLY SUSPICIOUS PALPABLE LUMP SHOULD BE BIOPSIED. Dictated by: Reji Aleman DO on 06/27/2024 at 11:59 Approved by: Reji Aleman DO on 06/27/2024 at 12:07 Dictated By: Reji Aleman M.D. Signed By: 06/27/241207 DD/ 06 TD/TT: Freelance Director[facility] Radiology Study observation (narrative) [facility] MM TOMOSYNTHESIS SCREENING B IOrdered By: Radiologist Radiology on 06-27-2024 [facility] Work Phone: [facility] [place] [facility] [place] [facility] [place] Patient [facility] [place] May 08, 2024 KIRSTEN PUTNAM [address] [place] [id number] : 1945 Dear Kirsten, This is a reminder that you are due for an appointment with [facility]. Please contact our office at [phone] to schedule an appointment at your earliest convenience. Thank you, [facility] Normal [facility] 36on 04-30-2024 36 Thanks for the update. [facility] Would like to see he r BP <130s/90s. Recommend increasing lisinopril to 20mg daily with follow-up BMP in 2 weeks. Thank you Normal [facility] XR thoracic spine 2Von 04-11 XR thoracic spine 2V [facility] Main [place] [id number] XRay Report Signed Patient: Kirsten Putnam MR#: [id number] : 1945 Acct:[id number] Age/Sex: 78 / F ADM Date: 04/11/24 Loc: XD Room: Type: [facility] Attending Dr: Yari Voss APRN Copies to: [...] FINDINGS. Impression dictated by: Reji Aleman Jr., DTobias04/11/2024 3:37 PM Dictation Location: [place] [address] Transcribed By: [facility] 04/11/24 1537 Dictated By: Reji Aleman Jr, DO 04/11/24 1536 Signed By: 04/11/24 1537 Normal [facility] Office Visiton 04-10-2024 Follow-up visit [id number] Kirsten Putnam 1945 F Date Provider Department Center 04/10/2024 BRUNO [facility]UE [facility] Family History Problem Relation Age of Onset Coronary artery disease Sister 62 Comments: Passed age 62 Coronary artery disease Brother 58 Cancer Other Coronary artery disease Other Family Status - Relation Status Age at Sister Brother Other Level of Service:[address] [place] OFFICE/OUTPATIENT ESTABLISHED LOW [facility] 20 MIN Reason for Visit and Comments: Hypertension [772342] Hyperlipidemia [182] Coronary Artery Disease [187] Normal [facility] DEXA BONE DENSITYon 02-06-20 DEXA BONE DENSITY [...] FINAL REPORT Dictated: 09/03/2023 2:54 pm Cordell Zneg MD Signed (Electronic Signature): 09/03/2023 2:54 pm Signed by: Cordell Zeng MD Transcribed by: PAMELA Technologist: [facility] Consent for Treatmenton Consent for Treatment [id number] [facility] Ambulatory Visit Summaryon 0 08-29-2023 Ambulatory Visit Summary KIRSTEN PUTNAM :1945 Visit Date:08/29/2023 Ambulatory Visit Instructions [...] EDT With: Where: [facility] Monday 2024 9:20 AM EDT With: Brianna Pastor CNP Where: [facility] Normal [facility] CHEMISTRYOrdered By: SYSTEM SYSTEM on 08-29-2023 Cobalamin (Vitamin B12) [Mass/Vol] 281 pg/mL Normal 50 - 1500 pg/mL Remisol Chem Magnesium [Mass/Vol] 1.8 mg/dL Normal 1.3 - 2.4 mg/dL Remisol Chem Consent for Treatmenton 08-01 Consent for Treatment [id number] Normal [facility] Gastroenterology Office/Clin ic Noteon 08-29-2023 Gastroenterology [...] Substance Abu (more content not included)... Normal [facility] Comment on above: Result Comment: Elec tronically Signed By: Brianna Pastor CNP\.br\Date and Time Signed: 08/29/23 09:35 EDT Magnesiumon 08-29-2023 Magnesium [Mass/Vol] 1.8 mg/dL Normal 1.3-2.4 [facility] Comment on above: Performed By: #### 2 [id number], [id number] #### [facility] [address] [place] [address] Patient Educationon 08-29-19 24 Patient Education Gastroenterology Food Choices for Gastroesophageal [...] grapefruit, pineapple, and dali. Vegetables Deep-fried vegetables. Djiboutian fries. Any vegetables prepared with added fat. [...] reflux di (more content not included)... Normal [facility] Vit B12on 04-30-2024 Cobalamin (Vitamin B12) [Mass/Vol] 281 pg/mL Normal 50-1500 [facility] Comment on above: Performed By: #### 2 [id number], [id number] #### [facility] [address] [place] [address] CHEMISTRYOrdered By: SYSTEM SYSTEM on 08-31-2022 Anion [...] MG MAMM SCREEN 3D NIKKI CAD Patient: KIRSTEN PUTNAM Exam Date: 06/23/2022 : 1945 Gender:F Ordering : SHAIKH Shahida BASSETT . Admission #: [id number] Family : Order #: [id number] CLICK HERE TO VIEW EXAM RADIOLOGY REPORT [...] lung cancer at age 61. LOCATION: [facility] BREAST COMPOSITION: Scattered areas fibroglandular density. [...] PALPABLE LUMP SHOULD BE BIOPSIED. Dictated by: Leila Hein M.D. on 06/23/2022 at 14:17 Approved by: Leila Hein M.D. on 06/23/2022 at 14:21 Normal [facility] CBC AUTO DIFFon 03-23-2022 BASO # 0.1 103/ul Normal 0.0-0.1 [facility] Comment on above: Performed By: #### C BC #### [facility] [address] [place] [address] [address] Jelly Lozada Basophils/100 WBC (Bld) 1.1 % Normal 0.2-2.0 [facility] Comment on above: Performed By: #### C BC #### [facility] [address] [place] [address] [address] Jelly Lozada EO # 0.1 103/ul Normal 0.0-0.7 [facility] Comment on above: Performed By: #### C BC #### [facility] [address] [place] [address] Dr. Jelly Lozada Eosinophils/100 WBC (Bld) 1.7 % Normal 0.9-7.0 [facility] Comment on above: Performed By: #### C BC #### [facility] [address] [place] [address] Dr. Jelly Lozada Erythrocyte distribution width (RBC) [Ratio] 14.6 % Normal 11.0-15.0 [facility] Comment on above: Performed By: #### C BC #### [facility] [address] [place] [address] Dr. Jelly Lozada Hematocrit (Bld) [Volume fraction] 41.6 % Normal 36.0-48.0 [facility] Comment on above: Performed By: #### C BC #### [facility] [address] [place] [address] Dr. Jelly Lozada Hemoglobin (Bld) [Mass/Vol] 13.4 g/dL Normal 12.0-16.0 [facility] Comment on above: Performed By: #### C BC #### [facility] [address] [place] [address] Dr. Jelly Lozada IG # 0.03 10e3/ul Normal 0.00-0.03 [facility] Comment on above: Performed By: #### C BC #### [facility] [address] [place] [address] Dr. Jelly Lozada IG % 0.4 % Normal 0.0-0.5 [facility] Comment on above: Performed By: #### C BC #### [facility] [address] [place] [address] Dr. Jelly Lozada LYMPH # 1.6 103/ul Normal 1.2-3.8 [facility] Comment on above: Performed By: #### C BC #### [facility] [address] [place] [address] Dr. Jelly Lozada Lymphocytes/100 WBC (Bld) 23.2 % Normal 20.5-60.0 [facility] Comment on above: Performed By: #### C BC #### [facility] [address] [place] [address] Dr. Jelly Lozada MANUAL DIFF REQ NO Normal [facility] Comment on above: Performed By: #### C BC #### [facility] [address] [place] [address] Dr. Jelly Lozada MCH (RBC) [Entitic mass] 25.6 pg Critically low 26.7-34.0 [facility] Comment on above: Performed By: #### C BC #### [facility] [address] [place] [address] Dr. Jelly Lozada MCHC (RBC) [Mass/Vol] 32.2 g/dL Normal 29.9-35.2 [facility] Comment on above: Performed By: #### C BC #### [facility] [address] [place] [address] Dr. Jelly Lozada MCV (RBC) [Entitic vol] 79.5 fL Critically low 81.0-99.0 [facility] Comment on above: Performed By: #### C BC #### [facility] [address] [place] [address] Dr. Jelly Lozada MONO # 0.6 103/ul Normal 0.3-0.8 [facility] Comment on above: Performed By: #### C BC #### [facility] [address] [place] [address] Dr. Jelly Lozada Monocytes/100 WBC (Bld) 8.0 % Normal 1.7-12.0 [facility] Comment on above: Performed By: #### C BC #### [facility] [address] [place] [address] Dr. Jelly Lozada NEUT # 4.6 103/ul Normal 1.4-6.5 [facility] Comment on above: Performed By: #### C BC #### [facility] [address] [place] [address] Dr. Jelly Lozada Neutrophils/100 WBC (Bld) 65.6 % Normal 43.0-75.0 [facility] Comment on above: Performed By: #### C BC #### [facility] [address] [place] [address] [address] Jelly Lozada Platelet mean volume (Bld) [Entitic vol] 10.6 fL Normal 9.5-13.5 [facility] Comment on above: Performed By: #### C BC #### [facility] [address] [place] [address] [address] Jelly Lozada PLT 407 103/ul Normal 150-450 [facility] Comment on above: Performed By: #### C BC #### [facility] [address] [place] [address] [address] Jelly Lozada RBC 5.23 106/ul Normal 4.20-5.40 [facility] Comment on above: Performed By: #### C BC #### [facility] [address] [place] [address] Dr. Jelly Lozada WBC 7.0 103/ul Normal 4.0-11.0 [facility] Comment on above: Performed By: #### C BC #### [facility] [address] [place] [address] Dr. Jelly Lozada LIPID PROFILEon 03-23-2022 CHOL-HDL RATIO NORM SEE BELOW Normal [facility] Comment on above: Result Comment: 3.3 - 4.4 LOW RISK 4.4 - 7.1 AVERAGE RISK 7.1 - 11.0 MODERATE RISK >11.0 HIGH RISK Performed By: #### T SH, CMP, LIPID #### [facility] [address] [place] [address] Dr. Jelly Lozada Cholesterol [Mass/Vol] 157 mg/dL Normal <=200 [facility] Comment on above: Performed By: #### T SH, CMP, LIPID #### [facility] [address] [place] [address] Dr. Jelly Lozada Cholesterol in HDL [Mass/Vol] 52 mg/dL Normal 40-60 [facility] Comment on above: Performed By: #### T SH, CMP, LIPID #### [facility] [address] [place] [address] Dr. Jelly Lozada Cholesterol in LDL [Mass/Vol] 67.0 mg/dL Normal [facility] Comment on above: Performed By: #### T SH, CMP, LIPID #### [facility] [address] [place] [address] [address] Jelly Lozada Cholesterol.total/ Cholesterol in HDL [Mass ratio] 3.0 {ratio} Normal [facility] Comment on above: Performed By: #### T SH, CMP, LIPID #### [facility] [address] [place] [address] [address] Jelly Lozada HDL NORMAL > or = 60 mg/dl - LO W CARDIOVASCULAR RISK <40 mg/dl - HIGH CARDIOVASCULAR RISK Normal [facility] Comment on above: Performed By: #### T SH, CMP, LIPID #### [facility] [address] [place] [address] [address] Jelly Lozada LDL CALC NORMAL SEE BELOW Normal [facility] Comment on above: Result Comment: <100 mg/dl OPTIMAL 100 - 129 mg/dl NEAR OR ABOVE OPTIMAL 130 - 159 mg/dl BORDERLINE HIGH 160 - 189 mg/dl HIGH >190 mg/dl VERY HIGH Performed By: #### T SH, CMP, LIPID #### [facility] [address] [place] [address] [address] Jelly Lozada Triglyceride [Mass/Vol] 190 mg/dL Critically high <=150 [facility] Comment on above: Performed By: #### T SH, CMP, LIPID #### [facility] [address] [place] [address] [address] Jelly Lozada VLDL CALC 38.0 mg/dL Normal [facility] Comment on above: Performed By: #### T SH, CMP, LIPID #### [facility] [address] [place] [address] [address] Jelly Lozada PROF 14(COMP METB)on 022 Albumin [Mass/Vol] 4.1 g/dL Normal 3.4-5.0 [facility] Comment on above: Performed By: #### T SH, CMP, LIPID #### [facility] [address] [place] [address] [address] Jelly Lozada Albumin/Globulin [Mass ratio] 1.3 {ratio} Normal [facility] Comment on above: Performed By: #### T SH, CMP, LIPID #### [facility] [address] [place] [address] [address] Jelly Lozada ALP [Catalytic activity/Vol] 80 U/L Normal 46-116 [facility] Comment on above: Performed By: #### T SH, CMP, LIPID #### [facility] [address] [place] [address] [address] Jelly Lozada ALT [Catalytic activity/Vol] 18 U/L Normal 14-59 [facility] Comment on above: Performed By: #### T SH, CMP, LIPID #### [facility] [address] [address] [address] Jelly Lozada Anion gap [Moles/Vol] 12.2 mmol/L Normal [facility] Comment on above: Performed By: #### T SH, CMP, LIPID #### [facility] [address] [address] [address] Jelly Lozada AST [Catalytic activity/Vol] 20 U/L Normal 15-37 [facility] Comment on above: Performed By: #### T SH, CMP, LIPID #### [facility] [address] [address] [address] Jelly Lozada Bilirubin [Mass/Vol] 0.6 mg/dL Normal 0.2-1.0 [facility] Comment on above: Performed By: #### T SH, CMP, LIPID #### [facility] [address] [place] [address] Dr. Jelly Lozada Calcium [Mass/Vol] 9.5 mg/dL Normal 8.5-10.1 [facility] Comment on above: Performed By: #### T SH, CMP, LIPID #### [facility] [address] [address] [address] Jelly Lozada Chloride [Moles/Vol] 101 mmol/L Normal 98-107 [facility] Comment on above: Performed By: #### T SH, CMP, LIPID #### [facility] [address] [address] [address] Jelly Lozada CO2 [Moles/Vol] 29.9 mmol/L Normal 21.0-32.[address] [facility] Comment on above: Performed By: #### T SH, CMP, LIPID #### [facility] [address] [address] [address] Jelly Lozada Creatinine [Mass/Vol] 0.71 mg/dL Normal 0.55-1.02 [facility] Comment on above: Performed By: #### T SH, CMP, LIPID #### [facility] [address] [address] [address] Jelly Lozada EGFR-AF SINGAPOREAN >60 Normal >=60 [facility] Comment on above: Performed By: #### T SH, CMP, LIPID #### [facility] [address] [address] [address] Jelly Lozada EGFR-NON AF SINGAPOREAN >60 Normal >=60 [facility] Comment on above: Performed By: #### T SH, CMP, LIPID #### [facility] [address] [address] [address] Jelly Lozada Globulin (S) [Mass/Vol] 3.2 g/dL Normal [facility] Comment on above: Performed By: #### T SH, CMP, LIPID #### [facility] [address] [address] [address] Jelly Lozada Glucose [Mass/Vol] 92 mg/dL Normal 74-106 [facility] Comment on above: Performed By: #### T SH, CMP, LIPID #### [facility] [address] [address] [address] Jelly Lozada Potassium [Moles/Vol] 4.1 mmol/L Normal 3.5-5.1 [facility] Comment on above: Performed By: #### T SH, CMP, LIPID #### [facility] [address] [address] [address] Jelly Lozada Protein [Mass/Vol] 7.3 g/dL Normal 6.4-8.2 [facility] Comment on above: Performed By: #### T SH, CMP, LIPID #### [facility] [address] [address] [address] Jelly Lozada Sodium [Moles/Vol] 139 mmol/L Normal 136-145 [facility] Comment on above: Performed By: #### T SH, CMP, LIPID #### [facility] [address] [address] [address] Jelly Lozada Urea nitrogen [Mass/Vol] 8.0 mg/dL Normal 7.0-18.0 [facility] Comment on above: Performed By: #### T SH, CMP, LIPID #### [facility] [address] [address] [address] Jelly Lozada Urea nitrogen/Creatinin e [Mass ratio] 11.3 mg/mg Normal [facility] Comment on above: Performed By: #### T SH, CMP, LIPID #### [facility] [address] [address] [address] Jelly Lozada TSHon 03-23-2022 TSH 3.522 uIU/mL Normal 0.358-3.[address] [facility] Comment on above: Performed By: #### T WINDY CMP, LIPID #### [facility] [address] [address] [address] Jelly Lozada US Caitlin 03-15-2022 US [...] by: SULAIMAN MARTIN Date: 2022-03-15 09:26 Normal [facility] CBC AUTO DIFFon 12-06-2021 BASO # 0.1 103/ul Normal 0.0-0.1 [facility] Comment on above: Performed By: #### C BC ####[facility] [address] [address]Dr. Jelly Lozaad Basophils/100 WBC (Bld) 1.1 % Normal 0.2-2.0 [facility] Comment on above: Performed By: #### C BC ####[facility] [address] [place], [place] [address]Dr. Jelly Lozada EO # 0.1 103/ul Normal 0.0-0.7 [facility] Comment on above: Performed By: #### C BC ####[facility] [address] [place], [place] [address]Dr. Jelly Lozada Eosinophils/100 WBC (Bld) 1.9 % Normal 0.9-7.0 [facility] Comment on above: Performed By: #### C BC ####[facility] [address] [place], [place] [address]Dr. Jelly Lozada Erythrocyte distribution width (RBC) [Ratio] 14.8 % Normal 11.0-15.0 [facility] Comment on above: Performed By: #### C BC ####[facility] [address] [place], [place] [address]Dr. Jelly Lozada Hematocrit (Bld) [Volume fraction] 39.1 % Normal 36.0-48.0 [facility] Comment on above: Performed By: #### C BC ####[facility] [address] [place], [place] [address]Dr. Jelly Lozada Hemoglobin (Bld) [Mass/Vol] 12.5 g/dL Normal 12.0-16.0 [facility] Comment on above: Performed By: #### C BC ####[facility] [address] [place], [place] [address]Dr. Jelly Lozada IG # 0.03 10e3/ul Normal 0.00-0.03 [facility] Comment on above: Performed By: #### C BC ####[facility] [address] [place], [place] [address]Dr. Jelly Lozada IG % 0.5 % Normal 0.0-0.5 [facility] Comment on above: Performed By: #### C BC ####[facility] [address] [place], [place] [address]Dr. Jelly Neville LYMPH # 1.6 103/ul Normal 1.2-3.8 [facility] Comment on above: Performed By: #### C BC ####[facility] [address] [address]Dr. Coconoel Lozada Lymphocytes/100 WBC (Bld) 24.8 % Normal 20.5-60.0 [facility] Comment on above: Performed By: #### C BC ####[facility] [address] [address]Dr. Jelly Lozada MANUAL DIFF REQ NO Normal [facility] Comment on above: Performed By: #### C BC ####[facility] [address] [address]Dr. Jelly Neville MCH (RBC) [Entitic mass] 25.4 pg Critically low 26.7-34.0 [facility] Comment on above: Performed By: #### C BC ####[facility] [address] [address]Dr. Coconoel Lozada MCHC (RBC) [Mass/Vol] 32.0 g/dL Normal 29.9-35.2 [facility] Comment on above: Performed By: #### C BC ####[facility] [address] [address]Dr. Jelly Lozada MCV (RBC) [Entitic vol] 79.5 fL Critically low 81.0-99.0 [facility] Comment on above: Performed By: #### C BC ####[facility] [address] [address]Dr. Jelly Lozada MONO # 0.6 103/ul Normal 0.3-0.8 [facility] Comment on above: Performed By: #### C BC ####[facility] [address] [address]Dr. Jelly Lozada Monocytes/100 WBC (Bld) 9.1 % Normal 1.7-12.0 [facility] Comment on above: Performed By: #### C BC ####[facility] [address] [address]Dr. Jelly Lozada NEUT # 3.9 103/ul Normal 1.4-6.5 [facility] Comment on above: Performed By: #### C BC ####[facility] [address] [address]Dr. Jelly Lozada Neutrophils/100 WBC (Bld) 62.6 % Normal 43.0-75.0 [facility] Comment on above: Performed By: #### C BC ####[facility] [address] [address]DrMicheal Lozada Platelet mean volume (Bld) [Entitic vol] 10.1 fL Normal 9.5-13.5 [facility] Comment on above: Performed By: #### C BC ####[facility] [address] [address]DrMicheal Lozada PLT 421 103/ul Normal 150-450 [facility] Comment on above: Performed By: #### C BC ####[facility] [address] [address]DrMicheal Lozada RBC 4.92 106/ul Normal 4.20-5.40 [facility] Comment on above: Performed By: #### C BC ####[facility] [address] [address]DrMicheal Lozada WBC 6.3 103/ul Normal 4.0-11.0 [facility] Comment on above: Performed By: #### C BC ####[facility] [address] [address]Dr. Jelly Lozada PROF 14(COMP METB)on 022 Albumin [Mass/Vol] 4.0 g/dL Normal 3.4-5.0 [facility] Comment on above: Performed By: #### C MP #### [facility] [address] [address] [address] Jelly Lozada Albumin/Globulin [Mass ratio] 1.4 {ratio} Normal [facility] Comment on above: Performed By: #### C MP #### [facility] [address] [place] [address] Dr. Jelly Lozada ALP [Catalytic activity/Vol] 99 U/L Normal 46-116 [facility] Comment on above: Performed By: #### C MP #### [facility] [address] [address] [address] Jelly Lozada ALT [Catalytic activity/Vol] 20 U/L Normal 14-59 [facility] Comment on above: Performed By: #### C MP #### [facility] [address] [address] [address] Jelly Lozada Anion gap [Moles/Vol] 13.7 mmol/L Normal [facility] Comment on above: Performed By: #### C MP #### [facility] [address] [place] [address] Dr. Jelly Lozada AST [Catalytic activity/Vol] 18 U/L Normal 15-37 [facility] Comment on above: Performed By: #### C MP #### [facility] [address] [place] [address] Dr. Jelly Lozada Bilirubin [Mass/Vol] 0.7 mg/dL Normal 0.2-1.0 [facility] Comment on above: Performed By: #### C MP #### [facility] [address] [place] [address] Dr. Jelly Lozada Calcium [Mass/Vol] 8.9 mg/dL Normal 8.5-10.1 [facility] Comment on above: Performed By: #### C MP #### [facility] [address] [address] [address] Jelly Lozada Chloride [Moles/Vol] 102 mmol/L Normal 98-107 [facility] Comment on above: Performed By: #### C MP #### [facility] [address] [address] [address] Jelly Lozada CO2 [Moles/Vol] 26.8 mmol/L Normal 21.0-32.[address] [facility] Comment on above: Performed By: #### C MP #### [facility] [address] [address] [address] Jelly Lozada Creatinine [Mass/Vol] 0.74 mg/dL Normal 0.55-1.02 [facility] Comment on above: Performed By: #### C MP #### [facility] [address] [address] [address] Jelly Lozada EGFR-AF SINGAPOREAN >60 Normal >=[address] [facility] Comment on above: Performed By: #### C MP #### [facility] [address] [address] [address] Jelly Lozada EGFR-NON AF SINGAPOREAN >60 Normal >=60 [facility] Comment on above: Performed By: #### C MP #### [facility] [address] [address] [address] Jelly Lozada Globulin (S) [Mass/Vol] 2.9 g/dL Normal [facility] Comment on above: Performed By: #### C MP #### [facility] [address] [place] [address] Dr. Jelly Lozada Glucose [Mass/Vol] 114 mg/dL Critically high 74-106 [facility] Comment on above: Performed By: #### C MP #### [facility] [address] [address] [address] Jelly Lozada Potassium [Moles/Vol] 3.5 mmol/L Normal 3.5-5.1 [facility] Comment on above: Performed By: #### C MP #### [facility] [address] [place] [address] Dr. Jelly Lozada Protein [Mass/Vol] 6.9 g/dL Normal 6.4-8.2 [facility] Comment on above: Performed By: #### C MP #### [facility] [address] [address] [address] Jelly Lozada Sodium [Moles/Vol] 139 mmol/L Normal 136-145 [facility] Comment on above: Performed By: #### C MP #### [facility] [address] [address] [address] Jelly Lozada Urea nitrogen [Mass/Vol] 9.0 mg/dL Normal 7.0-18.0 [facility] Comment on above: Performed By: #### C MP #### [facility] [address] [address] [address] Jelly Lozada Urea nitrogen/Creatinin e [Mass ratio] 12.2 mg/mg Normal [facility] Comment on above: Performed By: #### C MP #### [facility] [address] [address] [address] Jelly Lozada TSHon 12-06-2021 TSH 3.217 uIU/mL Normal 0.358-3.[address] [facility] Comment on above: Performed By: #### T SH #### [facility] [address] [address] [address] Jelly Lozada CREATININEon 08-26-2021 Creatinine [Mass/Vol] 0.70 mg/dL Normal 0.55-1.02 [facility] Comment on above: Performed By: #### C CHANDLER ####[facility] [address] [address]Dr. Jelly Lozada EGFR-AF SINGAPOREAN >60 Normal >=[address] [facility] Comment on above: Performed By: #### C CHANDLER ####[facility] [address] [address]Dr. Jelly Lozada EGFR-NON AF SINGAPOREAN >60 Normal >=60 [facility] Comment on above: Performed By: #### C CHANDLER ####[facility] [address] [address] Jelly Lozada CT ABD/PELV W CONon 08-27-19 [...] account for patient's symptoms. Electronically authenticated by: LEILA HEIN Date: 2021-08-26 10:08 Normal [facility] PROF CHEM 8 (BAS METB)on Anion gap [Moles/Vol] 13.6 mmol/L Normal [facility] Comment on above: Performed By: #### B MP #### [facility] [address] [address] [address] Jelly Lozada Calcium [Mass/Vol] 8.8 mg/dL Normal 8.5-10.1 [facility] Comment on above: Performed By: #### B MP #### [facility] [address] [address] [address] Jelly Lozada Chloride [Moles/Vol] 100 mmol/L Normal 98-107 [facility] Comment on above: Performed By: #### B MP #### [facility] [address] [address] [address] Jelly Lozada CO2 [Moles/Vol] 28.2 mmol/L Normal 21.0-32.0 [facility] Comment on above: Performed By: #### B MP #### [facility] [address] [address] [address] Jelly Lozada Creatinine [Mass/Vol] 0.74 mg/dL Normal 0.55-1.02 [facility] Comment on above: Performed By: #### B MP #### [facility] [address] [address] [address] Jelly Lozada EGFR-AF SINGAPOREAN >60 Normal >=60 [facility] Comment on above: Performed By: #### B MP #### [facility] [address] [address] [address] Jelly Lozada EGFR-NON AF SINGAPOREAN >60 Normal >=60 [facility] Comment on above: Performed By: #### B MP #### [facility] [address] [address] [address] Jelly Lozada Glucose [Mass/Vol] 98 mg/dL Normal 74-106 [facility] Comment on above: Performed By: #### B MP #### [facility] [address] [address] [address] Jelly Lozada Potassium [Moles/Vol] 3.8 mmol/L Normal 3.5-5.1 [facility] Comment on above: Performed By: #### B MP #### [facility] [address] [address] [address] Jelly Lozada Sodium [Moles/Vol] 138 mmol/L Normal 136-145 [facility] Comment on above: Performed By: #### B MP #### [facility] [address] [address] [address] Jelly Lozada Urea nitrogen [Mass/Vol] 6.0 mg/dL Critically low 7.0-18.0 [facility] Comment on above: Performed By: #### B MP #### [facility] [address] [address] [address] Jelly Lozada Urea nitrogen/Creatinin e [Mass ratio] 8.1 mg/mg Normal [facility] Comment on above: Performed By: #### B MP #### [facility] [address] [address] [address] Jelly Lozada Vital Signs Date Time Vital Sign Value Performing Clinician Facility 01-23-2025 09:14040 Body height 157.48 cm Lyric Weston PEOPLE MANAGER-C Work Phone: [facility] 01-23-2025 09:14040 Body temperature 95.9 [degF] Lyric Weston PEOPLE MANAGER[employer]C Work Phone: [facility] 01-23-2025 09:14-0400 Diastolic blood pressure 66 mm[Hg] Lyric Weston PEOPLE MANAGER[employer]C Work Phone: [facility] 01-23-2025 09:14-0400 Heart rate 55 /min Lyric Weston PEOPLE MANAGER[employer]C Work Phone: [facility] 01-23-2025 09:14-0400 Respiratory rate 22 /min Lyric Weston PEOPLE MANAGER[employer]C Work Phone: [facility] 01-23-2025 09:14-0400 SaO2% (BldA) [Mass fraction] 95 % Lyric Weston PEOPLE MANAGER[employer]C Work Phone: [facility] 01-23-2025 09:14-0400 Systolic blood pressure 120 mm[Hg] Lyric Weston PEOPLE MANAGER[employer]C Work Phone: [facility] 06-21-2024 09:28-0500 Body height 162.6 cm Johnson Herrera MD Work Phone: [facility] 06-21-2024 09:28-0500 Body mass index (BMI) [Ratio] 27.98 kg/m2 Johnson Herrera MD Work Phone: [facility] 06-21-2024 09:28-0500 Body temperature 97.3 [degF] Johnson Herrera MD Work Phone: [facility] 06-21-2024 09:28-0500 Body weight 73.94 kg Johnson Herrera MD Work Phone: [facility] 06-21-2024 09:28-0500 Diastolic blood pressure 70 mm[Hg] Johnson Herrera MD Work Phone: [facility] 06-21-2024 09:28-0500 Heart rate 62 /min Johnson Herrera MD Work Phone: [facility] 06-21-2024 09:28-0500 Respiratory rate 22 /min Johnson Herrera MD Work Phone: [facility] 06-21-2024 09:28-0500 SaO2% (BldA) [Mass fraction] 97 % Johnson Herrera MD Work Phone: [facility] 06-21-2024 09:28-0500 Systolic blood pressure 126 mm[Hg] Johnson Herrera MD Work Phone: [facility] 05-09-2024 10:39-0500 Body height 162.56 cm Lyric Weston PEOPLE MANAGER[employer]C Work Phone: [facility] 05-09-2024 10:39-0500 Body mass index (BMI) [Ratio] 27.5 kg/m2 Lyric Weston PEOPLE MANAGER[employer]C Work Phone: [facility] 05-09-2024 10:39-0500 Body weight 72.74 kg Lyric Weston PEOPLE MANAGER[employer]C Work Phone: [facility] 04-17-2024 07:57-0500 Body height 162.6 cm Lyric Weston PEOPLE MANAGER Work Phone: [facility] 04-17-2024 07:57-0500 Body mass index (BMI) [Ratio] 27.84 kg/m2 Lyric Weston PEOPLE MANAGER Work Phone: [facility] 04-17-2024 07:57-0500 Body temperature 97.3 [degF] Lyric Weston PEOPLE MANAGER Work Phone: [facility] 04-17-2024 07:57-0500 Body weight 73.57 kg Lyric Weston PEOPLE MANAGER Work Phone: [facility] 04-17-2024 07:57-0500 Diastolic blood pressure 74 mm[Hg] Lyric Weston PEOPLE MANAGER Work Phone: [facility] 04-17-2024 07:57-0500 Heart rate 57 /min Lyric Weston PEOPLE MANAGER Work Phone: [facility] 04-17-2024 07:57-0500 Respiratory rate 16 /min Lyric Gaopatrick PEOPLE MANAGER Work Phone: [facility] 04-17-2024 07:57-0500 SaO2% (BldA) [Mass fraction] 99 % Lyric Weston PEOPLE MANAGER Work Phone: [facility] 04-17-2024 07:57-0500 Systolic blood pressure 126 mm[Hg] Lyric Weston PEOPLE MANAGER Work Phone: [facility] 04-11-2024 09:34-0500 Body weight 73.02 kg Lyric Weston PEOPLE MANAGER-C Work Phone: [facility] 02-21-2024 12:56-0400 Body height 162.6 cm John Dimple DO Work Phone: [facility] 02-21-2024 12:56-0400 Body mass index (BMI) [Ratio] 26.95 kg/m2 John Dimple DO Work Phone: [facility] 02-21-2024 12:56-0400 Body weight 71.22 kg John Dimple DO Work Phone: [facility] 02-21-2024 12:56-0400 Diastolic blood pressure 70 mm[Hg] Jhon Dimple DO Work Phone: [facility] 02-21-2024 12:56-0400 Systolic blood pressure 120 mm[Hg] John Dimple DO Work Phone: [facility] 01-31-2024 13:43-0400 Body mass index (BMI) [Ratio] 28.49 kg/m2 Lyric Weston PEOPLE MANAGER Work Phone: [facility] 01-31-2024 13:43-0400 Body temperature 97.81 [degF] Lyric Weston PEOPLE MANAGER Work Phone: [facility] 01-31-2024 13:43-0400 Body weight 75.3 kg Lyric Weston PEOPLE MANAGER Work Phone: [facility] 01-31-2024 13:43-0400 Diastolic blood pressure 64 mm[Hg] Lyric Weston PEOPLE MANAGER Work Phone: [facility] 01-31-2024 13:43-0400 Heart rate 69 /min Lyric Weston PEOPLE MANAGER Work Phone: [facility] 01-31-2024 13:43-0400 Respiratory rate 17 /min Lyric Weston PEOPLE MANAGER Work Phone: [facility] 01-31-2024 13:43-0400 SaO2% (BldA) [Mass fraction] 99 % Lyric Weston PEOPLE MANAGER Work Phone: [facility] 01-31-2024 13:43-0400 Systolic blood pressure 122 mm[Hg] Lyric Weston PEOPLE MANAGER Work Phone: [facility] 01-17-2024 08:12-0400 Body height 162.6 cm Lyric Weston PEOPLE MANAGER Work Phone: [facility] 01-17-2024 08:12-0400 Body mass index (BMI) [Ratio] 27.12 kg/m2 Lyric Weston PEOPLE MANAGER Work Phone: [facility] 01-17-2024 08:12-0400 Body temperature 97.11 [degF] Lyric Weston PEOPLE MANAGER Work Phone: [facility] 01-17-2024 08:12-0400 Body weight 71.67 kg Lyric Weston PEOPLE MANAGER Work Phone: [facility] 01-17-2024 08:12-0400 Diastolic blood pressure 80 mm[Hg] Lyric Weston PEOPLE MANAGER Work Phone: [facility] 01-17-2024 08:12-0400 Heart rate 59 /min Lyric Weston PEOPLE MANAGER Work Phone: [facility] Comment on above: 94% O2 01-17-2024 08:12-0400 Systolic blood pressure 124 mm[Hg] Lyric Weston RENÉ Work Phone: [facility] 08-29-2023 09:10-0400 Blood Pressure Location Brianna Darby [facility] 08-29-2023 09:10-0400 Body temperature 97.7 [degF] Brianna Darby [facility] 08-29-2023 09:10-0400 Diastolic blood pressure 89 mm[Hg] Brianna Daryb [facility] 08-29-2023 09:10-0400 Heart rate 61 /min Brianna Darby [facility] 08-29-2023 09:10-0400 Systolic blood pressure 133 mm[Hg] Brianna Darby [facility] 03-01-2023 09:13-0400 Blood Pressure Location Brianna Darby [facility] 03-01-2023 09:13-0400 Body temperature 97.52 [degF] Brianna Darby [facility] 03-01-2023 09:13-0400 Diastolic blood pressure 89 mm[Hg] Brianna Darby [facility] 03-01-2023 09:13-0400 Heart rate 55 /min Brianna Darby [facility] 03-01-2023 09:13-0400 Systolic blood pressure 133 mm[Hg] Brianna Darby [facility] 08-31-2022 09:45-0400 Diastolic blood pressure 80 mm[Hg] Brianna Darby [facility] 08-31-2022 09:45-0400 Mean blood pressure 99 mm[Hg] Brianna Darby [facility] 08-31-2022 09:45-0400 Systolic blood pressure 138 mm[Hg] Brianna Darby [facility] 08-31-2022 09:35-0400 Blood Pressure Location Brianna Darby [facility] 08-31-2022 09:35-0400 Body temperature 97.7 [degF] Brianna Darby [facility] 08-31-2022 09:35-0400 Diastolic blood pressure 77 mm[Hg] Brianna Darby [facility] 08-31-2022 09:35-0400 Heart rate 56 /min Brianna Darby [facility] 08-31-2022 09:35-0400 Systolic blood pressure 144 mm[Hg] Brianna Darby [facility] 06-02-2022 09:49-0500 Blood Pressure Location Brianna Darby [facility] 06-02-2022 09:49-0500 Body temperature 96.98 [degF] Brianna Darby [facility] 06-02-2022 09:49-0500 Diastolic blood pressure 84 mm[Hg] Brianna Darby [facility] 06-02-2022 09:49-0500 Heart rate 57 /min Brianna Darby [facility] 06-02-2022 09:49-0500 Systolic blood pressure 129 mm[Hg] Briannalauren CarusoDarby [facility] 03-02-2022 10:01-0400 Blood Pressure Location Briannalauren CarusoDarby [facility] 03-02-2022 10:01-0400 Body temperature 97.7 [degF] Briannalauren CarusoDarby [facility] 03-02-2022 10:01-0400 Diastolic blood pressure 88 mm[Hg] Briannalauren CarusoDarby [facility] 03-02-2022 10:01-0400 Heart rate 62 /min Brianna Carusometz [facility] 03-02-2022 10:01-0400 Systolic blood pressure 120 mm[Hg] Briannalauren CarusoDarby [facility] 12-01-2021 12:26-0400 Blood Pressure Location Briannalauren CarusoDarby [facility] 12-01-2021 12:26-0400 Body temperature 97.16 [degF] Brianna Carusometz [facility] 12-01-2021 12:26-0400 Diastolic blood pressure 80 mm[Hg] Briannalauren CarusoDarby [facility] 12-01-2021 12:26-0400 Heart rate 58 /min Briannalauren CarusoDarby [facility] 12-01-2021 12:26-0400 SaO2% (BldA) [Mass fraction] 97 % Briannalauren CarusoDarby [facility] 12-01-2021 12:26-0400 Systolic blood pressure 122 mm[Hg] Brianna Pastor [facility] 08-12-2021 09:22-0400 Blood Pressure Location Briannalauren Pastor [facility] 08-12-2021 09:22-0400 Diastolic blood pressure 77 mm[Hg] Brianna Pastor [facility] 08-12-2021 09:22-0400 Heart rate 53 /min Brianna Pastor [facility] 08-12-2021 09:22-0400 SaO2% (BldA) [Mass fraction] 96 % Brianna Pastor [facility] 08-12-2021 09:22-0400 Systolic blood pressure 126 mm[Hg] Brianna Pastor [facility] Encounters Encounter Date Encounter Type Care Provider Facility Start: 01-23-2025 End: 01-23-2025 ambulatory Lyric Weston NP-Donato Work Phone: [facility] Work Phone: Start: 01-23-2025 End: 01-23-2025 Patient encounter procedure Johnson Herrera MD -[facility] Work Phone: Start: 07-23-2024 End: 07-23-2024 ambulatory JOHNSON HERRERA Not Available Start: 06-27-2024 End: 06-27-2024 Clinisync Result Encounter Lyric Piñazpatrick PEOPLE MANAGER Other Phone: [facility] Unsolicited Start: 06-27-2024 End: 06-27-2024 Clinisync Result Encounter Lyric Piñazpatrick PEOPLE MANAGER Other Phone: [facility] External Department Unsolicited Start: 06-21-2024 End: 06-21-2024 Bamboo flowsheet Johnson [...] Not Available Start: 05-09-2024 End: 05-09-2024 ambulatory Lyric Caok PEOPLE MANAGER-C Work Phone: [facility] Work Phone: Start: 05-09-2024 End: 05-09-2024 Patient encounter procedure Lyric Coak PEOPLE MANAGER-C Work Phone: [facility] Work Phone: Start: 04-17-2024 End: 04-17-2024 Bamboo flowsheet Lyric Steentrick PEOPLE MANAGER Work Phone: [facility] Start: 04-17-2024 End: 04-17-2024 Bamboo flowsheet Lyric Weston PEOPLE MANAGER Work Phone: [facility] Start: 04-17-2024 End: 04-17-2024 Office outpatient visit 15 minutes Lyric Caok PEOPLE MANAGER Work Phone: [facility] Comment on above: Primary hypertension (CMS/HCC); Hyperlipidemia, unspecified hyperlipidemia type (CMS/HCC); Gastroesophageal reflux disease without esophagitis Start: 04-17-2024 End: 04-17-2024 ambulatory LYRIC STEENTRICK Not Available Start: 04-11-2024 End: 04-11-2024 Patient encounter procedure Lyric Caok PEOPLE MANAGER-C Work Phone: [facility] Work Phone: Start: 04-11-2024 End: 04-11-2024 ambulatory Lyric Caok Facility:[facility] Start: 04-11-2024 End: 04-11-2024 Patient encounter procedure Lyric Caok PEOPLE MANAGER-C Work Phone: [facility] Work Phone: Start: 04-10-2024 End: 04-10-2024 ambulatory [facility] Start: 02-21-2024 End: 02-21-2024 Bamboo flowsheet John Dimple DO Work Phone: [facility] Start: 02-21-2024 End: 02-21-2024 Bamboo flowsheet John Dimple DO Work Phone: [facility] Start: 02-21-2024 End: 02-21-2024 Office outpatient new 20 minutes John Dimple DO Work Phone: [facility] Comment on above: 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 Start: 02-21-2024 End: 02-21-2024 ambulatory JOHN DIMPLE Not Available Start: 02-19-2024 End: 02-19-2024 ambulatory Nghia Talbert Facility:[facility] Start: 02-19-2024 End: 02-19-2024 Patient encounter procedure Nghia Talbert [facility] Start: 02-06-2024 End: 02-06-2024 ambulatory LYRIC WESTON Not Available Start: 01-31-2024 End: 01-31-2024 Transitional care manage srvc 7 day discharge Lyric Gaopatrick PEOPLE MANAGER Work Phone: [facility] Comment on above: Compression fracture of T6 vertebra with routine healing, subsequent encounter (Primary Dx); Closed traumatic nondisplaced fracture of rib; Compression fracture of T6 vertebra with routine healing Start: 01-31-2024 End: 01-31-2024 ambulatory LYRIC WESTON Not Available Start: 01-17-2024 End: 01-17-2024 Bamboo flowsheet Lyric Weston PEOPLE MANAGER Work Phone: [facility] Start: 01-17-2024 End: 01-17-2024 Bamboo flowsheet Lyric Weston PEOPLE MANAGER Work Phone: [facility] Start: 01-17-2024 End: 01-17-2024 Office outpatient visit 15 minutes Lyric Gaopatrick PEOPLE MANAGER Work Phone: [facility] Comment on above: Primary hypertension (CMS/HCC) (Primary Dx); Mixed hyperlipidemia (CMS/HCC); Gastroesophageal reflux disease without esophagitis Start: 01-17-2024 End: 01-17-2024 ambulatory LYRIC WESTON Not Available Start: 12-13-2023 End: 12-13-2023 ambulatory LYRIC WESTON Not Available Start: 11-01-2023 End: 11-01-2023 ambulatory LUCA CHAVARRIA Not Available Start: 10-18-2023 End: 10-18-2023 ambulatory SHAIKH CURTIS Not Available Start: 09-26-2023 End: 09-26-2023 ambulatory Brianna Pastor Facility:[facility] Start: 09-26-2023 End: 09-26-2023 Patient encounter procedure Brianna Pastor [facility] Start: 09-01-2023 End: 09-01-2023 ambulatory Brianna Pastor Facility[place] Start: 09-01-2023 End: 09-01-2023 Patient encounter procedure Brianna Pastor [facility] Start: 08-29-2023 End: 08-29-2023 ambulatory Brianna Pastor Facility:[facility] [place] [facility] Start: 08-29-2023 End: 08-29-2023 Patient encounter procedure Brianna Pastor [facility] Start: 08-29-2023 End: 08-29-2023 ambulatory Brianna A Darby Facility:[facility] Start: 08-29-2023 End: 08-29-2023 Patient encounter procedure Brianna Pastor [facility] Start: 04-10-2023 Patient encounter procedure Lyric Weston Work Phone: [facility] Start: 03-01-2023 End: 03-01-2023 Patient encounter procedure Brianna Pastor [facility] Start: 08-31-2022 End: 08-31-2022 Patient encounter procedure Brianna Pastor [facility] Start: 08-31-2022 End: 08-31-2022 Patient encounter procedure Brianna Pastor [facility] Start: 06-23-2022 End: 06-24-[address] LEILA HEIN Facility: Start: 06-02-2022 End: 06-02-2022 Patient encounter procedure Brianna Pastor [facility] Start: 03-23-2022 End: 03-24-2022 ambulatory SIMEON H FAWWAD Facility:[facility] Start: 03-15-2022 End: 03-16-[address] DOCTOR CLARK Facility:[facility] Start: 03-02-2022 End: 03-02-2022 Patient encounter procedure Brianna Bridgesz [facility] Start: 12-06-2021 End: 12-07-2021 ambulatory SIMEON H FAWWAD Facility:[facility] Start: 12-01-2021 End: 12-01-2021 Patient encounter procedure Brianna Bridgesz [facility] Start: 08-26-2021 End: 08-27-2021 ambulatory DUYEN MARKS Facility:[facility] Start: 08-24-2021 End: 08-25-2021 ambulatory SIMEON H FAWWAD Facility:[facility] Start: 08-12-2021 End: 08-12-2021 Patient encounter procedure Brianna Pastor [facility] Procedures Date Procedure Procedure Detail Performing Clinician Start: 06-27-2024 MM TOMOSYNTHESIS SCREENING BI Lyric Weston PEOPLE MANAGER Other Phone: Start: 04-11-2024 X-ray of thoracic spine, two views Iliana any Weston PEOPLE MANAGER-C Work Phone: Start: 04-12-2021 Esophagogastroduodenoscopy Brianna wright Comment on above: gastric erosions, hiatal hernia Start: 04-03-2019 Colonoscopy Brianna Pastor Start: 04-03-2019 Esophagogastroduodenoscopy Brianna wright Plan of Treatment Date Care Activity Detail Author Start: 04-17-2025 Pneumococcal Vaccine : 65+ Years (1 of 2 - PCV) Pneumococcal Vaccine: 65+ Years (1 of 2 - PCV) [facility] Comment on above: Postponed from 07/13 (Patient Refused) Start: 07-23-2024 End: 07-23-2024 Patient encounter procedure 07/23/2024 2:00 PM EDT [facility] [address] [place] [address] Johnson Herrera MD [address] [place] [phone] [facility] Start: 07-18-2024 End: 07-18-2024 Patient encounter procedure 07/18/2024 10:45 AM EDT [facility] [address] [place] [address] Johnson Herrera MD [address] [place] [phone] [facility] Start: 07-18-2024 End: 07-18-2024 Patient encounter procedure 07/18/2024 8:30 AM EDT [facility] [address] [place] [address] Lyric Weston NP [address] [place] [address] [facility] Start: 06-21-2024 End: 06-21-2024 Patient encounter procedure 06/21/2024 9:15 AM EST Office Visit [facility] [address] [place] [address] Johnson Herrera MD [address] [place] [phone] Arrived [facility] Comment on above: Arrived Start: 06-12-2024 Influenza vaccination Influenza Vacc ine (#1) [facility] Comment on above: Postponed from 12/30 (Patient Refused) Start: 04-18-2024 End: 04-18-2024 Patient encounter procedure 04/18/2024 9:00 AM EST Office Visit [facility] [address] [place] [phone] Shaikh Bassett MD [address] [place] [phone] [facility] Start: 04-17-2024 End: 04-17-2024 Patient encounter procedure [facility] Comment on above: Arrived Start: 04-10-2024 Medicare [...] 01/17/2024 8:30 AM EDT Office Visit [facility] [address] [place] [address] Lyric Weston NP [address] [place] [address] Primary hypertension (CMS/HCC) (Primary Dx); Mixed hyperlipidemia (CMS/HCC); Gastroesophageal reflux disease without esophagitis [facility] Comment on above: Primary hypertension (CMS/HCC) (Primary Dx); Mixed hyperlipidemia (CMS/HCC); Gastroesophageal reflux disease without esophagitis Start: 12-31-2023 Influenza vaccination Influenza Vacc ine (#1) [facility] Start: 1952 Pneumococcal Vaccine : 65+ Years (1 of 2 - PCV) Pneumococcal Vaccine: 65+ Years (1 of 2 - PCV) [facility] Comprehensive metabo lic 2000 panel - Serum or Plasma [facility] Immunizations Immunization Date Immunization Notes Care Provider Beatris ne 01-26-2022 tetanus toxoid, reduced diphtheria toxoid, and acellular pertussis vaccine, adsorbed Brianna Pastor [facility] NEGATED: Highlighted row has not occurred!02-27-2023 influenza virus vaccine, unspecified formulation Briannalauren CarusoDarby [facility] NEGATED: Highlighted row has not occurred!06-02-2022 influenza virus vaccine, unspecified formulation Brianna Carusometz [facility] NEGATED: Highlighted row has not occurred!03-02-2022 influenza virus vaccine, unspecified formulation Brianna Darby [facility] Payers Date Payer Category Payer Self-pay 2022 Private Health Insurance [facility] [employer] [id number] 2022 Unknown [employer] [id number] 2022-Present [address] [address] [place] [address] [id number] 2022 Unknown [id number] 2011 Medicare [id number] 1959 Medicare [id number] 1959 Unknown [id number] 1946 Unknown [id number] 2.16.840.1.850646.3.579.2 .593 1946 Unknown [id number] 2.16.840.1.044212.3.579.2 .593 1946 Unknown [id number] 2.16.840.1.254757.3.579.2 .593 1946 Unknown [id number] 2.16.840.1.198070.3.579.2 .593 1946 Unknown [id number] 2.16.840.1.443902.3.579.2 .593 1946 Unknown [id number] 2.16.840.1.472093.3.579.2 .593 1946 Unknown [id number] 2.16.840.1.079012.3.579.2 .593 1946 Unknown [id number] 2.16.840.1.737264.3.579.2 .593 1946 Unknown [id number] 2.16.840.1.786028.3.579.2 .727 1946 Unknown [id number] 2.16.840.1.033902.3.579.2 .727 1946 Unknown [id number] 2.16.840.1.532672.3.579.2 .727 1946 Unknown [id number] 2.16.840.1.140750.3.579.2 .727 1946 Unknown [id number] 2.16.840.1.049936.3.579.2 .727 1946 Unknown [id number] 2.16.840.1.049054.3.579.2 .1259 1946 Unknown [id number] 2.16.840.1.655556.3.579.2 .1258 1946 Unknown [id number] 2.16.840.1.154852.3.579.2 .9 1946 Unknown [id number] 2.16.840.1.244350.3.579.2 .1258 1946 Unknown [id number] 2.16.840.1.974411.3.579.2 .1258 1946 Unknown [id number] 2.16.840.1.838790.3.579.2 .1258 1946 Unknown [id number] 2.16.840.1.466749.3.579.2 .1258 1946 Unknown [id number] 2.16.840.1.945462.3.579.2 .1258 1946 Unknown [id number] 2.16.840.1.463626.3.579.2 .1258 1946 Unknown [id number] 2.16.840.1.049112.3.579.2 .125 Unknown [id number] 2.16.840.1.230280.3.579.2 .531 Social History Date Type Detail Facility Start: 05-04-2021 End: 01-23-2025 Tobacco smoking status Never smoked tobacco (finding) [facility] Tobacco smoking status Never [facility] Start: 04-10-2023 End: 01-17-2024 Sex Assigned At Female [facility] Start: 01-17-2024 End: 06-21-2024 Alcoholic beverage intake Lifetime non-drinker (finding) [facility] [...] Sex assigned at Not on file [facility] Tobacco smoking status NHIS Unknown if ever smoked [facility] Work Phone: Start: 05-09-2024 Sex Female (finding) [facility] Start: 1945 Sex Assigned At Female F [facility] NEGATED: Highlighted rowStart: NINF History of tobacco use Passive smoker [facility] Functional Status Date Assessment Result Facility 08-29-2023 Functional Status N/A [facility] 03-01-2023 Functional Status N/A [facility] 08-31-2022 Functional Status N/A [facility] 06-02-2022 Functional Status N/A [facility] 03-02-2022 Functional Status N/A [facility] 12-01-2021 Functional Status N/A [facility] Clinical Notes 08-12-2021 to 06-21-2024 [...] worse call for re-evaluation. Subjective Patient ID: Kirsten Putnam is a 78 y.o. female who [...] 50 MG tablet documented in this encounter [facility] 04-17-2024 History of Presen t illness Narrative [...] note were not included. Subjective Patient ID: Kirsten Putnam is a 78 y.o. female who presents for No chief complaint on file.. HPI Specialists: Cardiology- [place] Dr. Phillips HTN: Follows closely with Cardiology [...] List Items Addressed This Visit HTN (hypertension) (CMS/HCC) Follows closely with Cardiology [...] tablet sucralfate (Carafate) 1 g tablet Hyperlipidemia ([facility]) Currently taking Atorvastatin 20mg Denies any myalgias. Most recent Lipid Panel 10/2023- WNL Continue current regimen. Relevant Medications atorvastatin (Lipitor) 20 MG tablet documented in this encounter [facility] 04-11-2024 Evaluation note Diagnosis Onset Date Resolution T6 vertebral fracture acute Mar 9:31am [facility] Work Phone: 1(579) 472-585712-11-2024 [facility]ovascular [facility] Chief Complaint Patient presents with Hypertension Hyperlipidemia Coronary Artery Disease Kirsten Putnam is a 78 y.o. female here for follow-up. HPI PMHx: coronary calcification, HTN, HLD She is having back issues. Noted to have T6 compression fx Dec, [address] scan[address] She will be seeing a data processing specialist soon to see next step. She is trying to stay active. BP is elevated today. She hasn't been checking her BP recently. Denies c/o CP, dyspnea, orthopnea, PND, LE edema, dizziness/LH, palpitations, syncope. Patient Active Problem List Diagnosis Angina pectoris ([facility]/HCC) Chest pain Benign essential hypertension Chronic obstructive lung disease ([facility]) Coronary artery calcification Dyspnea Gastroesophageal reflux disease [...] Diagnosis Date COPD (chronic obstructive pulmonary disease) (CMS/[facility]) Coronary artery disease GERD (gastroesophageal reflux disease) [...] Final Atrial Rate 03/18/2019 61 BPM Final [place] Interval 03/18/2019 188 ms Final QRS DURATION 03/18/2019 94 ms Final QT Interval 03/18/2019 438 ms Final QTC CALCULATION(BEZET) 03/18/2019 440 ms Final P [place] 03/18/2019 55 degrees Final R-[place] 03/18/2019 2 degrees Final T Wave [place] 03/18/2019 44 degrees Final Diagnosis 03/18/2019 Final Value:Normal sinus rhythm Normal ECG No previous ECGs available Confirmed by STRESSDR. ([id number]), medical transcription editor Ángela Arredondo ([id number]) on 03/18/2019 12:12:41 PM No results found for: EXTCMP , BMPR1A , CBCDIF , BNP , LASAP , [facility] 11/01/23 Chol 151, trig 96, LDL 76.8, HDL 55 Blood testing 09/29/2022: Hemoglobin 14.1, hematocrit 44.7, Platelets 507, potassium 3.8, BUN 8, creatinine 0.79, EGFR (more content not included)... [facility]12-11-2024 NotePatient here for 1 year follow up CAD, hypertension, and hyperlipidemia. She had routine labs w/ lipid panel in October 2023. Denies chest pain, SOB, and palpitations. Review of Systems Musculoskeletal: Positive for back pain. All other systems reviewed and are negative.[facility] 02-21-2024 History of Present illness Narrative* Elise Lee, SLOT SHIFT MANAGER - 02/21/2024 1:40 PM EDT Reason for Appointment: Patient ID: Kirsten Putnam is a 78 y.o. female who [...] (hypertension) (CMS/HCC) 04/10/2023 Coronary artery disease involving unga coronary artery of unga heart without angina pectoris (CMS/HCC) 02/10/2014 Benign [...] nursing note reviewed. Exam conducted with a systems analyst developer present. Vitals: Estimated body mass index is [...] by Elise Lee LPN on behalf of: John Musa DO documented in this encounterBates County Memorial [id number] History of Present illness Narrative* Lyric Weston NP - 01/31/2024 2:00 PM EDT Images from the original note were not included. Subjective Patient ID: Kirsten Putnam is a 78 y.o. female who presents for No chief complaint on file.. [facility] Hospital follow up Was seen in ED [...] Ambulatory referral to Neurosurgery documented in this encounterBates County Memorial [id number] Instructions* Patient Instructions* Lyric Weston NP - 01/31/2024 2:00 PM EDT Referral sent to Neurosurgery- Dr. Dickey's office in [place]; They will call you! Give your body time to heal and recovery. Take it easy for the next few weeks. Rest Ice Compression Rotate between Tylenol and Ibuprofen for pain. Tylenol every 4-6 hours as needed for pain Ibuprofen every 8 hours as needed for pain. Shortness of breath, chest pain, wheezing, GO TO ER!!! documented in this encounterBates County Memorial [id number] History of Present illness Narrative* Lyric Weston NP - 01/17/2024 8:46 AM EDTAssociated Problem(s): Gastroesophageal reflux disease Currently taking Protonix 40mg Carafate 1g Feels symptoms are well controlled; Continue current regimen * Lyric Weston NP - 01/17/2024 8:46 AM EDTAssociated Problem(s): Hyperlipidemia (CMS/HCC) Currently taking Atorvastatin 20mg Denies any myalgias. Most recent Lipid Panel 10/2023- WNL Continue current regimen. * Lyric Weston NP - 01/17/2024 8:46 AM EDTAssociated Problem(s): HTN (hypertension) (CMS/HCC) Currently taking Lisinopril 10mg Checks BP at home; Averages are 120's/80's Denies orthostatic changes, dizziness, cough, shortness of breath, swelling in extremities. Continue current regimen. Given BP log, advised pt to record BP and bring log back with them to next visit. * Lyric Weston NP - 01/17/2024 8:30 AM EDT Images from the original note were not included. Subjective Patient ID: Kirsten Putnam is a 78 y.o. female who [...] ALBUMIN GLOBULIN RATIO 1.3 1.2 Resulting Agency [facility] GERD: Currently taking Protonix 40mg Feels symptoms [...] List Items Addressed This Visit HTN (hypertension) ([facility]) - Primary Currently taking Lisinopril 10mg Checks BP at home; Averages are 120's/80's Denies orthostatic changes, dizziness, cough, shortness of breath, swelling in extremities. Continue current regimen. Given BP log, advised pt to record BP and bring log back with them to next visit. Gastroesophageal reflux disease Currently taking Protonix 40mg Carafate 1g Feels symptoms are well controlled; Continue current regimen Hyperlipidemia ([facility]) Currently taking Atorvastatin 20mg Denies any myalgias. Most recent Lipid Panel 10/2023- WNL Continue current regimen. documented in this encounterBates County Memorial [id number] Instructions* Patient Instructions* Lyric Weston NP - 01/17/2024 8:30 AM EDT Your blood pressure is GOOD in the office today. Check your blood pressure at home 3 times per week, preferably in the afternoon. Goal <130/90. Record results in blood pressure log. Bring back with you to your next visit. Keep up the good work. Call if you need anything! documented in this encounterBates County Memorial HospitalVrmwsqxxga77-14-0647 Hospital Discharge instructions Patient Education 08/29/2023 09:32:39 [...] grapefruit, pineapple, and dali. Vegetables Deep-fried vegetables. [place] fries. Any vegetables prepared with added fat. [...] provider. Document Revised: 10/26/2020 Document Reviewed: 10/26/2020 [employer] Patient Education 2022 OrdrIt. Follow Up Care 03/01/2023 09:50:16 With:Brianna Pastor CNP Address: When:1 month [facility] 11-01-2023 Hospital Discharge instructions Patient [...] Bulgur wheat. Millet. Quinoa. Bran muffins. Popcorn. [place] wafer crackers. Meats and other proteins [place] beans, kidney beans, and gee beans. Soybeans. [...] Cream cheese. Sour cream. Fats and oils [place]. Beverages Soft drinks. Other foods Cakes and [...] provider. Document Revised: 08/20/2020 Document Reviewed: 08/20/2020 [employer] Patient Education 2022 OrdrIt. Follow Up Care 08/31/2022 10:04:40 With:Brianna Pastor CNP Address: When:6 months [facility] 05-03-2023 Hospital Discharge instructions Patient [...] grapefruit, pineapple, and dali. Vegetables Deep-fried vegetables. [place] fries. Any vegetables prepared with added fat. [...] provider. Document Revised: 10/26/2020 Document Reviewed: 10/26/2020 [employer] Patient Education 2022 [employer]. Follow Up Care 06/02/2022 10:08:57 With:Brianna Pastor CNP Address: When:6 months [facility] 02-02-2023 Hospital Discharge instructions Patient Education 06/02/2022 09:47:57 Food Choices for Gastroesophageal Reflux Disease, Adult Food Choices for Gastroesophageal Reflux Disease, Adult When you have gastroesophageal reflux disease (GERD), the foods you eat and your eating habits are very important. Choosing the right foods can help ease the discomfort of GERD. Consider working witha diet and technical services specialist (dietitian) to help you make healthy [...] Pastries or quick breads with added fat. [place]ib[place]ian toast. Vegetables Deep fried vegetables. [place]ian fries. Any vegetables prepared with added fat. [...] 04/17/2006 Document Revised: 08/08/2019 Document Reviewed: 04/18/2017 [employer]ocket[employer] Patient Education 2020 [employer]. Follow Up Care 03/11/2022 10:33:58 With:Brianna Pastor CNP Address: When:3 months [facility] 11-02-2022 Evaluation + Plan note Diagnostic Tests Pending * CBC w/ Auto Diff 03/02/22 * Comprehensive Metabolic Panel 03/02/22 * Celiac Disease Comprehensive 03/02/22 [facility]2022 Hospital Discharge instructions Patient Education 03/02/2022 [...] Follow these instructions at home: Medicines Take squf-gvn-kwrffiq and prescription medicines only as told by [...] Watch your condition for any changes. Take qnps-ute-xuyksgx and prescription medicines only as told by [...] 01/25/2006 Document Revised: 08/26/2019 Document Reviewed: 08/26/2019 [employer] Patient Education 2019 [employer]It. Follow Up Care 12/01/2021 12:46:09 With:Brianna Pastor CNP Address: When:3 months [facility] 08-03-2022 Hospital Discharge instructions Patient [...] Follow these instructions at home: Medicines Take pvfa-czm-ekkxmau and prescription medicines only as told by [...] Watch your condition for any changes. Take wpqj-cro-itkqevv and prescription medicines only as told by [...] 01/25/2006 Document Revised: 08/26/2019 Document Reviewed: 08/26/2019 [employer] Patient Education 2019 [employer]. Follow Up Care 08/12/2021 10:13:54 With:Brianna Pastor CNP Address: When:3 months [facility] 04-14-2022 Hospital Discharge instructions Patient [...] Follow these instructions at home: Medicines Take dyot-qia-wryugtn and prescription medicines only as told by [...] Watch your condition for any changes. Take snqs-kmr-fuafhje and prescription medicines only as told by [...] 01/25/2006 Document Revised: 08/26/2019 Document Reviewed: 08/26/2019 [employer] Patient Education 2020 [employer]It. Follow Up Care 08/02/2021 07:28:50 With:Brianna Pastor CNP Address: When:3 months [facility] evaluation + Plan note Future Appointments Appointment Date:11/11/2021 10:00:00 AM Scheduled Provider:Brianna Pastor CNP [place] [place] [facility] Appointment Type:[facility] Follow Up [facility] + Plan note Future Appointments Appointment Date:03/02/2022 10:00:00 AM Scheduled Provider:Brianna Pastor CNP [place] [place] [facility] Appointment Type:[facility] Follow Up Future Scheduled Tests Laboratory* CBC w/ Auto Diff 12/01/21 * Comprehensive Metabolic Panel 12/01/21 [facility] + Plan note Future Appointments Appointment Date:08/31/2022 09:20:00 AM Scheduled Provider:Brianna Pastor CNP [place] [place] [facility] Appointment Type:[facility] Follow Up [facility] + Plan note Future Appointments Appointment Date:03/01/2023 09:20:00 AM Scheduled Provider:Brianna Pastor CNP Location[place] [place] [facility] Appointment Type:[facility]ITAL Follow Up [facility] Evaluation + Plan note Future Appointments Appointment Date:08/30/2023 09:20:00 AM Scheduled Provider:Brianna Pastor CNP Location:[facility] [place] [facility] Appointment Type:BAD Follow Up [facility] Evaluation + Plan note Future Appointments Appointment Date:09/01/2023 09:00:00 AM Scheduled Provider: Location:.[facility] Appointment Type:US Abdominal/Pelvis () Appointment Date:09/26/2023 09:20:00 AM Scheduled Provider:Brianna Pastor CNP Location:[facility] [place] [facility] Appointment Type:[facility] Follow Up Future Scheduled Tests Radiology* US Abdomen, Limited 09/01/23 [facility] Evaluation + Plan note Future Appointments Appointment Date:09/26/2023 09:20:00 AM Scheduled Provider:Brianna Pastor CNP Location[place] [place] [facility] Type:[facility] Compression fracture of T6 vertebra with routine healing, subsequent encounter- Primary Closed traumatic nondisplaced fracture of rib [facility] Diagnosis Primary hypertension ([facility]/HCC)- Primary Unspecified essential hypertension Gastroesophageal reflux disease without esophagitis Esophageal reflux Hyperlipidemia, unspecified hyperlipidemia type ([facility]/HCC) Coronary artery disease involving unga coronary artery of unga heart without angina pectoris ([facility]) Encounter for Medicare annual wellness exam Hypothyroidism, unspecified type ([facility]/HCC) Non-recurrent acute suppurative otitis media of both ears without spontaneous rupture of tympanic membranes Primary hypertension (CMS/HCC)- Primary Unspecified essential hypertension Gastroesophageal reflux disease without esophagitis Esophageal reflux Hyperlipidemia, unspecified hyperlipidemia type (CMS/HCC) Hypothyroidism, unspecified type (CMS/HCC) Bacterial conjunctivitis of right eye Primary hypertension (CMS/HCC)- Primary Unspecified essential hypertension Hypothyroidism, unspecified type (CMS/HCC) Hyperlipidemia, unspecified hyperlipidemia type ([facility]/HCC) Encounter for screening colonoscopy Closed traumatic displaced [...] lumbar vertebra, initial encounter for closed fracture ([facility]) Female bladder prolapse documented [facility] Diagnosis Primary hypertension ([facility])- Primary Unspecified essential hypertension Mixed hyperlipidemia ([facility]) Mixed hyperlipidemia Gastroesophageal reflux disease without esophagitis Esophageal reflux documented in this encounter [facility]* Diagnosis Primary hypertension ([facility]/HCC)- Primary Unspecified essential hypertension Gastroesophageal reflux disease without esophagitis Esophageal reflux Hyperlipidemia, unspecified hyperlipidemia type ([facility]) Coronary artery disease involving unga coronary artery of unga heart without angina pectoris ([facility]) Encounter for Medicare annual wellness exam Hypothyroidism, unspecified type ([facility]) Non-recurrent acute suppurative otitis media of both ears without spontaneous rupture of tympanic membranes Primary hypertension ([facility])- Primary Unspecified essential hypertension Gastroesophageal reflux disease without esophagitis Esophageal reflux Hyperlipidemia, unspecified hyperlipidemia type ([facility]) Hypothyroidism, unspecified type ([facility]) Bacterial conjunctivitis of right eye Primary hypertension ([facility])- Primary Unspecified essential hypertension Hypothyroidism, unspecified type ([facility]) Hyperlipidemia, unspecified hyperlipidemia type ([facility]) Encounter for screening colonoscopy Closed traumatic displaced fracture of two ribs of left side with routine healing- Primary Primary hypertension ([facility])- Primary Unspecified essential hypertension Mixed hyperlipidemia ([facility]) Mixed hyperlipidemia Gastroesophageal reflux disease without esophagitis Esophageal reflux Compression fracture of T6 vertebra with routine healing, subsequent encounter- Primary Closed traumatic nondisplaced fracture of rib Screening for osteoporosis Special screening for osteoporosis Unspecified fracture of unspecified lumbar vertebra, initial encounter for closed fracture ([facility]) Primary hypertension ([facility]) Unspecified essential hypertension Hyperlipidemia, unspecified hyperlipidemia type ([facility]) Gastroesophageal reflux disease without esophagitis Esophageal reflux documented [facility] Diagnosis Primary hypertension ([facility])- Primary Unspecified essential hypertension Gastroesophageal reflux disease without esophagitis Esophageal reflux Hyperlipidemia, unspecified hyperlipidemia type ([facility]) Coronary artery disease involving unga coronary artery of unga heart without angina pectoris ([facility]) Encounter for Medicare annual wellness exam Hypothyroidism, unspecified type ([facility]) Non-recurrent acute suppurative otitis media of both ears without spontaneous rupture of tympanic membranes Primary hypertension (CMS/HCC)- Primary Unspecified essential hypertension Gastroesophageal reflux disease without esophagitis Esophageal reflux Hyperlipidemia, unspecified hyperlipidemia type (CMS/HCC) Hypothyroidism, unspecified type (CMS/HCC) Bacterial conjunctivitis of right eye Primary hypertension (CMS/HCC)- Primary Unspecified essential hypertension Hypothyroidism, unspecified type (CMS/HCC) Hyperlipidemia, unspecified hyperlipidemia type (CMS/HCC) Encounter for screening colonoscopy Primary hypertension (CMS/HCC)- Primary Unspecified essential hypertension Mixed hyperlipidemia (CMS/HCC) Mixed hyperlipidemia Gastroesophageal reflux disease without esophagitis Esophageal reflux Compression fracture of T6 vertebra with routine healing, subsequent encounter- Primary Closed traumatic nondisplaced fracture of rib Screening for osteoporosis Special screening for osteoporosis Unspecified fracture of unspecified lumbar vertebra, initial encounter for closed fracture (CMS/HCC) Primary hypertension ([facility]/HCC) Unspecified essential hypertension Hyperlipidemia, unspecified hyperlipidemia type (CMS/HCC) Gastroesophageal reflux disease without esophagitis Esophageal reflux Acute non-recurrent pansinusitis- Primary documented in this encounter [facility]* Diagnosis Onset Date Resolution Status Admit Date Benign essential hypertension acute January 23, 2025 8:54am Coronary artery disease involving unga coronary artery of unga heart wi acute 2024 8:54am Encounter for long-term (current) use of medications acute Dec 8:54am GERD (gastroesophageal reflu x disease) acute January 23, 2025 8:54am Hypothyroidism acute January 23, 2025 8:54am [facility] Work Phone: Hospital course Narrative No data available for this section [facility] Hospital Discharge instructions No data available for this section [facility] No data available for this section [facility] Reason for referral (narrative)* Consultation (Routine) - Pending Review Specialty Diagnoses / Procedures Referred By Nik t Referred To Contact Neurosurgery Diagnoses Compression fracture of T6 vertebra with routine healing, subsequent encounter Lyric Weston NP [address] [place] [address] José Luis Dickey MD [address] [address] Referral ID Status Reason Start Date Expiration Date Visits Requested Visits Authorized [id number] Pending Review Specialty Services Required 01/31/2024 07/29/2024 1 1 Scheduling Instructions Please include CT spine report YOBANI BaeRemary jane for referral (narrative)No reason for referral [facility] Work Phone: Summary Purpose Family History No Family History [...] FoundNo Family History Records Found Advance Directives Advance Directive Response Recorded Date/ Time Advance Directives No March 4:23pm Advance Directive Response Recorded Date/ Time Advance Directives No March 5:23pm Chief Complaint and Reason for Visit Chief Complaint Admit Date wedge compression fracture of T5-T6 Dece mb2023 9:31am S22.059A April 11, 2024 10:38am follow up compression fracture May 092024 10:37am Reason for Visit Admit Date T6 vertebral fracture April 11 9:31am Chief Complaint Admit Date Established Patient January 23, 2025 8:54am Reason for Visit Admit Date Benign essential hypertension January 23, 2025 8:54am Coronary artery disease invo lving unga coronary artery of unga heart wi January 23, 2025 8:54am Encounter for long-term (current) use of medications January 23, 2025 8:54am GERD (gastroesophageal reflux disease) S eptemb2024 8:54am Hypothyroidism January 23, 2025 8:54am Additional Source Comments Care Team (unrecognized sect ion and content) [employer] Relationship Specialty Start Date End Date Shaikh Bassett MD [address] [place] [address] PCP - General Internal Medicine 07/17/23 [employer] Relationship Specialty Start Date End Date Shaikh Bassett MD [address] [place] [address] PCP - General Internal Medicine 07/17/23 [employer] Relationship Specialty Start Date End Date Unallocated, Yobani Kong MD [address] [place] [address] PCP - General Family Medicine 02/21/24 Lyric Weston NP [address] [place] [address] Nurse Practitioner Family Medicine 02/21/24 [employer] Relationship Specialty Start Date End Date Shaikh Bassett MD [address] [place] [address] PCP - General Internal Medicine 07/17/23 [employer] Relationship Specialty Start Date End Date Shaikh Bassett MD [address] [place] [address] PCP - General Internal Medicine 07/17/23 [employer] Relationship Specialty Start Date End Date Johnson Herrera MD [address] [place] [address] PCP - General Family Medicine 02/29/24 Lyric Weston NP [address] [place] [address] Nurse Practitioner Family Medicine 02/21/24 [employer] Relationship Specialty Start Date End Date Johnson Herrera MD [address] [place] [phone] PCP - General Family Medicine 02/29/24 Lyric Weston NP [address] [place] [address] Nurse Practitioner Family Medicine 02/21/24 Team Status: Active Member Role Status Dates Lyric Weston PEOPLE MANAGER-C Primary Care Provider Ac tive Team Status: Inactive Member Role Status Dates Yari Voss APRN Attending Provider Active Start: April 11, 2024 End: April 11, 2024 Lyric Weston , PEOPLE MANAGER-C Primary Care Provider Ac tive Start: April 11, 2024 End: April 11, 2024 Team Status: Inactive Member Role Status Dates Lyric Weston PEOPLE MANAGER-C Primary Care Provider Ac tive Start: April 11, 2024 End: April 11, 2024 Yari Voss APRN Attending Provider Active Start: April 11, 2024 End: April 11, 2024 Team Status: Inactive Member Role Status Dates Lyric Weston , PEOPLE MANAGER-C Primary Care Provider Ac tive Start: May 09, 2024 End: May 09, 2024 Yari Voss APRN Attending Provider Active Start: May 09, 2024 End: May 09, 2024 [employer] Relationship Specialty Start Date End Date Johnson Herrera MD [address] [place] [phone] PCP - General Family Medicine 02/29/24 Lyric Weston NP [address] [place] [phone] Nurse Practitioner Family Medicine 02/21/24 [employer] Relationship Specialty Start Date End Date Johnson Herrera MD [address] [place] [phone] PCP - General Family Medicine 02/29/24 Lyric Weston NP [address] [place] [phone] Nurse Practitioner Family Medicine 02/21/24 [employer] Relationship Specialty Start Date End Date Johnson Herrera MD [address] [place] [address] PCP - General Family Medicine 02/29/24 Lyric Weston NP Nurse Practitioner Family Medicine 02/21/24 Team Status: Inactive Member Role Status Dates Lyric Weston NP-C Primary Care Provider Ac tive Start: January 23, 2025 End: January 23, 2025 Johnson Herrera MD Attending Provider Active Star t: January 23, 2025 End: January 23, 2025 INFORMATION SOURCE (unrecogn ized section and content) DATE CREATED AUTHOR [facility]2022 [facility] DATE CREATED AUTHOR AUTHOR'S ORGANIZ ATION 04/16/2024 [facility] DATE CREATED AUTHOR AUTHOR'S ORGANIZ ATION 05/02/2024 [facility] DATE CREATED AUTHOR AUTHOR'S ORGANIZ ATION 06/02/2024 [facility] DATE CREATED AUTHOR AUTHOR'S ORGANIZ ATION 07/24/2024 [facility] Special[facility] EPIC Reason for Visit [...] BE BASED ON THE PRIMARY CLINICAL RECORDS. [facility]. provides no warranty or guarantee of the accuracy or completeness of information in this document.
--- OUTSIDE RECORDS SUMMARY | 2025-01-23 10:20 | XMS_ITS | Encounter Summary ---
Author Organization [facility] Address [address] [place] [address] Care Team Providers Care Mixer Operator Helper Hot Metal Name Role Phone Shaikh REJI Bassett Primary Care Provider [phone] Stefany Weston PASTRY SOUS CHEF Unavailable [phone] Unallocated, Priscilla Provider Primary Care Provi mone Johnson Wesley MD Primary Care Provider [phone] Encounter Details Date Type Department Care Team (Late st Contact Info) Description 12/11/2023 Orders Only [facility] [address] [facility] [place] [address] Chet Gamez MD [address], [place] [id number] Social History Tobacco Use Types Packs/Day Years [...] How often do you attend chur or anabaptist services? More than 4 times per year 04/10/2023 Do you belong to any clubs o r organizations such as protestant groups, unions, fraternal or athletic groups, or [...] Date Recorded Patient Health Questionnaire-2 Score 0 12/13/2023 [facility] - Occupational Stress [...] place to sleep or slept in a fci (including now)? No 04/10/2023 Comments Unknown Sex and Gender Information Value Date Recorded Sex Assigned at Not on file Legal Sex Female 6:53 PM EDT Gender Identity Not on file Sexual Orientation Not on file documented as of this encounter Functional Status * Over the past 2 weeks, how often have you been bothered by any of the following problems? Question Answer Date of Assessment Author Little interest or pleasure in doing things Not at all 12/13/2023 2:31 PM EDT Sukhdev Fernandez M A Feeling down, depressed, or hopeless Not at all 12/13/2023 2:31 PM EDT Sukhdev Fernandez M A Patient Health Questionnaire -2 Score 0 12/13/2023 2:31 PM EDT Sukhdev Fernandez M A documented as of this encounter Plan of Treatment Not on file documented as of this encounter Procedures Procedure Name Priority Date/Time Associated Diagnosis Comments XR RIBS BL 3 VIEW Routine 12/11/2023 1:56 PM EDT documented in this encounter Results * XR RIBS BL 3 VIEW (12/11/2023 1:56 PM EDT) Anatomical Region Laterality Modality Radiographic Vicenta ging us Chet Gamez MD IMG XR PROCEDURES Final Resul t documented in this encounter Visit Diagnoses Not on filedocumented in this encounter Additional Health Concerns Assessment Noted Time PHQ-9 Depression Total Score: 1 04/10/20 10:35 AM EST documented as of this encounter Care Teams Mixer Operator Helper Hot Metal Relationship Specialty Start Date End Date Shaikh Bassett MD [address] [place] [address] PCP - General Internal Medicine 07/17/23 02/20/24 Unallocated, Priscilla Kong MD [address] [place] [address] PCP - General Family Medicine 02/21/24 02/28/24 Johnson Wesley MD [address] [place] [address] PCP - General Family Medicine 02/29/24 Stefany Weston NP [address] [place] [address] Nurse Practitioner Family Medicine 02/21/24 07/22/24 documented as of this encounter
--- OUTSIDE RECORDS SUMMARY | 2025-01-23 10:20 | XMS_ITS | Clinical Summary ---
Author Organization [email or web address] tem Address [id number] [address] [place] [address] Care Team Providers Care Online Marketer Name Role Phone Shaikh REJI Bassett Primary Care Provider Allergies Active Allergy Reactions Criticality Noted Date Comments Meperidine Other (See Comments) 04/18/2014 Medications coenzyme Q10 10 mg capsule Co Q-10 200mg QD Active atorvastatin (LIPITOR) 40 mg tablet atorvastatin 40 mg tablet Active pantoprazole (PROTONIX) 40 mg EC tablet pantoprazole 40 mg tablet,delayed release Active atenolol (TENORMIN) 25 mg tablet atenolol 25 mg tablet Active lisinopriL (PRINIVIL,ZESTR IL) 10 mg tablet Take 10 mg by mouth in the morning. Active sucralfate (CARAFATE) 1 gram tablet Take 1 g by mouth in the morning and 1 g at noon and 1 g in the evening and 1 g before bedtime. Active Active Problems Problem Noted Date Diagnosed Date Left lower quadrant abdominal pain 02/17/2019 Immunizations Immunization Administration Dates Next Due Tdap 01/26/2022 Family History Medical History Relation Name Comments Heart disease Brother COPD Father Cancer Mother Kidney disease Mother Thyroid disease Mother Heart disease Sister Relation Name Status Comments Brother Father Mother Sister Social History Tobacco Use Types Packs/Day Years Used Date Smoking Tobacco: Never Smokeless Tobacco: Never Alcohol Use Standard Drinks/Week Comments Not Currently 0 (1 standard drink = 0.6 oz pur e alcohol) Childcare Answer Date Recorded Childcare Unknown 10/10/2018 Employment Answer Date Recorded Employment Unknown 10/10/2018 Purpose - Life Answer Date Recorded Purpose and direction in life Unknown Comments No Sex and Gender Information Value Date Recorded Sex Assigned at Not on file Legal Sex Female 11:36 AM EDT Gender Identity Not on file Sexual Orientation Not on file Last Filed Vital Signs Vital Sign Reading Time Taken Comments Blood Pressure 131/77 01/26/2022 11:27 AM EDT Pulse 65 01/26/2022 11:27 AM EDT Temperature 36.4 C (97.5 F) 01/26/2022 11:27 AM EDT Respiratory Rate 20 01/26/2022 11:27 AM EDT Oxygen Saturation 96% 01/26/2022 11:27 AM EDT Inhaled Oxygen Concentration - - Weight 72.6 kg (160 lb) 01/26/2022 11:27 AM EDT Height 162.6 cm (5' 4 ) 01/26/2022 11:27 AM EDT Body Mass Index 27.46 01/26/2022 11:27 AM EDT Plan of Treatment Health Maintenance Due Date Last Done Comments Depression Screening 1957 Tobacco Screening 1957 Zoster (Shingles) Vaccine (1 of 2) 1996 Fall Risk Screening 07/14/2011 Influenza Vaccine 12/30/2024 DTaP,Tdap and Td Vaccines (2 - Td or Tdap) 01/27/2032 01/26/2022 Medical Devices Implanted Type Area Therapeutic Sales Specialist Device Identifier Shelf Expiration Date Model / Serial / Lot Lens Iol Ultrasert 21.5d - [id number] - [id number] Implanted:Qty: 1 on 12/28/2021 by Lata Nava MD at [facility] Lens Right: [employer] 09/27/2024 [id number] 21.5 / [id number] / Insurance MEDICARE COMMERCIAL Advance Directives * Limited Code Status [place] (Latest Code Status on File) Date Activated Date Inactivated Comments 02/17/2019 3:15 PM 02/19/2019 1:25 PM Care Teams Online Marketer Relationship Specialty Start Date End Date Shaikh Bassett MD PCP - General Internal Medicine 12/14/21
--- OUTSIDE RECORDS SUMMARY | 2025-01-23 10:20 | XMS_ITS | Encounter Summary ---
Author Organization [facility] Address [address] [place] [address] Care Team Providers Care Sap Plant Maintenance Consultant Name Role Phone Johnson Wesley MD Primary Care Provider [phone] Encounter Details Date Type Department Care Team (Late st Contact Info) Description 10/14/2024 Orders Only [facility] [address] [place] [address] Johnson Wesley MD [address] [place] [id number] Social History Tobacco Use Types Packs/Day Years [...] often do you attend chur ch or taoism services? More than 4 times per year 04/10/2023 Do you belong to any clubs o r organizations such as yazdanism groups, unions, fraternal or athletic groups, or [...] Recorded Patient Health Questionnaire-2 Score 0 07/23/2024 [facility] [...] place to sleep or slept in a nursing home (including now)? No 04/10/2023 Comments No Sex and Gender Information Value Date Recorded Sex Assigned at Not on file Legal Sex Female 6:53 PM EDT Gender Identity Not on file Sexual Orientation Not on file documented as of this encounter Plan of Treatment Not on file documented as of this encounter Procedures Procedure Name Priority Date/Time Associated Diagnosis Comments XR THORACIC SPINE 2 VIEWS Routine 10/14/2024 1:09 PM EDT documented in this encounter Results * XR thoracic spine 2 views (10/14/2024 1:09 PM EDT) Anatomical Region Laterality Modality Spine, T-spine Radiographic Vicenta ging Johnson Wesley MD IMG XR PROCEDURES Final Result documented in this encounter Visit Diagnoses Not on filedocumented in this encounter Additional Health Concerns Assessment Noted Time PHQ-9 Depression Total Score: 1 07/24/19 25 2:00 PM EDT documented as of this encounter Care Teams Sap Plant Maintenance Consultant Relationship Specialty Start Date End Date Johnson Wesley MD PCP - General Family Medicine 02/29/24 documented as of this encounter
[2025-01-23 10:37] LABS: Hematocrit 46.1 % (36.0-48.0); Hemoglobin 14.7 g/dL (12.0-16.0); Immature Granulocytes Abs Auto 0.03 10^3/uL (0.00-0.03); Immature Granulocytes Pct Auto 0.4 % (0.0-0.5); Lymphocytes Absolute Auto 1.4 10^3/uL (1.2-3.8); Mean Corpuscular HGB Conc 31.9 g/dL (29.9-35.2); Mean Corpuscular Hemoglobin 25.8 pg (26.7-34.0); Mean Corpuscular Volume 81.0 fL (81.0-99.0); Platelet Count 609 10^3/uL (150-450); Red Blood Count 5.69 10^6/uL (4.20-5.40); White Blood Count 7.2 10^3/uL (4.0-11.0)
[2025-01-23 11:23] LABS: Alanine Aminotransferase 33 U/L (14-59); Albumin Globulin Ratio 1.3; Albumin Level 4.4 g/dL (3.4-5.0); Alkaline Phosphatase 78 U/L (46-116); Anion Gap 10.2; Aspartate Amino Transferase 26 U/L (15-37); Blood Urea Nitrogen 10.0 mg/dL (7.0-18.0); Calcium 9.7 mg/dL (8.5-10.1); Carbon Dioxide 29.8 mmol/L (21.0-32.0); Chloride 101 mmol/L (98-107); Cholesterol 192 mg/dL (<=200); Estimated GFR (African America >60 (>=60 mL/min/1.73m^2); Estimated GFR (Non-African Ame >60 (>=60 mL/min/1.73m^2); Globulin 3.4 g/dL; Glucose 96 mg/dL (74-106); HDL Cholesterol 59 mg/dL (40-60); Potassium 4.0 mmol/L (3.5-5.1); Sodium 137 mmol/L (136-145); Thyroid Stimulating Hormone 4.164 uIU/mL (0.358-3.740); Total Protein 7.8 g/dL (6.4-8.2); Triglycerides 153 mg/dL (<=150); VLDL CHOLESTEROL 30.6 mg/dL
== END 2025-01-23 10:15 | disposition home or self-care (01) ==
LOC: LAB 10:16
PROVIDERS: PCP Family Medicine; Visit Provider Family Medicine
DX: Z79.899 Other long term (current) drug therapy (principal); E03.9 Hypothyroidism, unspecified; E78.5 Hyperlipidemia, unspecified
CPT/HCPCS: 36415; 80053; 80061; 84439; 84443; 85025